=== PATIENT | male | born 1940 | race African-American/Black ===

== ENCOUNTER → 2016-07-05 | Outpatient (CLI) | payer MEDICARE, BC ==
[2016-05-22 10:43] VITALS: BP 166/64
[~2016-07-05] MED LIST: ALPR0.5T PO; AMLO2.5T2 PO; BUDE10.2 IH; CHOL500021 PO; DABI150C PO; DABI75CA3 PO; FOLI0.4T2 PO; FURO40TA4 PO; HYDR-2868 PO; HYDR-971 PO; LABE200T2 PO; LISI2.5T PO; LORA0.5T PO; METO25TA4 PO; MONT10TA9 PO; POTA10TA10 PO; PRED-220 PO; PROAIR HFA8.5 GM IH; RANI300T3 PO; RANI75TA95 PO; SODI650T PO; SOTA80TA PO; VALS320T2 PO
--- NOTE | 2016-07-05 16:43 | CARD ---
APPROVED REPORT EXAM: Two-dimensional and M-mode echocardiogram with Doppler and color Doppler. Other Information Quality : GoodHR: 75bpm Rhythm : Atrial Fibrillation INDICATION Atrial Fibrillation RISK FACTORS Hypertension 2D DIMENSIONS RVDd2.9 (2.9-3.5cm)Left Atrium(2D)4.2 (1.6-4.0cm) IVSd0.7 (0.7-1.1cm)Aortic Root(2D)2.8 (2.0-3.7cm) LVDd5.6 (3.9-5.9cm)LVOT Diameter2.4 (1.8-2.4cm) PWd0.7 (0.7-1.1cm)LVDs3.3 (2.5-4.0cm) FS (%) 40.3 %SV106.7 ml Aortic Valve AoV Peak Trevin.137.7cm/sAoV VTI24.4cm AO Peak GR.7.6mmHgLVOT Peak Trevin.101.5cm/s AO Mean GR.5mmHgAVA (VMAX)3.25cm2 Mitral Valve MV E Peak Gr.152mmHgMV E Mean Gr.2mmHg Pulmonary Valve PV Peak Cxkmhxvc074.9cm/s Tricuspid Valve TR P. [id number]/sTR Peak Gr.36mmHg LEFT VENTRICLE The left ventricle is normal size. There is normal left ventricular wall thickness. The left ventricu lar systolic function is normal and the ejection fraction is within normal range. The Ejection Fracti on is 60-65%. There is normal LV segmental wall motion. RIGHT VENTRICLE The right ventricle is normal size. There is normal right ventricular wall thickness. The right ventr icular systolic function is normal. There is a device lead in the right atrium and ventricle. ATRIA The left atrium is moderately dilated. The right atrium is mildly dilated. The interatrial septum is intact with no evidence for an atrial septal defect or patent foramen ovale as noted on 2-D or Dopple r imaging. AORTIC VALVE The aortic valve is calcified but opens well. The aortic valve is trileaflet. Doppler and Color Flow revealed trace aortic regurgitation. There is no significant aortic valvular stenosis. MITRAL VALVE The mitral valve is normal in structure. The mitral valve leaflets are thickened. There is no mitral valve stenosis. Doppler and Color Flow revealed moderate mitral regurgitation. TRICUSPID VALVE The tricuspid valve is normal in structure and function. Doppler and Color Flow revealed mild tricusp id regurgitation. The pulmonary artery systolic pressure is estimated at 38 mmHg. PULMONIC VALVE The pulmonary valve is normal in structure and function. Doppler and Color Flow revealed mild pulmoni c valvular regurgitation. There is no pulmonic valvular stenosis. GREAT VESSELS The aortic root is normal in size. The ascending aorta is normal in size. The pulmonary artery is nor mal. The IVC is normal in size and collapses >50% with inspiration. PERICARDIAL EFFUSION There is no pleural effusion. There is no evidence of significant pericardial effusion. Critical Notification Critical Value: No <Conclusion> The left ventricle is normal size. The left ventricular systolic function is normal and the ejection fraction is within normal range. The Ejection Fraction is 60-65%. There is a device lead in the right atrium and ventricle. There is no significant aortic valvular stenosis. Doppler and Color Flow revealed trace aortic regurgitation. Doppler and Color Flow revealed moderate mitral regurgitation. Doppler and Color Flow revealed mild tricuspid regurgitation. The pulmonary artery systolic pressure is estimated at 38 mmHg.
== END | disposition home or self-care (01) ==
LOC: ECHO 12:58
PROVIDERS: ATTEND Internal Medicine Cardiovascular Disease
DX: I48.0 Paroxysmal atrial fibrillation (principal); I35.1 Nonrheumatic aortic (valve) insufficiency; I70.0 Atherosclerosis of aorta; I34.0 Nonrheumatic mitral (valve) insufficiency; I07.1 Rheumatic tricuspid insufficiency; I37.1 Nonrheumatic pulmonary valve insufficiency
CPT/HCPCS: 93306

== ENCOUNTER 2017-02-01 16:32 | Inpatient (IN) | payer MEDICARE, BC ==
[~2017-02-01] VITALS: Ht 185.4 cm; Wt 74.9 kg
[~2017-02-01 16:32] MED LIST changes: -POTA10TA10 PO; +POTA10TA12 PO; -SOTA80TA PO; +SOTA80TA48 PO
[2017-02-01 17:51] LABS: BILIRUBIN,URINE NEGATIVE (NEG); GLUCOSE,URINE 100 mg/dL (NEG); NITRITE,URINE NEGATIVE (NEG); PROTEIN,URINE 100 mg/dL (NEG-TRACE); UROBILINOGEN,URINE 0.2 mg/dL (0.2 mg/dL)
[2017-02-01 17:54] LABS: BASO % 1 % (0-3); EOS % 4 % (0-3); HEMATOCRIT 35.3 % (39.0-53.0); HEMOGLOBIN 11.5 g/dL (13.0-17.5); LYMPH # 1.2 x10^3/uL (1.0-4.8); LYMPH % 26 % (24-48); MEAN CORPUSCULAR HEMOGLOBIN 31 pg (25-35); MEAN CORPUSCULAR HGB CONC 33 g/dL (31-37); MEAN CORPUSCULAR VOLUME 94 fL (79-100); MONO % 13 % (0-9); NEUT % 56 % (31-73); PLATELET COUNT 165 x10^3/uL (140-400); RED BLOOD COUNT 3.76 x10^6/uL (4.30-5.70); WHITE BLOOD COUNT 4.6 x10^3/uL (4.0-11.0)
[2017-02-01 18:01] LABS: BACTERIA,URINE 0 /HPF (0-FEW); RBC,URINE OCC /HPF (0-2); SQUAMOUS EPITHELIAL CELL,UR OCC /LPF; WBC,URINE OCC /HPF (0-4)
[2017-02-01 18:08] LABS: CALCIUM 9.4 mg/dL (8.5-10.1); CREATININE 9.5 mg/dL (0.7-1.3); GFR 6.5
[2017-02-01 18:14] LABS: ALBUMIN 2.6 g/dL (3.4-5.0); ALBUMIN/GLOBULIN RATIO 0.6 (1.0-1.7); TOTAL BILIRUBIN 0.3 mg/dL (0.2-1.0); TOTAL PROTEIN 7.1 g/dL (6.4-8.2)
--- NOTE | 2017-02-01 20:45 | ED.ADGEN ---
Past Medical History Past Medical History: Anxiety, Asthma, GERD, Hypertension, Renal Failure, Other Additional Past Medical Histor: GOUT Past Surgical History: Pacemaker Alcohol Use: Rarely Drug Use: None Adult General Chief Complaint Chief Complaint: DEHYDRATION HPI HPI Patient is a 76 year old -[place] male with history of hypertension, end-stage renal disease on daily peritoneal dialysis who presents with generalized weakness, dizziness, malaise and near syncope. Symptoms are worse upon standing and with position change. Patient symptoms have been ongoing for the past 3 weeks and have been worse the past 2 days. Patient denies chest pain , shortness of breath, palpitations, headache, change of vision, focal extremity weakness or loss of sensation. He denies fever, chills, nausea, vomiting and sweats. Patient makes urine to 3 times daily and denies change in output. Urinary frequency urgency. Patient reports peritoneal equal volumes of pre and post dialysate volumes. Patient's marketing coordinator is Dr. Roa. Review of Systems Review of Systems ROS as per HPI. Allergies Allergies Allergies Coded Allergies Type Severity Reaction Last Updated Verified No Known Drug Allergies 05/22/16 No Physical Exam Physical Exam Constitutional: Well developed, well nourished, no acute distress, non-toxic appearance. [] HENT: Normocephalic, atraumatic, bilateral external ears normal, oropharynx moist, no oral exudates, nose normal. [] Eyes: PERRLA, EOMI, conjunctiva normal, no discharge. [] Neck: Normal range of motion, no tenderness, supple, no stridor. [] Cardiovascular:Heart rate regular rhythm, no murmur [] Lungs & Thorax: Bilateral breath sounds clear to auscultation [] Abdomen: Bowel sounds normal, soft, no tenderness, no masses, no pulsatile masses. [] Skin: Warm, dry, no erythema, no rash. [] Back: No tenderness, no CVA tenderness. [] Extremities: No tenderness, no cyanosis, no clubbing, ROM intact, no edema. [] Neurologic: Alert and oriented X 3, normal motor function, normal sensory function, no focal deficits noted. [] Psychologic: Affect normal, judgement normal, mood normal. [] Current Patient Data Vital Signs Vital Signs Date Time Temp Pulse Resp B/P (MAP) Pulse Ox O2 Delivery O2 Flow Rate FiO2 02/01/17 20:45 60 169/89 (115) 98 Room Air 02/01/17 16:35 98.2 16 98.2 Lab Values Laboratory Tests Test 02/01/17 17:07 02/01/17 17:41 02/01/17 17:55 White Blood Count 4.6 x10^3/uL (4.0-11.0) Red Blood Count 3.76 x10^6/uL (4.30-5.70) L Hemoglobin 11.5 g/dL (13.0-17.5) L Hematocrit 35.3 % (39.0-53.0) L Mean Corpuscular Volume 94 fL (79-100) Mean Corpuscular Hemoglobin 31 pg (25-35) Mean Corpuscular Hemoglobin Concent 33 g/dL (31-37) Red Cell Distribution Width 18.0 % (11.5-14.5) H Platelet Count 165 x10^3/uL (140-400) Neutrophils (%) (Auto) 56 % (31-73) Lymphocytes (%) (Auto) 26 % (24-48) Monocytes (%) (Auto) 13 % (0-9) H Eosinophils (%) (Auto) 4 % (0-3) H Basophils (%) (Auto) 1 % (0-3) Neutrophils # (Auto) 2.6 x10^3uL (1.8-7.7) Lymphocytes # (Auto) 1.2 x10^3/uL (1.0-4.8) Monocytes # (Auto) 0.6 x10^3/uL (0.0-1.1) Eosinophils # (Auto) 0.2 x10^3/uL (0.0-0.7) Basophils # (Auto) 0.0 x10^3/uL (0.0-0.2) Urine Color Yellow Urine Clarity Clear Urine pH 7.0 Urine Specific [place] 1.015 Urine Protein 100 mg/dL (NEG-TRACE) Urine Glucose (UA) 100 mg/dL (NEG) Urine Ketones (Stick) Negative mg/dL (NEG) Urine Blood Negative (NEG) Urine Nitrite Negative (NEG) Urine Bilirubin Negative (NEG) Urine Urobilinogen Dipstick 0.2 mg/dL (0.2 mg/dL) Urine Leukocyte Esterase Negative (NEG) Urine RBC Occ /HPF (0-2) Urine WBC Occ /HPF (0-4) Urine Squamous Epithelial Cells Occ /LPF Urine Bacteria 0 /HPF (0-FEW) Sodium Level 142 mmol/L (136-145) Potassium Level 4.0 mmol/L (3.5-5.1) Chloride Level 105 mmol/L (98-107) Carbon Dioxide Level 28 mmol/L (21-32) Anion Gap 9 (6-14) Blood Urea Nitrogen 59 mg/dL (8-26) H Creatinine 9.5 mg/dL (0.7-1.3) H Estimated GFR (Cockcroft-Gault) 6.5 BUN/Creatinine Ratio 6 (6-20) Glucose Level 115 mg/dL (70-99) H Calcium Level 9.4 mg/dL (8.5-10.1) Total Bilirubin 0.3 mg/dL (0.2-1.0) Aspartate Amino Transferase (AST) 20 U/L (15-37) Alanine Aminotransferase (ALT) 18 U/L (16-63) Alkaline Phosphatase 61 U/L (46-116) Total Protein 7.1 g/dL (6.4-8.2) Albumin 2.6 g/dL (3.4-5.0) L Albumin/Globulin Ratio 0.6 (1.0-1.7) L Laboratory Tests 02/01/17 17:07 Laboratory Tests 02/01/17 17:55 EKG EKG [EKG: A. fib, right axis deviation, bifascicular block, ventricular rate 60.] Radiology/Procedures Radiology/Procedures [] Course & Med Decision Making Course & Med Decision Making Pertinent Labs and Imaging studies reviewed. (See chart for details) [Patient with dizziness with near syncope prior to arrival. Patient with acute on chronic kidney failure with orthostatic dizziness. Case reviewed with Dr. Lopez communications consultant for nephrology. Recommendations are for IV fluids, hospital admission and nephrology consult in a.m.. Dr. Meyer to admit. ] Geronimo Disclaimer Geronimo Disclaimer This electronic medical record was generated, in whole or in part, using a voice recognition dictation system. KHAI BENITEZ DO Feb 01, 2017 20:45
[2017-02-01] MEDS ORDERED: ONDANSETRON PF 4 MG/2 ML VIAL. IV PRN (21:45)
[2017-02-01] MEDS ORDERED: IV NORMAL SALINE 1000ML BAG 1,000 ML IV ONE (22:00)
[2017-02-02] VITALS (8 sets, daily range): BP systolic 151–186; BP diastolic 84–95
[2017-02-02] MEDS ORDERED: ALLO100T PO (01:15)
[2017-02-02] MEDS ORDERED: SEVE800T9 PO (01:15)
[2017-02-02] MEDS ORDERED: GENT3.5O7 (01:15)
[2017-02-02] MEDS ORDERED: FURO80TA3 PO (01:15)
[2017-02-02] MEDS ORDERED: DILT240C4 PO (01:15)
[2017-02-02] MEDS ORDERED: ATEN100T PO (01:15)
--- NOTE | 2017-02-02 06:26 | EKG ---
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
[2017-02-02 06:49] LABS: BASO % 0 % (0-3); EOS % 4 % (0-3); HEMOGLOBIN 11.3 g/dL (13.0-17.5); LYMPH # 1.1 x10^3/uL (1.0-4.8); LYMPH % 26 % (24-48); MEAN CORPUSCULAR HEMOGLOBIN 31 pg (25-35); MEAN CORPUSCULAR HGB CONC 33 g/dL (31-37); MEAN CORPUSCULAR VOLUME 93 fL (79-100); MONO % 16 % (0-9); NEUT % 54 % (31-73); PLATELET COUNT 141 x10^3/uL (140-400); RED BLOOD COUNT 3.67 x10^6/uL (4.30-5.70); WHITE BLOOD COUNT 4.4 x10^3/uL (4.0-11.0)
[2017-02-02 07:05] LABS: CALCIUM 9.8 mg/dL (8.5-10.1); CREATININE 8.9 mg/dL (0.7-1.3); POTASSIUM 4.4 mmol/L (3.5-5.1)
[2017-02-02] MEDS ORDERED: HYDROcodone/APAP 5/325MG 1 TAB TABLET PO PRN (09:00)
[2017-02-02] MEDS ORDERED: hydrALAZINE 20 MG/ML VIAL. IVP PRN (09:00)
[2017-02-02] MEDS ORDERED: ONDANSETRON PF 4 MG/2 ML VIAL. IV PRN (09:00)
[2017-02-02] MEDS ORDERED: MORPHINE SULFATE 2 MG/ML DISP.SYRIN. IV PRN (09:00)
[2017-02-02] MEDS: LOSARTAN POTASSIUM 50 MG TABLET. PO SCH (10:29)
[2017-02-02] MEDS: MONTELUKAST SODIUM 10 MG TABLET. PO SCH (10:31)
[2017-02-02] MEDS: ALLOPURINOL 100 MG TABLET. PO SCH (10:31)
[2017-02-02] MEDS: ATENOLOL 50 MG TABLET. PO SCH (10:31)
[2017-02-02] MEDS ORDERED: ALBUTEROL SULFATE 2.5 MG/3 ML NEBU. NEB PRN (12:15)
--- NOTE | 2017-02-02 12:18 | PDOC1 ---
History and Physical Date of Admission Date of Admission 02/02/17 Identification/Chief Complaint Chief Complaint weakness, unsteady gait Problems: Source Source: Chart review, Patient History of Present Illness History of Present Illness HPI HPI Patient is a 76 year old -[place] male with history of hypertension, end-stage renal disease on PD came to ER for generalized weakness. Very independent living at home with . Pt said he has been feeling generalized weakness for weeks, feels dehydrated, lightheaded, unsteady gait. Denies syncope. He did fall at home a few times, said 2/2 weakness and trippling objects. has mild cough, denies sob, chest pain, fever, chills, diarrhea. chronic constipation. + weight loss with low po intake recently. Still has urine output, but cannot tell me how much daily. he was told to Come to ER since Cr is high at 9. Patient's hiv nurse is Dr. Roa. h/o afib, has PPM, not AC. Past Medical History Cardiovascular: AFIB, HTN, Other Pulmonary: COPD, Other GI: GERD Heme/Onc: Anemia NOS Rheumatologic: Gout Renal/: Chronic renal insuff, Prostate Ca. Past Surgical History Past Surgical History: No pertinent history Family History Family History: Hypertension Social History Smoke: No ALCOHOL: occassional Drugs: None Current Medications Current Medications Current Medications Medications (Trade) Dose Ordered Sig/Pete Start Time Stop Time Status Last Admin Dose Admin Acetaminophen (Tylenol) 650 mg PRN Q6HRS PRN 02/02/17 09:00 Acetaminophen/ Hydrocodone Bitart (Lortab 5/325) 1 tab PRN Q6HRS PRN 02/02/17 09:00 Allopurinol (Zyloprim) 75 mg DAILY 02/02/17 09:00 02/02/17 10:31 75 MG Atenolol (Tenormin) 100 mg DAILY 02/02/17 10:00 02/02/17 10:31 100 MG Diltiazem HCl (Cardizem 24hr Cd) 240 mg DAILY 02/02/17 10:00 02/02/17 10:30 240 MG Docusate Sodium (Colace) 100 mg PRN DAILY PRN 02/02/17 09:00 Hydralazine HCl (Apresoline) 10 mg PRN Q4HRS PRN 02/02/17 09:00 Lorazepam (Ativan) 0.5 mg PRN Q8HRS PRN 02/02/17 09:00 Losartan Potassium (Cozaar) 100 mg DAILY 02/02/17 10:00 02/02/17 10:29 100 MG Montelukast Sodium (Singulair) 10 mg DAILY 02/02/17 09:00 02/02/17 10:31 10 MG Morphine Sulfate 2 mg PRN Q2HR PRN 02/02/17 09:00 Ondansetron HCl (Zofran) 4 mg PRN Q6HRS PRN 02/02/17 09:00 Sevelamer Carbonate (Renvela) 800 mg TIDWMEALS 02/02/17 12:00 Sodium Chloride 1,000 ml @ 125 mls/hr 1X ONCE 02/01/17 22:00 02/02/17 05:59 DC 02/01/17 22:16 125 MLS/HR Tramadol HCl (Ultram) 50 mg PRN Q6HRS PRN 02/02/17 09:00 Allergies Allergies Allergies Coded Allergies Type Severity Reaction Last Updated Verified No Known Drug Allergies 05/22/16 No ROS Review of System CONSTITUTIONAL: No fever or chills EYES: No recent changes SKIN: No rash or itching CARDIOVASCULAR: No chest pain, syncope, palpitations, or edema RESPIRATORY: No SOB or cough GASTROINTESTINAL: No nausea, vomiting or abdominal pain NEUROLOGICAL: No headaches or weakness ENDOCRINE: No cold or heat intolerance GENITOURINARY: No urgency or frequency of urination MUSCULOSKELETAL: No back pain or joint pain LYMPHATICS: No enlarged lymph nodes PSYCHIATRIC: No anxiety or depression Physical Exam Physical Exam GEN.: No apparent distress. Alert and oriented. HEENT: Head is normocephalic, atraumatic NECK: Supple. LUNGS: Clear to auscultation. HEART: RRR, S1, S2 present. Peripheral pulses intact ABDOMEN: Soft, nontender. Positive bowel sounds. PD cath in place. EXTREMITIES: Without any cyanosis. NEUROLOGIC: Normal speech, normal tone PSYCHIATRIC: Normal affect, normal mood. SKIN: No ulcerations Vitals Vitals Vital Signs Date Time Temp Pulse Resp B/P (MAP) Pulse Ox O2 Delivery O2 Flow Rate FiO2 02/02/17 10:35 60 151/95 (113) 02/02/17 10:25 98.7 18 97 Room Air 98.7 Labs Labs Laboratory Tests Test 02/01/17 17:07 02/01/17 17:41 02/01/17 17:55 02/02/17 06:15 White Blood Count 4.6 x10^3/uL (4.0-11.0) 4.4 x10^3/uL (4.0-11.0) Red Blood Count 3.76 x10^6/uL (4.30-5.70) 3.67 x10^6/uL (4.30-5.70) Hemoglobin 11.5 g/dL (13.0-17.5) 11.3 g/dL (13.0-17.5) Hematocrit 35.3 % (39.0-53.0) 34.0 % (39.0-53.0) Mean Corpuscular Volume 94 fL (79-100) 93 fL (79-100) Mean Corpuscular Hemoglobin 31 pg (25-35) 31 pg (25-35) Mean Corpuscular Hemoglobin Concent 33 g/dL (31-37) 33 g/dL (31-37) Red Cell Distribution Width 18.0 % (11.5-14.5) 18.0 % (11.5-14.5) Platelet Count 165 x10^3/uL (140-400) 141 x10^3/uL (140-400) Neutrophils (%) (Auto) 56 % (31-73) 54 % (31-73) Lymphocytes (%) (Auto) 26 % (24-48) 26 % (24-48) Monocytes (%) (Auto) 13 % (0-9) 16 % (0-9) Eosinophils (%) (Auto) 4 % (0-3) 4 % (0-3) Basophils (%) (Auto) 1 % (0-3) 0 % (0-3) Neutrophils # (Auto) 2.6 x10^3uL (1.8-7.7) 2.3 x10^3uL (1.8-7.7) Lymphocytes # (Auto) 1.2 x10^3/uL (1.0-4.8) 1.1 x10^3/uL (1.0-4.8) Monocytes # (Auto) 0.6 x10^3/uL (0.0-1.1) 0.7 x10^3/uL (0.0-1.1) Eosinophils # (Auto) 0.2 x10^3/uL (0.0-0.7) 0.2 x10^3/uL (0.0-0.7) Basophils # (Auto) 0.0 x10^3/uL (0.0-0.2) 0.0 x10^3/uL (0.0-0.2) Urine Color Yellow Urine Clarity Clear Urine pH 7.0 Urine Specific [place] 1.015 Urine Protein 100 mg/dL (NEG-TRACE) Urine Glucose (UA) 100 mg/dL (NEG) Urine Ketones (Stick) Negative mg/dL (NEG) Urine Blood Negative (NEG) Urine Nitrite Negative (NEG) Urine Bilirubin Negative (NEG) Urine Urobilinogen Dipstick 0.2 mg/dL (0.2 mg/dL) Urine Leukocyte Esterase Negative (NEG) Urine RBC Occ /HPF (0-2) Urine WBC Occ /HPF (0-4) Urine Squamous Epithelial Cells Occ /LPF Urine Bacteria 0 /HPF (0-FEW) Sodium Level 142 mmol/L (136-145) 139 mmol/L (136-145) Potassium Level 4.0 mmol/L (3.5-5.1) 4.4 mmol/L (3.5-5.1) Chloride Level 105 mmol/L (98-107) 104 mmol/L (98-107) Carbon Dioxide Level 28 mmol/L (21-32) 24 mmol/L (21-32) Anion Gap 9 (6-14) 11 (6-14) Blood Urea Nitrogen 59 mg/dL (8-26) 64 mg/dL (8-26) Creatinine 9.5 mg/dL (0.7-1.3) 8.9 mg/dL (0.7-1.3) Estimated GFR (Cockcroft-Gault) 6.5 7.0 BUN/Creatinine Ratio 6 (6-20) Glucose Level 115 mg/dL (70-99) 126 mg/dL (70-99) Calcium Level 9.4 mg/dL (8.5-10.1) 9.8 mg/dL (8.5-10.1) Total Bilirubin 0.3 mg/dL (0.2-1.0) Aspartate Amino Transf (AST/SGOT) 20 U/L (15-37) Alanine Aminotransferase (ALT/SGPT) 18 U/L (16-63) Alkaline Phosphatase 61 U/L (46-116) Total Protein 7.1 g/dL (6.4-8.2) Albumin 2.6 g/dL (3.4-5.0) Albumin/Globulin Ratio 0.6 (1.0-1.7) Laboratory Tests Test 02/01/17 17:07 02/01/17 17:41 02/01/17 17:55 02/02/17 06:15 White Blood Count 4.6 x10^3/uL (4.0-11.0) 4.4 x10^3/uL (4.0-11.0) Red Blood Count 3.76 x10^6/uL (4.30-5.70) 3.67 x10^6/uL (4.30-5.70) Hemoglobin 11.5 g/dL (13.0-17.5) 11.3 g/dL (13.0-17.5) Hematocrit 35.3 % (39.0-53.0) 34.0 % (39.0-53.0) Mean Corpuscular Volume 94 fL (79-100) 93 fL (79-100) Mean Corpuscular Hemoglobin 31 pg (25-35) 31 pg (25-35) Mean Corpuscular Hemoglobin Concent 33 g/dL (31-37) 33 g/dL (31-37) Red Cell Distribution Width 18.0 % (11.5-14.5) 18.0 % (11.5-14.5) Platelet Count 165 x10^3/uL (140-400) 141 x10^3/uL (140-400) Neutrophils (%) (Auto) 56 % (31-73) 54 % (31-73) Lymphocytes (%) (Auto) 26 % (24-48) 26 % (24-48) Monocytes (%) (Auto) 13 % (0-9) 16 % (0-9) Eosinophils (%) (Auto) 4 % (0-3) 4 % (0-3) Basophils (%) (Auto) 1 % (0-3) 0 % (0-3) Neutrophils # (Auto) 2.6 x10^3uL (1.8-7.7) 2.3 x10^3uL (1.8-7.7) Lymphocytes # (Auto) 1.2 x10^3/uL (1.0-4.8) 1.1 x10^3/uL (1.0-4.8) Monocytes # (Auto) 0.6 x10^3/uL (0.0-1.1) 0.7 x10^3/uL (0.0-1.1) Eosinophils # (Auto) 0.2 x10^3/uL (0.0-0.7) 0.2 x10^3/uL (0.0-0.7) Basophils # (Auto) 0.0 x10^3/uL (0.0-0.2) 0.0 x10^3/uL (0.0-0.2) Urine Color Yellow Urine Clarity Clear Urine pH 7.0 Urine Specific [place] 1.015 Urine Protein 100 mg/dL (NEG-TRACE) Urine Glucose (UA) 100 mg/dL (NEG) Urine Ketones (Stick) Negative mg/dL (NEG) Urine Blood Negative (NEG) Urine Nitrite Negative (NEG) Urine Bilirubin Negative (NEG) Urine Urobilinogen Dipstick 0.2 mg/dL (0.2 mg/dL) Urine Leukocyte Esterase Negative (NEG) Urine RBC Occ /HPF (0-2) Urine WBC Occ /HPF (0-4) Urine Squamous Epithelial Cells Occ /LPF Urine Bacteria 0 /HPF (0-FEW) Sodium Level 142 mmol/L (136-145) 139 mmol/L (136-145) Potassium Level 4.0 mmol/L (3.5-5.1) 4.4 mmol/L (3.5-5.1) Chloride Level 105 mmol/L (98-107) 104 mmol/L (98-107) Carbon Dioxide Level 28 mmol/L (21-32) 24 mmol/L (21-32) Anion Gap 9 (6-14) 11 (6-14) Blood Urea Nitrogen 59 mg/dL (8-26) 64 mg/dL (8-26) Creatinine 9.5 mg/dL (0.7-1.3) 8.9 mg/dL (0.7-1.3) Estimated GFR (Cockcroft-Gault) 6.5 7.0 BUN/Creatinine Ratio 6 (6-20) Glucose Level 115 mg/dL (70-99) 126 mg/dL (70-99) Calcium Level 9.4 mg/dL (8.5-10.1) 9.8 mg/dL (8.5-10.1) Total Bilirubin 0.3 mg/dL (0.2-1.0) Aspartate Amino Transf (AST/SGOT) 20 U/L (15-37) Alanine Aminotransferase (ALT/SGPT) 18 U/L (16-63) Alkaline Phosphatase 61 U/L (46-116) Total Protein 7.1 g/dL (6.4-8.2) Albumin 2.6 g/dL (3.4-5.0) Albumin/Globulin Ratio 0.6 (1.0-1.7) VTE Prophylaxis Ordered VTE Prophylaxis Devices: Yes VTE Pharmacological Prophylaxi: Yes Assessment/Plan Assessment/Plan generalized weakness with ESRD ESRD on PD daily htn PAFIB, no AC, PPM GERD ASthma, sarcoidosis dehydration weight loss with low appetite plan: renal consult need change PD condition or short term of HD? cont home meds, hold lasix for now. on ivf labs daily pt refuses PTOT for now DVT ppx check orthostatic BP talked to son at bedside. albuterol MELE Alba MD Feb 02, 2017 12:18
[2017-02-02] MEDS: SEVELAMER CARBONATE 800 MG TABLET. PO SCH ×2 (13:55→17:33)
[2017-02-02] MEDS: HEPARIN PF for SUB-Q USE 5,000 UNIT/0.5 ML VIAL. SQ SCH ×2 (14:04→21:18)
--- NOTE | 2017-02-03 00:22 | ACF ---
Admission Forms Criteria RENAL FAILURE, CHRONIC Clinical Indications for Admission to Inpatient Care (Place 'X' for any and all applicable criteria): Admission is indicated for ANY ONE of the following (1)(2)(3)(4)(5): [ ]I. Inpatient admission required rather than observation care (Use Renal Failure, Chronic: Observation Care Criteria as appropriate) because of ANY ONE of the following: [ ]a) Volume overload or uremic symptoms (eg, clinically significant pulmonary edema, hypertension, pericarditis, acidosis) too severe for, or not responsive (eg, for over 24 hours) to emergency department or observation care dialysis or treatment regimen (11) [ ]b) Hemodynamic instability that is severe or persistent [ ]c) Respiratory distress that is severe or persistent (11) [ ]d) Clinically significant electrolyte abnormality that requires inpatient care (eg,hyperkalemia with severe ECG findings)[B] [ ]e) Supplement O2 or respiratory therapy for over 24hrs that is performable only in acute inpatient setting [ ]f) Continuous IV infusion of anticoagulation, platelet inhibitor, vasoactive, or Antiarrhythmic medication (15), [ ]g) Pulmonary artery catheter monitoring [ ]h) Temporary pacemaker placement [ ]i) Emergent pericardiocentesis [ ]j) Other condition, treatment or monitoring requiring inpatient admission [X]II. Unexplained syncope [A] [ ]III. Recurrent seizures [ ]IV. Severe infections not treatable in outpatient setting (eg, peritonitis)(9 ) [ ]V. Cardiac arrhythmias of immediate concern [ ]. Encephalopathy [ ]VII.Bleeding abnormalities (eg, platelet dysfunction) with active (eg, gastrointestinal) bleeding Extended stay beyond goal length of stay may be needed for (3)(4)(35)(36): [ ]a) Continuing uremic complications [ ]b) Comorbidities or complications The original [facility] content created by [employer] has been revised. The portions of the content which have been revised are identified through the use of italic text or in bold, and [facility] has neither reviewed nor approved the modified material. All other unmodified content is copyright [employer]. Please see references footnoted in the original [facility] edition 2016 Admission Criteria Met?: Yes JAVIER EATON Feb 03, 2017 00:22
[2017-02-03] MEDS ORDERED: POLY17PO29 PO (02:33)
[2017-02-03] MEDS: DOCUSATE SODIUM 100 MG CAPSULE. PO PRN (02:37)
[2017-02-03] MEDS: LORazepam 0.5 MG TABLET PO PRN ×2 (02:43→21:58)
[2017-02-03] MEDS: traMADol 50 MG TABLET PO PRN ×2 (02:43→21:58)
[2017-02-03] MEDS: ACETAMINOPHEN 325 MG TABLET. PO PRN ×2 (02:43→21:58)
[2017-02-03 06:03] LABS: BASO % 1 % (0-3); EOS % 4 % (0-3); HEMATOCRIT 34.3 % (39.0-53.0); HEMOGLOBIN 11.5 g/dL (13.0-17.5); LYMPH # 1.3 x10^3/uL (1.0-4.8); LYMPH % 27 % (24-48); MEAN CORPUSCULAR HEMOGLOBIN 31 pg (25-35); MEAN CORPUSCULAR HGB CONC 34 g/dL (31-37); MEAN CORPUSCULAR VOLUME 93 fL (79-100); MONO % 14 % (0-9); NEUT % 54 % (31-73); PLATELET COUNT 146 x10^3/uL (140-400); RED CELL DISTRIBUTION WIDTH 18.4 % (11.5-14.5); WHITE BLOOD COUNT 4.7 x10^3/uL (4.0-11.0)
[2017-02-03] MEDS: HEPARIN PF for SUB-Q USE 5,000 UNIT/0.5 ML VIAL. SQ SCH ×3 (06:08→22:02)
[2017-02-03 06:19] LABS: CALCIUM 10.1 mg/dL (8.5-10.1); CREATININE 9.1 mg/dL (0.7-1.3); GFR 6.9; POTASSIUM 4.7 mmol/L (3.5-5.1)
[2017-02-03 07:24] VITALS: BP 166/85
[2017-02-03] MEDS: LOSARTAN POTASSIUM 50 MG TABLET. PO SCH (08:27)
[2017-02-03] MEDS: SEVELAMER CARBONATE 800 MG TABLET. PO SCH ×3 (08:27→16:58)
[2017-02-03] MEDS: MONTELUKAST SODIUM 10 MG TABLET. PO SCH (08:28)
[2017-02-03] MEDS: ALLOPURINOL 100 MG TABLET. PO SCH (08:28)
[2017-02-03] MEDS: ATENOLOL 50 MG TABLET. PO SCH (08:28)
[2017-02-03 10:47] VITALS: BP 181/90
--- NOTE | 2017-02-03 14:41 | PDOC ---
PROGRESS NOTES Chief Complaint Chief Complaint generalized weakness with ESRD ESRD on PD daily htn PAFIB, no AC, PPM GERD ASthma, sarcoidosis dehydration weight loss with low appetite chronic orthostatic hypotension plan: renal consulted, notes pending need change PD condition or short term of HD? cont home meds, hold lasix for now. dc ivf labs daily pt refuses PTOT for now DVT ppx check orthostatic BP talked to son at bedside. albuterol prn hope dc tmr History of Present Illness History of Present Illness as per pt, renal changed his pd Solution cr still high feels ok Vitals Vitals Vital Signs Date Time Temp Pulse Resp B/P (MAP) Pulse Ox O2 Delivery O2 Flow Rate FiO2 02/03/17 10:47 98.1 58 18 181/90 (120) 98 Room Air 98.1 Physical Exam General: Alert, Oriented X3, Cooperative Heart: Regular rate, Normal S1, Normal S2 Lungs: Clear Abdomen: Normal bowel sounds, Soft Extremities: No clubbing, No cyanosis Skin: No rashes Labs LABS Laboratory Tests Test 02/03/17 05:10 White Blood Count 4.7 x10^3/uL (4.0-11.0) Red Blood Count 3.70 x10^6/uL (4.30-5.70) Hemoglobin 11.5 g/dL (13.0-17.5) Hematocrit 34.3 % (39.0-53.0) Mean Corpuscular Volume 93 fL (79-100) Mean Corpuscular Hemoglobin 31 pg (25-35) Mean Corpuscular Hemoglobin Concent 34 g/dL (31-37) Red Cell Distribution Width 18.4 % (11.5-14.5) Platelet Count 146 x10^3/uL (140-400) Neutrophils (%) (Auto) 54 % (31-73) Lymphocytes (%) (Auto) 27 % (24-48) Monocytes (%) (Auto) 14 % (0-9) Eosinophils (%) (Auto) 4 % (0-3) Basophils (%) (Auto) 1 % (0-3) Neutrophils # (Auto) 2.5 x10^3uL (1.8-7.7) Lymphocytes # (Auto) 1.3 x10^3/uL (1.0-4.8) Monocytes # (Auto) 0.7 x10^3/uL (0.0-1.1) Eosinophils # (Auto) 0.2 x10^3/uL (0.0-0.7) Basophils # (Auto) 0.0 x10^3/uL (0.0-0.2) Sodium Level 137 mmol/L (136-145) Potassium Level 4.7 mmol/L (3.5-5.1) Chloride Level 103 mmol/L (98-107) Carbon Dioxide Level 22 mmol/L (21-32) Anion Gap 12 (6-14) Blood Urea Nitrogen 65 mg/dL (8-26) Creatinine 9.1 mg/dL (0.7-1.3) Estimated GFR (Cockcroft-Gault) 6.9 Glucose Level 110 mg/dL (70-99) Calcium Level 10.1 mg/dL (8.5-10.1) Review of Systems Review of Systems no fever, chills, sob or chest pain Comment Review of Relevant I have reviewed the following items russell (where applicable) has been applied. Labs Laboratory Tests Test 02/01/17 17:07 02/01/17 17:41 02/01/17 17:55 02/02/17 06:15 White Blood Count 4.6 x10^3/uL (4.0-11.0) 4.4 x10^3/uL (4.0-11.0) Red Blood Count 3.76 x10^6/uL (4.30-5.70) 3.67 x10^6/uL (4.30-5.70) Hemoglobin 11.5 g/dL (13.0-17.5) 11.3 g/dL (13.0-17.5) Hematocrit 35.3 % (39.0-53.0) 34.0 % (39.0-53.0) Mean Corpuscular Volume 94 fL (79-100) 93 fL (79-100) Mean Corpuscular Hemoglobin 31 pg (25-35) 31 pg (25-35) Mean Corpuscular Hemoglobin Concent 33 g/dL (31-37) 33 g/dL (31-37) Red Cell Distribution Width 18.0 % (11.5-14.5) 18.0 % (11.5-14.5) Platelet Count 165 x10^3/uL (140-400) 141 x10^3/uL (140-400) Neutrophils (%) (Auto) 56 % (31-73) 54 % (31-73) Lymphocytes (%) (Auto) 26 % (24-48) 26 % (24-48) Monocytes (%) (Auto) 13 % (0-9) 16 % (0-9) Eosinophils (%) (Auto) 4 % (0-3) 4 % (0-3) Basophils (%) (Auto) 1 % (0-3) 0 % (0-3) Neutrophils # (Auto) 2.6 x10^3uL (1.8-7.7) 2.3 x10^3uL (1.8-7.7) Lymphocytes # (Auto) 1.2 x10^3/uL (1.0-4.8) 1.1 x10^3/uL (1.0-4.8) Monocytes # (Auto) 0.6 x10^3/uL (0.0-1.1) 0.7 x10^3/uL (0.0-1.1) Eosinophils # (Auto) 0.2 x10^3/uL (0.0-0.7) 0.2 x10^3/uL (0.0-0.7) Basophils # (Auto) 0.0 x10^3/uL (0.0-0.2) 0.0 x10^3/uL (0.0-0.2) Urine Color Yellow Urine Clarity Clear Urine pH 7.0 Urine Specific [place] 1.015 Urine Protein 100 mg/dL (NEG-TRACE) Urine Glucose (UA) 100 mg/dL (NEG) Urine Ketones (Stick) Negative mg/dL (NEG) Urine Blood Negative (NEG) Urine Nitrite Negative (NEG) Urine Bilirubin Negative (NEG) Urine Urobilinogen Dipstick 0.2 mg/dL (0.2 mg/dL) Urine Leukocyte Esterase Negative (NEG) Urine RBC Occ /HPF (0-2) Urine WBC Occ /HPF (0-4) Urine Squamous Epithelial Cells Occ /LPF Urine Bacteria 0 /HPF (0-FEW) Sodium Level 142 mmol/L (136-145) 139 mmol/L (136-145) Potassium Level 4.0 mmol/L (3.5-5.1) 4.4 mmol/L (3.5-5.1) Chloride Level 105 mmol/L (98-107) 104 mmol/L (98-107) Carbon Dioxide Level 28 mmol/L (21-32) 24 mmol/L (21-32) Anion Gap 9 (6-14) 11 (6-14) Blood Urea Nitrogen 59 mg/dL (8-26) 64 mg/dL (8-26) Creatinine 9.5 mg/dL (0.7-1.3) 8.9 mg/dL (0.7-1.3) Estimated GFR (Cockcroft-Gault) 6.5 7.0 BUN/Creatinine Ratio 6 (6-20) Glucose Level 115 mg/dL (70-99) 126 mg/dL (70-99) Calcium Level 9.4 mg/dL (8.5-10.1) 9.8 mg/dL (8.5-10.1) Total Bilirubin 0.3 mg/dL (0.2-1.0) Aspartate Amino Transf (AST/SGOT) 20 U/L (15-37) Alanine Aminotransferase (ALT/SGPT) 18 U/L (16-63) Alkaline Phosphatase 61 U/L (46-116) Total Protein 7.1 g/dL (6.4-8.2) Albumin 2.6 g/dL (3.4-5.0) Albumin/Globulin Ratio 0.6 (1.0-1.7) Test 02/03/17 05:10 White Blood Count 4.7 x10^3/uL (4.0-11.0) Red Blood Count 3.70 x10^6/uL (4.30-5.70) Hemoglobin 11.5 g/dL (13.0-17.5) Hematocrit 34.3 % (39.0-53.0) Mean Corpuscular Volume 93 fL (79-100) Mean Corpuscular Hemoglobin 31 pg (25-35) Mean Corpuscular Hemoglobin Concent 34 g/dL (31-37) Red Cell Distribution Width 18.4 % (11.5-14.5) Platelet Count 146 x10^3/uL (140-400) Neutrophils (%) (Auto) 54 % (31-73) Lymphocytes (%) (Auto) 27 % (24-48) Monocytes (%) (Auto) 14 % (0-9) Eosinophils (%) (Auto) 4 % (0-3) Basophils (%) (Auto) 1 % (0-3) Neutrophils # (Auto) 2.5 x10^3uL (1.8-7.7) Lymphocytes # (Auto) 1.3 x10^3/uL (1.0-4.8) Monocytes # (Auto) 0.7 x10^3/uL (0.0-1.1) Eosinophils # (Auto) 0.2 x10^3/uL (0.0-0.7) Basophils # (Auto) 0.0 x10^3/uL (0.0-0.2) Sodium Level 137 mmol/L (136-145) Potassium Level 4.7 mmol/L (3.5-5.1) Chloride Level 103 mmol/L (98-107) Carbon Dioxide Level 22 mmol/L (21-32) Anion Gap 12 (6-14) Blood Urea Nitrogen 65 mg/dL (8-26) Creatinine 9.1 mg/dL (0.7-1.3) Estimated GFR (Cockcroft-Gault) 6.9 Glucose Level 110 mg/dL (70-99) Calcium Level 10.1 mg/dL (8.5-10.1) Laboratory Tests Test 02/03/17 05:10 White Blood Count 4.7 x10^3/uL (4.0-11.0) Red Blood Count 3.70 x10^6/uL (4.30-5.70) Hemoglobin 11.5 g/dL (13.0-17.5) Hematocrit 34.3 % (39.0-53.0) Mean Corpuscular Volume 93 fL (79-100) Mean Corpuscular Hemoglobin 31 pg (25-35) Mean Corpuscular Hemoglobin Concent 34 g/dL (31-37) Red Cell Distribution Width 18.4 % (11.5-14.5) Platelet Count 146 x10^3/uL (140-400) Neutrophils (%) (Auto) 54 % (31-73) Lymphocytes (%) (Auto) 27 % (24-48) Monocytes (%) (Auto) 14 % (0-9) Eosinophils (%) (Auto) 4 % (0-3) Basophils (%) (Auto) 1 % (0-3) Neutrophils # (Auto) 2.5 x10^3uL (1.8-7.7) Lymphocytes # (Auto) 1.3 x10^3/uL (1.0-4.8) Monocytes # (Auto) 0.7 x10^3/uL (0.0-1.1) Eosinophils # (Auto) 0.2 x10^3/uL (0.0-0.7) Basophils # (Auto) 0.0 x10^3/uL (0.0-0.2) Sodium Level 137 mmol/L (136-145) Potassium Level 4.7 mmol/L (3.5-5.1) Chloride Level 103 mmol/L (98-107) Carbon Dioxide Level 22 mmol/L (21-32) Anion Gap 12 (6-14) Blood Urea Nitrogen 65 mg/dL (8-26) Creatinine 9.1 mg/dL (0.7-1.3) Estimated GFR (Cockcroft-Gault) 6.9 Glucose Level 110 mg/dL (70-99) Calcium Level 10.1 mg/dL (8.5-10.1) Medications Current Medications Sodium Chloride 1,000 ml @ 125 mls/hr 1X ONCE IV Last administered on 22:16; Start 02/01/17 at 22:00; Stop 02/02/17 at 05:59; Status DC Ondansetron HCl (Zofran) 4 mg PRN Q8HRS PRN IV NAUSEA/VOMITING; Start 02/01/17 at 21:45; Stop 02/02/17 at 12:13; Status DC Allopurinol (Zyloprim) 75 mg DAILY PO Last administered on 02/03/17 08:28; Start 02/02/17 at 09:00 Acetaminophen/ Hydrocodone Bitart (Lortab 5/325) 1 tab PRN Q6HRS PRN PO MODERATE PAIN; Start 02/02/17 at 09:00 Lorazepam (Ativan) 0.5 mg PRN Q8HRS PRN PO ANXIETY Last administered on 02:43; Start 02/02/17 at 09:00 Montelukast Sodium (Singulair) 10 mg DAILY PO Last administered on 02/03/17 08: 28; Start 02/02/17 at 09:00 Sevelamer Carbonate (Renvela) 800 mg TIDWMEALS PO Last administered on 12:04; Start 02/02/17 at 12:00 Atenolol (Tenormin) 100 mg DAILY PO Last administered on 02/03/17 08:28; Start 02/02/17 at 10:00 Diltiazem HCl (Cardizem 24hr Cd) 240 mg DAILY PO Last administered on 02/02/17 10:30; Start 02/02/17 at 10:00 Losartan Potassium (Cozaar) 100 mg DAILY PO Last administered on 02/03/17 08:27 ; Start 02/02/17 at 10:00 Acetaminophen (Tylenol) 650 mg PRN Q6HRS PRN PO FEVER Last administered on 02:43; Start 02/02/17 at 09:00 Ondansetron HCl (Zofran) 4 mg PRN Q6HRS PRN IV NAUSEA/VOMITING; Start 02/02/17 at 09:00 Morphine Sulfate 2 mg PRN Q2HR PRN IV SEVERE PAIN; Start 02/02/17 at 09:00 Tramadol HCl (Ultram) 50 mg PRN Q6HRS PRN PO MILD PAIN Last administered on 02/03 02:43; Start 02/02/17 at 09:00 Hydralazine HCl (Apresoline) 10 mg PRN Q4HRS PRN IVP ELEVATED BP, SEE COMMENTS ; Start 02/02/17 at 09:00 Docusate Sodium (Colace) 100 mg PRN DAILY PRN PO CONSTIPATION Last administered on 02/03/17 02:37; Start 02/02/17 at 09:00 Heparin Sodium (Porcine) (Heparin Sq) 5,000 unit Q8HRS SQ Last administered on 02/03/17 06:08; Start 02/02/17 at 14:00 Albuterol Sulfate (Ventolin Neb Soln) 2.5 mg PRN Q4HRS PRN NEB SHORTNESS OF BREATH Last administered on 02/02/17 16:00; Start 02/02/17 at 12:15 Active Scripts Active Reported Miralax (Polyethylene Glycol 3350) 17 Gm Powd.pack 1 Pkt PO DAILY PRN Renvela (Sevelamer Carbonate) 800 Mg Tablet 800 Mg PO TIDWMEALS Gentamicin Sulfate 0.3% Ophth Oint (Gentamicin Sulfate) 3.5 Gm Oint...g. 1 [place] Furosemide 80 Mg Tablet 1 Tab PO DAILY Diltiazem Xt (Diltiazem Hcl) 240 Mg Capsule.er 240 Mg PO DAILY Atenolol 100 Mg Tablet 1 Tab PO DAILY Allopurinol 100 Mg Tablet 75 Mg PO DAILY [place] 5-325 Tablet (Acetaminophen/Hydrocodone Bitart) 1 Each Tablet 1-2 Tab PO Q4-6HRS Lorazepam 0.5 Mg Tablet 0.5 Mg PO PRN Q8HRS PRN Montelukast Sodium Tablet (Montelukast Sodium) 10 Mg Tablet 10 Mg PO DAILY Zantac (Ranitidine Hcl) 300 Mg Tablet 300 Mg PO Diovan (Valsartan) 320 Mg Tablet 320 Mg PO DAILY Vitals/I & O Vital Sign - Last 24 Hours 02/02/17 02/02/17 02/02/17 02/02/17 14:48 16:02 19:00 20:00 Temp 98.6 98.8 98.6 98.8 Pulse 57 60 Resp 18 18 B/P (MAP) 156/93 (114) 176/90 (118) Pulse Ox 100 97 95 O2 Delivery Room Air Room Air Room Air 02/02/17 02/03/17 02/03/17 02/03/17 23:00 02:43 05:11 07:24 Temp 98.5 98.4 98.5 98.4 Pulse 59 56 Resp 18 17 B/P (MAP) 175/91 (119) 166/85 (112) Pulse Ox 98 100 O2 Delivery Room Air Room Air Room Air 02/03/17 02/03/17 02/03/17 02/03/17 08:00 08:27 08:28 08:57 Pulse 56 56 56 B/P (MAP) 166/85 166/85 166/85 O2 Delivery Room Air 02/03/17 10:47 Temp 98.1 98.1 Pulse 58 Resp 18 B/P (MAP) 181/90 (120) Pulse Ox 98 O2 Delivery Room Air Intake and Output 02/02/17 02/02/17 02/03/17 15:00 23:00 07:00 Intake Total 120 ml 360 ml Balance 120 ml 360 ml MELE FLORES MD Feb 03, 2017 14:41
[2017-02-03 14:51] VITALS: BP 172/95
[2017-02-03 19:00] VITALS: BP 162/99
--- NOTE | 2017-02-03 21:48 | PDOC2 ---
CONSULT Date of Consult Date of Consult DATE: 02/02/17 TIME: 13:00 Reason for Consult Reason for Consult: ESRD History of Present Illness Reason for Visit: 76 yr old AA male ESRD due to HTN On PD Admitted with weakness, fatigue, dehydration. No CP, SOA No LEUNG Malaise. Some nausea. Diarrhea last week. No blood in bowels/urine. No fevers. Past Medical History Cardiovascular: AFIB, HTN, Other Pulmonary: COPD, Other GI: GERD Heme/Onc: Anemia NOS Musculoskeletal: Muscle atrophy, Weakness Rheumatologic: Gout Renal/: Chronic renal insuff, Prostate Ca. Past Surgical History Past Surgical History: No pertinent history Family History Family History: Hypertension Social History No ALCOHOL: occassional Drugs: None Lives: with Family Domestic Violence: Neg Current Medications Current Medications Current Medications Sodium Chloride 1,000 ml @ 125 mls/hr 1X ONCE IV Last administered on 22:16; Start 02/01/17 at 22:00; Stop 02/02/17 at 05:59; Status DC Ondansetron HCl (Zofran) 4 mg PRN Q8HRS PRN IV NAUSEA/VOMITING; Start 02/01/17 at 21:45; Stop 02/02/17 at 12:13; Status DC Allopurinol (Zyloprim) 75 mg DAILY PO Last administered on 02/03/17 08:28; Start 02/02/17 at 09:00 Acetaminophen/ Hydrocodone Bitart (Lortab 5/325) 1 tab PRN Q6HRS PRN PO MODERATE PAIN; Start 02/02/17 at 09:00 Lorazepam (Ativan) 0.5 mg PRN Q8HRS PRN PO ANXIETY Last administered on 02:43; Start 02/02/17 at 09:00 Montelukast Sodium (Singulair) 10 mg DAILY PO Last administered on 02/03/17 08: 28; Start 02/02/17 at 09:00 Sevelamer Carbonate (Renvela) 800 mg TIDWMEALS PO Last administered on 16:58; Start 02/02/17 at 12:00 Atenolol (Tenormin) 100 mg DAILY PO Last administered on 02/03/17 08:28; Start 02/02/17 at 10:00; Stop 02/03/17 at 15:30; Status DC Diltiazem HCl (Cardizem 24hr Cd) 240 mg DAILY PO Last administered on 02/02/17 10:30; Start 02/02/17 at 10:00 Losartan Potassium (Cozaar) 100 mg DAILY PO Last administered on 02/03/17 08:27 ; Start 02/02/17 at 10:00 Acetaminophen (Tylenol) 650 mg PRN Q6HRS PRN PO FEVER Last administered on 02:43; Start 02/02/17 at 09:00 Ondansetron HCl (Zofran) 4 mg PRN Q6HRS PRN IV NAUSEA/VOMITING; Start 02/02/17 at 09:00 Morphine Sulfate 2 mg PRN Q2HR PRN IV SEVERE PAIN; Start 02/02/17 at 09:00 Tramadol HCl (Ultram) 50 mg PRN Q6HRS PRN PO MILD PAIN Last administered on 02/03 02:43; Start 02/02/17 at 09:00 Hydralazine HCl (Apresoline) 10 mg PRN Q4HRS PRN IVP ELEVATED BP, SEE COMMENTS ; Start 02/02/17 at 09:00 Docusate Sodium (Colace) 100 mg PRN DAILY PRN PO CONSTIPATION Last administered on 02/03/17 02:37; Start 02/02/17 at 09:00 Heparin Sodium (Porcine) (Heparin Sq) 5,000 unit Q8HRS SQ Last administered on 02/03/17 06:08; Start 02/02/17 at 14:00 Albuterol Sulfate (Ventolin Neb Soln) 2.5 mg PRN Q4HRS PRN NEB SHORTNESS OF BREATH Last administered on 02/02/17 16:00; Start 02/02/17 at 12:15 Atenolol (Tenormin) 50 mg DAILY PO ; Start 02/04/17 at 09:00 Active Scripts Active Reported Miralax (Polyethylene Glycol 3350) 17 Gm Powd.pack 1 Pkt PO DAILY PRN Renvela (Sevelamer Carbonate) 800 Mg Tablet 800 Mg PO TIDWMEALS Gentamicin Sulfate 0.3% Ophth Oint (Gentamicin Sulfate) 3.5 Gm Oint...g. 1 [place] Furosemide 80 Mg Tablet 1 Tab PO DAILY Diltiazem Xt (Diltiazem Hcl) 240 Mg Capsule.er 240 Mg PO DAILY Atenolol 100 Mg Tablet 1 Tab PO DAILY Allopurinol 100 Mg Tablet 75 Mg PO DAILY [place] 5-325 Tablet (Acetaminophen/Hydrocodone Bitart) 1 Each Tablet 1-2 Tab PO Q4-6HRS Lorazepam 0.5 Mg Tablet 0.5 Mg PO PRN Q8HRS PRN Montelukast Sodium Tablet (Montelukast Sodium) 10 Mg Tablet 10 Mg PO DAILY Zantac (Ranitidine Hcl) 300 Mg Tablet 300 Mg PO Diovan (Valsartan) 320 Mg Tablet 320 Mg PO DAILY Allergies Allergies: Coded Allergies: No Known Drug Allergies (Unverified , 05/22/16) ROS HEENT: YES: Heacaches Gastrointestinal: Yes Nausea, Yes Abdominal Pain Skin: Yes Dry Skin Physical Exam General: Alert, Oriented X3, Cooperative, No acute distress HEENT: PERRLA Lungs: Clear to auscultation Heart: Regular rate, Normal S1, Normal S2 Abdomen: Normal bowel sounds, Soft, No tenderness, No hepatosplenomegaly Extremities: No edema Skin: No rashes Psych/Mental Status: Mental status NL, Mood NL Vitals VITALS Vital Signs Date Time Temp Pulse Resp B/P (MAP) Pulse Ox O2 Delivery O2 Flow Rate FiO2 02/03/17 19:10 Room Air 02/03/17 19:00 97.5 59 18 162/99 (120) 99 97.5 Labs Labs Laboratory Tests Test 02/02/17 06:15 02/03/17 05:10 White Blood Count 4.4 x10^3/uL (4.0-11.0) 4.7 x10^3/uL (4.0-11.0) Red Blood Count 3.67 x10^6/uL (4.30-5.70) 3.70 x10^6/uL (4.30-5.70) Hemoglobin 11.3 g/dL (13.0-17.5) 11.5 g/dL (13.0-17.5) Hematocrit 34.0 % (39.0-53.0) 34.3 % (39.0-53.0) Mean Corpuscular Volume 93 fL (79-100) 93 fL (79-100) Mean Corpuscular Hemoglobin 31 pg (25-35) 31 pg (25-35) Mean Corpuscular Hemoglobin Concent 33 g/dL (31-37) 34 g/dL (31-37) Red Cell Distribution Width 18.0 % (11.5-14.5) 18.4 % (11.5-14.5) Platelet Count 141 x10^3/uL (140-400) 146 x10^3/uL (140-400) Neutrophils (%) (Auto) 54 % (31-73) 54 % (31-73) Lymphocytes (%) (Auto) 26 % (24-48) 27 % (24-48) Monocytes (%) (Auto) 16 % (0-9) 14 % (0-9) Eosinophils (%) (Auto) 4 % (0-3) 4 % (0-3) Basophils (%) (Auto) 0 % (0-3) 1 % (0-3) Neutrophils # (Auto) 2.3 x10^3uL (1.8-7.7) 2.5 x10^3uL (1.8-7.7) Lymphocytes # (Auto) 1.1 x10^3/uL (1.0-4.8) 1.3 x10^3/uL (1.0-4.8) Monocytes # (Auto) 0.7 x10^3/uL (0.0-1.1) 0.7 x10^3/uL (0.0-1.1) Eosinophils # (Auto) 0.2 x10^3/uL (0.0-0.7) 0.2 x10^3/uL (0.0-0.7) Basophils # (Auto) 0.0 x10^3/uL (0.0-0.2) 0.0 x10^3/uL (0.0-0.2) Sodium Level 139 mmol/L (136-145) 137 mmol/L (136-145) Potassium Level 4.4 mmol/L (3.5-5.1) 4.7 mmol/L (3.5-5.1) Chloride Level 104 mmol/L (98-107) 103 mmol/L (98-107) Carbon Dioxide Level 24 mmol/L (21-32) 22 mmol/L (21-32) Anion Gap 11 (6-14) 12 (6-14) Blood Urea Nitrogen 64 mg/dL (8-26) 65 mg/dL (8-26) Creatinine 8.9 mg/dL (0.7-1.3) 9.1 mg/dL (0.7-1.3) Estimated GFR (Cockcroft-Gault) 7.0 6.9 Glucose Level 126 mg/dL (70-99) 110 mg/dL (70-99) Calcium Level 9.8 mg/dL (8.5-10.1) 10.1 mg/dL (8.5-10.1) Laboratory Tests Test 02/03/17 05:10 White Blood Count 4.7 x10^3/uL (4.0-11.0) Red Blood Count 3.70 x10^6/uL (4.30-5.70) Hemoglobin 11.5 g/dL (13.0-17.5) Hematocrit 34.3 % (39.0-53.0) Mean Corpuscular Volume 93 fL (79-100) Mean Corpuscular Hemoglobin 31 pg (25-35) Mean Corpuscular Hemoglobin Concent 34 g/dL (31-37) Red Cell Distribution Width 18.4 % (11.5-14.5) Platelet Count 146 x10^3/uL (140-400) Neutrophils (%) (Auto) 54 % (31-73) Lymphocytes (%) (Auto) 27 % (24-48) Monocytes (%) (Auto) 14 % (0-9) Eosinophils (%) (Auto) 4 % (0-3) Basophils (%) (Auto) 1 % (0-3) Neutrophils # (Auto) 2.5 x10^3uL (1.8-7.7) Lymphocytes # (Auto) 1.3 x10^3/uL (1.0-4.8) Monocytes # (Auto) 0.7 x10^3/uL (0.0-1.1) Eosinophils # (Auto) 0.2 x10^3/uL (0.0-0.7) Basophils # (Auto) 0.0 x10^3/uL (0.0-0.2) Sodium Level 137 mmol/L (136-145) Potassium Level 4.7 mmol/L (3.5-5.1) Chloride Level 103 mmol/L (98-107) Carbon Dioxide Level 22 mmol/L (21-32) Anion Gap 12 (6-14) Blood Urea Nitrogen 65 mg/dL (8-26) Creatinine 9.1 mg/dL (0.7-1.3) Estimated GFR (Cockcroft-Gault) 6.9 Glucose Level 110 mg/dL (70-99) Calcium Level 10.1 mg/dL (8.5-10.1) Assessment/Plan Assessment/Plan ESRD HTN DEHYDRATION. Maintain PD Do all 1.5 % bags CAPD 2L exchanges Every six hours. Labs. Supportive care d/w pt and family. Thank you. Betina Tran M.D. BETINA TRAN MD Feb 03, 2017 21:48
--- NOTE | 2017-02-03 21:49 | PDOC ---
Provider Note Provider Note RENAL: PD done All 1.5 % exchanges CAPD. 2L bags No heparin Effluent claer. No fibrin UF maintained AT dry weight' Labs stable. CPM. BETINA TRAN MD Feb 03, 2017 21:49
[2017-02-03 23:00] VITALS: BP 180/101
[2017-02-04] VITALS (9 sets, daily range): BP systolic 126–185; BP diastolic 79–101
[2017-02-04] MEDS: HEPARIN PF for SUB-Q USE 5,000 UNIT/0.5 ML VIAL. SQ SCH ×3 (05:51→21:16)
[2017-02-04] MEDS: DOCUSATE SODIUM 100 MG CAPSULE. PO PRN (06:06)
[2017-02-04 06:26] LABS: CALCIUM 9.9 mg/dL (8.5-10.1); CREATININE 8.2 mg/dL (0.7-1.3); GFR 7.7; POTASSIUM 4.7 mmol/L (3.5-5.1)
[2017-02-04] MEDS: ATENOLOL 50 MG TABLET. PO SCH (08:28)
[2017-02-04] MEDS: SEVELAMER CARBONATE 800 MG TABLET. PO SCH ×3 (08:28→17:14)
[2017-02-04] MEDS: ALLOPURINOL 100 MG TABLET. PO SCH (08:29)
[2017-02-04] MEDS: MONTELUKAST SODIUM 10 MG TABLET. PO SCH (08:29)
[2017-02-04] MEDS: LOSARTAN POTASSIUM 50 MG TABLET. PO SCH (08:29)
[2017-02-04] MEDS: amLODIPine BESYLATE 5 MG TABLET PO SCH (08:56)
--- NOTE | 2017-02-04 11:59 | PDOC ---
PROGRESS NOTES Chief Complaint Chief Complaint generalized weakness with ESRD ESRD on PD daily htn PAFIB, no AC, PPM GERD ASthma, sarcoidosis dehydration weight loss with low appetite chronic orthostatic hypotension low albumin 2/2 esrd plan: renal consulted, changed PD fluids, cont PD daily need short term of HD if Cr not better? cont home meds, hold lasix for now. dc ivf labs daily pt refuses PTOT for now DVT ppx check orthostatic BP, chronic + talked to son at bedside. albuterol prn decrease atenolol given cheryl, add amlodipine hope dc tmr History of Present Illness History of Present Illness as per pt, renal changed his pd Solution cr slightly better not feeling good today, no energy Vitals Vitals Vital Signs Date Time Temp Pulse Resp B/P (MAP) Pulse Ox O2 Delivery O2 Flow Rate FiO2 02/04/17 11:00 98.0 60 18 173/95 (121) 96 Room Air 98.0 Physical Exam General: Alert, Oriented X3, Cooperative, No acute distress Heart: Regular rate, Normal S1, Normal S2 Lungs: Clear Abdomen: Normal bowel sounds, Soft, No tenderness, No hepatosplenomegaly Extremities: No edema Skin: No rashes Labs LABS Laboratory Tests Test 02/04/17 05:45 Sodium Level 137 mmol/L (136-145) Potassium Level 4.7 mmol/L (3.5-5.1) Chloride Level 101 mmol/L (98-107) Carbon Dioxide Level 24 mmol/L (21-32) Anion Gap 12 (6-14) Blood Urea Nitrogen 61 mg/dL (8-26) Creatinine 8.2 mg/dL (0.7-1.3) Estimated GFR (Cockcroft-Gault) 7.7 Glucose Level 105 mg/dL (70-99) Calcium Level 9.9 mg/dL (8.5-10.1) Review of Systems Review of Systems no fever, chills, sob or chest pain Comment Review of Relevant I have reviewed the following items russell (where applicable) has been applied. Labs Laboratory Tests Test 02/03/17 05:10 02/04/17 05:45 White Blood Count 4.7 x10^3/uL (4.0-11.0) Red Blood Count 3.70 x10^6/uL (4.30-5.70) Hemoglobin 11.5 g/dL (13.0-17.5) Hematocrit 34.3 % (39.0-53.0) Mean Corpuscular Volume 93 fL (79-100) Mean Corpuscular Hemoglobin 31 pg (25-35) Mean Corpuscular Hemoglobin Concent 34 g/dL (31-37) Red Cell Distribution Width 18.4 % (11.5-14.5) Platelet Count 146 x10^3/uL (140-400) Neutrophils (%) (Auto) 54 % (31-73) Lymphocytes (%) (Auto) 27 % (24-48) Monocytes (%) (Auto) 14 % (0-9) Eosinophils (%) (Auto) 4 % (0-3) Basophils (%) (Auto) 1 % (0-3) Neutrophils # (Auto) 2.5 x10^3uL (1.8-7.7) Lymphocytes # (Auto) 1.3 x10^3/uL (1.0-4.8) Monocytes # (Auto) 0.7 x10^3/uL (0.0-1.1) Eosinophils # (Auto) 0.2 x10^3/uL (0.0-0.7) Basophils # (Auto) 0.0 x10^3/uL (0.0-0.2) Sodium Level 137 mmol/L (136-145) 137 mmol/L (136-145) Potassium Level 4.7 mmol/L (3.5-5.1) 4.7 mmol/L (3.5-5.1) Chloride Level 103 mmol/L (98-107) 101 mmol/L (98-107) Carbon Dioxide Level 22 mmol/L (21-32) 24 mmol/L (21-32) Anion Gap 12 (6-14) 12 (6-14) Blood Urea Nitrogen 65 mg/dL (8-26) 61 mg/dL (8-26) Creatinine 9.1 mg/dL (0.7-1.3) 8.2 mg/dL (0.7-1.3) Estimated GFR (Cockcroft-Gault) 6.9 7.7 Glucose Level 110 mg/dL (70-99) 105 mg/dL (70-99) Calcium Level 10.1 mg/dL (8.5-10.1) 9.9 mg/dL (8.5-10.1) Laboratory Tests Test 02/04/17 05:45 Sodium Level 137 mmol/L (136-145) Potassium Level 4.7 mmol/L (3.5-5.1) Chloride Level 101 mmol/L (98-107) Carbon Dioxide Level 24 mmol/L (21-32) Anion Gap 12 (6-14) Blood Urea Nitrogen 61 mg/dL (8-26) Creatinine 8.2 mg/dL (0.7-1.3) Estimated GFR (Cockcroft-Gault) 7.7 Glucose Level 105 mg/dL (70-99) Calcium Level 9.9 mg/dL (8.5-10.1) Medications Current Medications Sodium Chloride 1,000 ml @ 125 mls/hr 1X ONCE IV Last administered on 22:16; Start 02/01/17 at 22:00; Stop 02/02/17 at 05:59; Status DC Ondansetron HCl (Zofran) 4 mg PRN Q8HRS PRN IV NAUSEA/VOMITING; Start 02/01/17 at 21:45; Stop 02/02/17 at 12:13; Status DC Allopurinol (Zyloprim) 75 mg DAILY PO Last administered on 02/04/17 08:29; Start 02/02/17 at 09:00 Acetaminophen/ Hydrocodone Bitart (Lortab 5/325) 1 tab PRN Q6HRS PRN PO MODERATE PAIN; Start 02/02/17 at 09:00 Lorazepam (Ativan) 0.5 mg PRN Q8HRS PRN PO ANXIETY Last administered on 21:58; Start 02/02/17 at 09:00 Montelukast Sodium (Singulair) 10 mg DAILY PO Last administered on 02/04/17 08: 29; Start 02/02/17 at 09:00 Sevelamer Carbonate (Renvela) 800 mg TIDWMEALS PO Last administered on 08:28; Start 02/02/17 at 12:00 Atenolol (Tenormin) 100 mg DAILY PO Last administered on 02/03/17 08:28; Start 02/02/17 at 10:00; Stop 02/03/17 at 15:30; Status DC Diltiazem HCl (Cardizem 24hr Cd) 240 mg DAILY PO Last administered on 02/04/17 08:28; Start 02/02/17 at 10:00 Losartan Potassium (Cozaar) 100 mg DAILY PO Last administered on 02/04/17 08:29 ; Start 02/02/17 at 10:00 Acetaminophen (Tylenol) 650 mg PRN Q6HRS PRN PO FEVER Last administered on 21:58; Start 02/02/17 at 09:00 Ondansetron HCl (Zofran) 4 mg PRN Q6HRS PRN IV NAUSEA/VOMITING; Start 02/02/17 at 09:00 Morphine Sulfate 2 mg PRN Q2HR PRN IV SEVERE PAIN; Start 02/02/17 at 09:00 Tramadol HCl (Ultram) 50 mg PRN Q6HRS PRN PO MILD PAIN Last administered on 02/03 21:58; Start 02/02/17 at 09:00 Hydralazine HCl (Apresoline) 10 mg PRN Q4HRS PRN IVP ELEVATED BP, SEE COMMENTS Last administered on 02/03/17 23:51; Start 02/02/17 at 09:00 Docusate Sodium (Colace) 100 mg PRN DAILY PRN PO CONSTIPATION Last administered on 02/04/17 06:06; Start 02/02/17 at 09:00 Heparin Sodium (Porcine) (Heparin Sq) 5,000 unit Q8HRS SQ Last administered on 02/04/17 05:51; Start 02/02/17 at 14:00 Albuterol Sulfate (Ventolin Neb Soln) 2.5 mg PRN Q4HRS PRN NEB SHORTNESS OF BREATH Last administered on 02/02/17 16:00; Start 02/02/17 at 12:15 Atenolol (Tenormin) 50 mg DAILY PO Last administered on 02/04/17 08:28; Start 02/04/17 at 09:00 Amlodipine Besylate (Norvasc) 5 mg DAILY PO Last administered on 02/04/17 08:56 ; Start 02/04/17 at 09:00 Active Scripts Active Reported Miralax (Polyethylene Glycol 3350) 17 Gm Powd.pack 1 Pkt PO DAILY PRN Renvela (Sevelamer Carbonate) 800 Mg Tablet 800 Mg PO TIDWMEALS Gentamicin Sulfate 0.3% Ophth Oint (Gentamicin Sulfate) 3.5 Gm Oint...g. 1 [place]illo Furosemide 80 Mg Tablet 1 Tab PO DAILY Diltiazem Xt (Diltiazem Hcl) 240 Mg Capsule.er 240 Mg PO DAILY Atenolol 100 Mg Tablet 1 Tab PO DAILY Allopurinol 100 Mg Tablet 75 Mg PO DAILY [place] 5-325 Tablet (Acetaminophen/Hydrocodone Bitart) 1 Each Tablet 1-2 Tab PO Q4-6HRS Lorazepam 0.5 Mg Tablet 0.5 Mg PO PRN Q8HRS PRN Montelukast Sodium Tablet (Montelukast Sodium) 10 Mg Tablet 10 Mg PO DAILY Zantac (Ranitidine Hcl) 300 Mg Tablet 300 Mg PO Diovan (Valsartan) 320 Mg Tablet 320 Mg PO DAILY Vitals/I & O Vital Sign - Last 24 Hours 02/03/17 02/03/17 02/03/17 02/03/17 14:51 19:00 19:10 21:58 Temp 98.2 97.5 98.2 97.5 Pulse 60 59 Resp 18 18 16 B/P (MAP) 172/95 (120) 162/99 (120) Pulse Ox 99 99 99 O2 Delivery Room Air Room Air Room Air 02/03/17 02/03/17 02/03/17 02/04/17 22:55 23:00 23:51 00:36 Temp 98.8 98.8 98.8 98.8 Pulse 63 63 Resp 16 18 18 B/P (MAP) 180/101 (127) 180/101 180/101 (127) Pulse Ox 99 98 98 O2 Delivery Room Air Room Air 02/04/17 02/04/17 02/04/17 02/04/17 03:00 08:00 08:00 08:28 Temp 98.4 98.0 98.4 98.0 Pulse 61 57 57 Resp 16 18 B/P (MAP) 159/93 (115) 185/97 (126) 185/97 Pulse Ox 94 99 O2 Delivery Room Air Room Air 02/04/17 02/04/17 02/04/17 02/04/17 08:28 08:29 08:56 11:00 Temp 98.0 98.0 Pulse 57 57 57 60 Resp 18 B/P (MAP) 185/97 185/97 185/97 173/95 (121) Pulse Ox 96 O2 Delivery Room Air Intake and Output 02/03/17 02/03/17 02/04/17 15:00 23:00 07:00 Intake Total 360 ml 360 ml Balance 360 ml 360 ml MELE FLORES MD Feb 04, 2017 11:59
[2017-02-04] MEDS: traMADol 50 MG TABLET PO PRN (21:11)
[2017-02-04] MEDS: LORazepam 0.5 MG TABLET PO PRN (21:11)
[2017-02-04] MEDS: ACETAMINOPHEN 325 MG TABLET. PO PRN (21:11)
[2017-02-05] VITALS (13 sets, daily range): BP systolic 100–183; BP diastolic 63–103
[2017-02-05] MEDS: DOCUSATE SODIUM 100 MG CAPSULE. PO PRN (05:57)
[2017-02-05] MEDS: HEPARIN PF for SUB-Q USE 5,000 UNIT/0.5 ML VIAL. SQ SCH ×3 (06:01→21:35)
[2017-02-05 06:34] LABS: CALCIUM 9.3 mg/dL (8.5-10.1); CREATININE 7.6 mg/dL (0.7-1.3); GFR 8.4; POTASSIUM 4.1 mmol/L (3.5-5.1)
[2017-02-05] MEDS: SEVELAMER CARBONATE 800 MG TABLET. PO SCH ×3 (08:41→17:50)
[2017-02-05] MEDS: ALLOPURINOL 100 MG TABLET. PO SCH (08:41)
[2017-02-05] MEDS: LOSARTAN POTASSIUM 50 MG TABLET. PO SCH (08:42)
[2017-02-05] MEDS: amLODIPine BESYLATE 5 MG TABLET PO SCH (08:42)
[2017-02-05] MEDS: MONTELUKAST SODIUM 10 MG TABLET. PO SCH (08:43)
[2017-02-05] MEDS: ATENOLOL 50 MG TABLET. PO SCH (08:43)
--- NOTE | 2017-02-05 09:42 | PDOC ---
PROGRESS NOTES Chief Complaint Chief Complaint generalized weakness with ESRD ESRD on PD daily htn PAFIB, no AC, PPM GERD ASthma, sarcoidosis dehydration weight loss with low appetite chronic orthostatic hypotension low albumin 2/2 esrd History of Present Illness History of Present Illness Still claims weak BUt able to ambulate good NEw PD - started July 2016 CReat 7 today (around his baseline) Claims no appetite, but ate 100% breakfast - getting better? All labs ok NOt too keen on being dcd today bec claim still no energy BP high systolic 170s PLAN: check TSH PD per renal Add PT/OT Inc norvasc to 10mg PO qD Add hydralazine prn Vitals Vitals Vital Signs Date Time Temp Pulse Resp B/P (MAP) Pulse Ox O2 Delivery O2 Flow Rate FiO2 02/05/17 08:43 57 178/100 02/05/17 07:00 98.5 18 97 Room Air 98.5 02/04/17 19:00 2.0 Physical Exam General: Alert, Oriented X3, Cooperative, No acute distress Heart: Regular rate, Normal S1, Normal S2 Lungs: Clear Abdomen: Normal bowel sounds, Soft, No tenderness, No hepatosplenomegaly Extremities: No edema Skin: No rashes Labs LABS Laboratory Tests Test 02/05/17 05:40 Sodium Level 135 mmol/L (136-145) Potassium Level 4.1 mmol/L (3.5-5.1) Chloride Level 101 mmol/L (98-107) Carbon Dioxide Level 29 mmol/L (21-32) Anion Gap 5 (6-14) Blood Urea Nitrogen 57 mg/dL (8-26) Creatinine 7.6 mg/dL (0.7-1.3) Estimated GFR (Cockcroft-Gault) 8.4 Glucose Level 93 mg/dL (70-99) Calcium Level 9.3 mg/dL (8.5-10.1) Review of Systems Review of Systems weak, no/poor appetite, no energy Comment Review of Relevant I have reviewed the following items russell (where applicable) has been applied. Labs Laboratory Tests Test 02/04/17 05:45 02/05/17 05:40 Sodium Level 137 mmol/L (136-145) 135 mmol/L (136-145) Potassium Level 4.7 mmol/L (3.5-5.1) 4.1 mmol/L (3.5-5.1) Chloride Level 101 mmol/L (98-107) 101 mmol/L (98-107) Carbon Dioxide Level 24 mmol/L (21-32) 29 mmol/L (21-32) Anion Gap 12 (6-14) 5 (6-14) Blood Urea Nitrogen 61 mg/dL (8-26) 57 mg/dL (8-26) Creatinine 8.2 mg/dL (0.7-1.3) 7.6 mg/dL (0.7-1.3) Estimated GFR (Cockcroft-Gault) 7.7 8.4 Glucose Level 105 mg/dL (70-99) 93 mg/dL (70-99) Calcium Level 9.9 mg/dL (8.5-10.1) 9.3 mg/dL (8.5-10.1) Laboratory Tests Test 02/05/17 05:40 Sodium Level 135 mmol/L (136-145) Potassium Level 4.1 mmol/L (3.5-5.1) Chloride Level 101 mmol/L (98-107) Carbon Dioxide Level 29 mmol/L (21-32) Anion Gap 5 (6-14) Blood Urea Nitrogen 57 mg/dL (8-26) Creatinine 7.6 mg/dL (0.7-1.3) Estimated GFR (Cockcroft-Gault) 8.4 Glucose Level 93 mg/dL (70-99) Calcium Level 9.3 mg/dL (8.5-10.1) Medications Current Medications Sodium Chloride 1,000 ml @ 125 mls/hr 1X ONCE IV Last administered on 22:16; Start 02/01/17 at 22:00; Stop 02/02/17 at 05:59; Status DC Ondansetron HCl (Zofran) 4 mg PRN Q8HRS PRN IV NAUSEA/VOMITING; Start 02/01/17 at 21:45; Stop 02/02/17 at 12:13; Status DC Allopurinol (Zyloprim) 75 mg DAILY PO Last administered on 02/05/17 08:41; Start 02/02/17 at 09:00 Acetaminophen/ Hydrocodone Bitart (Lortab 5/325) 1 tab PRN Q6HRS PRN PO MODERATE PAIN; Start 02/02/17 at 09:00 Lorazepam (Ativan) 0.5 mg PRN Q8HRS PRN PO ANXIETY Last administered on 21:11; Start 02/02/17 at 09:00 Montelukast Sodium (Singulair) 10 mg DAILY PO Last administered on 02/05/17 08: 43; Start 02/02/17 at 09:00 Sevelamer Carbonate (Renvela) 800 mg TIDWMEALS PO Last administered on 08:41; Start 02/02/17 at 12:00 Atenolol (Tenormin) 100 mg DAILY PO Last administered on 02/03/17 08:28; Start 02/02/17 at 10:00; Stop 02/03/17 at 15:30; Status DC Diltiazem HCl (Cardizem 24hr Cd) 240 mg DAILY PO Last administered on 02/05/17 08:41; Start 02/02/17 at 10:00 Losartan Potassium (Cozaar) 100 mg DAILY PO Last administered on 02/05/17 08:42 ; Start 02/02/17 at 10:00 Acetaminophen (Tylenol) 650 mg PRN Q6HRS PRN PO FEVER Last administered on 21:11; Start 02/02/17 at 09:00 Ondansetron HCl (Zofran) 4 mg PRN Q6HRS PRN IV NAUSEA/VOMITING; Start 02/02/17 at 09:00 Morphine Sulfate 2 mg PRN Q2HR PRN IV SEVERE PAIN; Start 02/02/17 at 09:00 Tramadol HCl (Ultram) 50 mg PRN Q6HRS PRN PO MILD PAIN Last administered on 02/04 21:11; Start 02/02/17 at 09:00 Hydralazine HCl (Apresoline) 10 mg PRN Q4HRS PRN IVP ELEVATED BP, SEE COMMENTS Last administered on 02/03/17 23:51; Start 02/02/17 at 09:00 Docusate Sodium (Colace) 100 mg PRN DAILY PRN PO CONSTIPATION Last administered on 02/05/17 05:57; Start 02/02/17 at 09:00 Heparin Sodium (Porcine) (Heparin Sq) 5,000 unit Q8HRS SQ Last administered on 02/05/17 06:01; Start 02/02/17 at 14:00 Albuterol Sulfate (Ventolin Neb Soln) 2.5 mg PRN Q4HRS PRN NEB SHORTNESS OF BREATH Last administered on 02/02/17 16:00; Start 02/02/17 at 12:15 Atenolol (Tenormin) 50 mg DAILY PO Last administered on 02/05/17 08:43; Start 02/04/17 at 09:00 Amlodipine Besylate (Norvasc) 5 mg DAILY PO Last administered on 02/05/17 08:42 ; Start 02/04/17 at 09:00 Active Scripts Active Reported Miralax (Polyethylene Glycol 3350) 17 Gm Powd.pack 1 Pkt PO DAILY PRN Renvela (Sevelamer Carbonate) 800 Mg Tablet 800 Mg PO TIDWMEALS Gentamicin Sulfate 0.3% Ophth Oint (Gentamicin Sulfate) 3.5 Gm Oint...g. 1 [place] Furosemide 80 Mg Tablet 1 Tab PO DAILY Diltiazem Xt (Diltiazem Hcl) 240 Mg Capsule.er 240 Mg PO DAILY Atenolol 100 Mg Tablet 1 Tab PO DAILY Allopurinol 100 Mg Tablet 75 Mg PO DAILY [place] 5-325 Tablet (Acetaminophen/Hydrocodone Bitart) 1 Each Tablet 1-2 Tab PO Q4-6HRS Lorazepam 0.5 Mg Tablet 0.5 Mg PO PRN Q8HRS PRN Montelukast Sodium Tablet (Montelukast Sodium) 10 Mg Tablet 10 Mg PO DAILY Zantac (Ranitidine Hcl) 300 Mg Tablet 300 Mg PO Diovan (Valsartan) 320 Mg Tablet 320 Mg PO DAILY Vitals/I & O Vital Sign - Last 24 Hours 02/04/17 02/04/17 02/04/17 02/04/17 11:00 12:20 14:50 18:28 Temp 98.0 98.0 98.0 98.1 98.0 98.0 98.0 98.1 Pulse 60 60 62 73 Resp 18 18 B/P (MAP) 173/95 (121) 173/95 (121) 164/92 (116) 178/99 (125) Pulse Ox 96 96 96 99 O2 Delivery Room Air Room Air Room Air Room Air 8/6/17 8/6/17 8/6/17 8/6/17 19:00 19:00 21:11 22:11 Temp 98.2 98.2 Pulse 99 Resp 20 16 16 B/P (MAP) 126/79 (95) Pulse Ox 95 95 95 O2 Delivery Nasal Cannula Room Air Room Air Room Air O2 Flow Rate 2.0 02/04/17 02/05/17 02/05/17 02/05/17 23:00 00:01 03:00 06:30 Temp 98.6 98.6 97.5 97.5 98.6 98.6 97.5 97.5 Pulse 59 59 60 60 Resp 20 20 B/P (MAP) 163/85 (111) 163/85 (111) 174/96 (122) 174/96 (122) Pulse Ox 96 96 98 98 O2 Delivery Room Air Room Air Room Air Room Air 02/05/17 02/05/17 02/05/17 02/05/17 07:00 08:41 08:42 08:42 Temp 98.5 98.5 Pulse 57 57 57 57 Resp 18 B/P (MAP) 178/100 (126) 178/100 178/100 178/100 Pulse Ox 97 O2 Delivery Room Air 02/05/17 08:43 Pulse 57 B/P (MAP) 178/100 Intake and Output 02/04/17 02/04/17 02/05/17 15:00 23:00 07:00 Intake Total 500 ml 800 ml 300 ml Balance 500 ml 800 ml 300 ml REUBEN BLAS MD Feb 05, 2017 09:42
[2017-02-05] MEDS ORDERED: hydrALAZINE 20 MG/ML VIAL. IVP PRN (09:45)
[2017-02-05] MEDS ORDERED: amLODIPine BESYLATE 5 MG TABLET PO ONE (10:00)
--- NOTE | 2017-02-05 12:02 | PDOC ---
Renal-Progress Notes Subjective Notes Notes STILL FEELING TIRED History of Present Illness Hx of present illness STABLE Vitals Vitals Vital Signs Date Time Temp Pulse Resp B/P (MAP) Pulse Ox O2 Delivery O2 Flow Rate FiO2 02/05/17 11:00 59 183/103 02/05/17 10:45 98.6 18 96 Room Air 98.6 02/04/17 19:00 2.0 Weight Weight [ ] I.O. Intake and Output Intake and Output 02/05/17 07:00 Intake Total 1600 ml Balance 1600 ml Intake Oral 1600 ml # Voids 3 Labs Labs Laboratory Tests Test 02/05/17 05:40 Sodium Level 135 mmol/L (136-145) Potassium Level 4.1 mmol/L (3.5-5.1) Chloride Level 101 mmol/L (98-107) Carbon Dioxide Level 29 mmol/L (21-32) Anion Gap 5 (6-14) Blood Urea Nitrogen 57 mg/dL (8-26) Creatinine 7.6 mg/dL (0.7-1.3) Estimated GFR (Cockcroft-Gault) 8.4 Glucose Level 93 mg/dL (70-99) Calcium Level 9.3 mg/dL (8.5-10.1) Thyroid Stimulating Hormone (TSH) 2.271 uIU/mL (0.358-3.74) Review of Systems Constitutional: yes: malaise, weakness, alert, oriented Ears/Nose/Throat: Yes: no symptom reported Eyes: Yes: no symptom reported Pulmonary: Yes no symptom reported Cardiovascular: Yes near syncope Gastrointestional: Yes: no symptom reported Musculoskeletal: Yes: muscle stiffness Skin: Yes no symptom reported Psychiatric/Neurological: Yes: no symptom reported Endocrine: Yes: no symptom reported Physical Exam General Appearance: no apparent distress Skin: warm Respiratory: bilateral CTA Heart: S1S2 Abdomen: soft, bowel sounds present Genitourinary: bladder flat Extremities: pulses present, no edema, atrophy Neurology: alert, oriented Musculoskeletal: Muscle atrophy, Weakness Assessment Assessment IMP ESRD ANEMIA WEAKNESS-SYNCOPE LIKE EPISODE HX OF M MYELOMA HX OF SARCOID MALIGNANT HTN P AFIB RIGHT INGUINAL HERNIA-PT THINKS ITS GETTING BIGGER PLAN WILL ASK SURGERY TO FOLLOW UP WILL ALSO ASK CARDIOLOGY TO SEE PT DUE TO NEW ONSET FATIGUE AND HX OF CAD CONT WITH PD ENRIQUETA YARBROUGH MD Feb 05, 2017 12:02
--- NOTE | 2017-02-05 12:04 | PDOC2 ---
YUNG MANZANARES [employer]ILLMAN 02/05/17 1204: CARDIAC CONSULT DATE OF CONSULT Date of Consult DATE: 02/05/17 TIME: 11:34 REASON FOR CONSULT Reason for Consult: Syncope, has a pacemaker REFERRING PHYSICIAN Referring Physician: Janina SOURCE Source: Chart review, Patient HISTORY OF PRESENT ILLNESS HISTORY OF PRESENT ILLNESS This is a pleasant 76 yo male admitted for complains of weakness and dizziness. Pt verbalized that his PD solutions have been changed several times and noted that he was dehydrated. He has been feeling dizzy spell episodes but also has been having episodes of vertigo in the last 3 weeks. Reports no CP, SOA and no palpitations. He presently is sitting up without any discomfort or complains. Denies any significant pain, no nausea, vomiting or diarrhea but verbalized that he has been losing some weight. He does have sarcoidosis but this is not bothering him currently. PAST MEDICAL HISTORY Cardiovascular: AFIB, HTN, Other (SSS) Pulmonary: COPD, Pulmonary embolus CENTRAL NERVOUS SYSTEM: Other (brain hematoma) GI: GERD Heme/Onc: Anemia NOS, Other (sarcoidosis) Musculoskeletal: Osteoarthritis, Other (debility) Rheumatologic: Gout Renal/: Chronic renal failure PAST SURGICAL HISTORY Past Surgical History: Other (PD cath placement; mediastinal node biopsy) FAMILY HISTORY Family History noncontributory to CV SOCIAL HISTORY Smoke: No ALCOHOL: none Drugs: None Lives: with Family CURRENT MEDICATIONS CURRENT MEDICATIONS Current Medications Medications (Trade) Dose Ordered Sig/Pete Route PRN Reason Start Time Stop Time Status Last Admin Dose Admin Amlodipine Besylate (Norvasc) 5 mg 1X ONCE PO 02/05/17 10:00 02/05/17 10:01 DC 02/05/17 10:00 Hydralazine HCl (Apresoline) 10 mg PRN Q4HRS PRN IVP ELEVATED BP, SEE COMMENTS 02/05/17 09:45 02/05/17 11:00 ALLERGIES ALLERGIES: Coded Allergies: No Known Drug Allergies (Unverified , 05/22/16) ROS Review of System 14 point ROS evaluated with pertinent positives noted per HPI PHYSICAL EXAM General: Alert, Oriented X3, Cooperative, No acute distress HEENT: Atraumatic, Mucous membr. moist/pink Lungs: Clear to auscultation, Normal air movement Heart: Normal S1, Normal S2, Other (irregular; 3/6 systolic murmur to LLS border) Abdomen: Soft, No tenderness Extremities: No cyanosis, No edema Skin: No breakdown, No significant lesion Neuro: Sensation intact Psych/Mental Status: Mental status NL, Mood NL MUSCULOSKELETAL: Osteoarthritic changes both hands VITALS VITALS Vital Signs Date Time Temp Pulse Resp B/P (MAP) Pulse Ox O2 Delivery O2 Flow Rate FiO2 02/05/17 11:00 59 183/103 02/05/17 10:45 98.6 18 96 Room Air 98.6 02/04/17 19:00 2.0 LABS Lab: Laboratory Tests Test 02/05/17 05:40 Sodium Level 135 mmol/L (136-145) Potassium Level 4.1 mmol/L (3.5-5.1) Chloride Level 101 mmol/L (98-107) Carbon Dioxide Level 29 mmol/L (21-32) Anion Gap 5 (6-14) Blood Urea Nitrogen 57 mg/dL (8-26) Creatinine 7.6 mg/dL (0.7-1.3) Estimated GFR (Cockcroft-Gault) 8.4 Glucose Level 93 mg/dL (70-99) Calcium Level 9.3 mg/dL (8.5-10.1) Thyroid Stimulating Hormone (TSH) 2.271 uIU/mL (0.358-3.74) ECHOCARDIOGRAM ECHOCARDIOGRAM <Conclusion> The left ventricle is normal size. The left ventricular systolic function is normal and the ejection fraction is within normal range. The Ejection Fraction is 60-65%. There is a device lead in the right atrium and ventricle. There is no significant aortic valvular stenosis. Doppler and Color Flow revealed trace aortic regurgitation. Doppler and Color Flow revealed moderate mitral regurgitation. Doppler and Color Flow revealed mild tricuspid regurgitation. The pulmonary artery systolic pressure is estimated at 38 mmHg. DATE: 07/05/16 1643 STRESS TEST STRESS TEST Conclusion 1. No EKG evidence of stress induced ischemia. 2. Normal myocardial perfusion with stress and rest. 3. Normal EF with stress, EF > 70% 4. Low risk study. DATE: 07/06/15 1211 ASSESSMENT/PLAN ASSESSMENT/PLAN 1. Presyncope: multifactorial with notable vertigo, dehydration, possible orthostasis and arrhythmia 2. Recent nontraumatic fall 3. Accelerated HTN: labile 4. ESRD: utilizing PD 5. Paroxysmal AFIB: presently intermittent pacing but also with abberant AFIB. Prior ablation with EP 6. Sarcoidosis 7. PPM in situ: [place]. Recommendations 1. Will interrogate device 2. Limited TTE today, PCXR. Pt anticipating inguinal hernia repair on 02/21/2017 3. Agree with changes on antiHTN. Check orthostatic readings. 4. Continue with cardizem. 5. Anticoagulation discontinued by EP will discuss with primary electrical maintenance mechanic and will consider at least placing on ASA. Problems: CHEL NUÑEZ MD 02/06/17 0831: CARDIAC CONSULT ALLERGIES ALLERGIES: Coded Allergies: No Known Drug Allergies (Unverified , 05/22/16) ASSESSMENT/PLAN ASSESSMENT/PLAN Patient seen and examined 02/05/17. Agree with SE[employer]ON[employer]CH[employer]ISER's assessment and plan. Near syncope most probably secondary to dehydration Recent device check showed normal function Continue dialysis per Nephrology team Thank you for your consultation. Problems: YUNG MANZANARES APRN Feb 05, 2017 12:04 CHEL NUÑEZ MD Feb 06, 2017 08:31
--- NOTE | 2017-02-05 13:55 | PDOC2 ---
CARI AVLARADO SYSTEMS INTEGRATION ANALYST 02/05/17 1355: CONSULT Date of Consult Date of Consult DATE: 02/05/17 TIME: 13:46 Reason for Consult Reason for Consult: inguinal hernia Referring Physician Referring Physician: Dr Roa Identification/Chief Complaint Chief Complaint weakness Problems: Source Source: Chart review, Patient History of Present Illness Reason for Visit: Weakness, fatigue, syncope, and dehydration. General surgery consult for RIH, is scheduled for surgical repair 02/21/[address] Huerta. He has been having some coughing that has caused him some discomfort to his hernia area. Normal bowel function, no nausea or emesis. Mild pain in hernia area Past Medical History Cardiovascular: AFIB, HTN, Other (SSS) Pulmonary: COPD, Pulmonary embolus CENTRAL NERVOUS SYSTEM: Other (brain hematoma) GI: GERD Heme/Onc: Anemia NOS, Other (sarcoidosis) Musculoskeletal: Osteoarthritis, Other (debility) Rheumatologic: Gout Renal/: Chronic renal failure Past Surgical History Past Surgical History: Other (PD cath placement; mediastinal node biopsy) Family History Family History: Hypertension Social History No ALCOHOL: none Drugs: None Lives: with Family Domestic Violence: Neg Current Medications Current Medications Current Medications Sodium Chloride 1,000 ml @ 125 mls/hr 1X ONCE IV Last administered on 22:16; Start 02/01/17 at 22:00; Stop 02/02/17 at 05:59; Status DC Ondansetron HCl (Zofran) 4 mg PRN Q8HRS PRN IV NAUSEA/VOMITING; Start 02/01/17 at 21:45; Stop 02/02/17 at 12:13; Status DC Allopurinol (Zyloprim) 75 mg DAILY PO Last administered on 02/05/17 08:41; Start 02/02/17 at 09:00 Acetaminophen/ Hydrocodone Bitart (Lortab 5/325) 1 tab PRN Q6HRS PRN PO MODERATE PAIN; Start 02/02/17 at 09:00 Lorazepam (Ativan) 0.5 mg PRN Q8HRS PRN PO ANXIETY Last administered on 21:11; Start 02/02/17 at 09:00 Montelukast Sodium (Singulair) 10 mg DAILY PO Last administered on 02/05/17 08: 43; Start 02/02/17 at 09:00 Sevelamer Carbonate (Renvela) 800 mg TIDWMEALS PO Last administered on 11:55; Start 02/02/17 at 12:00 Atenolol (Tenormin) 100 mg DAILY PO Last administered on 02/03/17 08:28; Start 02/02/17 at 10:00; Stop 02/03/17 at 15:30; Status DC Diltiazem HCl (Cardizem 24hr Cd) 240 mg DAILY PO Last administered on 02/05/17 08:41; Start 02/02/17 at 10:00 Losartan Potassium (Cozaar) 100 mg DAILY PO Last administered on 02/05/17 08:42 ; Start 02/02/17 at 10:00 Acetaminophen (Tylenol) 650 mg PRN Q6HRS PRN PO FEVER Last administered on 21:11; Start 02/02/17 at 09:00 Ondansetron HCl (Zofran) 4 mg PRN Q6HRS PRN IV NAUSEA/VOMITING Last administered on 02/05/17 13:01; Start 02/02/17 at 09:00 Morphine Sulfate 2 mg PRN Q2HR PRN IV SEVERE PAIN; Start 02/02/17 at 09:00 Tramadol HCl (Ultram) 50 mg PRN Q6HRS PRN PO MILD PAIN Last administered on 02/04 21:11; Start 02/02/17 at 09:00 Hydralazine HCl (Apresoline) 10 mg PRN Q4HRS PRN IVP ELEVATED BP, SEE COMMENTS Last administered on 02/03/17 23:51; Start 02/02/17 at 09:00; Stop 02/05/17 at 13: 02; Status DC Docusate Sodium (Colace) 100 mg PRN DAILY PRN PO CONSTIPATION Last administered on 02/05/17 05:57; Start 02/02/17 at 09:00 Heparin Sodium (Porcine) (Heparin Sq) 5,000 unit Q8HRS SQ Last administered on 02/05/17 06:01; Start 02/02/17 at 14:00 Albuterol Sulfate (Ventolin Neb Soln) 2.5 mg PRN Q4HRS PRN NEB SHORTNESS OF BREATH Last administered on 02/02/17 16:00; Start 02/02/17 at 12:15 Atenolol (Tenormin) 50 mg DAILY PO Last administered on 02/05/17 08:43; Start 02/04/17 at 09:00 Amlodipine Besylate (Norvasc) 5 mg DAILY PO Last administered on 02/05/17 08:42 ; Start 02/04/17 at 09:00; Stop 02/05/17 at 09:39; Status DC Amlodipine Besylate (Norvasc) 5 mg 1X ONCE PO Last administered on 02/05/17 10 :00; Start 02/05/17 at 10:00; Stop 02/05/17 at 13:31; Status DC Hydralazine HCl (Apresoline) 10 mg PRN Q4HRS PRN IVP ELEVATED BP, SEE COMMENTS Last administered on 02/05/17 11:00; Start 02/05/17 at 09:45 Amlodipine Besylate (Norvasc) 10 mg DAILY PO ; Start 02/06/17 at 09:00; Stop 02/06 at 09:00; Status DC Hydralazine HCl (Apresoline) 50 mg [id number] PO ; Start 02/05/17 at 14:00 Active Scripts Active Reported Miralax (Polyethylene Glycol 3350) 17 Gm Powd.pack 1 Pkt PO DAILY PRN Renvela (Sevelamer Carbonate) 800 Mg Tablet 800 Mg PO TIDWMEALS Gentamicin Sulfate 0.3% Ophth Oint (Gentamicin Sulfate) 3.5 Gm Oint...g. 1 [place] Furosemide 80 Mg Tablet 1 Tab PO DAILY Diltiazem Xt (Diltiazem Hcl) 240 Mg Capsule.er 240 Mg PO DAILY Atenolol 100 Mg Tablet 1 Tab PO DAILY Allopurinol 100 Mg Tablet 75 Mg PO DAILY [place] 5-325 Tablet (Acetaminophen/Hydrocodone Bitart) 1 Each Tablet 1-2 Tab PO Q4-6HRS Lorazepam 0.5 Mg Tablet 0.5 Mg PO PRN Q8HRS PRN Montelukast Sodium Tablet (Montelukast Sodium) 10 Mg Tablet 10 Mg PO DAILY Zantac (Ranitidine Hcl) 300 Mg Tablet 300 Mg PO Diovan (Valsartan) 320 Mg Tablet 320 Mg PO DAILY Allergies Allergies: Coded Allergies: No Known Drug Allergies (Unverified , 05/22/16) ROS General: YES: Fatigue, No: Chills, Other (fevers) PSYCHOLOGICAL ROS: No: Anxiety, Depression Eyes: Yes Blurry vision, No Double vision HEENT: No: Heacaches, Sore Throat Hematological and Lymphatic: No: Bleeding Problems, Blood Clots Respiratory: YES: Cough, Shortness of breath Cardiovascular: No Chest Pain, No Palpitations Gastrointestinal: No Nausea, No Vomiting, No Abdominal Pain Genitourinary: No Dysuria, No Hematuria Musculoskeletal: No Joint Pain, No Muscle Pain Neurological: Yes Impaired Coord/balance, No Bowel/Bladder ControlChng Skin: No Pruritus, No Rash Physical Exam General: Alert, Oriented X3, Cooperative, No acute distress HEENT: PERRLA, Mucous membr. moist/pink Lungs: Clear to auscultation, Normal air movement Heart: Normal S1, Normal S2 Abdomen: Soft, Other (ND,PD cath in place, mild tenderness to RIH, soft, reducible) Skin: No rashes, No breakdown Neuro: Normal speech, Sensation intact Psych/Mental Status: Mental status NL, Mood NL MUSCULOSKELETAL: No deformity, No swelling Vitals VITALS Vital Signs Date Time Temp Pulse Resp B/P (MAP) Pulse Ox O2 Delivery O2 Flow Rate FiO2 02/05/17 12:45 99 Room Air 02/05/17 12:03 98.6 59 183/103 (129) 98.6 02/05/17 10:45 18 02/04/17 19:00 2.0 Labs Labs Laboratory Tests Test 02/04/17 05:45 02/05/17 05:40 Sodium Level 137 mmol/L (136-145) 135 mmol/L (136-145) Potassium Level 4.7 mmol/L (3.5-5.1) 4.1 mmol/L (3.5-5.1) Chloride Level 101 mmol/L (98-107) 101 mmol/L (98-107) Carbon Dioxide Level 24 mmol/L (21-32) 29 mmol/L (21-32) Anion Gap 12 (6-14) 5 (6-14) Blood Urea Nitrogen 61 mg/dL (8-26) 57 mg/dL (8-26) Creatinine 8.2 mg/dL (0.7-1.3) 7.6 mg/dL (0.7-1.3) Estimated GFR (Cockcroft-Gault) 7.7 8.4 Glucose Level 105 mg/dL (70-99) 93 mg/dL (70-99) Calcium Level 9.9 mg/dL (8.5-10.1) 9.3 mg/dL (8.5-10.1) Thyroid Stimulating Hormone (TSH) 2.271 uIU/mL (0.358-3.74) Laboratory Tests Test 02/05/17 05:40 Sodium Level 135 mmol/L (136-145) Potassium Level 4.1 mmol/L (3.5-5.1) Chloride Level 101 mmol/L (98-107) Carbon Dioxide Level 29 mmol/L (21-32) Anion Gap 5 (6-14) Blood Urea Nitrogen 57 mg/dL (8-26) Creatinine 7.6 mg/dL (0.7-1.3) Estimated GFR (Cockcroft-Gault) 8.4 Glucose Level 93 mg/dL (70-99) Calcium Level 9.3 mg/dL (8.5-10.1) Thyroid Stimulating Hormone (TSH) 2.271 uIU/mL (0.358-3.74) Assessment/Plan Assessment/Plan weakness, fatigue,dehydration, ESRD [facility] cardiology, neprh following plans for RIH repair on 02/21/[address] Huerta--improvement of current issues prior to repair TOÑO HUERTA MD 02/06/17 0911: CONSULT Allergies Allergies: Coded Allergies: No Known Drug Allergies (Unverified , 05/22/16) Assessment/Plan Assessment/Plan Reviewed, agree with above, would plan for surgery as scheduled CARI ALVARADO APRN Feb 05, 2017 13:55 TOÑO HUERTA MD Feb 06, 2017 09:11
--- NOTE | 2017-02-05 15:13 | RAD ---
Indication syncopal episode. A single view of the chest was obtained and is compared to an examination 04/27/2016. Preliminary results were communicated to Shiela, the nurse caring for the patient on the floor, at the time of dictation. There is pneumoperitoneum. The nurse caring for the patient indicated that the patient has a peritoneal dialysis catheter. The pneumoperitoneum may be related to same. Ruptured viscus is not excluded. Clinical correlation advised The heart and pulmonary vessels appear normal. The lungs are clear of acute infiltrates. There is no pleural fluid. Bipolar cardiac pacing device is noted. IMPRESSION: No acute finding in the chest. Pneumoperitoneum. See above discussion
[2017-02-05] MEDS ORDERED: IV NORMAL SALINE 1000ML BAG 1,000 ML IV SCH (15:30)
--- NOTE | 2017-02-05 15:52 | CARD ---
APPROVED REPORT EXAM: LIMITED Two-dimensional and M-mode echocardiogram with Doppler and color Doppler. Other Information Quality : Average Rhythm : NSR INDICATION Syncope Evaluate pulmonary artery pressure. 2D DIMENSIONS RVDd2.4 (2.9-3.5cm)Left Atrium(2D)3.9 (1.6-4.0cm) IVSd1.0 (0.7-1.1cm)Aortic Root(2D)3.4 (2.0-3.7cm) LVDd5.5 (3.9-5.9cm)LVOT Diameter2.1 (1.8-2.4cm) PWd1.0 (0.7-1.1cm)LVDs3.2 (2.5-4.0cm) FS (%) 22.4 %SV109.4 ml LVEF(%)52.8 (>50%) Tricuspid Valve TR P. [id number] [id number] TR Peak [id number] LEFT VENTRICLE Limited study. The left ventricle is normal size. There is normal left ventricular wall thickness. Le ft ventricle systolic function is normal. The Ejection Fraction is 50-55%. There is normal LV segment al wall motion. RIGHT VENTRICLE The right ventricle is normal size. The right ventricular systolic function is normal. ATRIA The left atrium size is normal. The right atrium size is normal. TRICUSPID VALVE The tricuspid valve is normal in structure and function. Doppler and Color Flow revealed mild tricusp id regurgitation. The PA pressure was estimated at 34 mmHg. GREAT VESSELS not evaluated The IVC is dilated and collapses >50% with inspiration. PERICARDIAL EFFUSION There is large pleural effusion. There is no evidence of significant pericardial effusion. Critical Notification Critical Value: No <Conclusion> Limited study. The left ventricle is normal size. Left ventricle systolic function is normal. The Ejection Fraction is 50-55%. Doppler and Color Flow revealed mild tricuspid regurgitation. The PA pressure was estimated at 34 mmHg. There is no evidence of significant pericardial effusion.
[2017-02-05] MEDS: ACETAMINOPHEN 325 MG TABLET. PO PRN (21:33)
[2017-02-05] MEDS: LORazepam 0.5 MG TABLET PO PRN (21:33)
[2017-02-05] MEDS: traMADol 50 MG TABLET PO PRN (21:34)
[2017-02-06 00:30] VITALS: BP 142/65
[2017-02-06 03:07] VITALS: BP 134/62
[2017-02-06 05:29] LABS: CALCIUM 8.9 mg/dL (8.5-10.1); CREATININE 6.9 mg/dL (0.7-1.3); GFR 9.4; POTASSIUM 3.8 mmol/L (3.5-5.1)
[2017-02-06] MEDS: DOCUSATE SODIUM 100 MG CAPSULE. PO PRN (06:07)
[2017-02-06] MEDS: HEPARIN PF for SUB-Q USE 5,000 UNIT/0.5 ML VIAL. SQ SCH (06:10)
[2017-02-06 07:15] VITALS: BP 162/81
[2017-02-06] MEDS: SEVELAMER CARBONATE 800 MG TABLET. PO SCH ×2 (08:39→12:15)
[2017-02-06] MEDS: LOSARTAN POTASSIUM 50 MG TABLET. PO SCH (08:40)
[2017-02-06] MEDS: MONTELUKAST SODIUM 10 MG TABLET. PO SCH (08:40)
[2017-02-06] MEDS: ATENOLOL 50 MG TABLET. PO SCH (08:41)
[2017-02-06] MEDS: ALLOPURINOL 100 MG TABLET. PO SCH (08:41)
[2017-02-06] MEDS ORDERED: amLODIPine BESYLATE 10 MG TABLET PO SCH (09:00)
[2017-02-06 11:14] VITALS: BP 154/89
--- NOTE | 2017-02-06 11:59 | PDOC ---
Renal-Progress Notes Subjective Notes Notes FEELING BETTER History of Present Illness Hx of present illness STABLE Vitals Vitals Vital Signs Date Time Temp Pulse Resp B/P (MAP) Pulse Ox O2 Delivery O2 Flow Rate FiO2 02/06/17 08:41 58 162/81 02/06/17 08:00 Room Air 02/06/17 07:15 98.1 18 98 98.1 02/06/17 00:30 2.0 Weight Weight [ ] I.O. Intake and Output Intake and Output 02/06/17 07:00 Intake Total 1720 ml Balance 1720 ml Intake Oral 720 ml IV Total 1000 ml # Voids 5 # Bowel Movements 1 Labs Labs Laboratory Tests Test 02/06/17 03:10 Sodium Level 136 mmol/L (136-145) Potassium Level 3.8 mmol/L (3.5-5.1) Chloride Level 101 mmol/L (98-107) Carbon Dioxide Level 30 mmol/L (21-32) Anion Gap 5 (6-14) Blood Urea Nitrogen 52 mg/dL (8-26) Creatinine 6.9 mg/dL (0.7-1.3) Estimated GFR (Cockcroft-Gault) 9.4 Glucose Level 108 mg/dL (70-99) Calcium Level 8.9 mg/dL (8.5-10.1) Review of Systems Constitutional: yes: malaise, weakness, alert, oriented Ears/Nose/Throat: Yes: no symptom reported Eyes: Yes: no symptom reported Pulmonary: Yes no symptom reported Cardiovascular: Yes near syncope Gastrointestional: Yes: no symptom reported Musculoskeletal: Yes: muscle stiffness Skin: Yes no symptom reported Psychiatric/Neurological: Yes: no symptom reported Endocrine: Yes: no symptom reported Physical Exam General Appearance: no apparent distress Skin: warm Respiratory: bilateral CTA Heart: S1S2 Abdomen: soft, bowel sounds present Genitourinary: bladder flat Extremities: pulses present, no edema, atrophy Neurology: alert, oriented Musculoskeletal: Osteoarthritis, Other (debility) Assessment Assessment IMP ESRD ANEMIA WEAKNESS-SYNCOPE LIKE EPISODE HX OF M MYELOMA HX OF SARCOID MALIGNANT HTN P AFIB RIGHT INGUINAL HERNIA-PT THINKS ITS GETTING BIGGER CRAMPING DUE TO HYPOVOLEMIA LAST NIGH PLAN LITER IVF GIVEN LAST NIGHT CONT WITH 1.5% DIANEAL DIALYSATE CONT WITH PD OP WHEN DISCHARGED CARDIOLOGY EVAL RIH REPAIR OP ON 02-21 D/W ATTENDING ENRIQUETA YARBROUGH MD Feb 06, 2017 11:59
--- NOTE | 2017-02-06 12:05 | PDOC ---
PROGRESS NOTES Chief Complaint Chief Complaint Generalized weakness Vertigo ASSESSMENT AND PLAN: 1. Dehydration: resolved 2. ESRD: on PD daily 3. PAF: EKG w/o p waves. echo nl EF and wall motion; pAP 34. Prior ablation with EP, pacer in place. appreciate cardiology team's input; pacer interrogated. continue cardizem 4. OAC: previously on pradaxa, held by EP for ? reason. 5. HTN: regimen adjusted by cardiology. sl above desired BP; per pt, chronic with long hx of med manipulations 5. Sarcoidosis/asthma: previously on prednisone 10 bid, currently on hold 6. GERD: PPI 7. Anorexia with wt loss 8. Hypoalbuminemia: moderate. multifactorial, incl ESRD, malnutrition 9. R inguinal hernia: scheduled for repair on 02/21 10. Prophylaxis: heparin History of Present Illness History of Present Illness feels great, eager to go home Vitals Vitals Vital Signs Date Time Temp Pulse Resp B/P (MAP) Pulse Ox O2 Delivery O2 Flow Rate FiO2 02/06/17 08:41 58 162/81 02/06/17 08:00 Room Air 02/06/17 07:15 98.1 18 98 98.1 02/06/17 00:30 2.0 Physical Exam General: Alert, Oriented X3, Cooperative, No acute distress Heart: Normal S1, Normal S2 Lungs: Clear Abdomen: Soft, Other (ND,PD cath in place, ) Extremities: No cyanosis, No edema Skin: No rashes, No breakdown Labs LABS Laboratory Tests Test 02/06/17 03:10 Sodium Level 136 mmol/L (136-145) Potassium Level 3.8 mmol/L (3.5-5.1) Chloride Level 101 mmol/L (98-107) Carbon Dioxide Level 30 mmol/L (21-32) Anion Gap 5 (6-14) Blood Urea Nitrogen 52 mg/dL (8-26) Creatinine 6.9 mg/dL (0.7-1.3) Estimated GFR (Cockcroft-Gault) 9.4 Glucose Level 108 mg/dL (70-99) Calcium Level 8.9 mg/dL (8.5-10.1) ADELA ALVAREZ MD Feb 06, 2017 12:05
[2017-02-06] MEDS ORDERED: ATEN50TA PO (13:06)
[2017-02-06] MEDS ORDERED: HYDR-2869 PO (13:06)
--- NOTE | 2017-02-06 16:34 | PDOC ---
CARDIO Progress Notes Date and Time Date of Service 02/06/17 Time of Evaluation 1300 Subjective Subjective: No Chest Pain, No shortness of breath, No Palpitations Vitals Vitals Vital Signs Date Time Temp Pulse Resp B/P (MAP) Pulse Ox O2 Delivery O2 Flow Rate FiO2 02/06/17 11:14 97.9 59 18 154/89 (110) 97 Room Air 97.9 02/06/17 00:30 2.0 Weight Weight [ ] Input and Output Intake and Output Intake and Output 02/06/17 07:00 Intake Total 1720 ml Balance 1720 ml Intake Oral 720 ml IV Total 1000 ml # Voids 5 # Bowel Movements 1 Laboratory Labs Laboratory Tests Test 02/06/17 03:10 Sodium Level 136 mmol/L (136-145) Potassium Level 3.8 mmol/L (3.5-5.1) Chloride Level 101 mmol/L (98-107) Carbon Dioxide Level 30 mmol/L (21-32) Anion Gap 5 (6-14) Blood Urea Nitrogen 52 mg/dL (8-26) Creatinine 6.9 mg/dL (0.7-1.3) Estimated GFR (Cockcroft-Gault) 9.4 Glucose Level 108 mg/dL (70-99) Calcium Level 8.9 mg/dL (8.5-10.1) Magnesium Level 2.1 mg/dL (1.8-2.4) Review of Systems Constitutional: yes: malaise, weakness, alert, oriented Ears/Nose/Throat: Yes: no symptom reported Eyes: Yes: no symptom reported Pulmonary: Yes no symptom reported Cardiovascular: Yes near syncope Gastrointestional: Yes: no symptom reported Musculoskeletal: Yes: muscle stiffness Skin: Yes no symptom reported Psychiatric/Neurological: Yes: no symptom reported Endocrine: Yes: no symptom reported Physical Exam HEENT: Neck Supple W Full Motion Chest: Symmetric LUNGS: Clear to Auscultation Heart: S1S2, RRR, other (tele intermittent a-paced with uderlying SR. Freqent PVC's) Extremities: No Edema, No Calf Tenderness Neurology: alert, oriented, follow commands Assessment Assessment 1. Presyncope: most probably related to dehydration. PPM interrogation with normal function. No AF/VF noted. Limited echo with preserved LV function. No significant structural abnormalities. 2. Accelerated HTN: improved. Continue current therapy. 3. ESRD: utilizing PD 4. Frequent PVC's; will check Mg and replace as warranted. 5. Sarcoidosis 6. PPM in situ: [place]. 7. Orthostatic hypotension; significant orthostasis noted from sitting to standing. Maintain adequate hydration. Allow for high normal BP to accommodate drop. Compressing stocking. KAREN LAYTON APRN Feb 06, 2017 16:34
--- NOTE | 2017-02-06 22:46 | DS ---
DATE OF DISCHARGE: 02/06/2017 CHIEF COMPLAINT: Syncope, dehydration. HOSPITAL COURSE: The patient is a 76-year-old -[place] gentleman, who presented to the hospital with generalized weakness and vertigo. He was diagnosed with dehydration, potentially related to end-stage renal disease and peritoneal dialysis. He was seen by both Renal as well as Cardiology consult as he also has a history of paroxysmal AFib. His pacemaker was interrogated and medications were adjusted for his high blood pressure. All other home medications were continued and the patient was deemed appropriate for discharge on 02/06/2017 by all consultants. DISCHARGE DATE: 02/06/2017. DISCHARGE DIAGNOSES: Dehydration, generalized weakness. DISCHARGE DISPOSITION: To home. DISCHARGE CONDITION: Improved. DISCHARGE MEDICATIONS: Please refer to MAR. DISCHARGE INSTRUCTIONS: The patient will follow up with his primary care physician and Cardiology within the next month. ADELA ALVAREZ MD DR: MARJAN/nts JOB#: [id number] / [id number] DIANNE Bhakta
== END 2017-02-06 15:51 | disposition home or self-care (01) | DRG 682 ==
LOC: ER 16:32 → 5 SOUTH 21:25 → OBSVTOIN 02-05 15:22 → 5 NORTH 02-05 19:55
PROVIDERS: ADMIT Internal Medicine; ATTEND Internal Medicine
PROC: 4B02XSZ Measurement of Cardiac Pacemaker, External Approach (ICD-10-PCS; principal; 2017-02-05)
DX: I12.0 Hypertensive chronic kidney disease with stage 5 chronic kidney disease or end stage renal disease (principal); N18.6 End stage renal disease; E46 Unspecified protein-calorie malnutrition; C90.00 Multiple myeloma not having achieved remission; E86.0 Dehydration; I95.1 Orthostatic hypotension; K21.9 Gastro-esophageal reflux disease without esophagitis; I49.3 Ventricular premature depolarization; I48.0 Paroxysmal atrial fibrillation; D86.9 Sarcoidosis, unspecified; J44.9 Chronic obstructive pulmonary disease, unspecified; M10.9 Gout, unspecified; R35.0 Frequency of micturition; M19.90 Unspecified osteoarthritis, unspecified site; F41.9 Anxiety disorder, unspecified; I49.5 Sick sinus syndrome; D64.9 Anemia, unspecified; K40.90 Unilateral inguinal hernia, without obstruction or gangrene, not specified as recurrent; E86.1 Hypovolemia; Z82.49 Family history of ischemic heart disease and other diseases of the circulatory system; Z86.711 Personal history of pulmonary embolism; Z99.2 Dependence on renal dialysis; Z95.0 Presence of cardiac pacemaker; Z85.46 Personal history of malignant neoplasm of prostate; Z68.21 Body mass index [BMI] 21.0-21.9, adult; R42 Dizziness and giddiness
CPT/HCPCS: 36415; 71010; 80048; 80053; 81001; 83735; 84443; 85027; 93005; 93308; 93325; 94250; 94640; 94760; G0378; G0379; J0360; J2405; J7030; J7613

== ENCOUNTER 2017-02-21 09:29 | Day surgery (SDC) | payer MEDICARE, BC ==
[~2017-02-21 09:29] MED LIST changes: +ALLO100T PO; +ATEN100T PO; +ATEN50TA PO; +BACITRACIN 50,000 UNIT in IV NORMAL SALINE 500ML BAG 500 ML IRR ONE; +CHOL100017 PO; +DILT240C4 PO; +FOLI1TAB16 PO; +FURO80TA3 PO; +GENT3.5O9; +HYDR-2869 PO; +HYDROmorphone 2 MG/ML VIAL IV PRN; +IV RINGERS,LACTATED 1000ML 1,000 ML IV SCH; +LIDOCAINE 1% 1 ML SYRINGE. ID PRN; +MEGE40TA PO; +ONDANSETRON PF 4 MG/2 ML VIAL. IV PRN; +POLY17PO29 PO; +PROAIR HFA8.5 GM INH; +PROCHLORPERAZINE 10 MG/2 ML VIAL. IV PRN; +SEVE800T9 PO; +VIT1TABL57 PO; +ZINC50TA33 PO; +fentaNYL PF VIAL 100 MCG/2 ML VIAL IV PRN
[2017-02-21] MEDS ORDERED: PROPOFOL 20 ML IV ONE (10:00)
[2017-02-21] MEDS ORDERED: fentaNYL PF VIAL 100 MCG/2 ML VIAL ONE ×2 (10:00→13:53)
[2017-02-21] MEDS ORDERED: IV NORMAL SALINE 1000ML BAG 1,000 ML IV ONE (10:00)
[2017-02-21] MEDS ORDERED: ONDANSETRON PF 4 MG/2 ML VIAL. ONE (10:00)
[2017-02-21] MEDS ORDERED: DEXAMETHASONE SOD PHOS 20 MG/5 ML VIAL. ONE (10:00)
[2017-02-21] MEDS ORDERED: LIDOCAINE 2% PF Vial for OR 5 ML VIAL. ONE (10:00)
[2017-02-21 10:13] LABS: BASO % 1 % (0-3); EOS % 5 % (0-3); HEMATOCRIT 34.7 % (39.0-53.0); HEMOGLOBIN 11.7 g/dL (13.0-17.5); LYMPH # 1.2 x10^3/uL (1.0-4.8); LYMPH % 22 % (24-48); MEAN CORPUSCULAR HEMOGLOBIN 31 pg (25-35); MEAN CORPUSCULAR HGB CONC 34 g/dL (31-37); MEAN CORPUSCULAR VOLUME 92 fL (79-100); MONO % 15 % (0-9); NEUT % 58 % (31-73); PLATELET COUNT 179 x10^3/uL (140-400); RED BLOOD COUNT 3.79 x10^6/uL (4.30-5.70); RED CELL DISTRIBUTION WIDTH 18.2 % (11.5-14.5); WHITE BLOOD COUNT 5.6 x10^3/uL (4.0-11.0)
[2017-02-21 10:25] LABS: CALCIUM 9.4 mg/dL (8.5-10.1); CREATININE 9.1 mg/dL (0.7-1.3); GFR 6.9; POTASSIUM 4.1 mmol/L (3.5-5.1)
[2017-02-21 10:31] LABS: ALBUMIN 2.7 g/dL (3.4-5.0); ALBUMIN/GLOBULIN RATIO 0.6 (1.0-1.7); TOTAL BILIRUBIN 0.5 mg/dL (0.2-1.0); TOTAL PROTEIN 7.6 g/dL (6.4-8.2)
[2017-02-21] MEDS ORDERED: BUPIVAC MPF-EPI 0.5%-1:200000 30 ML VIAL. ONE (11:58)
[2017-02-21] MEDS ORDERED: ceFAZolin 2GM PREMIX 2 GM/50 ML BAG IV ONE (12:00)
[2017-02-21] MEDS ORDERED: ePHEDrine PF IN SALINE 50 MG/5 ML DISP.SYRIN IV ONE (12:30)
[2017-02-21] MEDS ORDERED: SEVOFLURANE 61 TO 120 MINUTES. IH ONE (12:55)
--- NOTE | 2017-02-21 13:49 | PDOC4 ---
Operative Note Operative Note Operative Note: Preoperative Diagnosis: Right inguinal hernia Postoperative Diagnosis: Same Procedure: Right inguinal hernia repair with mesh Surgeon: Bradley Educational Paraprofessional: Alejo HAMILTON Anesthesia: Gen. EBL: 20 mL Specimen: None Drains: None Complications: None Indication: The patient is a 76-year-old gentleman who is currently on peritoneal dialysis. Recently he is noticed a reducible bulge in the right groin. Examination confirms a reducible right inguinal hernia. He was offered surgical repair. The details of surgery were discussed with him including the use of mesh. The risks were also noted which include bleeding, infection, hernia recurrence, pain, anesthetic risk, potential need for additional surgery or procedure. He understands and would like to proceed. Description: The patient was taken to the operating room and placed supine on the operating table. Gen. anesthesia was performed. The right groin was shaved and prepped with ChloraPrep and draped in a standard surgical manner. An incision was made in the skin lines of the right groin with a scalpel. Cautery dissection was carried down to the external oblique aponeurosis. The aponeurosis was then opened down to the external ring. The external and internal aponeurosis were somewhat fused and floppy. The contents of the inguinal canal were digitally mobilized and encircled with [place] drain. The patient had a moderate sized indirect hernia present. The hernia sac was readily identified and mobilized from the cord structures. The vas deferens and other cord structures were identified and preserved. The hernia sac was fully freed up down to its base. The sac was then reduced and the defect was filled with a Phasix mesh plug. The mesh was sutured around its periphery with 2-0 Vicryl sutures. A 3 x 6" Prolene mesh patch was then selected for reinforcement of the inguinal floor. The mesh was trimmed and tailored to provide coverage of the inguinal floor. The mesh was sutured into position with interrupted 2-0 Vicryl. A slit was made in the mesh to accommodate the cord structures. Upon completion the mesh rested well with good coverage of the inguinal floor and the plug remained intact deep to it. The external oblique was closed over the mesh with a running 2-0 Vicryl. The subcutaneous tissue was closed with 3-0 Vicryl. The skin was closed with 4-0 Monocryl. Steri-Strips and a sterile dressing were then applied. The patient tolerated the procedure well and was sent to the recovery room in stable condition. At the end of the case all counts were correct. TOÑO BURDEN MD Feb 21, 2017 13:49
[2017-02-21] MEDS: fentaNYL PF VIAL 100 MCG/2 ML VIAL IV PRN ×2 (13:50→14:08)
--- NOTE | 2017-02-21 13:51 | DISCH ---
DISCHARGE INSTRUCTIONS Condition on Discharge Condition on Discharge: Stable Activity After Discharge Activity Instructions for Disc: Other, see below (no lifting over 20 lbs) Diet after Discharge Diet after Discharge: Regular Wound Incision Care Wound/Incision Care: Other, see below (keep dressing clean and dry X 72 hours, may then remove and shower) Follow-Up Follow up with: Dr Burden in 2 weeks, call for appt [phone] TOÑO BURDEN MD Feb 21, 2017 13:51
[2017-02-21] MEDS ORDERED: MORPHINE SULFATE 4 MG/ML DISP.SYRIN. ONE (14:15)
[2017-02-21] MEDS: MORPHINE SULFATE 4 MG/ML DISP.SYRIN. IV PRN ×4 (14:17→14:51)
[2017-02-21] MEDS ORDERED: HYDR-971 PO ×2 (14:28→14:37)
[2017-02-21] MEDS ORDERED: HYDROcodone/APAP 5/325MG 1 TAB TABLET ONE (14:38)
[2017-02-21] MEDS ORDERED: HYDROcodone/APAP 5/325MG 1 TAB TABLET PO PRN (14:45)
[2017-02-21] MEDS ORDERED: IV NORMAL SALINE 1000ML BAG 1,000 ML IV SCH (15:30)
[2017-02-21 15:45] VITALS: BP 144/71
== END 2017-02-21 16:20 | disposition home or self-care (01) ==
LOC: SURG 09:29
PROVIDERS: ATTEND Surgery
DX: K40.90 Unilateral inguinal hernia, without obstruction or gangrene, not specified as recurrent (principal); I48.91 Unspecified atrial fibrillation; I10 Essential (primary) hypertension; K21.9 Gastro-esophageal reflux disease without esophagitis; M19.90 Unspecified osteoarthritis, unspecified site; F41.9 Anxiety disorder, unspecified; D64.9 Anemia, unspecified; Z86.69 Personal history of other diseases of the nervous system and sense organs; Z87.01 Personal history of pneumonia (recurrent); Z99.2 Dependence on renal dialysis; Z85.46 Personal history of malignant neoplasm of prostate; Z72.89 Other problems related to lifestyle; Z87.39 Personal history of other diseases of the musculoskeletal system and connective tissue; Z98.890 Other specified postprocedural states
CPT/HCPCS: 36415; 49505; 80053; 85025; C1769; C1781; J0690; J1100; J2270; J2405; J2704; J3010; J3490; J7040; J2001

== ENCOUNTER 2017-03-25 21:11 | Emergency (ER) | payer MEDICARE, BC ==
[~2017-03-25] VITALS: Ht 185.4 cm; Wt 70.3 kg
[~2017-03-25 21:11] MED LIST changes: -BACITRACIN 50,000 UNIT in IV NORMAL SALINE 500ML BAG 500 ML IRR ONE; -HYDROmorphone 2 MG/ML VIAL IV PRN; -IV RINGERS,LACTATED 1000ML 1,000 ML IV SCH; -LIDOCAINE 1% 1 ML SYRINGE. ID PRN; -ONDANSETRON PF 4 MG/2 ML VIAL. IV PRN; -PROCHLORPERAZINE 10 MG/2 ML VIAL. IV PRN; -fentaNYL PF VIAL 100 MCG/2 ML VIAL IV PRN
[2017-03-25] MEDS ORDERED: ONDANSETRON ODT 4 MG TAB.RAPDIS. PO ONE (22:00)
[2017-03-25] MEDS ORDERED: HYDROcodone/APAP 5/325MG 1 TAB TABLET PO ONE (22:00)
--- NOTE | 2017-03-25 22:02 | RAD ---
CT HEAD WO CONTRAST dated 03/25/2017 9:38 PM Indication: Head pain, recent fallfall. Comparison: No comparison is available. Technique: Contiguous axial imaging the head was performed from skull base to vertex. One or more of the following individualized dose reduction techniques were utilized for this examination: 1. Automated exposure control 2. Adjustment of the mA and/or kV according to patient size 3. Use of iterative reconstruction technique Findings: Ventricles and sulci are mildly prominent for age. No midline shift or mass effect. Mild patchy low density in the deep/subcortical periventricular white matter. Brain fragment is otherwise of normal attenuation. No hemorrhage or extra-axial collection. Posterior fossa and brainstem unremarkable. Visual is paranasal sinuses and mastoid air cells are clear. No apparent calvarial abnormality. IMPRESSION: 1. No evidence of acute intracranial hemorrhage or mass. 2. Mild chronic small vessel ischemic changes and atrophy. Electronically signed by: Se Beltran MD (03/25/2017 9:59 PM) [facility]
[2017-03-25 22:23] VITALS: BP 163/82
[2017-03-25] MEDS ORDERED: HYDR-971 PO (22:38)
[2017-03-25] MEDS ORDERED: ONDA4TAB10 SL (22:38)
--- NOTE | 2017-03-25 22:39 | PHYS DOC ---
Past Medical History Past Medical History: A-Fib, Anxiety, Asthma, Cancer, GERD, Hypertension, Renal Failure, Other Additional Past Medical Histor: GOUT, PERITONEAL DIALYSIS, SUBDURAL HEMATOMA, Past Surgical History: Pacemaker Additional Past Surgical Histo: PROSTATECTOMY, LEFT ELBOW Alcohol Use: Rarely Drug Use: None Adult General Chief Complaint Chief Complaint: MECHANICAL FALL HPI HPI Patient is a 76 year old gentleman with a history significant for kidney failure on perineal dialysis also the history of hypertension status post pacemaker status post prostate cancer treatment. Patient is also had a subdural hematoma in the past. Patient has any strokes in the past or liver problems. Patient presents to the ER today secondary to a fall that approximate 5 PM. Patient reports while in the garage he tripped over his lawnmower while trying to get out of his car. Patient reports that he fell backwards and hit his head and his ribs and has a laceration to his inner lip. Patient denies any other symptomatology at this time. Patient reports no loss of consciousness. Patient does have an episode nausea vomiting while in the ED. Patient has been laboratory without any difficulty. Patient reports pain with deep inspiration to the right side of his chest. Patient denies any abdominal discomfort. Patient denies any hematemesis or blood per rectum coffee-ground emesis. Patient has a dysuria frequency or urgency. Patient complains of right shoulder pain. Review of systems Constitutional: Denies fever or chills Eyes: Denies change in visual acuity, redness, or eye pain HENT: Denies nasal congestion or sore throat All other review systems are negative except as documented in the history of present illness portion. Physical exam Constitutional: Well developed, well nourished, no acute distress, non-toxic appearance. HENT: Normocephalic, atraumatic, bilateral external ears normal, oropharynx moist, no oral exudates, nose normal. Eyes: PERRLA, EOMI, conjunctiva normal, no discharge. Neck: Normal range of motion, no tenderness, supple, no stridor. Cardiovascular:Heart rate regular rhythm, Lungs & Thorax: Bilateral breath sounds clear to auscultation Abdomen: Bowel sounds normal, soft, no tenderness, no masses, no pulsatile masses. Skin: Warm, dry, no erythema, no rash. Back: No tenderness, no CVA tenderness. Extremities: No tenderness, no cyanosis, no clubbing, ROM intact, no edema. Neurologic: Alert and oriented X 3, normal motor function, normal sensory function, no focal deficits noted. Psychologic: Affect normal, judgement normal, mood normal. Patient's ER physical exam is significant for tenderness to palpation to his right shoulder. Patient has full range of motion to the shoulder. There is no bony deformity. Patient is tenderness palpation to his right lower lateral ribs. Patient has no crepitance. Patient has no tenderness palpation to his right upper quadrant. Patient's lungs are clear without any wheezing rales or rhonchi. Patient has no evidence clinically of a pneumothorax or liver injury. Patient has no C-spine T-spine or L-spine tenderness to palpation. Patient has a 1 cm laceration to his lower lip on the inner aspect. Patient's tetanus status up-to-date. This is a 76-year-old gentleman who presents here today after a Patient has a history of subdural hematoma in the past. Patient's CT scan of his head revealed no acute pathology. Patient's x-ray of his lungs revealed small platelike atelectasis to his right lower lung concerning for atelectasis likely from pain. There is no evidence of acute fracture. Patient will be discharged home on amoxicillin palpable with his lip laceration. Patient be discharged home on [place] to assist with his pain in his shoulder ribs and lip. Precautions were reviewed with the family. Patient be sent home with Jamil to assist him with his nausea. Current Medications Current Medications Current Medications Medications (Trade) Dose Ordered Sig/Pete Start Time Stop Time Status Last Admin Dose Admin Acetaminophen/ Hydrocodone Bitart (Lortab 5/325) 1 tab 1X ONCE 03/25/17 22:00 03/25/17 22:01 DC 03/25/17 22:10 1 TAB Ondansetron HCl (Zofran Odt) 4 mg 1X ONCE 03/25/17 22:00 03/25/17 22:01 DC 03/25/17 22:10 4 MG Allergies Allergies Allergies Coded Allergies Type Severity Reaction Last Updated Verified No Known Drug Allergies 02/21/17 No Current Patient Data Vital Signs Vital Signs Date Time Temp Pulse Resp B/P (MAP) Pulse Ox O2 Delivery O2 Flow Rate FiO2 03/25/17 21:48 98.4 72 18 204/94 (130) 97 Room Air 98.4 EKG EKG [] Radiology/Procedures Radiology/Procedures [] Course & Med Decision Making Course & Med Decision Making Pertinent Labs and Imaging studies reviewed. (See chart for details) [] Dragon Disclaimer Dragon Disclaimer This electronic medical record was generated, in whole or in part, using a voice recognition dictation system. Departure Departure Impression: Primary Impression: Head trauma Additional Impressions: Contusion of rib on right side Shoulder pain, right Lip laceration Disposition: HOME, SELF-CARE Condition: IMPROVED Referrals: DIANNE BENITEZ (PCP) Patient Instructions: Head Injury, Adult, Mouth Laceration, Rib Contusion Scripts Ondansetron (ZOFRAN ODT) 4 Mg Tab.rapdis 1 TAB SL Q6HRS Y for NAUSEA, #12 TAB Prov: AMISHA HIGUERA MD 03/25/17 Hydrocodone/Apap 5-325 (NORCO 5-325 TABLET) 1 Each Tablet 1 TAB PO QID Y for PAIN, #15 TAB Prov: AMISHA HIGUERA MD 03/25/17 Problem Qualifiers AMISHA HIGUERA MD Mar 25, 2017 22:39
--- NOTE | 2017-03-26 09:37 | RAD ---
EXAM: Frontal chest with 4 view right rib series. HISTORY: Fall with right rib pain. COMPARISON: None. FINDINGS: A left-sided pacemaker has its leads in the right atrium and right ventricle. Hyperinflation is consistent with chronic obstructive pulmonary disease. There is mild atelectasis in the lung bases. Prominence of the beth[place] suggests pulmonary arterial hypertension. There is no pneumothorax or pleural effusion. The heart is not enlarged. There are no displaced right rib fractures. IMPRESSION: 1. No displaced right rib fractures. 2. Chronic obstructive pulmonary disease. Bibasilar atelectasis. Correlate for pulmonary arterial hypertension.
== END 2017-03-25 22:58 | disposition home or self-care (01) ==
LOC: ER 21:11
DX: S01.511A Laceration without foreign body of lip, initial encounter (principal); S20.211A Contusion of right front wall of thorax, initial encounter; S09.90XA Unspecified injury of head, initial encounter; M25.511 Pain in right shoulder; R35.0 Frequency of micturition; R39.15 Urgency of urination; R30.0 Dysuria; I48.91 Unspecified atrial fibrillation; F41.9 Anxiety disorder, unspecified; K21.9 Gastro-esophageal reflux disease without esophagitis; I12.9 Hypertensive chronic kidney disease with stage 1 through stage 4 chronic kidney disease, or unspecified chronic kidney disease; N18.9 Chronic kidney disease, unspecified; J45.909 Unspecified asthma, uncomplicated; M10.9 Gout, unspecified; Z99.2 Dependence on renal dialysis; Z95.0 Presence of cardiac pacemaker; W01.0XXA Fall on same level from slipping, tripping and stumbling without subsequent striking against object, initial encounter; Y93.89 Activity, other specified; Y92.89 Other specified places as the place of occurrence of the external cause; Y99.8 Other external cause status
CPT/HCPCS: 70450; 71101; 99284; Q0162

== ENCOUNTER 2018-07-27 14:00 | Emergency (ER) | payer MEDICARE, BC ==
[~2018-07-27] VITALS: Ht 185.4 cm; Wt 81.6 kg
[~2018-07-27 14:00] MED LIST changes: +ALBU2.5V8 IH; +ALBU2.5V8 INH; +HYDR-3164 PO; -HYDR-971 PO; -LABE200T2 PO; +LABE200T4 PO; +ONDA4TAB10 SL; -PROAIR HFA8.5 GM IH; -PROAIR HFA8.5 GM INH; +RANI-348 PO; -RANI75TA95 PO
[2018-07-27 16:22] VITALS: BP 162/71
[2018-07-27] MEDS ORDERED: HYDROcodone/APAP 5/325MG 1 TAB TABLET PO ONE (16:45)
--- NOTE | 2018-07-27 16:46 | PHYS DOC ---
Past Medical History Past Medical History: A-Fib, Anxiety, Asthma, Cancer, GERD, Hypertension, Renal Failure, Other Additional Past Medical Histor: GOUT, PERITONEAL DIALYSIS, SUBDURAL HEMATOMA, Past Surgical History: Pacemaker Additional Past Surgical Histo: PROSTATECTOMY, LEFT ELBOW Alcohol Use: Rarely Drug Use: None Adult General Chief Complaint Chief Complaint: KNEE INJURY HPI HPI Patient is a 77 year old male presents for evaluation after slip and fall on the ice yesterday. He reports hit his head, he takes Plavix. Denies loss of consciousness but dizziness, or vision changes. He reports has had difficulty with increased pain in the left knee, did not land on the knee but thinks he may have twisted it. He has difficulty bearing weight. Review of Systems Review of Systems Constitutional: Denies fever or chills [] Eyes: Denies change in visual acuity, redness, or eye pain [] HENT: Denies nasal congestion or sore throat [] Respiratory: Denies cough or shortness of breath [] Cardiovascular: No additional information not addressed in HPI [] GI: Denies abdominal pain, nausea, vomiting, bloody stools or diarrhea [] : Denies dysuria or hematuria [] Musculoskeletal: Knee pain Integument: Denies rash or skin lesions [] Neurologic: Denies headache, focal weakness or sensory changes [] Endocrine: Denies polyuria or polydipsia [] All other systems were reviewed and found to be within normal limits, except as documented in this note. Current Medications Current Medications Current Medications Medications (Trade) Dose Ordered Sig/Pete Start Time Stop Time Status Last Admin Dose Admin Acetaminophen/ Hydrocodone Bitart (Lortab 5/325) 1 tab 1X ONCE 07/27/18 16:45 07/27/18 16:46 DC 07/27/18 17:26 1 TAB Allergies Allergies Allergies Coded Allergies Type Severity Reaction Last Updated Verified No Known Drug Allergies 02/21/17 No Physical Exam Physical Exam Constitutional: Well developed, well nourished, no acute distress, non-toxic appearance. [] Eyes: PERRLA, EOMI, conjunctiva normal, no discharge. [] Neck: Normal range of motion, no tenderness, supple, no stridor. [] Cardiovascular:Heart rate regular rhythm, no murmur [] Lungs & Thorax: Bilateral breath sounds clear to auscultation [] Skin: Warm, dry, no erythema, no rash. [] Back: No tenderness, no CVA tenderness. [] Extremities: Left knee swelling, painful weightbearing, tenderness to lateral and medial ligaments. [] Neurologic: Alert and oriented X 3, normal motor function, normal sensory function, no focal deficits noted. [] Psychologic: Affect normal, judgement normal, mood normal. [] Current Patient Data Vital Signs Vital Signs Date Time Temp Pulse Resp B/P (MAP) Pulse Ox O2 Delivery O2 Flow Rate FiO2 07/27/18 17:26 20 95 Room Air 07/27/18 16:22 98.1 65 162/71 (101) 98.1 EKG EKG [] Radiology/Procedures Radiology/Procedures [REASON: fall on ice, on plavix PROCEDURE: CT HEAD AND CERVICAL SPINE WO CT head and cervical spine without contrast History: SLIPPED ON ICE, HEAD AND NECK PAIN Technique: Noncontrast CT imaging was performed of the head and cervical spine. Multiplanar reconstruction images are submitted. Exposure: One or more of the following individualized dose reduction techniques were utilized for this examination: 1. Automated exposure control 2. Adjustment of the mA and/or kV according to patient size 3. Use of iterative reconstruction technique. Head CT Comparison: None Findings: No acute extra-axial or parenchymal hemorrhage is identified. There is no significant intra-axial mass effect, midline shift, or extra-axial fluid collection. The chan-white differentiation of the major vascular territories is preserved. Ventricular size is within normal limits. There is mild supratentorial involutional change. The mastoid air cells and the visualized paranasal sinuses are aerated. There is no significant focal calvarial abnormality. There is atherosclerotic calcification carotid siphons bilaterally. Impression: 1. No acute intracranial abnormality is identified. There is mild supratentorial involutional change. Cervical spine CT Comparison: None Findings: No acute cervical spine fracture is identified. Vertebral body stature is maintained. Atlanto-axial distance is within normal limits. There is appropriate alignment of lateral masses of C1 relative to C2. Occipital condylar-C1 relationship is maintained. There is more advanced degenerative disc disease C5-6 and C6-7, spondylosis at the same levels. There is likely central canal stenosis about 7-8 mm at C5-6. There is multilevel facet and uncovertebral degenerative change, contributes to multilevel neural foramina compromise with more significant narrowing bilaterally at C3-C4, on the right at C4-5, left greater than right at C5-6, and bilaterally at C6-7. There is grade 1 anterior spondylolisthesis C4-5. There is atherosclerotic calcification carotid siphons bilaterally. There is mild levoscoliosis. Impression: 1. No acute cervical spine fracture is identified. 2. There is more advanced degenerative disc disease C5-6 and C6-7 with spondylosis at the same levels, spinal stenosis greatest C5-6. Multilevel facet and uncovertebral degenerative change contributes to multilevel significant neural foramina compromise. Electronically signed by: Baljinder Cisneros MD (07/27/2018 5:52 PM) [facility] ]PROCEDURE: KNEE LEFT 4V 4 view study of the left knee Clinical indications: Fall on ice. Left knee pain. FINDINGS: No acute fracture or dislocation or osteolytic process is seen. Small left knee joint effusion is seen. There is mild joint space narrowing and spurring of the medial tibiofemoral joint compartment. There is mild degenerative spurring of the patellofemoral joint compartment. IMPRESSION: No acute fracture. Mild primary degenerative osteoarthritis. Electronically signed by: Brodie Cintron MD (07/28/2018 8:44 AM) [facility] Course & Med Decision Making Course & Med Decision Making Pertinent Labs and Imaging studies reviewed. (See chart for details) [] Dragon Disclaimer Dragon Disclaimer This electronic medical record was generated, in whole or in part, using a voice recognition dictation system. Departure Departure Impression: Primary Impression: Knee pain Additional Impression: Closed head injury Disposition: 01 HOME, SELF-CARE Condition: STABLE Referrals: TOMMIE MONTES MD (PCP) SLAVA ANDREW II, MD Problem Qualifiers VERÓNICA PRECI[employer]O [employer]IC[employer] ADVISOR Jul 27, 2018 16:46
--- NOTE | 2018-07-27 17:57 | RAD ---
CT head and cervical spine without contrast History: SLIPPED ON ICE, HEAD AND NECK PAIN Technique: Noncontrast CT imaging was performed of the head and cervical spine. Multiplanar reconstruction images are submitted. Exposure: One or more of the following individualized dose reduction techniques were utilized for this examination: 1. Automated exposure control 2. Adjustment of the mA and/or kV according to patient size 3. Use of iterative reconstruction technique. Head CT Comparison: None Findings: No acute extra-axial or parenchymal hemorrhage is identified. There is no significant intra-axial mass effect, midline shift, or extra-axial fluid collection. The chan-white differentiation of the major vascular territories is preserved. Ventricular size is within normal limits. There is mild supratentorial involutional change. The mastoid air cells and the visualized paranasal sinuses are aerated. There is no significant focal calvarial abnormality. There is atherosclerotic calcification carotid siphons bilaterally. Impression: 1. No acute intracranial abnormality is identified. There is mild supratentorial involutional change. Cervical spine CT Comparison: None Findings: No acute cervical spine fracture is identified. Vertebral body stature is maintained. Atlanto-axial distance is within normal limits. There is appropriate alignment of lateral masses of C1 relative to C2. Occipital condylar-C1 relationship is maintained. There is more advanced degenerative disc disease C5-6 and C6-7, spondylosis at the same levels. There is likely central canal stenosis about 7-8 mm at C5-6. There is multilevel facet and uncovertebral degenerative change, contributes to multilevel neural foramina compromise with more significant narrowing bilaterally at C3-C4, on the right at C4-5, left greater than right at C5-6, and bilaterally at C6-7. There is grade 1 anterior spondylolisthesis C4-5. There is atherosclerotic calcification carotid siphons bilaterally. There is mild levoscoliosis. Impression: 1. No acute cervical spine fracture is identified. 2. There is more advanced degenerative disc disease C5-6 and C6-7 with spondylosis at the same levels, spinal stenosis greatest C5-6. Multilevel facet and uncovertebral degenerative change contributes to multilevel significant neural foramina compromise. Electronically signed by: Baljinder Cisneros MD (07/27/2018 5:52 PM) [facility]
--- NOTE | 2018-07-28 08:49 | RAD ---
4 view study of the left knee Clinical indications: Fall on ice. Left knee pain. FINDINGS: No acute fracture or dislocation or osteolytic process is seen. Small left knee joint effusion is seen. There is mild joint space narrowing and spurring of the medial tibiofemoral joint compartment. There is mild degenerative spurring of the patellofemoral joint compartment. IMPRESSION: No acute fracture. Mild primary degenerative osteoarthritis. Electronically signed by: Brodie Cintron MD (07/28/2018 8:44 AM) [facility]
== END 2018-07-27 18:35 | disposition home or self-care (01) ==
LOC: ER 14:00
DX: S00.90XA Unspecified superficial injury of unspecified part of head, initial encounter (principal); M25.562 Pain in left knee; I48.91 Unspecified atrial fibrillation; K21.9 Gastro-esophageal reflux disease without esophagitis; J45.909 Unspecified asthma, uncomplicated; F41.9 Anxiety disorder, unspecified; M10.9 Gout, unspecified; I12.9 Hypertensive chronic kidney disease with stage 1 through stage 4 chronic kidney disease, or unspecified chronic kidney disease; N18.9 Chronic kidney disease, unspecified; Z99.2 Dependence on renal dialysis; Z95.0 Presence of cardiac pacemaker; W00.2XXA Other fall from one level to another due to ice and snow, initial encounter; Y93.89 Activity, other specified; Y92.89 Other specified places as the place of occurrence of the external cause; Y99.8 Other external cause status
CPT/HCPCS: 70450; 72125; 73564; 99284-25

== ENCOUNTER → 2018-08-07 | Outpatient (CLI) | payer MEDICARE, BC ==
[2018-07-27 16:22] VITALS: BP 162/71
--- NOTE | 2018-08-07 16:08 | RAD ---
PQRS Compliance statement: One or more of the following individualized dose reduction techniques were utilized for this examination: 1. Automated exposure control. 2. Adjustment of the mA and/or kV according to patient size. 3. Use of iterative reconstruction technique. Indication:LETHARGIC, DIZZINESS, X SEVERAL WEEKS, PRIOR SENT TECHNIQUE: CT head without IV contrast COMPARISON:07/27/2018 FINDINGS: No pathologic extra-axial or intra-axial fluid collection. Mild diffuse cerebral atrophy. The ventricles and basal cisterns are within normal limits. No acute intracranial bleed. No focal loss of chan-white differentiation. Orbits are within normal limits. No suspicious calvarial lesion. Visualized paranasal sinuses and mastoid air cells are clear. Atherosclerotic disease of the bilateral cavernous segments of the ICA. IMPRESSION: 1. No acute intracranial process. If concern for acute ischemic stroke is high, please consider MRI brain. 2. Mild diffuse atrophy. Electronically signed by: Darell Webb DO (08/07/2018 4:03 PM) [id number]
== END | disposition home or self-care (01) ==
LOC: CT 15:11
PROVIDERS: ATTEND Internal Medicine Cardiovascular Disease
DX: I65.23 Occlusion and stenosis of bilateral carotid arteries (principal); G31.9 Degenerative disease of nervous system, unspecified
CPT/HCPCS: 70450

== ENCOUNTER → 2018-09-17 | Day surgery (SDC) | payer MEDICARE, BC ==
[~2018-09-17] MED LIST changes: +ALPR1TAB2 PO; +ATOR20TA58 PO; +CEFAZOLIN SODIUM IVP; +CLOP75TA PO; +DEXAMETHASONE SOD PHOS 20 MG/5 ML VIAL. ONE; +DILT180C29 PO; +DOXA2TAB2 PO; +FLUT9.9S NS; +FOLI0.8T3 PO; +IV RINGERS,LACTATED 1000ML 1,000 ML IV SCH; +LIDOCAINE 2% PF 5 ML VIAL. ONE; +MIRT30TA3 PO; +ONDANSETRON PF 4 MG/2 ML VIAL. ONE; +PROPOFOL 0 ML IV ONE; +PROPOFOL 40 ML IV ONE; +Pantoprazole PO; +ROCURONIUM 50 MG/5 ML VIAL. ONE; +SEVOFLURANE 61 TO 120 MINUTES. IH ONE; +TRAZ-118 PO; +fentaNYL PF VIAL 100 MCG/2 ML VIAL ONE
[2018-09-17 17:25] VITALS: BP 163/86
--- NOTE | 2018-09-19 13:08 | PATHOLOGY ---
[facility] Accession Number: [id number] . 01 Material submitted: . TRANSVERSE COLON POLYP BIOPSY . 01 Clinical history: . Anemia . 02 Diagnosis: Colon, transverse, biopsy: - Adenomatous polyp with moderate chronic inflammation. (SKM:kevin; 09/19/2018) QMS/09/19/2018 . 02 Electronically signed: . Emory Betancourt MD, Pathologist NPI- [id number] . 01 Gross description: . Received in formalin labeled "Joey III, Edward, transverse colon polyp BX," is a single segment of hou soft tissue measuring 0.5 cm in maximum dimension. The specimen is entirely submitted in cassette A1. (TSD; 09/18/2018) TOB/TOB . 02 Pathologist provided ICD-10: D12.3, K52.9 . 02 CPT . 035894 Specimen Comment: A courtesy copy of this report has been sent to Specimen Comment: [phone]. Specimen Comment: Report sent to Performed at: 01 [facility] [address], [place] [id number] MD Jerardo Caldwell MD Phone: [phone] Performed at: [address] [facility] [address] [facility] [address] [place], [place] [id number] MD Asif Mcnally MD Phone: [phone]
== END | disposition home or self-care (01) ==
LOC: ENDOS 15:55
PROVIDERS: ATTEND Internal Medicine Gastroenterology
DX: D12.3 Benign neoplasm of transverse colon (principal); K57.30 Diverticulosis of large intestine without perforation or abscess without bleeding; K64.0 First degree hemorrhoids; K29.80 Duodenitis without bleeding; D50.0 Iron deficiency anemia secondary to blood loss (chronic); K52.89 Other specified noninfective gastroenteritis and colitis; K21.9 Gastro-esophageal reflux disease without esophagitis; Z79.82 Long term (current) use of aspirin; Z72.89 Other problems related to lifestyle; Z85.46 Personal history of malignant neoplasm of prostate; I13.10 Hypertensive heart and chronic kidney disease without heart failure, with stage 1 through stage 4 chronic kidney disease, or unspecified chronic kidney disease; N18.9 Chronic kidney disease, unspecified; Z83.3 Family history of diabetes mellitus; Z79.899 Other long term (current) drug therapy; Z95.0 Presence of cardiac pacemaker
CPT/HCPCS: 43235; 45380; J2001; J2704; 88305; J1100; J2405; J3010

== ENCOUNTER → 2018-10-09 | Outpatient (CLI) | payer MEDICARE, BC ==
[2018-09-13 14:41] VITALS: BP_DIAS 66
[2018-09-21 11:00] VITALS: BP_SYST 125
[~2018-10-09] MED LIST changes: -DEXAMETHASONE SOD PHOS 20 MG/5 ML VIAL. ONE; -IV RINGERS,LACTATED 1000ML 1,000 ML IV SCH; -LIDOCAINE 2% PF 5 ML VIAL. ONE; -ONDANSETRON PF 4 MG/2 ML VIAL. ONE; -PROPOFOL 0 ML IV ONE; -PROPOFOL 40 ML IV ONE; +REGADENOSON 0.4 MG/5 ML DISP.SYRIN. IV ONE; -ROCURONIUM 50 MG/5 ML VIAL. ONE; -SEVOFLURANE 61 TO 120 MINUTES. IH ONE; -fentaNYL PF VIAL 100 MCG/2 ML VIAL ONE
--- NOTE | 2018-10-09 15:32 | RAD ---
MR#: [id number] Date of Study: 10/09/2018 Ordering Physician: CHEL NUÑEZ, Referring Physician: PETER GREGORY Tech: KATHARINE Lux, JOSE (R) (N) APPROVED REPORT Test Type: Pharmacological Stress Nurse/Tech: Adele Moreno RN Test Indications: CAD Cardiac History: Hypertension, Family history, stent 2 years ago,pacemaker,dialysis Medications: See Electronic Medical Record Medical History: See Electronic Medical Record Resting ECG: Paced Resting Heart Rate: 85 bpm Resting Blood Pressure: 140/79mmHg Pretest Chest Pain: No chest pain Nurse/Tech Notes S1,S2 and lungs are diminished in the bases. Consent: The procedure was explained to the patient in lay terms. Informed consent was witnessed. King eout was entered into [employer]. History and Stress Test performed by RT Damaris (R) (N) Pharm. Details Pharmacologic stress testing was performed using 0.4mg per 5ml of regadenoson given intravenously ove r 7-10 seconds. Stress Symptoms No chest pain or symptoms. POST EXERCISE Reason for Termination: Infusion complete Target HR: No Max HR: 111 bpm Max Blood Pressure: 135/75mmHg Blood Pressure response to exercise: Normal blood pressure response during stress. Heart Rate response to exercise: WNL Chest Pain: No. Arrhythmia: Yes. PVCs and PACs ST Change: No. INTERPRETATION Stress EKG Conclusion: Baseline EKG showed ventricular paced rhythm. Non diagnostic changes at peak stress. Imaging Protocol IMAGE PROTOCOL: Rest Tc-99m/stress Tc-99m 1 day Rest: Stress: Viability: Radiopharm.Tc99m IikaxegafUi65x Sestamibi Dose10.1mCi 33mCi Img Date 10/09/2018 10/09/2018 Inj-Img Sshe20mbo. 60min. Rest Admin Site:IV - Right HandAdministrator:KATHARINE Lux, JOSE (R)(N) Stress Admin Site: IV - Right HandAdministrator: KATHARINE Lux ARRT (R)(N) STRESS DATA End Diast. Vol.231.0mlAv. Heart Rate80.0bpm End Syst. Vol.118.0mlCO Index BSA9.0L/min Myocardial Mddg409.0gEject. Ihassobc79.0% Stress Rates Pk. Fill Rate2.35EDV/secLVtime Pk. Fill 178.02msec Pk. Empty Rate2.76ESV/secLVtime Pk. Wbjxv245.58msec 1/3 Pk. Fill0.50EDV/sec Stress Scores Regional WT3.00Summed WT30.00 Regional WM0.00Summed WM3.00 LV Perfusion Scintigraphic images showed anterior wall perfusion defect from motion artifact. No changes suggestiv e of ischemia or infarct were noted. Wall Motion Mild left ventricle systolic dysfunction with ejection fraction calculated at 49%. LV Perf. Quant 17 Seg. SSS6.00 17 Seg. SRS5.00 17 Seg. SDS1.00 Stress Defect Extent (% LAD)30.00Rest Defect Extent (% LAD)11.90Rev. Defect Extent (% LAD)11.90 Stress Defect Extent (% LCX) 0.00Rest Defect Extent (% LCX)0.00Rev. Defect Extent (% LCX)0.00 Stress Defect Extent (% RCA)0.00Rest Defect Extent (% RCA)0.00Rev. Defect Extent (% RCA)0.00 Stress Defect Extent (% CARTER)11.70Rest Defect Extent (% CARTER)4.10Rev. Defect Extent (% CARTER)5.20 Conclusion 1. Regadenoson cardioisotope stress test showed motion artifact without any definite evidence of isch emia or infarct. 2. Mild left ventricle systolic dysfunction with ejection fraction calculated at 49%. 3. Low risk for cardiac events. Signed by : Chel Nuñez, Electronically Approved : 10/09/2018 15:31:32
== END | disposition home or self-care (01) ==
LOC: NM 09-17 15:51
PROVIDERS: ATTEND Internal Medicine Cardiovascular Disease
DX: I25.10 Atherosclerotic heart disease of native coronary artery without angina pectoris (principal); I10 Essential (primary) hypertension; Z95.0 Presence of cardiac pacemaker; Z95.5 Presence of coronary angioplasty implant and graft
CPT/HCPCS: 78452; 93017; 96374; A9500; J2785

== ENCOUNTER 2018-11-23 14:43 | Inpatient (IN) | payer MEDICARE, BC ==
[~2018-11-23] VITALS: Ht 185.4 cm; Wt 78.6 kg
[~2018-11-23 14:43] MED LIST changes: -ALPR1TAB2 PO; -CEFAZOLIN SODIUM IVP; -CLOP75TA PO; -DILT180C29 PO; -DOXA2TAB2 PO; -FLUT9.9S NS; -FOLI0.8T3 PO; -MIRT30TA3 PO; -REGADENOSON 0.4 MG/5 ML DISP.SYRIN. IV ONE; -TRAZ-118 PO
[2018-11-23] MEDS ORDERED: ONDANSETRON PF 4 MG/2 ML VIAL. IV ONE (15:30)
[2018-11-23] MEDS ORDERED: MORPHINE SULFATE 2 MG/ML VIAL. IV ONE (15:30)
--- NOTE | 2018-11-23 16:09 | PHYS DOC ---
Past Medical History Past Medical History: A-Fib, Anxiety, Asthma, Cancer, GERD, Hypertension, Renal Failure, Other Additional Past Medical Histor: GOUT, PERITONEAL DIALYSIS, SUBDURAL HEMATOMA, Past Surgical History: Pacemaker Additional Past Surgical Histo: PROSTATECTOMY, LEFT ELBOW Additional Information: non smoker Alcohol Use: Rarely Drug Use: None Adult General Chief Complaint Chief Complaint: DIALYSIS PROBLEM HPI HPI Patient is a 77 year old male who presents with abdominal pain. He is a peritoneal dialysis patient who was seen by Dr. Casiano on and diagnosed with an infection. Labs were drawn and he was prescribed Keflex. Patient has been taking the medication but states he had severe abdominal pain this morning so came to ER. Rates his pain as 7/10. Associated symptoms include diarrhea, nausea and vomiting. He has vomited 4 times. Review of Systems Review of Systems Constitutional: Denies fever or chills [] Eyes: Denies change in visual acuity, redness, or eye pain [] HENT: Denies nasal congestion or sore throat [] Respiratory: Denies cough or shortness of breath [] Cardiovascular: No additional information not addressed in HPI [] GI: Reports abdominal pain, nausea, vomiting, diarrhea Denies Bloody stools. : Denies dysuria or hematuria [] Musculoskeletal: Denies back pain or joint pain [] Integument: Denies rash or skin lesions [] Neurologic: Denies headache, focal weakness or sensory changes [] Endocrine: Denies polyuria or polydipsia [] Complete systems were reviewed and found to be within normal limits, except as documented in this note. Current Medications Current Medications Current Medications Medications (Trade) Dose Ordered Sig/[facility] Start Time Stop Time Status Last Admin Dose Admin Morphine Sulfate (Morphine Sulfate) 2 mg PRN Q2HR PRN 11/23/18 19:00 11/24/18 18:59 Ondansetron HCl (Zofran) 4 mg PRN Q8HRS PRN 11/23/18 19:00 11/24/18 18:59 Allergies Allergies Allergies Coded Allergies Type Severity Reaction Last Updated Verified No Known Drug Allergies 09/17/18 No Physical Exam Physical Exam Constitutional: Well developed, well nourished, no acute distress, non-toxic appearance. [] HENT: Normocephalic, atraumatic, bilateral external ears normal, oropharynx moist, no oral exudates, nose normal. [] Eyes: PERRLA, EOMI, conjunctiva normal, no discharge. [] Neck: Normal range of motion, no tenderness, supple, no stridor. [] Cardiovascular:Heart rate regular rhythm, no murmur [] Lungs & Thorax: Bilateral breath sounds clear to auscultation [] Abdomen: Bowel sounds normal, soft, diffuse tenderness, erythema near peritoneal dialysis site, no masses, no pulsatile masses. [] Skin: Warm, dry, no erythema, no rash. [] Back: No tenderness, no CVA tenderness. [] Extremities: No tenderness, no cyanosis, no clubbing, ROM intact, no edema. [] Neurologic: Alert and oriented X 3, normal motor function, normal sensory function, no focal deficits noted. [] Psychologic: Affect normal, judgement normal, mood normal. [] Current Patient Data Vital Signs Vital Signs Date Time Temp Pulse Resp B/P (MAP) Pulse Ox O2 Delivery O2 Flow Rate FiO2 11/23/18 17:56 74 146/79 (101) 97 Room Air 11/23/18 14:50 97.9 18 97.9 Lab Values Laboratory Tests Test 11/23/18 16:35 11/23/18 18:05 White Blood Count 8.7 x10^3/uL (4.0-11.0) Red Blood Count 3.32 x10^6/uL (4.30-5.70) L Hemoglobin 10.0 g/dL (13.0-17.5) L Hematocrit 31.3 % (39.0-53.0) L Mean Corpuscular Volume 94 fL (79-100) Mean Corpuscular Hemoglobin 30 pg (25-35) Mean Corpuscular Hemoglobin Concent 32 g/dL (31-37) Red Cell Distribution Width 17.1 % (11.5-14.5) H Platelet Count 216 x10^3/uL (140-400) Neutrophils (%) (Auto) 84 % (31-73) H Lymphocytes (%) (Auto) 5 % (24-48) L Monocytes (%) (Auto) 11 % (0-9) H Eosinophils (%) (Auto) 0 % (0-3) Basophils (%) (Auto) 0 % (0-3) Neutrophils # (Auto) 7.3 x10^3uL (1.8-7.7) Lymphocytes # (Auto) 0.4 x10^3/uL (1.0-4.8) L Monocytes # (Auto) 0.9 x10^3/uL (0.0-1.1) Eosinophils # (Auto) 0.0 x10^3/uL (0.0-0.7) Basophils # (Auto) 0.0 x10^3/uL (0.0-0.2) Prothrombin Time 14.0 SEC (11.7-14.0) Prothrombin Time INR 1.1 (0.8-1.1) PTT 28 SEC (24-38) Sodium Level 132 mmol/L (136-145) L Potassium Level 3.3 mmol/L (3.5-5.1) L Chloride Level 92 mmol/L (98-107) L Carbon Dioxide Level 30 mmol/L (21-32) Anion Gap 10 (6-14) Blood Urea Nitrogen 54 mg/dL (8-26) H Creatinine 12.1 mg/dL (0.7-1.3) H Estimated GFR (Cockcroft-Gault) 4.9 BUN/Creatinine Ratio 4 (6-20) L Glucose Level 103 mg/dL (70-99) H Lactic Acid Level 1.5 mmol/L (0.4-2.0) Calcium Level 9.1 mg/dL (8.5-10.1) Total Bilirubin 0.6 mg/dL (0.2-1.0) Aspartate Amino Transferase (AST) 13 U/L (15-37) L Alanine Aminotransferase (ALT) 13 U/L (16-63) L Alkaline Phosphatase 78 U/L (46-116) Total Protein 6.7 g/dL (6.4-8.2) Albumin 2.0 g/dL (3.4-5.0) L Albumin/Globulin Ratio 0.4 (1.0-1.7) L Urine Collection Type U cath Urine Color Yellow Urine Clarity Clear Urine pH 8.0 Urine Specific [place] 1.020 Urine Protein 100 mg/dL (NEG-TRACE) Urine Glucose (UA) Negative mg/dL (NEG) Urine Ketones (Stick) Negative mg/dL (NEG) Urine Blood Moderate (NEG) Urine Nitrite Negative (NEG) Urine Bilirubin Negative (NEG) Urine Urobilinogen Dipstick 0.2 mg/dL (0.2 mg/dL) Urine Leukocyte Esterase Negative (NEG) Urine RBC >40 /HPF (0-2) Urine WBC 1-4 /HPF (0-4) Urine Transitional Epithelial Cells Many /LPF Urine Renal Epithelial Cells Few /LPF Urine Bacteria 0 /HPF (0-FEW) Laboratory Tests 11/23/18 16:35 Laboratory Tests 11/23/18 16:35 EKG EKG EKG interpreted by Dr. Cruz No STEMI, Sinus with rate of 78[] Radiology/Procedures Radiology/Procedures Preliminary Chest X-ray by Dr. Cruz Right middle lobe pulmonary effusion.[] PATIENT: CYNDI NUNO ACCOUNT: [id number] : 1940 LOCATION: ER AGE: 77 SEX: M EXAM STATUS: PRE ER ORD. PHYSICIAN: RITESH RICE APRN REASON: lower abd pain PROCEDURE: CT ABDOMEN PELVIS WO CONTRAST CT scan of the abdomen and pelvis without contrast 11/23/2018 CLINICAL HISTORY: Lower abdominal pain. TECHNIQUE: Unenhanced, contiguous, 5 mm axial sections were obtained through the abdomen and pelvis. One or more of the following individualized dose reduction techniques were utilized for this study: 1. Automated exposure control. 2. Adjustment of the mA and/or kV according to patient size. 3. Use of iterative reconstruction technique. FINDINGS: Comparison study is dated 11/06/2013. Images through the lung bases demonstrate mild to moderate cardiomegaly. Areas of atelectasis and/or scarring are seen involving the right middle lobe, lingula and both lower lobes. The liver, spleen, pancreas, and adrenal glands are within normal limits. Low-attenuation lesions are seen involving both kidneys which likely represent cysts. Some of these appear to be hemorrhagic. They measure 3 mm 3.4 cm in size. A partially calcified mass is seen involving the lower pole of the left kidney which measures 3.7 cm in size. Its CT appearance is nonspecific. It has not significantly changed in size since the previous study. It has increased in calcification. Atherosclerotic calcification of the abdominal aorta and its branches is noted. A small amount of free fluid is seen surrounding the liver. The gallbladder is well-distended. Small calcified gallstones are seen within the dependent portions of the gallbladder. Multiple diverticula are seen involving the colon, particularly the sigmoid colon. No inflammatory changes are seen adjacent fat. There is no evidence of bowel obstruction. A catheter which may represent a peritoneal dialysis catheter is seen extending from the medial aspect of the right lower abdomen into the peritoneal space within the left pelvis. Images through the pelvis demonstrate surgical changes consistent with radical prostatectomy. Urinary bladder is distended with urine. A small amount of free fluid is seen within the pelvis. This is presumably related to peritoneal dialysis. No abnormal fluid collection is noted. Degenerative changes are seen involving the lower thoracic and throughout the lumbar spine and both hips. IMPRESSION: No acute abnormality is seen. Electronically signed by: Michael Flores MD (11/23/2018 4:14 PM) [facility] Course & Med Decision Making Course & Med Decision Making Pertinent Labs and Imaging studies reviewed. (See chart for details) Will get CT of abdomen, chest xray, labs, urine. Patient is agreeable. Will order Cefepime and talked to Dr. Sanchez about admission. Dr. Sanchez agreed to admit. Patient is agreeable to this. Dragon Disclaimer Dragon Disclaimer This electronic medical record was generated, in whole or in part, using a voice recognition dictation system. Departure Departure Impression: Primary Impression: Bacterial infection associated with peritoneal dialysis catheter Disposition: ADMITTED INPATIENT Admitting Physician: Adolfo Sanchez Condition: STABLE Referrals: TOMMIE MONTES MD (PCP) Problem Qualifiers Primary Impression: Bacterial infection associated with peritoneal dialysis catheter Encounter type: initial encounter Qualified Codes: T85.71XA - Infection and inflammatory reaction due to peritoneal dialysis catheter, initial encounter; A49.9 - Bacterial infection, unspecified RITESH RICE APRN November 23, 2018 16:09
--- NOTE | 2018-11-23 16:17 | RAD ---
CT scan of the abdomen and pelvis without contrast 11/23/2018 CLINICAL HISTORY: Lower abdominal pain. TECHNIQUE: Unenhanced, contiguous, 5 mm axial sections were obtained through the abdomen and pelvis. One or more of the following individualized dose reduction techniques were utilized for this study: 1. Automated exposure control. 2. Adjustment of the mA and/or kV according to patient size. 3. Use of iterative reconstruction technique. FINDINGS: Comparison study is dated 11/06/2013. Images through the lung bases demonstrate mild to moderate cardiomegaly. Areas of atelectasis and/or scarring are seen involving the right middle lobe, lingula and both lower lobes. The liver, spleen, pancreas, and adrenal glands are within normal limits. Low-attenuation lesions are seen involving both kidneys which likely represent cysts. Some of these appear to be hemorrhagic. They measure 3 mm 3.4 cm in size. A partially calcified mass is seen involving the lower pole of the left kidney which measures 3.7 cm in size. Its CT appearance is nonspecific. It has not significantly changed in size since the previous study. It has increased in calcification. Atherosclerotic calcification of the abdominal aorta and its branches is noted. A small amount of free fluid is seen surrounding the liver. The gallbladder is well-distended. Small calcified gallstones are seen within the dependent portions of the gallbladder. Multiple diverticula are seen involving the colon, particularly the sigmoid colon. No inflammatory changes are seen adjacent fat. There is no evidence of bowel obstruction. A catheter which may represent a peritoneal dialysis catheter is seen extending from the medial aspect of the right lower abdomen into the peritoneal space within the left pelvis. Images through the pelvis demonstrate surgical changes consistent with radical prostatectomy. Urinary bladder is distended with urine. A small amount of free fluid is seen within the pelvis. This is presumably related to peritoneal dialysis. No abnormal fluid collection is noted. Degenerative changes are seen involving the lower thoracic and throughout the lumbar spine and both hips. IMPRESSION: No acute abnormality is seen. Electronically signed by: Michael Flores MD (11/23/2018 4:14 PM) [facility]
[2018-11-23 17:03] LABS: BASO % 0 % (0-3); EOS % 0 % (0-3); HEMATOCRIT 31.3 % (39.0-53.0); LYMPH # 0.4 x10^3/uL (1.0-4.8); LYMPH % 5 % (24-48); MEAN CORPUSCULAR HEMOGLOBIN 30 pg (25-35); MEAN CORPUSCULAR HGB CONC 32 g/dL (31-37); MEAN CORPUSCULAR VOLUME 94 fL (79-100); MONO # 0.9 x10^3/uL (0.0-1.1); MONO % 11 % (0-9); NEUT # 7.3 x10^3uL (1.8-7.7); NEUT % 84 % (31-73); PLATELET COUNT 216 x10^3/uL (140-400); RED BLOOD COUNT 3.32 x10^6/uL (4.30-5.70); RED CELL DISTRIBUTION WIDTH 17.1 % (11.5-14.5); WHITE BLOOD COUNT 8.7 x10^3/uL (4.0-11.0)
[2018-11-23 17:11] LABS: CALCIUM 9.1 mg/dL (8.5-10.1); CREATININE 12.1 mg/dL (0.7-1.3); GFR 4.9; POTASSIUM 3.3 mmol/L (3.5-5.1)
[2018-11-23 17:17] LABS: ALBUMIN/GLOBULIN RATIO 0.4 (1.0-1.7); TOTAL BILIRUBIN 0.6 mg/dL (0.2-1.0); TOTAL PROTEIN 6.7 g/dL (6.4-8.2)
--- NOTE | 2018-11-23 17:20 | RAD ---
PA and lateral chest radiographs 11/23/2018 CLINICAL HISTORY: Fever. PA and lateral digital radiographs of chest were obtained. Comparison study is dated 09/18/2018. A pacemaker is unchanged in position. The cardiac silhouette is mildly enlarged. The thoracic aorta is tortuous. Patchy right lower lobe atelectasis and/or infiltrate is seen. Linear bands of probable scarring are seen involving both lower lobes. No pneumothorax or pleural effusion is seen. The osseous structures are unchanged. IMPRESSION: Patchy right lower lobe atelectasis and/or infiltrate. Electronically signed by: Michael Flores MD (11/23/2018 5:17 PM) [facility]
[2018-11-23 18:19] LABS: BILIRUBIN,URINE NEGATIVE (NEG); CLARITY,URINE CLEAR; COLOR,URINE YELLOW; NITRITE,URINE NEGATIVE (NEG); PROTEIN,URINE 100 mg/dL (NEG-TRACE); UROBILINOGEN,URINE 0.2 mg/dL (0.2 mg/dL)
[2018-11-23 18:42] LABS: BACTERIA,URINE 0 /HPF (0-FEW); RBC,URINE >40 /HPF (0-2)
[2018-11-23] MEDS ORDERED: MORPHINE SULFATE 2 MG/ML VIAL. IV PRN (19:00)
[2018-11-23] MEDS ORDERED: ONDANSETRON PF 4 MG/2 ML VIAL. IV PRN (19:00)
[2018-11-23] MEDS ORDERED: CEFEPIME HCL IV Push 1 GM VIAL. IVP SCH (19:30)
[2018-11-23 20:00] VITALS: BP 135/78
[2018-11-23] MEDS ORDERED: VANCOMYCIN 2 GM in IV NORMAL SALINE 500ML BAG 500 ML IV ONE (20:00)
[2018-11-23] MEDS ORDERED: VANCOMYCIN 1.5 GM in IV NORMAL SALINE 500ML BAG 500 ML IV SCH (21:00)
[2018-11-23] MEDS ORDERED: ALPR1TAB2 PO (21:07)
[2018-11-23] MEDS ORDERED: FOLI0.8T3 PO (21:30)
[2018-11-23] MEDS ORDERED: DILT180C29 PO (21:30)
[2018-11-23] MEDS ORDERED: TRAZ-118 PO (21:38)
[2018-11-23] MEDS ORDERED: MONT10TA9 PO (21:38)
[2018-11-23] MEDS ORDERED: DOXA2TAB2 PO (21:38)
[2018-11-23] MEDS ORDERED: CLOP75TA PO (21:38)
[2018-11-23] MEDS ORDERED: MIRT30TA3 PO (21:38)
[2018-11-23] MEDS ORDERED: FLUT9.9S NS (21:38)
[2018-11-23] MEDS ORDERED: ATEN100T PO (21:38)
[2018-11-23] MEDS ORDERED: ONDANSETRON ODT 4 MG TAB.RAPDIS. PO PRN (22:15)
[2018-11-23] MEDS: MONTELUKAST SODIUM 10 MG TABLET. PO SCH (22:50)
[2018-11-23] MEDS: MIRTAZAPINE 15 MG TABLET PO SCH (22:50)
[2018-11-23] MEDS: ATORVASTATIN CALCIUM 20 MG TABLET PO SCH (22:50)
[2018-11-23] MEDS: ALPRAZolam 1 MG TABLET PO SCH (22:50)
[2018-11-23] MEDS ORDERED: traZODone 50 MG TABLET. PO SCH (23:00)
[2018-11-23 23:10] VITALS: BP 127/75
--- NOTE | 2018-11-24 01:15 | NUR ---
around [address] Isaura Lopez on the phone for pt's peritoneal dialysis, he said he will resume dialysis tomorrow 11/24/18. Pt is currently resting. will continue to monitor pt.
--- NOTE | 2018-11-24 01:19 | NUR ---
pt refused bed alarm, but agreed to call staff everytime needs to ambulate/get out of bed.
[2018-11-24 03:08] VITALS: BP 107/60
[2018-11-24] MEDS: VANCOMYCIN PER PHARMACY MC PRN (03:23)
--- NOTE | 2018-11-24 03:23 | NUR ---
Pharmacy Vancomycin Dosing Note S:Consulted to monitor and dose vancomycin started 11/23/18. O:CYNDI NUNO is a 77 year old M with Bacteremia PD CATHETER INFECTION . Height: 6 feet, 1 inches Weight: 83.888026 kg [place] Body Weight: 79.90 Adjusted Body Weight: 81.54 Dosing Weight: Actual Other Antibiotics: LABS: Last BUN: 54 Last Creatinine: 12.1 Creatinine Clearance: PD mL/min Last WBC: 8.7 Last Procalcitonin: Tmax (past 24 hours): Microbiology: I/O: Drug Levels: Last level: on at Last dose given 11/23/18 at 2100 Vancomycin Dosing: Loading Dose: 2000 mg x1 Dosing Weight: Actual Target Trough: 10-20 A: Based on: WT AND PD P: 1. Begin Vancomycin IV Dose Per Levels 2. Follow up Random level on 11/25/18 at 2100 3. Pharmacy will continue to monitor, follow and adjust therapy as needed. ROME MENCHACA RPH, 11/24/18322 Signed: 11/24/18 at 322 by ROME MENCHACA RPH PHA
[2018-11-24 07:00] VITALS: BP 129/83
[2018-11-24] MEDS: FLUTICASONE 50MCG/NASAL SPRAY 16GM BOTTLE. NS SCH (09:00)
[2018-11-24] MEDS ORDERED: ONDANSETRON PF 4 MG/2 ML VIAL. IV PRN (09:15)
[2018-11-24] MEDS ORDERED: ACETAMINOPHEN 500 MG TABLET PO PRN (09:15)
[2018-11-24] MEDS: FOLIC/VIT B COMP W-C (RENAL) TABLET. PO SCH (09:42)
[2018-11-24] MEDS: MEGESTROL 20 MG TABLET. PO SCH (09:42)
[2018-11-24] MEDS: ALLOPURINOL 100 MG TABLET. PO SCH (09:42)
[2018-11-24] MEDS: ATENOLOL 50 MG TABLET. PO SCH (09:43)
[2018-11-24] MEDS: CLOPIDOGREL BISULFATE 75 MG TABLET PO SCH (09:44)
[2018-11-24] MEDS: DOXAZOSIN MESYLATE 4 MG TABLET. PO SCH (09:44)
[2018-11-24] MEDS: LOSARTAN POTASSIUM 50 MG TABLET. PO SCH (09:44)
[2018-11-24 11:00] VITALS: BP 132/72
--- NOTE | 2018-11-24 11:40 | PDOC1 ---
History and Physical Date of Admission Date of Admission DATE: 11/24/18 TIME: 11:36 Identification/Chief Complaint Chief Complaint Abdominal pain Source Source: Caregiver, Chart review, Patient History of Present Illness History of Present Illness 77-year-old -[place] male admitted last night, abdominal elen x few days. At one point, claims PD dialysate was cloudy. Admitted with consults to ID and renal. He does PD by himself. ID has started vancomycin. Nontoxic appearing, no problems ambulating, WBC 10 with no white count. BMP remarkable for creatinine 12 ESRD numbers, mild hyponatremia 132 mild hypokalemia 3.3. RN tells me now frequent PVCs also through the night, indwelling pacer as I have reviewed on chest x-ray. Some right lower lobe atelectasis versus infiltrate on chest x-ray. CT abdomen and pelvis actually read as unremarkable Past Medical History Cardiovascular: AFIB, HTN, Other Pulmonary: COPD, Pulmonary embolus, Pneumonia CENTRAL NERVOUS SYSTEM: Other GI: GERD Heme/Onc: Anemia NOS Psych: Anxiety Musculoskeletal: Osteoarthritis Rheumatologic: Gout Infectious disease: No pertinent hx Renal/: Chronic renal failure, Prostate Ca., Other Endocrine: No pertinent hx Past Surgical History Past Surgical History: Pacemaker, Other Family History Family History: Hypertension Social History Smoke: No ALCOHOL: none Drugs: None Current Problem List Problem List Problems Medical Problems: (1) Bacterial infection associated with peritoneal dialysis catheter Status: Acute Current Medications Current Medications Current Medications Ondansetron HCl (Zofran) 4 mg 1X ONCE IV Last administered on 11/23/18at 16:08; Start 11/23/18 at 15:30; Stop 11/23/18 at 15:31; Status DC Morphine Sulfate (Morphine Sulfate) 2 mg 1X ONCE IV Last administered on 11/23/18at 16:08; Start 11/23/18 at 15:30; Stop 11/23/18 at 15:31; Status DC Ondansetron HCl (Zofran) 4 mg PRN Q8HRS PRN IV NAUSEA/VOMITING; Start 11/23/18 at 19:00; Stop 11/24/18 at 09:05; Status DC Morphine Sulfate (Morphine Sulfate) 2 mg PRN Q2HR PRN IV PAIN; Start 11/23/18 at 19:00; Stop 11/24/18 at 18:59 Cefepime HCl (Maxipime) 1 gm BID IVP Last administered on 11/23/18 19:14; Start 11/23/18 at 19:30; Stop 11/23/18 at 19:30; Status DC Vancomycin HCl 1.5 gm/Sodium Chloride 500 ml @ 250 mls/hr BID IV ; Start 11/23/18 at 21:00; Status UNV Vancomycin HCl 2 gm/Sodium Chloride 500 ml @ 250 mls/hr 1X ONCE IV Last administered on 11/23/18 20:40; Start 11/23/18 at 20:00; Stop 11/23/18 at 21:59; Status DC Vancomycin HCl (Vanco Per Pharmacy) 1 each PRN DAILY PRN MC SEE COMMENTS Last administered on 11/24/18 03:23; Start 11/23/18 at 19:30 Alprazolam (Xanax) 1 mg HS PO Last administered on 11/23/18 22:50; Start 11/23/18 at 23:00 Clopidogrel Bisulfate (Plavix) 75 mg DAILY PO Last administered on 11/24/18 09:44; Start 11/24/18 at 09:00 Allopurinol (Zyloprim) 150 mg DAILY PO Last administered on 11/24/18 09:42; Start 11/24/18 at 09:00 Atorvastatin Calcium (Lipitor) 20 mg QHS PO Last administered on 11/23/18 22:50; Start 11/23/18 at 23:00 Vitamin B Complex/ Vitamin C (Ana-Porter) 1 tab DAILY PO Last administered on 11/24/18 09:42; Start 11/24/18 at 09:00 Ondansetron HCl (Zofran Odt) 4 mg PRN Q6HRS PRN PO NAUSEA 1ST CHOICE; Start 11/23/18 at 22:15 Atenolol (Tenormin) 100 mg DAILY PO Last administered on 11/24/18 09:43; Start 11/24/18 at 09:00 Diltiazem HCl (Cardizem 24hr Cd) 180 mg DAILY PO Last administered on 11/24/18 09:43; Start 11/24/18 at 09:00 Doxazosin Mesylate (Cardura) 2 mg DAILY PO Last administered on 11/24/18 09:44; Start 11/24/18 at 09:00 Fluticasone Propionate (Flonase) 2 spray DAILY NS ; Start 11/24/18 at 09:00 Megestrol Acetate (Megace) 40 mg DAILY PO Last administered on 11/24/18at 09:42; Start 11/24/18 at 09:00 Mirtazapine (Remeron) 30 mg QHS PO Last administered on 11/23/18at 22:50; Start 11/23/18 at 23:00 Montelukast Sodium (Singulair) 10 mg QHS PO ; Start 11/23/18 at 23:00 Trazodone HCl (Desyrel) 50 mg QHS PO ; Start 11/23/18 at 23:00 Losartan Potassium (Cozaar) 100 mg DAILY PO Last administered on 11/24/18at 09:44; Start 11/24/18 at 09:00 Vancomycin HCl (Vancomycin Random Level) 1 each 1X ONCE MC ; Start 11/25/18 at 21:00; Stop 11/25/18 at 21:01 Ondansetron HCl (Zofran) 4 mg PRN Q6HRS PRN IV NAUSEA/VOMITING; Start 11/24/18 at 09:15 Acetaminophen (Tylenol) 500 mg PRN Q6HRS PRN PO MILD PAIN / TEMP; Start 11/24/18 at 09:15 Active Scripts Active Atorvastatin Calcium 20 Mg Tablet 20 Mg PO QHS MDD 1 Zofran Odt (Ondansetron) 4 Mg Tab.rapdis 1 Tab SL Q6HRS PRN Reported Doxazosin Mesylate 2 Mg Tablet 2 Mg PO DAILY Clopidogrel (Clopidogrel Bisulfate) 75 Mg Tablet 1 Tab PO DAILY Flonase Allergy Relief (Fluticasone Propionate) 9.9 Ml [facility].susp 2 Sprays NS DAILY Montelukast Sodium Tablet (Montelukast Sodium) 10 Mg Tablet 1 Tab PO DAILY Mirtazapine 30 Mg Tablet 1 Tab PO QHS Atenolol 100 Mg Tablet 1 Tab PO DAILY Nephro-Porter Tablet (Folic Acid/Vitamin B Comp W-C) 0.8 Mg Tablet 1 Tab PO DAILY Diltiazem 24HR Cd (Diltiazem Hcl) 180 Mg Cap.er.24h 1 Cap PO DAILY Xanax (Alprazolam) 1 Mg Tablet 0.5 Tab PO HS Diovan (Valsartan) 320 Mg Tablet 320 Mg PO DAILY Megestrol Acetate 40 Mg Tablet 40 Mg PO DAILY Allopurinol 100 Mg Tablet 150 Mg PO DAILY Allergies Allergies: Coded Allergies: No Known Drug Allergies (Unverified , 09/17/18) ROS Review of System As per history of present illness, the rest of ROS 14 point negative Physical Exam General: Alert, Oriented X3, Cooperative, No acute distress HEENT: Atraumatic, PERRLA, EOMI Lungs: Normal air movement, Other (symmetrical chest expansion, decreased breath sounds right bases) Heart: S1S2, RRR, no thrills, no rubs Cardiovascular: S1, S2, Other (indwelling pacer) Abdomen: Normal bowel sounds, Soft, No hepatosplenomegaly, No masses, Other (PD catheter, some tenderness periumbilical area) Rectal Exam: not examined PELVIC: Nml ext genitalia Extremities: No clubbing, No cyanosis, No edema, Normal pulses, No tenderness/swelling Skin: No rashes, No breakdown, No significant lesion Neuro: Normal gait, Normal speech, Strength at 5/5 X4 ext, Normal tone, Sensation intact, Cranial nerves 3-12 NL, Reflexes 2+ Psych/Mental Status: Mental status NL, Mood NL Vitals Vitals Vital Signs Date Time Temp Pulse Resp B/P (MAP) Pulse Ox O2 Delivery O2 Flow Rate FiO2 11/24/18 09:44 74 129/83 11/24/18 08:00 Room Air 11/24/18 07:00 98.5 14 92 98.5 Labs Labs Laboratory Tests Test 11/23/18 16:35 11/23/18 18:05 White Blood Count 8.7 x10^3/uL (4.0-11.0) Red Blood Count 3.32 x10^6/uL (4.30-5.70) Hemoglobin 10.0 g/dL (13.0-17.5) Hematocrit 31.3 % (39.0-53.0) Mean Corpuscular Volume 94 fL (79-100) Mean Corpuscular Hemoglobin 30 pg (25-35) Mean Corpuscular Hemoglobin Concent 32 g/dL (31-37) Red Cell Distribution Width 17.1 % (11.5-14.5) Platelet Count 216 x10^3/uL (140-400) Neutrophils (%) (Auto) 84 % (31-73) Lymphocytes (%) (Auto) 5 % (24-48) Monocytes (%) (Auto) 11 % (0-9) Eosinophils (%) (Auto) 0 % (0-3) Basophils (%) (Auto) 0 % (0-3) Neutrophils # (Auto) 7.3 x10^3uL (1.8-7.7) Lymphocytes # (Auto) 0.4 x10^3/uL (1.0-4.8) Monocytes # (Auto) 0.9 x10^3/uL (0.0-1.1) Eosinophils # (Auto) 0.0 x10^3/uL (0.0-0.7) Basophils # (Auto) 0.0 x10^3/uL (0.0-0.2) Prothrombin Time 14.0 SEC (11.7-14.0) Prothromb Time International Ratio 1.1 (0.8-1.1) Activated Partial Thromboplast Time 28 SEC (24-38) Sodium Level 132 mmol/L (136-145) Potassium Level 3.3 mmol/L (3.5-5.1) Chloride Level 92 mmol/L (98-107) Carbon Dioxide Level 30 mmol/L (21-32) Anion Gap 10 (6-14) Blood Urea Nitrogen 54 mg/dL (8-26) Creatinine 12.1 mg/dL (0.7-1.3) Estimated GFR (Cockcroft-Gault) 4.9 BUN/Creatinine Ratio 4 (6-20) Glucose Level 103 mg/dL (70-99) Lactic Acid Level 1.5 mmol/L (0.4-2.0) Calcium Level 9.1 mg/dL (8.5-10.1) Total Bilirubin 0.6 mg/dL (0.2-1.0) Aspartate Amino Transf (AST/SGOT) 13 U/L (15-37) Alanine Aminotransferase (ALT/SGPT) 13 U/L (16-63) Alkaline Phosphatase 78 U/L (46-116) Total Protein 6.7 g/dL (6.4-8.2) Albumin 2.0 g/dL (3.4-5.0) Albumin/Globulin Ratio 0.4 (1.0-1.7) Urine Collection Type U cath Urine Color Yellow Urine Clarity Clear Urine pH 8.0 Urine Specific [place] 1.020 Urine Protein 100 mg/dL (NEG-TRACE) Urine Glucose (UA) Negative mg/dL (NEG) Urine Ketones (Stick) Negative mg/dL (NEG) Urine Blood Moderate (NEG) Urine Nitrite Negative (NEG) Urine Bilirubin Negative (NEG) Urine Urobilinogen Dipstick 0.2 mg/dL (0.2 mg/dL) Urine Leukocyte Esterase Negative (NEG) Urine RBC >40 /HPF (0-2) Urine WBC 1-4 /HPF (0-4) Urine Transitional Epithelial Cells Many /LPF Urine Renal Epithelial Cells Few /LPF Urine Bacteria 0 /HPF (0-FEW) Laboratory Tests Test 11/23/18 16:35 11/23/18 18:05 White Blood Count 8.7 x10^3/uL (4.0-11.0) Red Blood Count 3.32 x10^6/uL (4.30-5.70) Hemoglobin 10.0 g/dL (13.0-17.5) Hematocrit 31.3 % (39.0-53.0) Mean Corpuscular Volume 94 fL (79-100) Mean Corpuscular Hemoglobin 30 pg (25-35) Mean Corpuscular Hemoglobin Concent 32 g/dL (31-37) Red Cell Distribution Width 17.1 % (11.5-14.5) Platelet Count 216 x10^3/uL (140-400) Neutrophils (%) (Auto) 84 % (31-73) Lymphocytes (%) (Auto) 5 % (24-48) Monocytes (%) (Auto) 11 % (0-9) Eosinophils (%) (Auto) 0 % (0-3) Basophils (%) (Auto) 0 % (0-3) Neutrophils # (Auto) 7.3 x10^3uL (1.8-7.7) Lymphocytes # (Auto) 0.4 x10^3/uL (1.0-4.8) Monocytes # (Auto) 0.9 x10^3/uL (0.0-1.1) Eosinophils # (Auto) 0.0 x10^3/uL (0.0-0.7) Basophils # (Auto) 0.0 x10^3/uL (0.0-0.2) Prothrombin Time 14.0 SEC (11.7-14.0) Prothromb Time International Ratio 1.1 (0.8-1.1) Activated Partial Thromboplast Time 28 SEC (24-38) Sodium Level 132 mmol/L (136-145) Potassium Level 3.3 mmol/L (3.5-5.1) Chloride Level 92 mmol/L (98-107) Carbon Dioxide Level 30 mmol/L (21-32) Anion Gap 10 (6-14) Blood Urea Nitrogen 54 mg/dL (8-26) Creatinine 12.1 mg/dL (0.7-1.3) Estimated GFR (Cockcroft-Gault) 4.9 BUN/Creatinine Ratio 4 (6-20) Glucose Level 103 mg/dL (70-99) Lactic Acid Level 1.5 mmol/L (0.4-2.0) Calcium Level 9.1 mg/dL (8.5-10.1) Total Bilirubin 0.6 mg/dL (0.2-1.0) Aspartate Amino Transf (AST/SGOT) 13 U/L (15-37) Alanine Aminotransferase (ALT/SGPT) 13 U/L (16-63) Alkaline Phosphatase 78 U/L (46-116) Total Protein 6.7 g/dL (6.4-8.2) Albumin 2.0 g/dL (3.4-5.0) Albumin/Globulin Ratio 0.4 (1.0-1.7) Urine Collection Type U cath Urine Color Yellow Urine Clarity Clear Urine pH 8.0 Urine Specific [place] 1.020 Urine Protein 100 mg/dL (NEG-TRACE) Urine Glucose (UA) Negative mg/dL (NEG) Urine Ketones (Stick) Negative mg/dL (NEG) Urine Blood Moderate (NEG) Urine Nitrite Negative (NEG) Urine Bilirubin Negative (NEG) Urine Urobilinogen Dipstick 0.2 mg/dL (0.2 mg/dL) Urine Leukocyte Esterase Negative (NEG) Urine RBC >40 /HPF (0-2) Urine WBC 1-4 /HPF (0-4) Urine Transitional Epithelial Cells Many /LPF Urine Renal Epithelial Cells Few /LPF Urine Bacteria 0 /HPF (0-FEW) VTE Prophylaxis Ordered VTE Prophylaxis Devices: Yes VTE Pharmacological Prophylaxi: Yes Assessment/Plan Assessment/Plan Abdominal pain rule out SBP ESRD on PD Cloudy reports of dialysate per patient PVCs, history of A. fib-indwelling pacer Anemia of ESRD Mild hypokalemia Normocalcemia PLAN: Admit 2 mN Vancomycin per ID was started PD per dialysis Consult cardiology regarding those PVCs an indwelling pacer I have reconciled home meds Check mag, replace potassium 201 Seemingly no PT needs Discussed with him my plan, agreeable Keep office assistant REUBEN BLAS MD November 24, 2018 11:40
[2018-11-24] MEDS ORDERED: MAGNESIUM SULFATE 2GM 50 ML IV PRN (11:45)
--- NOTE | 2018-11-24 11:48 | PDOC2 ---
CONSULT Date of Consult Date of Consult DATE: 11/24/18 TIME: 11:47 Reason for Consult Reason for Consult: ESRD on peritoneal dialysis Referring Physician Referring Physician: Dr. Antoine Identification/Chief Complaint Chief Complaint Abdominal pain Source Source: Chart review, Patient History of Present Illness Reason for Visit: Mr. Cook is a pleasant 77-year-old [place] gentleman followed by Dr. Roa for his ESRD needs. He's been on peritoneal dialysis and recently developed abdominal pain, cloudy bag. His [place] dialysis fluid showed signs of peritonitis with gram-positive cocci. He was given an intraperitoneal loading dose of vancomycin 2-3 days ago and started on Keflex by mouth. He called the on-call peritoneal dialysis nurse to relay his complains of ongoing abdominal discomfort and the lack of relief. It was hence decided to send him to the ER for further evaluation. In the ER he is noted to have a low potassium. He hasn't been eating drinking well hasn't slept for last few days. Denies any other complaints at this time no nausea vomiting fevers chills diarrhea constipation that he admits to at this time. IV vancomycin was initiated and with the ER physician. We are currently awaiting cultures from the outpatient setting Past Medical History Cardiovascular: AFIB, HTN, Other Pulmonary: COPD, Pulmonary embolus, Pneumonia CENTRAL NERVOUS SYSTEM: Other GI: GERD Heme/Onc: Anemia NOS Psych: Anxiety Musculoskeletal: Osteoarthritis Rheumatologic: Gout Infectious disease: No pertinent hx Renal/: Chronic renal failure, Prostate Ca., Other Endocrine: No pertinent hx Past Surgical History Past Surgical History: Pacemaker, Other Family History Family History: Hypertension, Kidney Disease (sister with kidney failure) Social History No ALCOHOL: none Drugs: None Lives: with Family Domestic Violence: Neg Current Problem List Problem List Problems Medical Problems: (1) Bacterial infection associated with peritoneal dialysis catheter Status: Acute Current Medications Current Medications Current Medications Ondansetron HCl (Zofran) 4 mg 1X ONCE IV Last administered on 11/23/18at 16:08; Start 11/23/18 at 15:30; Stop 11/23/18 at 15:31; Status DC Morphine Sulfate (Morphine Sulfate) 2 mg 1X ONCE IV Last administered on 11/23/18at 16:08; Start 11/23/18 at 15:30; Stop 11/23/18 at 15:31; Status DC Ondansetron HCl (Zofran) 4 mg PRN Q8HRS PRN IV NAUSEA/VOMITING; Start 11/23/18 at 19:00; Stop 11/24/18 at 09:05; Status DC Morphine Sulfate (Morphine Sulfate) 2 mg PRN Q2HR PRN IV PAIN; Start 11/23/18 at 19:00; Stop 11/24/18 at 18:59 Cefepime HCl (Maxipime) 1 gm BID IVP Last administered on 11/23/18 19:14; Start 11/23/18 at 19:30; Stop 11/23/18 at 19:30; Status DC Vancomycin HCl 1.5 gm/Sodium Chloride 500 ml @ 250 mls/hr BID IV ; Start 10/31 11/17 at 21:00; Status UNV Vancomycin HCl 2 gm/Sodium Chloride 500 ml @ 250 mls/hr 1X ONCE IV Last administered on 11/23/18 20:40; Start 11/23/18 at 20:00; Stop 11/23/18 at 21:59; Status DC Vancomycin HCl (Vanco Per Pharmacy) 1 each PRN DAILY PRN MC SEE COMMENTS Last administered on 11/24/18at 03:23; Start 11/23/18 at 19:30 Alprazolam (Xanax) 1 mg HS PO Last administered on 11/23/18 22:50; Start 11/23/18 at 23:00 Clopidogrel Bisulfate (Plavix) 75 mg DAILY PO Last administered on 11/24/18 09:44; Start 11/24/18 at 09:00 Allopurinol (Zyloprim) 150 mg DAILY PO Last administered on 11/24/18 09:42; Start 11/24/18 at 09:00 Atorvastatin Calcium (Lipitor) 20 mg QHS PO Last administered on 11/23/18 22:50; Start 11/23/18 at 23:00 Vitamin B Complex/ Vitamin C (Ana-Porter) 1 tab DAILY PO Last administered on 11/24/18 09:42; Start 11/24/18 at 09:00 Ondansetron HCl (Zofran Odt) 4 mg PRN Q6HRS PRN PO NAUSEA 1ST CHOICE; Start 11/23/18 at 22:15 Atenolol (Tenormin) 100 mg DAILY PO Last administered on 11/24/18 09:43; Start 11/24/18 at 09:00 Diltiazem HCl (Cardizem 24hr Cd) 180 mg DAILY PO Last administered on 11/24/18at 09:43; Start 11/24/18 at 09:00 Doxazosin Mesylate (Cardura) 2 mg DAILY PO Last administered on 11/24/18at 09:44; Start 11/24/18 at 09:00 Fluticasone Propionate (Flonase) 2 spray DAILY NS ; Start 11/24/18 at 09:00 Megestrol Acetate (Megace) 40 mg DAILY PO Last administered on 11/24/18at 09:42; Start 11/24/18 at 09:00 Mirtazapine (Remeron) 30 mg QHS PO Last administered on 11/23/18at 22:50; Start 11/23/18 at 23:00 Montelukast Sodium (Singulair) 10 mg QHS PO ; Start 11/23/18 at 23:00 Trazodone HCl (Desyrel) 50 mg QHS PO ; Start 11/23/18 at 23:00 Losartan Potassium (Cozaar) 100 mg DAILY PO Last administered on 11/24/18at 09:44; Start 11/24/18 at 09:00 Vancomycin HCl (Vancomycin Random Level) 1 each 1X ONCE MC ; Start 11/25/18 at 21:00; Stop 11/25/18 at 21:01 Ondansetron HCl (Zofran) 4 mg PRN Q6HRS PRN IV NAUSEA/VOMITING; Start 11/24/18 at 09:15 Acetaminophen (Tylenol) 500 mg PRN Q6HRS PRN PO MILD PAIN / TEMP; Start 11/24/18 at 09:15 Potassium Chloride (Klor-Con) 20 meq 1X ONCE PO ; Start 11/24/18 at 12:00; Stop 11/24/18 at 12:01 Active Scripts Active Atorvastatin Calcium 20 Mg Tablet 20 Mg PO QHS MDD 1 Zofran Odt (Ondansetron) 4 Mg Tab.rapdis 1 Tab SL Q6HRS PRN Reported Doxazosin Mesylate 2 Mg Tablet 2 Mg PO DAILY Clopidogrel (Clopidogrel Bisulfate) 75 Mg Tablet 1 Tab PO DAILY Flonase Allergy Relief (Fluticasone Propionate) 9.9 Ml [place].susp 2 Sprays NS DAILY Montelukast Sodium Tablet (Montelukast Sodium) 10 Mg Tablet 1 Tab PO DAILY Mirtazapine 30 Mg Tablet 1 Tab PO QHS Atenolol 100 Mg Tablet 1 Tab PO DAILY Nephro-Porter Tablet (Folic Acid/Vitamin B Comp W-C) 0.8 Mg Tablet 1 Tab PO DAILY Diltiazem 24HR Cd (Diltiazem Hcl) 180 Mg Cap.er.24h 1 Cap PO DAILY Xanax (Alprazolam) 1 Mg Tablet 0.5 Tab PO HS Diovan (Valsartan) 320 Mg Tablet 320 Mg PO DAILY Megestrol Acetate 40 Mg Tablet 40 Mg PO DAILY Allopurinol 100 Mg Tablet 150 Mg PO DAILY Allergies Allergies: Coded Allergies: No Known Drug Allergies (Unverified , 09/17/18) ROS Review of System 14 point review of systems reviewed with the patient is grossly negative other than positives as reviewed in history of present illness. Physical Exam Physical Exam General Appearance: Awake Alert Oriented x 3 In no Distress Eyes: VIsion Unchanged Conjunctiva Normal EN: No EN Drainage Mucous Memb. moist Neck: no JVD no JVP Supple no Thyromegaly CVS: S1 S2 soft Murmur No Gallop No Rub no Edema Resp: no Rales no Rhonchi no Acc. Muscle use GI: BAS +ve NO Bruit min Tender Non Distended : no CVA tenderness; no Suprapubic Tenderness SKIN: no visible Rashes Breast Exam deferred Mu.Sk: Adequate ROM no Muscle Atrophy Heme: Unable to palpate Obvious LAD no palp Splenomegaly NEURO: Good Strength and Tone Cranial Nerves II - XII grossly intact Psych: no t Depressed no Active hallucination Vital Signs Vital Signs Date Time Temp Pulse Resp B/P (MAP) Pulse Ox O2 Delivery O2 Flow Rate FiO2 11/24/18 09:44 74 129/83 11/24/18 08:00 Room Air 11/24/18 07:00 98.5 14 92 98.5 Assessment & Plan ESRD: Resume peritoneal dialysis tonight to see how well he tolerates it. Peritonitis associated with peritoneal dialysis: IV vancomycin started. We will await infectious disease input regarding broadening antibiotic spectrum. Cultures positive for gram-positive cocci as outpatient Anemia: Epogen as ordered. Transfuse as needed especially if hemoglobin less than 7 HTN: Current BP meds reviewed. See orders for changes. Bone & Mineral: Follow phosphorus and alter binder regimen as needed Hypokalemia: This will be associated with pressure on dialysis. Liberalize potassium in diet. When necessary supplementation as ordered Hyponatremia: Presumably associated with peritonitis Hypoalbuminemia IV albumin will be ordered Discussed Plan of Care and prognosis etc. at length with family. Labs Labs Laboratory Tests Test 11/23/18 16:35 11/23/18 18:05 White Blood Count 8.7 x10^3/uL (4.0-11.0) Red Blood Count 3.32 x10^6/uL (4.30-5.70) Hemoglobin 10.0 g/dL (13.0-17.5) Hematocrit 31.3 % (39.0-53.0) Mean Corpuscular Volume 94 fL (79-100) Mean Corpuscular Hemoglobin 30 pg (25-35) Mean Corpuscular Hemoglobin Concent 32 g/dL (31-37) Red Cell Distribution Width 17.1 % (11.5-14.5) Platelet Count 216 x10^3/uL (140-400) Neutrophils (%) (Auto) 84 % (31-73) Lymphocytes (%) (Auto) 5 % (24-48) Monocytes (%) (Auto) 11 % (0-9) Eosinophils (%) (Auto) 0 % (0-3) Basophils (%) (Auto) 0 % (0-3) Neutrophils # (Auto) 7.3 x10^3uL (1.8-7.7) Lymphocytes # (Auto) 0.4 x10^3/uL (1.0-4.8) Monocytes # (Auto) 0.9 x10^3/uL (0.0-1.1) Eosinophils # (Auto) 0.0 x10^3/uL (0.0-0.7) Basophils # (Auto) 0.0 x10^3/uL (0.0-0.2) Prothrombin Time 14.0 SEC (11.7-14.0) Prothromb Time International Ratio 1.1 (0.8-1.1) Activated Partial Thromboplast Time 28 SEC (24-38) Sodium Level 132 mmol/L (136-145) Potassium Level 3.3 mmol/L (3.5-5.1) Chloride Level 92 mmol/L (98-107) Carbon Dioxide Level 30 mmol/L (21-32) Anion Gap 10 (6-14) Blood Urea Nitrogen 54 mg/dL (8-26) Creatinine 12.1 mg/dL (0.7-1.3) Estimated GFR (Cockcroft-Gault) 4.9 BUN/Creatinine Ratio 4 (6-20) Glucose Level 103 mg/dL (70-99) Lactic Acid Level 1.5 mmol/L (0.4-2.0) Calcium Level 9.1 mg/dL (8.5-10.1) Total Bilirubin 0.6 mg/dL (0.2-1.0) Aspartate Amino Transf (AST/SGOT) 13 U/L (15-37) Alanine Aminotransferase (ALT/SGPT) 13 U/L (16-63) Alkaline Phosphatase 78 U/L (46-116) Total Protein 6.7 g/dL (6.4-8.2) Albumin 2.0 g/dL (3.4-5.0) Albumin/Globulin Ratio 0.4 (1.0-1.7) Urine Collection Type U cath Urine Color Yellow Urine Clarity Clear Urine pH 8.0 Urine Specific [place] 1.020 Urine Protein 100 mg/dL (NEG-TRACE) Urine Glucose (UA) Negative mg/dL (NEG) Urine Ketones (Stick) Negative mg/dL (NEG) Urine Blood Moderate (NEG) Urine Nitrite Negative (NEG) Urine Bilirubin Negative (NEG) Urine Urobilinogen Dipstick 0.2 mg/dL (0.2 mg/dL) Urine Leukocyte Esterase Negative (NEG) Urine RBC >40 /HPF (0-2) Urine WBC 1-4 /HPF (0-4) Urine Transitional Epithelial Cells Many /LPF Urine Renal Epithelial Cells Few /LPF Urine Bacteria 0 /HPF (0-FEW) Laboratory Tests Test 11/23/18 16:35 11/23/18 18:05 White Blood Count 8.7 x10^3/uL (4.0-11.0) Red Blood Count 3.32 x10^6/uL (4.30-5.70) Hemoglobin 10.0 g/dL (13.0-17.5) Hematocrit 31.3 % (39.0-53.0) Mean Corpuscular Volume 94 fL (79-100) Mean Corpuscular Hemoglobin 30 pg (25-35) Mean Corpuscular Hemoglobin Concent 32 g/dL (31-37) Red Cell Distribution Width 17.1 % (11.5-14.5) Platelet Count 216 x10^3/uL (140-400) Neutrophils (%) (Auto) 84 % (31-73) Lymphocytes (%) (Auto) 5 % (24-48) Monocytes (%) (Auto) 11 % (0-9) Eosinophils (%) (Auto) 0 % (0-3) Basophils (%) (Auto) 0 % (0-3) Neutrophils # (Auto) 7.3 x10^3uL (1.8-7.7) Lymphocytes # (Auto) 0.4 x10^3/uL (1.0-4.8) Monocytes # (Auto) 0.9 x10^3/uL (0.0-1.1) Eosinophils # (Auto) 0.0 x10^3/uL (0.0-0.7) Basophils # (Auto) 0.0 x10^3/uL (0.0-0.2) Prothrombin Time 14.0 SEC (11.7-14.0) Prothromb Time International Ratio 1.1 (0.8-1.1) Activated Partial Thromboplast Time 28 SEC (24-38) Sodium Level 132 mmol/L (136-145) Potassium Level 3.3 mmol/L (3.5-5.1) Chloride Level 92 mmol/L (98-107) Carbon Dioxide Level 30 mmol/L (21-32) Anion Gap 10 (6-14) Blood Urea Nitrogen 54 mg/dL (8-26) Creatinine 12.1 mg/dL (0.7-1.3) Estimated GFR (Cockcroft-Gault) 4.9 BUN/Creatinine Ratio 4 (6-20) Glucose Level 103 mg/dL (70-99) Lactic Acid Level 1.5 mmol/L (0.4-2.0) Calcium Level 9.1 mg/dL (8.5-10.1) Total Bilirubin 0.6 mg/dL (0.2-1.0) Aspartate Amino Transf (AST/SGOT) 13 U/L (15-37) Alanine Aminotransferase (ALT/SGPT) 13 U/L (16-63) Alkaline Phosphatase 78 U/L (46-116) Total Protein 6.7 g/dL (6.4-8.2) Albumin 2.0 g/dL (3.4-5.0) Albumin/Globulin Ratio 0.4 (1.0-1.7) Urine Collection Type U cath Urine Color Yellow Urine Clarity Clear Urine pH 8.0 Urine Specific [place] 1.020 Urine Protein 100 mg/dL (NEG-TRACE) Urine Glucose (UA) Negative mg/dL (NEG) Urine Ketones (Stick) Negative mg/dL (NEG) Urine Blood Moderate (NEG) Urine Nitrite Negative (NEG) Urine Bilirubin Negative (NEG) Urine Urobilinogen Dipstick 0.2 mg/dL (0.2 mg/dL) Urine Leukocyte Esterase Negative (NEG) Urine RBC >40 /HPF (0-2) Urine WBC 1-4 /HPF (0-4) Urine Transitional Epithelial Cells Many /LPF Urine Renal Epithelial Cells Few /LPF Urine Bacteria 0 /HPF (0-FEW) Review All relevant outside records, renal labs, imaging studies, telemetry/EKG's were reviewed. BILLY BOJORQUEZ MD November 24, 2018 11:48
[2018-11-24] MEDS ORDERED: POTASSIUM CHLORIDE 20 MEQ TABLET.ER. PO ONE (12:00)
[2018-11-24] MEDS ORDERED: POTASSIUM CHLORIDE 20 MEQ TABLET.ER. PO PRN (12:00)
--- NOTE | 2018-11-24 12:33 | PDOC ---
Infectious Disease Note Vital Sign Vital Signs Vital Signs Date Time Temp Pulse Resp B/P (MAP) Pulse Ox O2 Delivery O2 Flow Rate FiO2 11/24/18 11:00 97.5 72 16 132/72 (92) 96 Room Air 97.5 Labs Lab Laboratory Tests Test 11/23/18 16:35 11/23/18 18:05 11/24/18 11:55 White Blood Count 8.7 x10^3/uL (4.0-11.0) Red Blood Count 3.32 x10^6/uL (4.30-5.70) Hemoglobin 10.0 g/dL (13.0-17.5) Hematocrit 31.3 % (39.0-53.0) Mean Corpuscular Volume 94 fL (79-100) Mean Corpuscular Hemoglobin 30 pg (25-35) Mean Corpuscular Hemoglobin Concent 32 g/dL (31-37) Red Cell Distribution Width 17.1 % (11.5-14.5) Platelet Count 216 x10^3/uL (140-400) Neutrophils (%) (Auto) 84 % (31-73) Lymphocytes (%) (Auto) 5 % (24-48) Monocytes (%) (Auto) 11 % (0-9) Eosinophils (%) (Auto) 0 % (0-3) Basophils (%) (Auto) 0 % (0-3) Neutrophils # (Auto) 7.3 x10^3uL (1.8-7.7) Lymphocytes # (Auto) 0.4 x10^3/uL (1.0-4.8) Monocytes # (Auto) 0.9 x10^3/uL (0.0-1.1) Eosinophils # (Auto) 0.0 x10^3/uL (0.0-0.7) Basophils # (Auto) 0.0 x10^3/uL (0.0-0.2) Prothrombin Time 14.0 SEC (11.7-14.0) Prothromb Time International Ratio 1.1 (0.8-1.1) Activated Partial Thromboplast Time 28 SEC (24-38) Sodium Level 132 mmol/L (136-145) Potassium Level 3.3 mmol/L (3.5-5.1) Chloride Level 92 mmol/L (98-107) Carbon Dioxide Level 30 mmol/L (21-32) Anion Gap 10 (6-14) Blood Urea Nitrogen 54 mg/dL (8-26) Creatinine 12.1 mg/dL (0.7-1.3) Estimated GFR (Cockcroft-Gault) 4.9 BUN/Creatinine Ratio 4 (6-20) Glucose Level 103 mg/dL (70-99) Lactic Acid Level 1.5 mmol/L (0.4-2.0) Calcium Level 9.1 mg/dL (8.5-10.1) Total Bilirubin 0.6 mg/dL (0.2-1.0) Aspartate Amino Transf (AST/SGOT) 13 U/L (15-37) Alanine Aminotransferase (ALT/SGPT) 13 U/L (16-63) Alkaline Phosphatase 78 U/L (46-116) Total Protein 6.7 g/dL (6.4-8.2) Albumin 2.0 g/dL (3.4-5.0) Albumin/Globulin Ratio 0.4 (1.0-1.7) Urine Collection Type U cath Urine Color Yellow Urine Clarity Clear Urine pH 8.0 Urine Specific [place] 1.020 Urine Protein 100 mg/dL (NEG-TRACE) Urine Glucose (UA) Negative mg/dL (NEG) Urine Ketones (Stick) Negative mg/dL (NEG) Urine Blood Moderate (NEG) Urine Nitrite Negative (NEG) Urine Bilirubin Negative (NEG) Urine Urobilinogen Dipstick 0.2 mg/dL (0.2 mg/dL) Urine Leukocyte Esterase Negative (NEG) Urine RBC >40 /HPF (0-2) Urine WBC 1-4 /HPF (0-4) Urine Transitional Epithelial Cells Many /LPF Urine Renal Epithelial Cells Few /LPF Urine Bacteria 0 /HPF (0-FEW) Glucose (Fingerstick) 164 mg/dL (70-99) Objective Assessment pt seen, consult dictated Plan Plan of Care -- TUNG BOJORQUEZ MD November 24, 2018 12:33
[2018-11-24] MEDS: ALBUMIN HUMAN 25% 100 ML IV SCH ×2 (13:28→21:26)
--- NOTE | 2018-11-24 14:29 | EKG ---
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
[2018-11-24 15:00] VITALS: BP 120/63
--- NOTE | 2018-11-24 18:08 | NUR ---
Clarified with Dr Joe Lopez that Peritoneal Dialysis will take place tonight and [facility] will come into set that up. Dr Jude Lopez does want cultures and Cell count on peritoneal fluid. I discussed this with Dr Joe Lopez and the dialysis nurse will need to be notified so they can obtain specimen. Orders are in the computer and lab was notified that the specimen would be sent later.
[2018-11-24 19:48] VITALS: BP 128/78
[2018-11-24] MEDS: MONTELUKAST SODIUM 10 MG TABLET. PO SCH (21:00)
[2018-11-24] MEDS: ATORVASTATIN CALCIUM 20 MG TABLET PO SCH (21:00)
--- NOTE | 2018-11-24 21:00 | NUR ---
At approximately 2100 Dialysis nurse Bettie approached me and told me that she already started the pt's peritoneal dialysis, i asked her if she got a drained sample for culture, she said she wasn't aware of it and she will just do it tomorrow.
[2018-11-24] MEDS: LACTOBACILLUS RHAMNOSUS GG 1 CAPSULE. PO SCH (21:26)
[2018-11-24] MEDS: MIRTAZAPINE 15 MG TABLET PO SCH (21:27)
[2018-11-24] MEDS: ALPRAZolam 1 MG TABLET PO SCH (21:27)
[2018-11-24] MEDS: MORPHINE SULFATE 2 MG/ML VIAL. IV PRN (23:12)
[2018-11-24 23:24] VITALS: BP 130/64
--- NOTE | 2018-11-25 01:30 | CONS ---
DATE OF CONSULTATION: 11/24/2018 REQUESTING PHYSICIAN: Dr. Antoine. REASON FOR CONSULTATION: PD catheter associated peritonitis. HISTORY OF PRESENT ILLNESS: This is a 77-year-old -[place]i gentleman who has been with end-stage renal disease, on PD since June last year. The patient was seen in the [facility] with abdominal pain. Fluid was taken and evidently, it had been gram-positive cocci. The patient was worse, hence he decided to come in. The patient has significant abdominal pain and has had nausea, vomiting and some diarrhea. He has had low-grade fever on Sunday. The patient is feeling comfortable right now. The patient denies any headache or visual symptoms. Denies any chest pain or shortness of breath. The patient is currently on vancomycin and cefepime that he received. 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 SOCIAL HISTORY: Negative for smoking, alcohol and illicit drug use. ALLERGIES: No known drug allergies. CURRENT MEDICATIONS: Reviewed. REVIEW OF SYSTEMS: As per HPI, all other systems reviewed are negative. PHYSICAL EXAMINATION: GENERAL: Alert and oriented gentleman, not in distress. VITAL SIGNS: Stable and afebrile. HEENT: NAD. NECK: Supple. No JVP and no lymphadenopathy. LUNGS: Clear. HEART: S1 and S2 regular. ABDOMEN: Tender diffusely. No distention or guarding. The patient does have a PD catheter in place, which is not showing any obvious signs of infection. EXTREMITIES: No edema or cyanosis. SKIN: Unremarkable. NEUROLOGICAL: The patient is neurologically alert, awake and appropriate. No focal neurologic deficit. LABORATORY DATA: White count is now normal. BUN and creatinine is 54 and 12.1. Lactic acid 1.5. Urinalysis showed more than 40 rbc's and 1-4 wbc's. RADIOLOGICAL DATA: Abdominal CT is unremarkable. Chest x-ray is unremarkable other than atelectasis. IMPRESSION: 1. Peritoneal dialysis catheter associated peritonitis, so far only information is gram-positive cocci. We do not have a cell count. We do not have culture final results. 2. Abdominal pain. 3. End-stage renal disease. 4. Hypertension. 5. Atrial fibrillation. 6. End-stage renal disease. RECOMMENDATIONS: We would use vancomycin and cefepime. We will get the culture results. Maybe we will send the fluid for cell count and culture if it is not done yet. Supportive care and we will continue to follow. I did discuss with the patient depending upon the organism, we may try to save it versus recommend to remove it but for the time being, we will wait for the culture results. Thank you very much, Dr. Antoine, for giving me the opportunity to participate in this patient's care. TUNG BOJORQUEZ MD DR: PITA/cat JOB#: [id number] / [id number]
[2018-11-25 02:51] VITALS: BP 113/52
[2018-11-25] MEDS: MORPHINE SULFATE 2 MG/ML VIAL. IV PRN ×3 (06:34→22:04)
[2018-11-25 06:43] LABS: BASO % 0 % (0-3); EOS # 0.1 x10^3/uL (0.0-0.7); EOS % 2 % (0-3); HEMATOCRIT 29.4 % (39.0-53.0); HEMOGLOBIN 9.2 g/dL (13.0-17.5); LYMPH # 0.5 x10^3/uL (1.0-4.8); LYMPH % 9 % (24-48); MEAN CORPUSCULAR HEMOGLOBIN 30 pg (25-35); MEAN CORPUSCULAR HGB CONC 31 g/dL (31-37); MEAN CORPUSCULAR VOLUME 95 fL (79-100); MONO # 0.9 x10^3/uL (0.0-1.1); MONO % 16 % (0-9); NEUT # 3.7 x10^3uL (1.8-7.7); NEUT % 72 % (31-73); PLATELET COUNT 180 x10^3/uL (140-400); RED BLOOD COUNT 3.11 x10^6/uL (4.30-5.70); RED CELL DISTRIBUTION WIDTH 17.3 % (11.5-14.5); WHITE BLOOD COUNT 5.2 x10^3/uL (4.0-11.0)
[2018-11-25 07:00] VITALS: BP 189/75
--- NOTE | 2018-11-25 07:23 | NUR ---
Pt complains a lot of pain at around 0645 this morning, he asked me to turn off the peritoneal dialysis, this nurse turned off the machine. Called the director instructional material dialysis nurse and informed KANDY Erazo. she said, dialysis nurse will be here this morning to disconnect the pt's from the machine.
--- NOTE | 2018-11-25 07:31 | NUR ---
Informed day shift nurse assigned to this pt that the peritoneal fluid was not obtained last night due to the dialysis nurse started the dialysis without checking this nurse first. Called precision layout worker Infectious disease to inform this and we're still waiting for the call back.
[2018-11-25 07:34] LABS: ALBUMIN 2.5 g/dL (3.4-5.0); CALCIUM 8.5 mg/dL (8.5-10.1); CREATININE 11.9 mg/dL (0.7-1.3); PHOSPHORUS 4.9 mg/dL (2.6-4.7); POTASSIUM 3.4 mmol/L (3.5-5.1)
[2018-11-25] MEDS: FLUTICASONE 50MCG/NASAL SPRAY 16GM BOTTLE. NS SCH (09:47)
[2018-11-25] MEDS: FOLIC/VIT B COMP W-C (RENAL) TABLET. PO SCH (09:48)
[2018-11-25] MEDS: ALBUMIN HUMAN 25% 100 ML IV SCH ×3 (09:48→21:13)
[2018-11-25] MEDS: MEGESTROL 20 MG TABLET. PO SCH (09:49)
[2018-11-25] MEDS: ALLOPURINOL 100 MG TABLET. PO SCH (09:49)
[2018-11-25] MEDS: ATENOLOL 50 MG TABLET. PO SCH (09:49)
[2018-11-25] MEDS: CLOPIDOGREL BISULFATE 75 MG TABLET PO SCH (09:49)
[2018-11-25] MEDS: LOSARTAN POTASSIUM 50 MG TABLET. PO SCH (09:50)
[2018-11-25] MEDS: DOXAZOSIN MESYLATE 4 MG TABLET. PO SCH (09:50)
[2018-11-25] MEDS: LACTOBACILLUS RHAMNOSUS GG 1 CAPSULE. PO SCH ×2 (09:50→21:13)
--- NOTE | 2018-11-25 09:54 | PDOC ---
Dialysis Progress Note Dialysis Note Dialysis Note Follow-up for ESRD on peritoneal dialysis Patient tolerated dialysis well overnight. No untoward incidents reported. PD fluid when drained did appear significantly cloudy. He continues to have abdominal pain. General Appearance: Awake but drifts off to sleep easily Alert Oriented x 1-2 Neck: No JVD or JVP Chest: CTA Jh Heart: S1 S2 Abdomen - Soft tender to palpate mostly in his left upper quadrant and epigastric area Extremities - No Edema ESRD: PERITONEAL DIALYSIS TONIGHT per home regimen. Will attempt to get icode xtrin tonight if possible given long weekend Vitals Vital Signs Vital Signs Date Time Temp Pulse Resp B/P (MAP) Pulse Ox O2 Delivery O2 Flow Rate FiO2 11/25/18 07:22 98 Room Air 11/25/18 07:00 98.5 55 14 189/75 (113) 98.5 Labs Last Labs Laboratory Tests Test 11/23/18 16:35 11/23/18 18:05 11/24/18 02:49 11/24/18 11:55 White Blood Count 8.7 x10^3/uL (4.0-11.0) Red Blood Count 3.32 x10^6/uL (4.30-5.70) Hemoglobin 10.0 g/dL (13.0-17.5) Hematocrit 31.3 % (39.0-53.0) Mean Corpuscular Volume 94 fL (79-100) Mean Corpuscular Hemoglobin 30 pg (25-35) Mean Corpuscular Hemoglobin Concent 32 g/dL (31-37) Red Cell Distribution Width 17.1 % (11.5-14.5) Platelet Count 216 x10^3/uL (140-400) Neutrophils (%) (Auto) 84 % (31-73) Lymphocytes (%) (Auto) 5 % (24-48) Monocytes (%) (Auto) 11 % (0-9) Eosinophils (%) (Auto) 0 % (0-3) Basophils (%) (Auto) 0 % (0-3) Neutrophils # (Auto) 7.3 x10^3uL (1.8-7.7) Lymphocytes # (Auto) 0.4 x10^3/uL (1.0-4.8) Monocytes # (Auto) 0.9 x10^3/uL (0.0-1.1) Eosinophils # (Auto) 0.0 x10^3/uL (0.0-0.7) Basophils # (Auto) 0.0 x10^3/uL (0.0-0.2) Prothrombin Time 14.0 SEC (11.7-14.0) Prothromb Time International Ratio 1.1 (0.8-1.1) Activated Partial Thromboplast Time 28 SEC (24-38) Sodium Level 132 mmol/L (136-145) Potassium Level 3.3 mmol/L (3.5-5.1) Chloride Level 92 mmol/L (98-107) Carbon Dioxide Level 30 mmol/L (21-32) Anion Gap 10 (6-14) Blood Urea Nitrogen 54 mg/dL (8-26) Creatinine 12.1 mg/dL (0.7-1.3) Estimated GFR (Cockcroft-Gault) 4.9 BUN/Creatinine Ratio 4 (6-20) Glucose Level 103 mg/dL (70-99) Lactic Acid Level 1.5 mmol/L (0.4-2.0) Calcium Level 9.1 mg/dL (8.5-10.1) Total Bilirubin 0.6 mg/dL (0.2-1.0) Aspartate Amino Transf (AST/SGOT) 13 U/L (15-37) Alanine Aminotransferase (ALT/SGPT) 13 U/L (16-63) Alkaline Phosphatase 78 U/L (46-116) Total Protein 6.7 g/dL (6.4-8.2) Albumin 2.0 g/dL (3.4-5.0) Albumin/Globulin Ratio 0.4 (1.0-1.7) Urine Collection Type U cath Urine Color Yellow Urine Clarity Clear Urine pH 8.0 Urine Specific [place] 1.020 Urine Protein 100 mg/dL (NEG-TRACE) Urine Glucose (UA) Negative mg/dL (NEG) Urine Ketones (Stick) Negative mg/dL (NEG) Urine Blood Moderate (NEG) Urine Nitrite Negative (NEG) Urine Bilirubin Negative (NEG) Urine Urobilinogen Dipstick 0.2 mg/dL (0.2 mg/dL) Urine Leukocyte Esterase Negative (NEG) Urine RBC >40 /HPF (0-2) Urine WBC 1-4 /HPF (0-4) Urine Transitional Epithelial Cells Many /LPF Urine Renal Epithelial Cells Few /LPF Urine Bacteria 0 /HPF (0-FEW) Thyroid Stimulating Hormone (TSH) 1.395 uIU/mL (0.358-3.74) Glucose (Fingerstick) 164 mg/dL (70-99) Test 11/24/18 13:14 11/25/18 05:40 Magnesium Level 2.2 mg/dL (1.8-2.4) White Blood Count 5.2 x10^3/uL (4.0-11.0) Red Blood Count 3.11 x10^6/uL (4.30-5.70) Hemoglobin 9.2 g/dL (13.0-17.5) Hematocrit 29.4 % (39.0-53.0) Mean Corpuscular Volume 95 fL (79-100) Mean Corpuscular Hemoglobin 30 pg (25-35) Mean Corpuscular Hemoglobin Concent 31 g/dL (31-37) Red Cell Distribution Width 17.3 % (11.5-14.5) Platelet Count 180 x10^3/uL (140-400) Neutrophils (%) (Auto) 72 % (31-73) Lymphocytes (%) (Auto) 9 % (24-48) Monocytes (%) (Auto) 16 % (0-9) Eosinophils (%) (Auto) 2 % (0-3) Basophils (%) (Auto) 0 % (0-3) Neutrophils # (Auto) 3.7 x10^3uL (1.8-7.7) Lymphocytes # (Auto) 0.5 x10^3/uL (1.0-4.8) Monocytes # (Auto) 0.9 x10^3/uL (0.0-1.1) Eosinophils # (Auto) 0.1 x10^3/uL (0.0-0.7) Basophils # (Auto) 0.0 x10^3/uL (0.0-0.2) Erythrocyte Sedimentation Rate 58 (0-15) Sodium Level 135 mmol/L (136-145) Potassium Level 3.4 mmol/L (3.5-5.1) Chloride Level 95 mmol/L (98-107) Carbon Dioxide Level 26 mmol/L (21-32) Anion Gap 14 (6-14) Blood Urea Nitrogen 64 mg/dL (8-26) Creatinine 11.9 mg/dL (0.7-1.3) Estimated GFR (Cockcroft-Gault) 5.0 Glucose Level 117 mg/dL (70-99) Calcium Level 8.5 mg/dL (8.5-10.1) Phosphorus Level 4.9 mg/dL (2.6-4.7) Albumin 2.5 g/dL (3.4-5.0) Laboratory Tests Test 11/24/18 11:55 11/24/18 13:14 11/25/18 05:40 Glucose (Fingerstick) 164 mg/dL (70-99) Magnesium Level 2.2 mg/dL (1.8-2.4) White Blood Count 5.2 x10^3/uL (4.0-11.0) Red Blood Count 3.11 x10^6/uL (4.30-5.70) Hemoglobin 9.2 g/dL (13.0-17.5) Hematocrit 29.4 % (39.0-53.0) Mean Corpuscular Volume 95 fL (79-100) Mean Corpuscular Hemoglobin 30 pg (25-35) Mean Corpuscular Hemoglobin Concent 31 g/dL (31-37) Red Cell Distribution Width 17.3 % (11.5-14.5) Platelet Count 180 x10^3/uL (140-400) Neutrophils (%) (Auto) 72 % (31-73) Lymphocytes (%) (Auto) 9 % (24-48) Monocytes (%) (Auto) 16 % (0-9) Eosinophils (%) (Auto) 2 % (0-3) Basophils (%) (Auto) 0 % (0-3) Neutrophils # (Auto) 3.7 x10^3uL (1.8-7.7) Lymphocytes # (Auto) 0.5 x10^3/uL (1.0-4.8) Monocytes # (Auto) 0.9 x10^3/uL (0.0-1.1) Eosinophils # (Auto) 0.1 x10^3/uL (0.0-0.7) Basophils # (Auto) 0.0 x10^3/uL (0.0-0.2) Erythrocyte Sedimentation Rate 58 (0-15) Sodium Level 135 mmol/L (136-145) Potassium Level 3.4 mmol/L (3.5-5.1) Chloride Level 95 mmol/L (98-107) Carbon Dioxide Level 26 mmol/L (21-32) Anion Gap 14 (6-14) Blood Urea Nitrogen 64 mg/dL (8-26) Creatinine 11.9 mg/dL (0.7-1.3) Estimated GFR (Cockcroft-Gault) 5.0 Glucose Level 117 mg/dL (70-99) Calcium Level 8.5 mg/dL (8.5-10.1) Phosphorus Level 4.9 mg/dL (2.6-4.7) Albumin 2.5 g/dL (3.4-5.0) Assessment Assessment Problems Medical Problems: (1) Bacterial infection associated with peritoneal dialysis catheter Status: Acute Plan Plan of Care Problems Medical Problems: (1) Bacterial infection associated with peritoneal dialysis catheter Status: Acute BILLY BOJORQUEZ MD November 25, 2018 09:54
--- NOTE | 2018-11-25 10:21 | PDOC ---
Infectious Disease Note Subjective: Subjective pt continues to have abdominal pain no f/c/n/v/d ROS: ROS Negative except for above. Vital Signs: Vital Signs Vital Signs Date Time Temp Pulse Resp B/P (MAP) Pulse Ox O2 Delivery O2 Flow Rate FiO2 11/25/18 09:50 55 189/75 11/25/18 07:22 98 Room Air 11/25/18 07:00 98.5 14 98.5 Physical Exam: PHYSICAL EXAM GENERAL: Alert and oriented gentleman, not in distress. VITAL SIGNS: Stable and afebrile. HEENT: no icterus NECK: Supple. No JVP and no lymphadenopathy. LUNGS: Clear. HEART: S1 and S2 regular. ABDOMEN: Tender diffusely. No distention or guarding. The patient does have a PD catheter in place, which is not showing any obvious signs of infection. EXTREMITIES: No edema or cyanosis. SKIN: Unremarkable. NEUROLOGICAL: alert, awake and appropriate. No focal neurologic deficit. Medications: Inpatient Meds: Current Medications Medications (Trade) Dose Ordered Sig/[facility] Start Time Stop Time Status Last Admin Dose Admin Acetaminophen (Tylenol) 500 mg PRN Q6HRS PRN 11/24/18 09:15 Albumin Human 100 ml @ 100 mls/hr TID 11/24/18 13:00 11/26/18 09:59 11/25/18 09:48 100 MLS/HR Allopurinol (Zyloprim) 150 mg DAILY 11/24/18 09:00 11/25/18 09:49 150 MG Alprazolam (Xanax) 1 mg HS 11/23/18 23:00 11/24/18 21:27 1 MG Atenolol (Tenormin) 100 mg DAILY 11/24/18 09:00 11/25/18 09:49 100 MG Atorvastatin Calcium (Lipitor) 20 mg QHS 11/23/18 23:00 11/23/18 22:50 20 MG Cefepime HCl (Maxipime) 1 gm BID 11/23/18 19:30 11/23/18 19:30 DC 11/23/18 19:14 1 GM Clopidogrel Bisulfate (Plavix) 75 mg DAILY 11/24/18 09:00 11/25/18 09:49 75 MG Diltiazem HCl (Cardizem 24hr Cd) 180 mg DAILY 11/24/18 09:00 11/24/18 09:43 180 MG Doxazosin Mesylate (Cardura) 2 mg DAILY 11/24/18 09:00 11/25/18 09:50 2 MG Fluticasone Propionate (Flonase) 2 spray DAILY 11/24/18 09:00 11/25/18 09:47 2 SPRAY Lactobacillus Rhamnosus (Culturelle) 1 cap BID 11/24/18 21:00 11/25/18 09:50 1 CAP Losartan Potassium (Cozaar) 100 mg DAILY 11/24/18 09:00 11/25/18 09:50 100 MG Magnesium Sulfate 50 ml @ 25 mls/hr PRN DAILY PRN 11/24/18 11:45 Megestrol Acetate (Megace) 40 mg DAILY 11/24/18 09:00 11/25/18 09:49 40 MG Mirtazapine (Remeron) 30 mg QHS 11/23/18 23:00 11/24/18 21:27 30 MG Montelukast Sodium (Singulair) 10 mg QHS 11/23/18 23:00 Morphine Sulfate (Morphine Sulfate) 2 mg PRN Q2HR PRN 11/24/18 22:45 11/25/18 06:34 2 MG Ondansetron HCl (Zofran Odt) 4 mg PRN Q6HRS PRN 11/23/18 22:15 Ondansetron HCl (Zofran) 4 mg PRN Q6HRS PRN 11/24/18 09:15 Potassium Chloride (Klor-Con) 40 meq PRN DAILY PRN 11/24/18 12:00 11/25/18 09:53 40 MEQ Trazodone HCl (Desyrel) 50 mg QHS 11/23/18 23:00 11/24/18 20:28 DC Vancomycin HCl (Vanco Per Pharmacy) 1 each PRN DAILY PRN 11/23/18 19:30 11/24/18 03:23 1 EACH Vancomycin HCl (Vancomycin Random Level) 1 each 1X ONCE 11/25/18 21:00 11/25/18 21:01 Vancomycin HCl 1.5 gm/Sodium Chloride 500 ml @ 250 mls/hr BID 11/23/18 21:00 UNV Vancomycin HCl 2 gm/Sodium Chloride 500 ml @ 250 mls/hr 1X ONCE 11/23/18 20:00 11/23/18 21:59 DC 11/23/18 20:40 250 MLS/HR Vitamin B Complex/ Vitamin C (Ana-Porter) 1 tab DAILY 11/24/18 09:00 11/25/18 09:48 1 TAB Labs: Lab Laboratory Tests Test 11/24/18 11:55 11/24/18 13:14 11/25/18 05:40 Glucose (Fingerstick) 164 mg/dL (70-99) Magnesium Level 2.2 mg/dL (1.8-2.4) White Blood Count 5.2 x10^3/uL (4.0-11.0) Red Blood Count 3.11 x10^6/uL (4.30-5.70) Hemoglobin 9.2 g/dL (13.0-17.5) Hematocrit 29.4 % (39.0-53.0) Mean Corpuscular Volume 95 fL (79-100) Mean Corpuscular Hemoglobin 30 pg (25-35) Mean Corpuscular Hemoglobin Concent 31 g/dL (31-37) Red Cell Distribution Width 17.3 % (11.5-14.5) Platelet Count 180 x10^3/uL (140-400) Neutrophils (%) (Auto) 72 % (31-73) Lymphocytes (%) (Auto) 9 % (24-48) Monocytes (%) (Auto) 16 % (0-9) Eosinophils (%) (Auto) 2 % (0-3) Basophils (%) (Auto) 0 % (0-3) Neutrophils # (Auto) 3.7 x10^3uL (1.8-7.7) Lymphocytes # (Auto) 0.5 x10^3/uL (1.0-4.8) Monocytes # (Auto) 0.9 x10^3/uL (0.0-1.1) Eosinophils # (Auto) 0.1 x10^3/uL (0.0-0.7) Basophils # (Auto) 0.0 x10^3/uL (0.0-0.2) Erythrocyte Sedimentation Rate 58 (0-15) Sodium Level 135 mmol/L (136-145) Potassium Level 3.4 mmol/L (3.5-5.1) Chloride Level 95 mmol/L (98-107) Carbon Dioxide Level 26 mmol/L (21-32) Anion Gap 14 (6-14) Blood Urea Nitrogen 64 mg/dL (8-26) Creatinine 11.9 mg/dL (0.7-1.3) Estimated GFR (Cockcroft-Gault) 5.0 Glucose Level 117 mg/dL (70-99) Calcium Level 8.5 mg/dL (8.5-10.1) Phosphorus Level 4.9 mg/dL (2.6-4.7) Albumin 2.5 g/dL (3.4-5.0) Objective: Assessment: 1. Peritoneal dialysis catheter associated peritonitis, so far only information is gram-positive cocci from osh.ID and lise pending awaiting cell count. cultures not done here BC negative so far 2. Abdominal pain. 3. End-stage renal disease. 4. Hypertension. 5. Atrial fibrillation. 6. End-stage renal disease. Plan: Plan of Care cont vancomycin and cefepime. f/u osh cultures results f/u cell count PD fluid culture not done here f/u labs in am and cults Depending on ID of the organism, may need removal D/W son at bedside also TRAVON BOJORQUEZ MD November 25, 2018 10:21
--- NOTE | 2018-11-25 10:56 | PDOC ---
PROGRESS NOTES Chief Complaint Chief Complaint 1. Peritoneal dialysis catheter associated peritonitis, so far only information is gram-positive cocci. We do not have a cell count. We do not have culture final results. 2. Abdominal pain. 3. End-stage renal disease. 4. Hypertension. 5. Atrial fibrillation. 6. End-stage renal disease. 7. AOCD 8. PVCs, indwelling pacer History of Present Illness History of Present Illness He is asleep, did not awaken No overnight calls No fever, no white count Creatinine 5, mild hypokalemia 3.4 ID on board on Vanco and cefepime Undergoing PD here Plan: follow ID recs follow cultures Dialysis per renal Replace K orally We did consult cardiology on Sunday because of reports of PVCs, indwelling pacer Vitals Vitals Vital Signs Date Time Temp Pulse Resp B/P (MAP) Pulse Ox O2 Delivery O2 Flow Rate FiO2 11/25/18 09:50 55 189/75 11/25/18 07:22 98 Room Air 11/25/18 07:00 98.5 14 98.5 Physical Exam Physical Exam GENERAL: Alert and oriented gentleman, not in distress. VITAL SIGNS: Stable and afebrile. HEENT: no icterus NECK: Supple. No JVP and no lymphadenopathy. LUNGS: Clear. HEART: S1 and S2 regular. ABDOMEN: Tender diffusely. No distention or guarding. The patient does have a PD catheter in place, which is not showing any obvious signs of infection. EXTREMITIES: No edema or cyanosis. SKIN: Unremarkable. NEUROLOGICAL: alert, awake and appropriate. No focal neurologic deficit. General: Alert, Oriented X3, Cooperative, No acute distress Heart: Regular rate, Normal S1, Normal S2 Lungs: Clear Abdomen: Normal bowel sounds, Soft, No hepatosplenomegaly, No masses, Other (PD catheter, some tenderness periumbilical area) Extremities: No clubbing, No cyanosis, No edema, Normal pulses, No tender ness/swelling Skin: No rashes, No breakdown, No significant lesion Labs LABS Laboratory Tests Test 11/24/18 11:55 11/24/18 13:14 11/25/18 05:40 Glucose (Fingerstick) 164 mg/dL (70-99) Magnesium Level 2.2 mg/dL (1.8-2.4) White Blood Count 5.2 x10^3/uL (4.0-11.0) Red Blood Count 3.11 x10^6/uL (4.30-5.70) Hemoglobin 9.2 g/dL (13.0-17.5) Hematocrit 29.4 % (39.0-53.0) Mean Corpuscular Volume 95 fL (79-100) Mean Corpuscular Hemoglobin 30 pg (25-35) Mean Corpuscular Hemoglobin Concent 31 g/dL (31-37) Red Cell Distribution Width 17.3 % (11.5-14.5) Platelet Count 180 x10^3/uL (140-400) Neutrophils (%) (Auto) 72 % (31-73) Lymphocytes (%) (Auto) 9 % (24-48) Monocytes (%) (Auto) 16 % (0-9) Eosinophils (%) (Auto) 2 % (0-3) Basophils (%) (Auto) 0 % (0-3) Neutrophils # (Auto) 3.7 x10^3uL (1.8-7.7) Lymphocytes # (Auto) 0.5 x10^3/uL (1.0-4.8) Monocytes # (Auto) 0.9 x10^3/uL (0.0-1.1) Eosinophils # (Auto) 0.1 x10^3/uL (0.0-0.7) Basophils # (Auto) 0.0 x10^3/uL (0.0-0.2) Erythrocyte Sedimentation Rate 58 (0-15) Sodium Level 135 mmol/L (136-145) Potassium Level 3.4 mmol/L (3.5-5.1) Chloride Level 95 mmol/L (98-107) Carbon Dioxide Level 26 mmol/L (21-32) Anion Gap 14 (6-14) Blood Urea Nitrogen 64 mg/dL (8-26) Creatinine 11.9 mg/dL (0.7-1.3) Estimated GFR (Cockcroft-Gault) 5.0 Glucose Level 117 mg/dL (70-99) Calcium Level 8.5 mg/dL (8.5-10.1) Phosphorus Level 4.9 mg/dL (2.6-4.7) Albumin 2.5 g/dL (3.4-5.0) Review of Systems Review of Systems A 14 point ROS was completed with the following noted as positive: Other systems reviewed and negative. \CONSTITUTIONAL: No fever or chills EYES: No recent changes SKIN: No rash or itching CARDIOVASCULAR: No chest pain, syncope, palpitations, or edema RESPIRATORY: No SOB or cough GASTROINTESTINAL: No nausea, vomiting or abdominal pain NEUROLOGICAL: No headaches or weakness ENDOCRINE: No cold or heat intolerance GENITOURINARY: No urgency or frequency of urination MUSCULOSKELETAL: No back pain or joint pain LYMPHATICS: No enlarged lymph nodes PSYCHIATRIC: No anxiety or depression Assessment and Plan Assessmemt and Plan Problems Medical Problems: (1) Bacterial infection associated with peritoneal dialysis catheter Status: Acute Comment Review of Relevant I have reviewed the following items russell (where applicable) has been applied. Labs Laboratory Tests Test 11/23/18 16:35 11/23/18 18:05 11/24/18 02:49 11/24/18 11:55 White Blood Count 8.7 x10^3/uL (4.0-11.0) Red Blood Count 3.32 x10^6/uL (4.30-5.70) Hemoglobin 10.0 g/dL (13.0-17.5) Hematocrit 31.3 % (39.0-53.0) Mean Corpuscular Volume 94 fL (79-100) Mean Corpuscular Hemoglobin 30 pg (25-35) Mean Corpuscular Hemoglobin Concent 32 g/dL (31-37) Red Cell Distribution Width 17.1 % (11.5-14.5) Platelet Count 216 x10^3/uL (140-400) Neutrophils (%) (Auto) 84 % (31-73) Lymphocytes (%) (Auto) 5 % (24-48) Monocytes (%) (Auto) 11 % (0-9) Eosinophils (%) (Auto) 0 % (0-3) Basophils (%) (Auto) 0 % (0-3) Neutrophils # (Auto) 7.3 x10^3uL (1.8-7.7) Lymphocytes # (Auto) 0.4 x10^3/uL (1.0-4.8) Monocytes # (Auto) 0.9 x10^3/uL (0.0-1.1) Eosinophils # (Auto) 0.0 x10^3/uL (0.0-0.7) Basophils # (Auto) 0.0 x10^3/uL (0.0-0.2) Prothrombin Time 14.0 SEC (11.7-14.0) Prothromb Time International Ratio 1.1 (0.8-1.1) Activated Partial Thromboplast Time 28 SEC (24-38) Sodium Level 132 mmol/L (136-145) Potassium Level 3.3 mmol/L (3.5-5.1) Chloride Level 92 mmol/L (98-107) Carbon Dioxide Level 30 mmol/L (21-32) Anion Gap 10 (6-14) Blood Urea Nitrogen 54 mg/dL (8-26) Creatinine 12.1 mg/dL (0.7-1.3) Estimated GFR (Cockcroft-Gault) 4.9 BUN/Creatinine Ratio 4 (6-20) Glucose Level 103 mg/dL (70-99) Lactic Acid Level 1.5 mmol/L (0.4-2.0) Calcium Level 9.1 mg/dL (8.5-10.1) Total Bilirubin 0.6 mg/dL (0.2-1.0) Aspartate Amino Transf (AST/SGOT) 13 U/L (15-37) Alanine Aminotransferase (ALT/SGPT) 13 U/L (16-63) Alkaline Phosphatase 78 U/L (46-116) Total Protein 6.7 g/dL (6.4-8.2) Albumin 2.0 g/dL (3.4-5.0) Albumin/Globulin Ratio 0.4 (1.0-1.7) Urine Collection Type U cath Urine Color Yellow Urine Clarity Clear Urine pH 8.0 Urine Specific [place] 1.020 Urine Protein 100 mg/dL (NEG-TRACE) Urine Glucose (UA) Negative mg/dL (NEG) Urine Ketones (Stick) Negative mg/dL (NEG) Urine Blood Moderate (NEG) Urine Nitrite Negative (NEG) Urine Bilirubin Negative (NEG) Urine Urobilinogen Dipstick 0.2 mg/dL (0.2 mg/dL) Urine Leukocyte Esterase Negative (NEG) Urine RBC >40 /HPF (0-2) Urine WBC 1-4 /HPF (0-4) Urine Transitional Epithelial Cells Many /LPF Urine Renal Epithelial Cells Few /LPF Urine Bacteria 0 /HPF (0-FEW) Thyroid Stimulating Hormone (TSH) 1.395 uIU/mL (0.358-3.74) Glucose (Fingerstick) 164 mg/dL (70-99) Test 11/24/18 13:14 11/25/18 05:40 Magnesium Level 2.2 mg/dL (1.8-2.4) White Blood Count 5.2 x10^3/uL (4.0-11.0) Red Blood Count 3.11 x10^6/uL (4.30-5.70) Hemoglobin 9.2 g/dL (13.0-17.5) Hematocrit 29.4 % (39.0-53.0) Mean Corpuscular Volume 95 fL (79-100) Mean Corpuscular Hemoglobin 30 pg (25-35) Mean Corpuscular Hemoglobin Concent 31 g/dL (31-37) Red Cell Distribution Width 17.3 % (11.5-14.5) Platelet Count 180 x10^3/uL (140-400) Neutrophils (%) (Auto) 72 % (31-73) Lymphocytes (%) (Auto) 9 % (24-48) Monocytes (%) (Auto) 16 % (0-9) Eosinophils (%) (Auto) 2 % (0-3) Basophils (%) (Auto) 0 % (0-3) Neutrophils # (Auto) 3.7 x10^3uL (1.8-7.7) Lymphocytes # (Auto) 0.5 x10^3/uL (1.0-4.8) Monocytes # (Auto) 0.9 x10^3/uL (0.0-1.1) Eosinophils # (Auto) 0.1 x10^3/uL (0.0-0.7) Basophils # (Auto) 0.0 x10^3/uL (0.0-0.2) Erythrocyte Sedimentation Rate 58 (0-15) Sodium Level 135 mmol/L (136-145) Potassium Level 3.4 mmol/L (3.5-5.1) Chloride Level 95 mmol/L (98-107) Carbon Dioxide Level 26 mmol/L (21-32) Anion Gap 14 (6-14) Blood Urea Nitrogen 64 mg/dL (8-26) Creatinine 11.9 mg/dL (0.7-1.3) Estimated GFR (Cockcroft-Gault) 5.0 Glucose Level 117 mg/dL (70-99) Calcium Level 8.5 mg/dL (8.5-10.1) Phosphorus Level 4.9 mg/dL (2.6-4.7) Albumin 2.5 g/dL (3.4-5.0) Laboratory Tests Test 11/24/18 11:55 11/24/18 13:14 11/25/18 05:40 Glucose (Fingerstick) 164 mg/dL (70-99) Magnesium Level 2.2 mg/dL (1.8-2.4) White Blood Count 5.2 x10^3/uL (4.0-11.0) Red Blood Count 3.11 x10^6/uL (4.30-5.70) Hemoglobin 9.2 g/dL (13.0-17.5) Hematocrit 29.4 % (39.0-53.0) Mean Corpuscular Volume 95 fL (79-100) Mean Corpuscular Hemoglobin 30 pg (25-35) Mean Corpuscular Hemoglobin Concent 31 g/dL (31-37) Red Cell Distribution Width 17.3 % (11.5-14.5) Platelet Count 180 x10^3/uL (140-400) Neutrophils (%) (Auto) 72 % (31-73) Lymphocytes (%) (Auto) 9 % (24-48) Monocytes (%) (Auto) 16 % (0-9) Eosinophils (%) (Auto) 2 % (0-3) Basophils (%) (Auto) 0 % (0-3) Neutrophils # (Auto) 3.7 x10^3uL (1.8-7.7) Lymphocytes # (Auto) 0.5 x10^3/uL (1.0-4.8) Monocytes # (Auto) 0.9 x10^3/uL (0.0-1.1) Eosinophils # (Auto) 0.1 x10^3/uL (0.0-0.7) Basophils # (Auto) 0.0 x10^3/uL (0.0-0.2) Erythrocyte Sedimentation Rate 58 (0-15) Sodium Level 135 mmol/L (136-145) Potassium Level 3.4 mmol/L (3.5-5.1) Chloride Level 95 mmol/L (98-107) Carbon Dioxide Level 26 mmol/L (21-32) Anion Gap 14 (6-14) Blood Urea Nitrogen 64 mg/dL (8-26) Creatinine 11.9 mg/dL (0.7-1.3) Estimated GFR (Cockcroft-Gault) 5.0 Glucose Level 117 mg/dL (70-99) Calcium Level 8.5 mg/dL (8.5-10.1) Phosphorus Level 4.9 mg/dL (2.6-4.7) Albumin 2.5 g/dL (3.4-5.0) Microbiology 11/23/18 Blood Culture - Preliminary, Resulted NO GROWTH AFTER 1 DAY Medications Current Medications Ondansetron HCl (Zofran) 4 mg 1X ONCE IV Last administered on 11/23/18at 16:08; Start 11/23/18 at 15:30; Stop 11/23/18 at 15:31; Status DC Morphine Sulfate (Morphine Sulfate) 2 mg 1X ONCE IV Last administered on 11/23/18at 16:08; Start 11/23/18 at 15:30; Stop 11/23/18 at 15:31; Status DC Ondansetron HCl (Zofran) 4 mg PRN Q8HRS PRN IV NAUSEA/VOMITING; Start 11/23/18 at 19:00; Stop 11/24/18 at 09:05; Status DC Morphine Sulfate (Morphine Sulfate) 2 mg PRN Q2HR PRN IV PAIN; Start 11/23/18 at 19:00; Stop 11/24/18 at 18:59; Status DC Cefepime HCl (Maxipime) 1 gm BID IVP Last administered on 11/23/18at 19:14; Start 11/23/18 at 19:30; Stop 11/23/18 at 19:30; Status DC Vancomycin HCl 1.5 gm/Sodium Chloride 500 ml @ 250 mls/hr BID IV ; Start 11/23/18 at 21:00; Status UNV Vancomycin HCl 2 gm/Sodium Chloride 500 ml @ 250 mls/hr 1X ONCE IV Last administered on 11/23/18at 20:40; Start 11/23/18 at 20:00; Stop 11/23/18 at 21:5 9; Status DC Vancomycin HCl (Vanco Per Pharmacy) 1 each PRN DAILY PRN MC SEE COMMENTS Last administered on 5/26/19at 03:23; Start 11/23/18 at 19:30 Alprazolam (Xanax) 1 mg HS PO Last administered on 11/24/18 21:27; Start 11/23/18 at 23:00 Clopidogrel Bisulfate (Plavix) 75 mg DAILY PO Last administered on 11/25/18 09:49; Start 11/24/18 at 09:00 Allopurinol (Zyloprim) 150 mg DAILY PO Last administered on 11/25/18 09:49; Start 11/24/18 at 09:00 Atorvastatin Calcium (Lipitor) 20 mg QHS PO Last administered on 11/23/18 22:50; Start 11/23/18 at 23:00 Vitamin B Complex/ Vitamin C (Ana-Porter) 1 tab DAILY PO Last administered on 09:48; Start 11/24/18 at 09:00 Ondansetron HCl (Zofran Odt) 4 mg PRN Q6HRS PRN PO NAUSEA 1ST CHOICE; Start 11/23/18 at 22:15 Atenolol (Tenormin) 100 mg DAILY PO Last administered on 11/25/18 09:49; Start 11/24/18 at 09:00 Diltiazem HCl (Cardizem 24hr Cd) 180 mg DAILY PO Last administered on 11/24/18 09:43; Start 11/24/18 at 09:00 Doxazosin Mesylate (Cardura) 2 mg DAILY PO Last administered on 11/25/18 09:50; Start 11/24/18 at 09:00 Fluticasone Propionate (Flonase) 2 spray DAILY NS Last administered on 11/25/18 09:47; Start 11/24/18 at 09:00 Megestrol Acetate (Megace) 40 mg DAILY PO Last administered on 11/25/18 09:49; Start 11/24/18 at 09:00 Mirtazapine (Remeron) 30 mg QHS PO Last administered on 11/24/18 21:27; Start 11/23/18 at 23:00 Montelukast Sodium (Singulair) 10 mg QHS PO ; Start 11/23/18 at 23:00 Trazodone HCl (Desyrel) 50 mg QHS PO ; Start 11/23/18 at 23:00; Stop 11/24/18 at 20:28; Status DC Losartan Potassium (Cozaar) 100 mg DAILY PO Last administered on 11/25/18at 09:50; Start 11/24/18 at 09:00 Vancomycin HCl (Vancomycin Random Level) 1 each 1X ONCE MC ; Start 11/25/18 at 21:00; Stop 11/25/18 at 21:01 Ondansetron HCl (Zofran) 4 mg PRN Q6HRS PRN IV NAUSEA/VOMITING; Start 11/24/18 at 09:15 Acetaminophen (Tylenol) 500 mg PRN Q6HRS PRN PO MILD PAIN / TEMP; Start 11/24/18 at 09:15 Potassium Chloride (Klor-Con) 20 meq 1X ONCE PO Last administered on 11/24/18at 13:27; Start 11/24/18 at 12:00; Stop 11/24/18 at 12:01; Status DC Magnesium Sulfate 50 ml @ 25 mls/hr PRN DAILY PRN IV for Mag < 1.7 on am labs; Start 11/24/18 at 11:45 Potassium Chloride (Klor-Con) 40 meq PRN DAILY PRN PO for K < 3.7 on am labs Last administered on 11/25/18at 09:53; Start 11/24/18 at 12:00 Albumin Human 100 ml @ 100 mls/hr TID IV Last administered on 11/25/18at 09:48; Start 11/24/18 at 13:00; Stop 11/26/18 at 09:59 Lactobacillus Rhamnosus (Culturelle) 1 cap BID PO Last administered on 11/25/18at 09:50; Start 11/24/18 at 21:00 Morphine Sulfate (Morphine Sulfate) 2 mg PRN Q2HR PRN IV SEVERE PAIN Last admin istered on 11/25/18at 06:34; Start 11/24/18 at 22:45 Active Scripts Active Atorvastatin Calcium 20 Mg Tablet 20 Mg PO QHS MDD 1 Zofran Odt (Ondansetron) 4 Mg Tab.rapdis 1 Tab SL Q6HRS PRN Reported Doxazosin Mesylate 2 Mg Tablet 2 Mg PO DAILY Clopidogrel (Clopidogrel Bisulfate) 75 Mg Tablet 1 Tab PO DAILY Flonase Allergy Relief (Fluticasone Propionate) 9.9 [address] [place].susp 2 Sprays NS DAILY Montelukast Sodium Tablet (Montelukast Sodium) 10 Mg Tablet 1 Tab PO DAILY Mirtazapine 30 Mg Tablet 1 Tab PO QHS Atenolol 100 Mg Tablet 1 Tab PO DAILY Nephro-Porter Tablet (Folic Acid/Vitamin B Comp W-C) 0.8 Mg Tablet 1 Tab PO DAILY Diltiazem 24HR Cd (Diltiazem Hcl) 180 Mg Cap.er.24h 1 Cap PO DAILY Xanax (Alprazolam) 1 Mg Tablet 0.5 Tab PO HS Diovan (Valsartan) 320 Mg Tablet 320 Mg PO DAILY Megestrol Acetate 40 Mg Tablet 40 Mg PO DAILY Allopurinol 100 Mg Tablet 150 Mg PO DAILY Vitals/I & O Vital Sign - Last 24 Hours 11/24/18 11/24/18 11/24/18 11/24/18 11:00 15:00 19:48 20:00 Temp 97.5 98.8 97.7 97.5 98.8 97.7 Pulse 72 64 65 Resp 16 18 18 B/P (MAP) 132/72 (92) 120/63 (82) 128/78 (95) Pulse Ox 96 97 96 O2 Delivery Room Air Room Air Room Air Room Air 11/24/18 11/24/18 11/25/18 11/25/18 23:12 23:24 02:51 06:34 Temp 98.1 98.7 98.1 98.7 Pulse 68 59 Resp 18 18 B/P (MAP) 130/64 (86) 113/52 (72) Pulse Ox 96 97 98 98 O2 Delivery Room Air Room Air Room Air Room Air 11/25/18 11/25/18 11/25/18 11/25/18 07:00 07:22 09:49 09:50 Temp 98.5 98.5 Pulse 55 55 55 Resp 14 B/P (MAP) 189/75 (113) 189/75 189/75 Pulse Ox 97 98 O2 Delivery Room Air Room Air 11/25/18 09:50 Pulse 55 B/P (MAP) 189/75 Intake and Output 11/24/18 11/24/18 11/25/18 14:59 22:59 06:59 Intake Total 0 ml 0 ml 500 ml Output Total 0 ml 200 ml Balance 0 ml 0 ml 300 ml REUBEN BLAS MD November 25, 2018 10:56
[2018-11-25 11:00] VITALS: BP 142/80
[2018-11-25 13:26] LABS: % LYMPHS 16 % (24-48); % MONOS 2 % (0-10); % SEGS 82 % (35-66); ANISOCYTOSIS PRESENT; PLT ESTIMATE ADEQUATE (ADEQUATE)
[2018-11-25] MEDS: VANCOMYCIN PER PHARMACY MC PRN (14:05)
--- NOTE | 2018-11-25 14:50 | NUR ---
Called to patient's room by PRINCE [place]. Dr. Chaidez at beside with patient. Patient states that his phone fell. He states that he tried to pick it up and that he "felt his legs were weak so I sat down". Patient denies falling or hitting his head. No noticeable injury noted. Patient states he is in no pain. Vitals stable: BP 118/73, HR 66, SpO2 97%, R 20. Dr. Antoine notified. No new orders at this time. Will continue to monitor.
[2018-11-25 15:00] VITALS: BP 118/73
[2018-11-25] MEDS ORDERED: CEFEPIME HCL IV Push 1 GM VIAL. IVP SCH (15:00)
--- NOTE | 2018-11-25 15:30 | PDOC2 ---
CARDIOLOGY CONSULT NOTE CHEIF COMPLAINT: Belly pain HPI: Similarly on-year-old man with past medical history as noted below presenting to the hospital in the setting of peritonitis. Cardiology was asked to evaluate him for frequent PVCs. Patient presently denies any cardiac symptoms. PMHX: PAST MEDICAL HISTORY Cardiovascular: AFIB, HTN, Other (SSS) Pulmonary: COPD, Pulmonary embolus, Pneumonia GI: GERD Heme/Onc: Anemia NOS Psych: Anxiety Musculoskeletal: Osteoarthritis Rheumatologic: Gout Infectious disease: No pertinent hx ENT: No pertinent hx Renal/: Chronic renal failure (ESRD on PD), Prostate Ca., Other (urgency) Endocrine: No pertinent hx Dermatology: No pertinent hx PAST SURGICAL HISTORY Past Surgical History: Pacemaker, Other (PD cath placement; mediastinal node biopsy, prostatectomy ) FAMILY HISTORY Family History: Hypertension SOCIAL HISTORY Smoke: No ALCOHOL: none Drugs: None Lives: with Family ALLERGIES ALLERGIES: Coded Allergies: No Known Drug Allergies (Unverified , 09/17/18) ROS Review of System 14 point ROS conducted with pertinent positives noted above in HPI. PHYSICAL EXAM PHYSICAL EXAM General: Alert, Oriented X3, Cooperative, No acute distress. When I walked into the exam room he is actually long term up to the floor and had difficulty climbing back into the bed and required 2 people to get him back in the bed. HEENT: Atraumatic, Mucous membr. moist/pink Lungs: Clear to auscultation, Normal air movement Heart: Normal S1, Normal S2, Other (irregular; 2/6 systolic murmur to LLS border) Abdomen: Mild to moderate tenderness diffusely. Extremities: No cyanosis, 1+ bilateral LE edema Skin: No breakdown, No significant lesion Neuro: Sensation intact Psych/Mental Status: Mental status NL, Mood NL MUSCULOSKELETAL: Osteoarthritic changes both hands CURRENT MEDS: Current Medications Medications (Trade) Dose Ordered Sig/Pete Start Time Stop Time Status Last Admin Dose Admin Acetaminophen (Tylenol) 500 mg PRN Q6HRS PRN 11/24/18 09:15 Albumin Human 100 ml @ 100 mls/hr TID 11/24/18 13:00 11/26/18 09:59 11/25/18 09:48 100 MLS/HR Allopurinol (Zyloprim) 150 mg DAILY 11/24/18 09:00 11/25/18 09:49 150 MG Alprazolam (Xanax) 1 mg HS 11/23/18 23:00 11/24/18 21:27 1 MG Atenolol (Tenormin) 100 mg DAILY 11/24/18 09:00 11/25/18 09:49 100 MG Atorvastatin Calcium (Lipitor) 20 mg QHS 11/23/18 23:00 11/23/18 22:50 20 MG Cefepime HCl (Maxipime) 1 gm Q24H 11/25/18 15:00 Clopidogrel Bisulfate (Plavix) 75 mg DAILY 11/24/18 09:00 11/25/18 09:49 75 MG Diltiazem HCl (Cardizem 24hr Cd) 180 mg DAILY 11/24/18 09:00 11/25/18 12:53 180 MG Doxazosin Mesylate (Cardura) 2 mg DAILY 11/24/18 09:00 11/25/18 09:50 2 MG Fluticasone Propionate (Flonase) 2 spray DAILY 11/24/18 09:00 11/25/18 09:47 2 SPRAY Lactobacillus Rhamnosus (Culturelle) 1 cap BID 11/24/18 21:00 11/25/18 09:50 1 CAP Losartan Potassium (Cozaar) 100 mg DAILY 11/24/18 09:00 11/25/18 09:50 100 MG Magnesium Sulfate 50 ml @ 25 mls/hr PRN DAILY PRN 11/24/18 11:45 Megestrol Acetate (Megace) 40 mg DAILY 11/24/18 09:00 11/25/18 09:49 40 MG Mirtazapine (Remeron) 30 mg QHS 11/23/18 23:00 11/24/18 21:27 30 MG Montelukast Sodium (Singulair) 10 mg QHS 11/23/18 23:00 Morphine Sulfate (Morphine Sulfate) 2 mg PRN Q2HR PRN 11/24/18 22:45 11/25/18 06:34 2 MG Ondansetron HCl (Zofran Odt) 4 mg PRN Q6HRS PRN 11/23/18 22:15 Ondansetron HCl (Zofran) 4 mg PRN Q6HRS PRN 11/24/18 09:15 Potassium Chloride (Klor-Con) 40 meq PRN DAILY PRN 11/24/18 12:00 11/25/18 09:53 40 MEQ Trazodone HCl (Desyrel) 50 mg QHS 11/23/18 23:00 11/24/18 20:28 DC Vancomycin HCl (Vanco Per Pharmacy) 1 each PRN DAILY PRN 11/23/18 19:30 11/25/18 14:05 1 EACH Vancomycin HCl (Vancomycin Random Level) 1 each 1X ONCE 11/25/18 21:00 11/25/18 21:01 Vancomycin HCl 1.5 gm/Sodium Chloride 500 ml @ 250 mls/hr BID 11/23/18 21:00 UNV Vancomycin HCl 2 gm/Sodium Chloride 500 ml @ 250 mls/hr 1X ONCE 11/23/18 20:00 11/23/18 21:59 DC 11/23/18 20:40 250 MLS/HR Vitamin B Complex/ Vitamin C (Ana-Porter) 1 tab DAILY 11/24/18 09:00 11/25/18 09:48 1 TAB ALLERGIES: Allergies Coded Allergies Type Severity Reaction Last Updated Verified No Known Drug Allergies 09/17/18 No PHYSICAL EXAM: Vital Signs: Vital Signs Date Time Temp Pulse Resp B/P (MAP) Pulse Ox O2 Delivery O2 Flow Rate FiO2 11/25/18 12:53 68 142/80 11/25/18 11:00 98.7 14 94 Room Air 98.7 I & O Intake and Output0 11/25/18 06:59 Intake Total 500 ml Output Total 200 ml Balance 300 ml Intake Oral 500 ml Output Urine Total 200 ml DIAGNOSTIC TESTING: Telemetry is without any significant arrhythmias. His recent device check is unremarkable. His stress test in September revealed mild LV dysfunction but no ischemia. ASSESSMENT: 1. Frequent PVCs 2. Proximal atrial fibrillation 3. Status post dual-chamber pacemaker 4. Pulmonary embolus with history of bleeding on anticoagulation 5. End-stage renal disease PLAN: 1. Continue Abx per primary team. No further cardiac vascular testing necessary at this time. He had a echocardiogram recently which revealed mild LV dysfunction. He had a stress test in September 2018 which did not reveal any ischemia. PVCs likely secondary to acute distress. Thank you for this consultation please call with further questions LETICIA GAN MD November 25, 2018 15:30
[2018-11-25 16:29] LABS: BF SOURCE PERITONEAL
[2018-11-25 16:30] LABS: BF CLARITY CLEAR; BF COLOR COLORLESS
[2018-11-25 16:31] LABS: BF MON % 4 %; BF PMN % 94 %; BF RBC COUNT 19 /cmm (Not Established); BF WBC COUNT 340 /cmm (Not Established)
[2018-11-25 16:32] LABS: BF OTHER % 2 %
[2018-11-25 19:57] VITALS: BP 126/63
[2018-11-25] MEDS ORDERED: VANCOMYCIN RANDOM LEVEL. MC ONE (21:00)
[2018-11-25] MEDS: ATORVASTATIN CALCIUM 20 MG TABLET PO SCH (21:13)
[2018-11-25] MEDS: MIRTAZAPINE 15 MG TABLET PO SCH (21:13)
[2018-11-25] MEDS: MONTELUKAST SODIUM 10 MG TABLET. PO SCH (21:13)
[2018-11-25] MEDS: ALPRAZolam 1 MG TABLET PO SCH (21:13)
--- NOTE | 2018-11-25 22:15 | NUR ---
Spoke with Dr. Osuna re: critical Vanc trough 35.1. Hold Vanco and Dr. Osuna will call pharmacy.
[2018-11-25 23:12] VITALS: BP 147/85
[2018-11-26] MEDS: MORPHINE SULFATE 2 MG/ML VIAL. IV PRN ×2 (02:40→16:29)
[2018-11-26 03:52] VITALS: BP 132/84
--- NOTE | 2018-11-26 05:18 | NUR ---
Per Nithin in pharmacy, Critical Vanco was a random level not a trough
--- NOTE | 2018-11-26 05:19 | NUR ---
Spoke with Dr. Osuna regarding changes with patient. Patient getting more confused, is now wheezing and has been choking and spitting up his water after drinking. Will consult speech therapy, order a CXR and make patient NPO at this time.
[2018-11-26] MEDS: VANCOMYCIN PER PHARMACY MC PRN ×2 (06:17→06:20)
--- NOTE | 2018-11-26 06:17 | NUR ---
Pharmacy Vancomycin Dosing Note S:Consulted to monitor and dose vancomycin started 11/23/18. O:CYNDI NUNO is a 77 year old M with Bacteremia PD CATHETER INFECTION . Height: 6 feet, 1 inches Weight: 85.577786 kg [place] Body Weight: 79.90 Adjusted Body Weight: 81.86 Dosing Weight: Actual Other Antibiotics: CEFEPIME 1gm IV Q24H LABS: Last BUN: 64 Last Creatinine: 11.9 Creatinine Clearance: PD mL/min Last WBC: 5.2 Last Procalcitonin: Tmax (past 24 hours): AFEBRILE Microbiology: I/O: Drug Levels: Last Trough level: 35.1 on 11/25/18 at 2100 Last dose given 11/23/18 at 2100 Vancomycin Dosing: Loading Dose: 2000 mg x1 Dosing Weight: Actual Target Trough: 10-20 A: Based on: RANDOM LEVEL P: 1. Continue Vancomycin IV Dose Per Levels 2. Follow up Random level on 11/27/18 at 2100 3. Pharmacy will continue to monitor, follow and adjust therapy as needed. ROME MENCHACA RPH, [id number] Signed: 11/26/18 at 06 by ROME MENCHACA RPH PHA Addendum: 11/26/18 at 06 by ROME MENCHACA RPH PHA RANDOM LEVEL 11/26/18 2100 Signed: 11/26/18 at 620 by ROME MENCHACA RPH PHA
[2018-11-26 07:00] VITALS: BP 149/88
[2018-11-26 08:01] LABS: ALBUMIN 2.9 g/dL (3.4-5.0); CALCIUM 8.8 mg/dL (8.5-10.1); CREATININE 11.4 mg/dL (0.7-1.3); GFR 5.3; PHOSPHORUS 5.3 mg/dL (2.6-4.7); POTASSIUM 3.4 mmol/L (3.5-5.1)
--- NOTE | 2018-11-26 08:29 | RAD ---
Portable chest, 11/26/2018: HISTORY: Wheezing Comparison is made to a study from 11/23/2018. A left-sided transvenous pacemaker remains in place with 2 leads extending into the right heart. The heart size is unchanged. The pulmonary vascularity is at the upper limits of normal. There is mild streaky atelectasis/infiltrate in the right base partially obscuring the hemidiaphragm. There is minimal linear atelectasis or scarring in the left base. Similar findings were present on the previous study. No new pulmonary abnormality is seen. There is no evidence of pleural fluid. IMPRESSION: Ongoing mild streaky basilar atelectasis/infiltrate, predominantly on the right. Electronically signed by: Lowell Aguilar MD (11/26/2018 8:26 AM) [facility]
--- NOTE | 2018-11-26 08:32 | PDOC ---
Infectious Disease Note Subjective: Subjective pt is confused this am d/w rn pt is npo as he was choking last night awaiting swallow eval continues to have abdominal pain no f/c/n/v/d ROS: ROS Negative except for above. Vital Signs: Vital Signs Vital Signs Date Time Temp Pulse Resp B/P (MAP) Pulse Ox O2 Delivery O2 Flow Rate FiO2 11/26/18 07:00 97.7 71 22 149/88 (108) 90 Room Air 97.7 Physical Exam: PHYSICAL EXAM GENERAL: sleepy , confused, not in distress. HEENT: no icterus NECK: Supple. No JVP and no lymphadenopathy. LUNGS: Clear. HEART: S1 and S2 regular. ABDOMEN: Tender diffusely. No distention or guarding. The patient does have a PD catheter with some cloudy fluid EXTREMITIES: No edema or cyanosis. SKIN: Unremarkable. NEUROLOGICAL: confused Medications: Inpatient Meds: Current Medications Medications (Trade) Dose Ordered Sig/Pete Start Time Stop Time Status Last Admin Dose Admin Acetaminophen (Tylenol) 500 mg PRN Q6HRS PRN 11/24/18 09:15 Albumin Human 100 ml @ 100 mls/hr TID 11/24/18 13:00 11/26/18 09:59 11/25/18 21:13 100 MLS/HR Allopurinol (Zyloprim) 150 mg DAILY 11/24/18 09:00 11/25/18 09:49 150 MG Alprazolam (Xanax) 1 mg HS 11/23/18 23:00 11/25/18 21:13 1 MG Atenolol (Tenormin) 100 mg DAILY 11/24/18 09:00 11/25/18 09:49 100 MG Atorvastatin Calcium (Lipitor) 20 mg QHS 11/23/18 23:00 11/25/18 21:13 20 MG Cefepime HCl (Maxipime) 1 gm Q24H 11/25/18 15:00 11/25/18 15:52 1 GM Clopidogrel Bisulfate (Plavix) 75 mg DAILY 11/24/18 09:00 11/25/18 09:49 75 MG Diltiazem HCl (Cardizem 24hr Cd) 180 mg DAILY 11/24/18 09:00 11/25/18 12:53 180 MG Doxazosin Mesylate (Cardura) 2 mg DAILY 11/24/18 09:00 11/25/18 09:50 2 MG Fluticasone Propionate (Flonase) 2 spray DAILY 11/24/18 09:00 11/25/18 09:47 2 SPRAY Lactobacillus Rhamnosus (Culturelle) 1 cap BID 11/24/18 21:00 11/25/18 21:13 1 CAP Losartan Potassium (Cozaar) 100 mg DAILY 11/24/18 09:00 11/25/18 09:50 100 MG Magnesium Sulfate 50 ml @ 25 mls/hr PRN DAILY PRN 11/24/18 11:45 Megestrol Acetate (Megace) 40 mg DAILY 11/24/18 09:00 11/25/18 09:49 40 MG Mirtazapine (Remeron) 30 mg QHS 11/23/18 23:00 11/25/18 21:13 30 MG Montelukast Sodium (Singulair) 10 mg QHS 11/23/18 23:00 11/25/18 21:13 10 MG Morphine Sulfate (Morphine Sulfate) 2 mg PRN Q2HR PRN 11/24/18 22:45 11/26/18 02:40 2 MG Ondansetron HCl (Zofran Odt) 4 mg PRN Q6HRS PRN 11/23/18 22:15 Ondansetron HCl (Zofran) 4 mg PRN Q6HRS PRN 11/24/18 09:15 Potassium Chloride (Klor-Con) 40 meq PRN DAILY PRN 11/24/18 12:00 11/25/18 09:53 40 MEQ Trazodone HCl (Desyrel) 50 mg QHS 11/23/18 23:00 11/24/18 20:28 DC Vancomycin HCl (Vanco Per Pharmacy) 1 each PRN DAILY PRN 11/23/18 19:30 11/26/18 06:20 1 EACH Vancomycin HCl (Vancomycin Random Level) 1 each 1X ONCE 11/26/18 21:00 11/26/18 21:01 Vancomycin HCl 1.5 gm/Sodium Chloride 500 ml @ 250 mls/hr BID 11/23/18 21:00 UNV Vancomycin HCl 2 gm/Sodium Chloride 500 ml @ 250 mls/hr 1X ONCE 11/23/18 20:00 11/23/18 21:59 DC 11/23/18 20:40 250 MLS/HR Vitamin B Complex/ Vitamin C (Ana-Porter) 1 tab DAILY 11/24/18 09:00 11/25/18 09:48 1 TAB Labs: Lab Laboratory Tests Test 11/25/18 21:10 11/26/18 06:39 Random Vancomycin Level 35.1 mcg/mL Sodium Level 135 mmol/L (136-145) Potassium Level 3.4 mmol/L (3.5-5.1) Chloride Level 96 mmol/L (98-107) Carbon Dioxide Level 23 mmol/L (21-32) Anion Gap 16 (6-14) Blood Urea Nitrogen 59 mg/dL (8-26) Creatinine 11.4 mg/dL (0.7-1.3) Estimated GFR (Cockcroft-Gault) 5.3 Glucose Level 151 mg/dL (70-99) Calcium Level 8.8 mg/dL (8.5-10.1) Phosphorus Level 5.3 mg/dL (2.6-4.7) Albumin 2.9 g/dL (3.4-5.0) Objective: Assessment: 1. Peritoneal dialysis catheter associated peritonitis, so far only information is gram-positive cocci from osh.ID and lise pending awaiting cell count. cultures not done here BC negative so far 2. Abdominal pain. 3. End-stage renal disease. 4. Hypertension. 5. Atrial fibrillation. 6. End-stage renal disease. 7. Dysphagia 8. encephalopathy Plan: Plan of Care cont cefepime. Vanc trough 35 so IV Vanc on hold, dosing per pharmacy and renal dosing f/u osh cultures results cell count is high PD fluid culture not done here f/u labs in am and cults Depending on ID of the organism, may need removal CXR pending swallow eval pending maintain aspiration precautions D/W TRAVON PEREZ MD November 26, 2018 08:32
[2018-11-26] MEDS: FOLIC/VIT B COMP W-C (RENAL) TABLET. PO SCH (10:18)
[2018-11-26] MEDS: ATENOLOL 50 MG TABLET. PO SCH (10:18)
[2018-11-26] MEDS: LACTOBACILLUS RHAMNOSUS GG 1 CAPSULE. PO SCH ×2 (10:18→22:15)
[2018-11-26] MEDS: DOXAZOSIN MESYLATE 4 MG TABLET. PO SCH (10:19)
[2018-11-26] MEDS: ALLOPURINOL 100 MG TABLET. PO SCH (10:19)
[2018-11-26] MEDS: LOSARTAN POTASSIUM 50 MG TABLET. PO SCH (10:20)
[2018-11-26] MEDS: CLOPIDOGREL BISULFATE 75 MG TABLET PO SCH (10:20)
[2018-11-26] MEDS: MEGESTROL 20 MG TABLET. PO SCH (10:20)
[2018-11-26] MEDS: FLUTICASONE 50MCG/NASAL SPRAY 16GM BOTTLE. NS SCH (10:22)
--- NOTE | 2018-11-26 10:45 | PDOC ---
Renal-Progress Notes Subjective Notes Notes STILL HAS ABD PAIN BUT STATES ITS BETTER History of Present Illness Hx of present illness STABLE Vitals Vitals Vital Signs Date Time Temp Pulse Resp B/P (MAP) Pulse Ox O2 Delivery O2 Flow Rate FiO2 11/26/18 10:20 71 149/88 11/26/18 07:00 97.7 22 90 Room Air 97.7 Weight Weight [ ] I.O. Intake and Output Intake and Output 11/26/18 07:00 Intake Total 1590 ml Output Total 235 ml Balance 1355 ml Intake Oral 1590 ml Output Urine Total 235 ml Labs Labs Laboratory Tests Test 11/25/18 21:10 11/26/18 06:39 Random Vancomycin Level 35.1 mcg/mL Sodium Level 135 mmol/L (136-145) Potassium Level 3.4 mmol/L (3.5-5.1) Chloride Level 96 mmol/L (98-107) Carbon Dioxide Level 23 mmol/L (21-32) Anion Gap 16 (6-14) Blood Urea Nitrogen 59 mg/dL (8-26) Creatinine 11.4 mg/dL (0.7-1.3) Estimated GFR (Cockcroft-Gault) 5.3 Glucose Level 151 mg/dL (70-99) Calcium Level 8.8 mg/dL (8.5-10.1) Phosphorus Level 5.3 mg/dL (2.6-4.7) Albumin 2.9 g/dL (3.4-5.0) Micro Micro Microbiology 11/23/18 Blood Culture - Preliminary, Resulted NO GROWTH AFTER 2 DAYS Review of Systems Constitutional: yes: alert, oriented Ears/Nose/Throat: Yes: no symptom reported Eyes: Yes: no symptom reported Pulmonary: Yes no symptom reported Cardiovascular: Yes no symptom reported Gastrointestional: Yes: abdominal pain Genitourinary: Yes: no symptom reported Musculoskeletal: Yes: no symptom reported Skin: Yes no symptom reported Psychiatric/Neurological: Yes: no symptom reported Endocrine: Yes: no symptom reported Hematologic/Lymphatic: Yes: no symptom reported Physical Exam General Appearance: no apparent distress Skin: warm Respiratory: decreased breath sounds Heart: S1S2 Abdomen: soft, bowel sounds present Genitourinary: bladder flat Extremities: pulses present Neurology: alert Musculoskeletal: Osteoarthritis Assessment Assessment IMP STAPH A PERITONITIS ANEMIA MET ENCEPHALOPATHY ESRD AFIB HTN LOW K PLAN ANTIBIOTICS CONT WITH APD D/W ID AGREE MAY NEED TO HAVE PD CATHETER REMOVED REPLACE K CONT TANIA ENRIQUETA YARBROUGH MD November 26, 2018 10:45
[2018-11-26 11:00] VITALS: BP 162/91
--- NOTE | 2018-11-26 11:36 | NUR ---
Patient complained of generalized body weakness, shortness of breath at 0800. He was noted to be confused and stated that he's feeling unwell since last night. VS BP 149/88 HR 71 RR 22 Temp 97.1F O2 sat 89-90%. Wheezes on both lung talamantes noted upon auscultation. Oxygen at 2 LPM per nasal cannula placed and raised his O2 sat to 94-97%. Notified MD of the change at 0919, no new orders received. Patient likewise underwent bedside swallow eval and was placed on Dysphagia I diet. He reports feeling better after oxygen was placed. We'll continue to monitor.
--- NOTE | 2018-11-26 11:49 | NUR ---
Bedside Swallow evaluation completed. Please refer to full report for additional details. Impressions: Mild-moderate oropharyngeal dysphagia w/ oropharyngeal delay in swallow initiation that appears more oral than pharyngeal. Prolonged oral stage as well as poor breath/swallow coordination appear to contribute to s/s aspiration w/ thin liquids and soft solids observed at evaluation. No s/s aspiration were noted w/ trials of honey thick liquids and puree. Pt would benefit at this time to have a modified diet to decrease aspiration risk and increase control of boluses and efficiency while being SOA. Recommendations: Dysphagia I diet w/ honey thick liquids, no straws, crush meds in puree. ST f/u for dysphagia. Swallow precautions. Assist during meals may be indicated d/t pt SOA and effort it took him to attempt to feed self at evaluation. D/w RN. Precautions posted at bedside.
[2018-11-26] MEDS: ceFAZolin SODIUM IV Push 1 GM VIAL. IVP SCH (11:52)
--- NOTE | 2018-11-26 12:08 | PDOC ---
PROGRESS NOTES Chief Complaint Chief Complaint 1. Peritoneal dialysis catheter associated peritonitis, so far only information is gram-positive cocci. We do not have a cell count. We do not have culture final results. 2. Abdominal pain. 3. End-stage renal disease. 4. Hypertension. 5. Atrial fibrillation. 6. End-stage renal disease. 7. AOCD 8. PVCs, indwelling pacer 9. NOn injury fall 11/25/18 10 Hypoxic respiratory failure-wheezy 11/26/18 History of Present Illness History of Present Illness Multiple RN calls today and yesterday Noninjury fall yesterday caught by cardiology Cards note reviewed, no further recommendations for that occasional PVCs over the holiday weekend-has indwelling pacer Wheezy today, hypoxia better with O2 Chest x-ray shows maybe atelectasis-on IV antibodies for the rule out SBP diagnosis Plan Add DuoNeb's, prednisone 60 PO now then 40 daily Social work consult for SNU screen-he is agreeable-PT recommended SNU Follow cultures Continue IV antibodies per ID MOnitor for further arrhythmias or PVCs Vitals Vitals Vital Signs Date Time Temp Pulse Resp B/P (MAP) Pulse Ox O2 Delivery O2 Flow Rate FiO2 11/26/18 11:00 98.9 73 20 162/91 (114) 99 Room Air 98.9 Physical Exam Physical Exam GENERAL: sleepy , confused, not in distress. HEENT: no icterus NECK: Supple. No JVP and no lymphadenopathy. LUNGS: Clear. HEART: S1 and S2 regular. ABDOMEN: Tender diffusely. No distention or guarding. The patient does have a PD catheter with some cloudy fluid EXTREMITIES: No edema or cyanosis. SKIN: Unremarkable. NEUROLOGICAL: confused General: Alert, Oriented X3, Cooperative, No acute distress Heart: Regular rate, Normal S1, Normal S2 Lungs: Clear Abdomen: Normal bowel sounds, Soft, No hepatosplenomegaly, No masses, Other (PD catheter, some tenderness periumbilical area) Extremities: No clubbing, No cyanosis, No edema, Normal pulses, No tenderness/swelling Skin: No rashes, No breakdown, No significant lesion Labs LABS Laboratory Tests Test 11/25/18 21:10 11/26/18 06:39 Random Vancomycin Level 35.1 mcg/mL Sodium Level 135 mmol/L (136-145) Potassium Level 3.4 mmol/L (3.5-5.1) Chloride Level 96 mmol/L (98-107) Carbon Dioxide Level 23 mmol/L (21-32) Anion Gap 16 (6-14) Blood Urea Nitrogen 59 mg/dL (8-26) Creatinine 11.4 mg/dL (0.7-1.3) Estimated GFR (Cockcroft-Gault) 5.3 Glucose Level 151 mg/dL (70-99) Calcium Level 8.8 mg/dL (8.5-10.1) Phosphorus Level 5.3 mg/dL (2.6-4.7) Albumin 2.9 g/dL (3.4-5.0) Review of Systems Review of Systems weak, mildly, wheezy, cough, no CP, no fevers, no inc in abd pain Assessment and Plan Assessmemt and Plan Problems Medical Problems: (1) Bacterial infection associated with peritoneal dialysis catheter Status: Acute Comment Review of Relevant I have reviewed the following items russell (where applicable) has been applied. Labs Laboratory Tests Test 11/24/18 13:14 11/25/18 05:40 11/25/18 08:20 11/25/18 21:10 Magnesium Level 2.2 mg/dL (1.8-2.4) White Blood Count 5.2 x10^3/uL (4.0-11.0) Red Blood Count 3.11 x10^6/uL (4.30-5.70) Hemoglobin 9.2 g/dL (13.0-17.5) Hematocrit 29.4 % (39.0-53.0) Mean Corpuscular Volume 95 fL (79-100) Mean Corpuscular Hemoglobin 30 pg (25-35) Mean Corpuscular Hemoglobin Concent 31 g/dL (31-37) Red Cell Distribution Width 17.3 % (11.5-14.5) Platelet Count 180 x10^3/uL (140-400) Neutrophils (%) (Auto) 72 % (31-73) Lymphocytes (%) (Auto) 9 % (24-48) Monocytes (%) (Auto) 16 % (0-9) Eosinophils (%) (Auto) 2 % (0-3) Basophils (%) (Auto) 0 % (0-3) Neutrophils # (Auto) 3.7 x10^3uL (1.8-7.7) Lymphocytes # (Auto) 0.5 x10^3/uL (1.0-4.8) Monocytes # (Auto) 0.9 x10^3/uL (0.0-1.1) Eosinophils # (Auto) 0.1 x10^3/uL (0.0-0.7) Basophils # (Auto) 0.0 x10^3/uL (0.0-0.2) Segmented Neutrophils % 82 % (35-66) Lymphocytes % 16 % (24-48) Monocytes % 2 % (0-10) Platelet Estimate Adequate (ADEQUATE) Anisocytosis Present Erythrocyte Sedimentation Rate 58 (0-15) Sodium Level 135 mmol/L (136-145) Potassium Level 3.4 mmol/L (3.5-5.1) Chloride Level 95 mmol/L (98-107) Carbon Dioxide Level 26 mmol/L (21-32) Anion Gap 14 (6-14) Blood Urea Nitrogen 64 mg/dL (8-26) Creatinine 11.9 mg/dL (0.7-1.3) Estimated GFR (Cockcroft-Gault) 5.0 Glucose Level 117 mg/dL (70-99) Calcium Level 8.5 mg/dL (8.5-10.1) Phosphorus Level 4.9 mg/dL (2.6-4.7) Albumin 2.5 g/dL (3.4-5.0) Body Fluid Source Peritoneal Body Fluid Color Colorless Body Fluid Clarity Clear Body Fluid Nucleated Cells 340 /cmm (Not Established) Body Fluid Mononuclear WBCs (%) 4 % Body Fluid Polymorphonuclear Cells 94 % Body Fluid Total RBCs Counted 19 /cmm (Not Established) Body Fluid Other Cells (%) 2 % Random Vancomycin Level 35.1 mcg/mL Test 11/26/18 06:39 Sodium Level 135 mmol/L (136-145) Potassium Level 3.4 mmol/L (3.5-5.1) Chloride Level 96 mmol/L (98-107) Carbon Dioxide Level 23 mmol/L (21-32) Anion Gap 16 (6-14) Blood Urea Nitrogen 59 mg/dL (8-26) Creatinine 11.4 mg/dL (0.7-1.3) Estimated GFR (Cockcroft-Gault) 5.3 Glucose Level 151 mg/dL (70-99) Calcium Level 8.8 mg/dL (8.5-10.1) Phosphorus Level 5.3 mg/dL (2.6-4.7) Albumin 2.9 g/dL (3.4-5.0) Laboratory Tests Test 11/25/18 21:10 11/26/18 06:39 Random Vancomycin Level 35.1 mcg/mL Sodium Level 135 mmol/L (136-145) Potassium Level 3.4 mmol/L (3.5-5.1) Chloride Level 96 mmol/L (98-107) Carbon Dioxide Level 23 mmol/L (21-32) Anion Gap 16 (6-14) Blood Urea Nitrogen 59 mg/dL (8-26) Creatinine 11.4 mg/dL (0.7-1.3) Estimated GFR (Cockcroft-Gault) 5.3 Glucose Level 151 mg/dL (70-99) Calcium Level 8.8 mg/dL (8.5-10.1) Phosphorus Level 5.3 mg/dL (2.6-4.7) Albumin 2.9 g/dL (3.4-5.0) Microbiology 11/23/18 Blood Culture - Preliminary, Resulted NO GROWTH AFTER 2 DAYS Medications Current Medications Ondansetron HCl (Zofran) 4 mg 1X ONCE IV Last administered on 11/23/18at 16:08; Start 11/23/18 at 15:30; Stop 11/23/18 at 15:31; Status DC Morphine Sulfate (Morphine Sulfate) 2 mg 1X ONCE IV Last administered on 11/23/18at 16:08; Start 11/23/18 at 15:30; Stop 11/23/18 at 15:31; Status DC Ondansetron HCl (Zofran) 4 mg PRN Q8HRS PRN IV NAUSEA/VOMITING; Start 11/23/18 at 19:00; Stop 11/24/18 at 09:05; Status DC Morphine Sulfate (Morphine Sulfate) 2 mg PRN Q2HR PRN IV PAIN; Start 11/23/18 at 19:00; Stop 11/24/18 at 18:59; Status DC Cefepime HCl (Maxipime) 1 gm BID IVP Last administered on 11/23/18at 19:14; St art 11/23/18 at 19:30; Stop 11/23/18 at 19:30; Status DC Vancomycin HCl 1.5 gm/Sodium Chloride 500 ml @ 250 mls/hr BID IV ; Start 11/23/18 at 21:00; Status UNV Vancomycin HCl 2 gm/Sodium Chloride 500 ml @ 250 mls/hr 1X ONCE IV Last administered on 11/23/18 20:40; Start 11/23/18 at 20:00; Stop 11/23/18 at 21:59; Status DC Vancomycin HCl (Vanco Per Pharmacy) 1 each PRN DAILY PRN MC SEE COMMENTS Last administered on 11/26/18 06:20; Start 11/23/18 at 19:30; Stop 11/26/18 at 10:15; Status DC Alprazolam (Xanax) 1 mg HS PO Last administered on 11/25/18 21:13; Start 11/23/18 at 23:00 Clopidogrel Bisulfate (Plavix) 75 mg DAILY PO Last administered on 11/26/18 10:20; Start 11/24/18 at 09:00 Allopurinol (Zyloprim) 150 mg DAILY PO Last administered on 11/26/18 10:19; Start 11/24/18 at 09:00 Atorvastatin Calcium (Lipitor) 20 mg QHS PO Last administered on 11/25/18 21:13; Start 11/23/18 at 23:00 Vitamin B Complex/ Vitamin C (Ana-Porter) 1 tab DAILY PO Last administered on 11/26/18 10:18; Start 11/24/18 at 09:00 Ondansetron HCl (Zofran Odt) 4 mg PRN Q6HRS PRN PO NAUSEA 1ST CHOICE; Start 11/23/18 at 22:15 Atenolol (Tenormin) 100 mg DAILY PO Last administered on 11/26/18 10:18; Start 11/24/18 at 09:00 Diltiazem HCl (Cardizem 24hr Cd) 180 mg DAILY PO Last administered on 11/26/18 10:18; Start 11/24/18 at 09:00 Doxazosin Mesylate (Cardura) 2 mg DAILY PO Last administered on 11/26/18 10:19; Start 11/24/18 at 09:00 Fluticasone Propionate (Flonase) 2 spray DAILY NS Last administered on 11/26/18 10:22; Start 11/24/18 at 09:00 Megestrol Acetate (Megace) 40 mg DAILY PO Last administered on 11/26/18 10:20; Start 11/24/18 at 09:00 Mirtazapine (Remeron) 30 mg QHS PO Last administered on 11/25/18at 21:13; Start 11/23/18 at 23:00 Montelukast Sodium (Singulair) 10 mg QHS PO Last administered on 11/25/18 21:13; Start 11/23/18 at 23:00 Trazodone HCl (Desyrel) 50 mg QHS PO ; Start 11/23/18 at 23:00; Stop 11/24/18 at 20:28; Status DC Losartan Potassium (Cozaar) 100 mg DAILY PO Last administered on 11/26/18 10:20; Start 11/24/18 at 09:00 Vancomycin HCl (Vancomycin Random Level) 1 each 1X ONCE MC ; Start 11/25/18 at 21:00; Stop 11/25/18 at 21:01; Status DC Ondansetron HCl (Zofran) 4 mg PRN Q6HRS PRN IV NAUSEA/VOMITING; Start 11/24/18 at 09:15 Acetaminophen (Tylenol) 500 mg PRN Q6HRS PRN PO MILD PAIN / TEMP; Start 11/24/18 at 09:15 Potassium Chloride (Klor-Con) 20 meq 1X ONCE PO Last administered on 11/24/18 13:27; Start 11/24/18 at 12:00; Stop 11/24/18 at 12:01; Status DC Magnesium Sulfate 50 ml @ 25 mls/hr PRN DAILY PRN IV for Mag < 1.7 on am labs; Start 11/24/18 at 11:45 Potassium Chloride (Klor-Con) 40 meq PRN DAILY PRN PO for K < 3.7 on am labs Last administered on 11/25/18at 09:53; Start 11/24/18 at 12:00 Albumin Human 100 ml @ 100 mls/hr TID IV Last administered on 11/25/18 21:13; Start 11/24/18 at 13:00; Stop 11/26/18 at 09:59; Status DC Lactobacillus Rhamnosus (Culturelle) 1 cap BID PO Last administered on 5/28/19at 10:18; Start 11/24/18 at 21:00 Morphine Sulfate (Morphine Sulfate) 2 mg PRN Q2HR PRN IV SEVERE PAIN Last administered on 11/26/18at 02:40; Start 11/24/18 at 22:45 Cefepime HCl (Maxipime) 1 gm Q24H IVP Last administered on 11/25/18at 15:52; Start 11/25/18 at 15:00; Stop 11/26/18 at 10:15; Status DC Vancomycin HCl (Vancomycin Random Level) 1 each 1X ONCE MC ; Start 11/26/18 at 21:00; Stop 11/26/18 at 21:01 Cefazolin Sodium 1 gm/Dextrose 50 ml @ 100 mls/hr DAILY IV ; Start 11/27/18 at 09:00; Status UNV Cefazolin Sodium (Ancef) 1 gm Q24H IVP Last administered on 11/26/18at 11:52; Start 11/26/18 at 11:00 Active Scripts Active Atorvastatin Calcium 20 Mg Tablet 20 Mg PO QHS MDD 1 Zofran Odt (Ondansetron) 4 Mg Tab.rapdis 1 Tab SL Q6HRS PRN Reported Doxazosin Mesylate 2 Mg Tablet 2 Mg PO DAILY Clopidogrel (Clopidogrel Bisulfate) 75 Mg Tablet 1 Tab PO DAILY Flonase Allergy Relief (Fluticasone Propionate) 9.9 Ml Cedar.susp 2 Sprays NS DAILY Montelukast Sodium Tablet (Montelukast Sodium) 10 Mg Tablet 1 Tab PO DAILY Mirtazapine 30 Mg Tablet 1 Tab PO QHS Atenolol 100 Mg Tablet 1 Tab PO DAILY Nephro-Porter Tablet (Folic Acid/Vitamin B Comp W-C) 0.8 Mg Tablet 1 Tab PO DAILY Diltiazem 24HR Cd (Diltiazem Hcl) 180 Mg Cap.er.24h 1 Cap PO DAILY Xanax (Alprazolam) 1 Mg Tablet 0.5 Tab PO HS Diovan (Valsartan) 320 Mg Tablet 320 Mg PO DAILY Megestrol Acetate 40 Mg Tablet 40 Mg PO DAILY Allopurinol 100 Mg Tablet 150 Mg PO DAILY Vitals/I & O Vital Sign - Last 24 Hours 11/25/18 11/25/18 11/25/18 11/25/18 12:53 15:00 17:54 19:57 Temp 98.2 98.4 98.2 98.4 Pulse 68 66 65 Resp 20 16 16 B/P (MAP) 142/80 118/73 (88) 126/63 (84) Pulse Ox 97 94 O2 Delivery Room Air Room Air Room Air 11/25/18 11/25/18 11/25/18 11/25/18 20:00 22:04 22:34 23:12 Temp 98.6 98.6 Pulse 47 Resp 18 18 16 B/P (MAP) 147/85 (105) Pulse Ox 94 95 O2 Delivery Room Air Room Air Room Air 11/26/18 11/26/18 11/26/18 11/26/18 02:40 03:10 03:52 07:00 Temp 98.2 97.7 98.2 97.7 Pulse 67 71 Resp 16 22 B/P (MAP) 132/84 (100) 149/88 (108) Pulse Ox 95 94 94 90 O2 Delivery Room Air Room Air Room Air Room Air 11/26/18 11/26/18 11/26/18 11/26/18 08:00 10:18 10:18 10:19 Pulse 71 71 71 B/P (MAP) 149/88 149/88 149/88 O2 Delivery Room Air 11/26/18 11/26/18 10:20 11:00 Temp 98.9 98.9 Pulse 71 73 Resp 20 B/P (MAP) 149/88 162/91 (114) Pulse Ox 99 O2 Delivery Room Air Intake and Output 11/25/18 11/25/18 11/26/18 14:59 22:59 06:59 Intake Total 740 ml 500 ml 350 ml Output Total 125 ml 110 ml Balance 615 ml 500 ml 240 ml REUBEN BLAS MD November 26, 2018 12:08
[2018-11-26] MEDS: ALBUMIN HUMAN 25% 100 ML IV SCH (12:19)
[2018-11-26] MEDS ORDERED: predniSONE 20 MG TABLET PO ONE (12:30)
--- NOTE | 2018-11-26 13:13 | NUR ---
SW consulted for dc needs. Chart reviewed and discussed with RN. PT/OT recommends SNU. PAM spoke with Pt's daughter, Marjan, phone: [phone] in room and pt was resting. Pt lives at home with spouse and does PD at home. SW discussed about PT/OT recommendation to SNU and daughter reported she would like to discuss this with other family members. SW discussed SNU might not have PD but SW will explore appropriate level of care if family is interested in SNU/rehab. PAM discussed SNU vs HH and insurance coverage. SW provided daughter with a contact number to call once family reaches a decision. Discussed with RN. Will continue to follow.
[2018-11-26] MEDS: IPRATRPIUM/ALBUTEROL 0.5/2.5MG 3 ML NEBU. NEB SCH ×3 (13:37→21:26)
[2018-11-26 15:00] VITALS: BP 143/76
[2018-11-26] MEDS ORDERED: POTASSIUM CHLORIDE 20 MEQ/15 ML ORAL LIQUID. PEG PRN (16:00)
[2018-11-26 19:10] VITALS: BP 144/81
[2018-11-26] MEDS ORDERED: VANCOMYCIN RANDOM LEVEL. MC ONE (21:00)
[2018-11-26] MEDS: ALPRAZolam 1 MG TABLET PO SCH (21:00)
[2018-11-26] MEDS: ATORVASTATIN CALCIUM 20 MG TABLET PO SCH (22:15)
[2018-11-26] MEDS: MONTELUKAST SODIUM 10 MG TABLET. PO SCH (22:15)
[2018-11-26] MEDS: MIRTAZAPINE 15 MG TABLET PO SCH (22:15)
[2018-11-27] VITALS (8 sets, daily range): BP systolic 113–178; BP diastolic 62–93
[2018-11-27] MEDS: MORPHINE SULFATE 2 MG/ML VIAL. IV PRN (03:58)
[2018-11-27 04:12] LABS: HEMATOCRIT 29.4 % (39.0-53.0); HEMOGLOBIN 9.3 g/dL (13.0-17.5); RED BLOOD COUNT 3.11 x10^6/uL (4.30-5.70); WHITE BLOOD COUNT 4.4 x10^3/uL (4.0-11.0)
[2018-11-27 04:28] LABS: CALCIUM 9.1 mg/dL (8.5-10.1); CREATININE 11.4 mg/dL (0.7-1.3); GFR 5.3; PHOSPHORUS 5.7 mg/dL (2.6-4.7); POTASSIUM 4.2 mmol/L (3.5-5.1)
[2018-11-27] MEDS: FOLIC/VIT B COMP W-C (RENAL) TABLET. PO SCH (08:26)
[2018-11-27] MEDS: predniSONE 20 MG TABLET PO SCH (08:27)
[2018-11-27] MEDS: MEGESTROL 20 MG TABLET. PO SCH (08:27)
[2018-11-27] MEDS: ALLOPURINOL 100 MG TABLET. PO SCH (08:28)
[2018-11-27] MEDS: LACTOBACILLUS RHAMNOSUS GG 1 CAPSULE. PO SCH ×2 (08:28→20:49)
[2018-11-27] MEDS: LOSARTAN POTASSIUM 50 MG TABLET. PO SCH (08:29)
[2018-11-27] MEDS: DOXAZOSIN MESYLATE 4 MG TABLET. PO SCH (08:29)
[2018-11-27] MEDS: CLOPIDOGREL BISULFATE 75 MG TABLET PO SCH (08:29)
[2018-11-27] MEDS: ATENOLOL 50 MG TABLET. PO SCH (08:30)
[2018-11-27] MEDS: FLUTICASONE 50MCG/NASAL SPRAY 16GM BOTTLE. NS SCH (08:31)
[2018-11-27] MEDS ORDERED: ceFAZolin SODIUM 1 GM in IV DEXTROSE 5% 50 ML IV SCH (09:00)
[2018-11-27] MEDS: IPRATRPIUM/ALBUTEROL 0.5/2.5MG 3 ML NEBU. NEB SCH ×4 (09:05→20:04)
--- NOTE | 2018-11-27 10:13 | PDOC ---
Infectious Disease Note Subjective: Subjective pt says feels a little better still has some abdo pain no f/c/n/v/d ROS: ROS Negative except for above. Vital Signs: Vital Signs Vital Signs Date Time Temp Pulse Resp B/P (MAP) Pulse Ox O2 Delivery O2 Flow Rate FiO2 11/27/18 09:00 99 Nasal Cannula 2.0 11/27/18 08:30 72 137/93 11/27/18 07:00 98.1 22 98.1 Physical Exam: PHYSICAL EXAM GENERAL: alert awake in nad, HEENT: no icterus NECK: Supple. No JVP LUNGS: Clear. HEART: S1 and S2 regular. ABDOMEN: Tender diffusely. soft, No distention or guarding. PD catheter with some cloudy fluid EXTREMITIES: No edema or cyanosis. SKIN: Unremarkable. NEUROLOGICAL: alert awake in nad Medications: Inpatient Meds: Current Medications Medications (Trade) Dose Ordered Sig/Pete Start Time Stop Time Status Last Admin Dose Admin Acetaminophen (Tylenol) 500 mg PRN Q6HRS PRN 11/24/18 09:15 Albumin Human 100 ml @ 100 mls/hr TID 11/24/18 13:00 11/26/18 09:59 DC 11/26/18 12:19 100 MLS/HR Albuterol/ Ipratropium (Duoneb) 3 ml RTQID 11/26/18 12:30 11/27/18 09:05 3 ML Allopurinol (Zyloprim) 150 mg DAILY 11/24/18 09:00 11/27/18 08:28 150 MG Alprazolam (Xanax) 1 mg HS 11/23/18 23:00 11/25/18 21:13 1 MG Atenolol (Tenormin) 100 mg DAILY 11/24/18 09:00 11/27/18 08:30 100 MG Atorvastatin Calcium (Lipitor) 20 mg QHS 11/23/18 23:00 11/26/18 22:15 20 MG Cefazolin Sodium (Ancef) 1 gm Q24H 11/26/18 11:00 11/26/18 11:52 1 GM Cefazolin Sodium 1 gm/Dextrose 50 ml @ 100 mls/hr DAILY 11/27/18 09:00 UNV Cefepime HCl (Maxipime) 1 gm Q24H 11/25/18 15:00 11/26/18 10:15 DC 11/25/18 15:52 1 GM Clopidogrel Bisulfate (Plavix) 75 mg DAILY 11/24/18 09:00 11/27/18 08:29 75 MG Diltiazem HCl (Cardizem 24hr Cd) 180 mg DAILY 11/24/18 09:00 11/27/18 08:28 180 MG Doxazosin Mesylate (Cardura) 2 mg DAILY 11/24/18 09:00 11/27/18 08:29 2 MG Fluticasone Propionate (Flonase) 2 spray DAILY 11/24/18 09:00 11/26/18 10:22 2 SPRAY Lactobacillus Rhamnosus (Culturelle) 1 cap BID 11/24/18 21:00 11/27/18 08:28 1 CAP Losartan Potassium (Cozaar) 100 mg DAILY 11/24/18 09:00 11/27/18 08:29 100 MG Magnesium Sulfate 50 ml @ 25 mls/hr PRN DAILY PRN 11/24/18 11:45 Megestrol Acetate (Megace) 40 mg DAILY 11/24/18 09:00 11/27/18 08:27 40 MG Mirtazapine (Remeron) 30 mg QHS 11/23/18 23:00 11/26/18 22:15 30 MG Montelukast Sodium (Singulair) 10 mg QHS 11/23/18 23:00 11/26/18 22:15 10 MG Morphine Sulfate (Morphine Sulfate) 2 mg PRN Q2HR PRN 11/24/18 22:45 11/27/18 03:58 2 MG Ondansetron HCl (Zofran Odt) 4 mg PRN Q6HRS PRN 11/23/18 22:15 Ondansetron HCl (Zofran) 4 mg PRN Q6HRS PRN 11/24/18 09:15 Potassium Chloride (KCl Oral Soln) 40 meq PRN DAILY PRN 11/26/18 16:00 11/26/18 16:21 40 MEQ Potassium Chloride (Klor-Con) 40 meq PRN DAILY PRN 11/24/18 12:00 11/26/18 15:55 DC 11/25/18 09:53 40 MEQ Prednisone (Prednisone) 40 mg DAILY 11/27/18 09:00 11/27/18 08:27 40 MG Trazodone HCl (Desyrel) 50 mg QHS 11/23/18 23:00 11/24/18 20:28 DC Vancomycin HCl (Vanco Per Pharmacy) 1 each PRN DAILY PRN 11/23/18 19:30 11/26/18 10:15 DC 11/26/18 06:20 1 EACH Vancomycin HCl (Vancomycin Random Level) 1 each 1X ONCE 11/26/18 21:00 11/26/18 21:00 DC Vancomycin HCl 1.5 gm/Sodium Chloride 500 ml @ 250 mls/hr BID 11/23/18 21:00 UNV Vancomycin HCl 2 gm/Sodium Chloride 500 ml @ 250 mls/hr 1X ONCE 11/23/18 20:00 11/23/18 21:59 DC 11/23/18 20:40 250 MLS/HR Vitamin B Complex/ Vitamin C (Ana-Porter) 1 tab DAILY 11/24/18 09:00 11/27/18 08:26 1 TAB Labs: Lab Laboratory Tests Test 11/27/18 02:55 White Blood Count 4.4 x10^3/uL (4.0-11.0) Red Blood Count 3.11 x10^6/uL (4.30-5.70) Hemoglobin 9.3 g/dL (13.0-17.5) Hematocrit 29.4 % (39.0-53.0) Mean Corpuscular Volume 94 fL (79-100) Mean Corpuscular Hemoglobin 30 pg (25-35) Mean Corpuscular Hemoglobin Concent 32 g/dL (31-37) Red Cell Distribution Width 18.0 % (11.5-14.5) Platelet Count 179 x10^3/uL (140-400) Sodium Level 134 mmol/L (136-145) Potassium Level 4.2 mmol/L (3.5-5.1) Chloride Level 95 mmol/L (98-107) Carbon Dioxide Level 25 mmol/L (21-32) Anion Gap 14 (6-14) Blood Urea Nitrogen 57 mg/dL (8-26) Creatinine 11.4 mg/dL (0.7-1.3) Estimated GFR (Cockcroft-Gault) 5.3 Glucose Level 236 mg/dL (70-99) Calcium Level 9.1 mg/dL (8.5-10.1) Phosphorus Level 5.7 mg/dL (2.6-4.7) Magnesium Level 2.0 mg/dL (1.8-2.4) Albumin 3.0 g/dL (3.4-5.0) Objective: Assessment: 1. MSSA Peritoneal dialysis catheter associated peritonitis, cults from outside facility reviewed with nephrology team BC negative so far 2. Abdominal pain. 3. End-stage renal disease. 4. Hypertension. 5. Atrial fibrillation. 6. End-stage renal disease. 7.Pulm infiltrates likely atelectasis Plan: Plan of Care cont cefazolin, renal dosing PD catheter will likely need removal due to staph aureus infection Maintain aspiration precautions D/W TRAVON Montgomery MD November 27, 2018 10:13
--- NOTE | 2018-11-27 10:18 | PDOC ---
Renal-Progress Notes Subjective Notes Notes LESS CONFUSED, LESS ABD PAIN History of Present Illness Hx of present illness IMPROVING SLOWLY Vitals Vitals Vital Signs Date Time Temp Pulse Resp B/P (MAP) Pulse Ox O2 Delivery O2 Flow Rate FiO2 11/27/18 09:00 99 Nasal Cannula 2.0 11/27/18 08:30 72 137/93 11/27/18 07:00 98.1 22 98.1 Weight Weight [ ] I.O. Intake and Output Intake and Output 11/27/18 07:00 Intake Total 490 ml Output Total 250 ml Balance 240 ml Intake Oral 490 ml Output Urine Total 250 ml # Voids 1 Labs Labs Laboratory Tests Test 11/27/18 02:55 White Blood Count 4.4 x10^3/uL (4.0-11.0) Red Blood Count 3.11 x10^6/uL (4.30-5.70) Hemoglobin 9.3 g/dL (13.0-17.5) Hematocrit 29.4 % (39.0-53.0) Mean Corpuscular Volume 94 fL (79-100) Mean Corpuscular Hemoglobin 30 pg (25-35) Mean Corpuscular Hemoglobin Concent 32 g/dL (31-37) Red Cell Distribution Width 18.0 % (11.5-14.5) Platelet Count 179 x10^3/uL (140-400) Sodium Level 134 mmol/L (136-145) Potassium Level 4.2 mmol/L (3.5-5.1) Chloride Level 95 mmol/L (98-107) Carbon Dioxide Level 25 mmol/L (21-32) Anion Gap 14 (6-14) Blood Urea Nitrogen 57 mg/dL (8-26) Creatinine 11.4 mg/dL (0.7-1.3) Estimated GFR (Cockcroft-Gault) 5.3 Glucose Level 236 mg/dL (70-99) Calcium Level 9.1 mg/dL (8.5-10.1) Phosphorus Level 5.7 mg/dL (2.6-4.7) Magnesium Level 2.0 mg/dL (1.8-2.4) Albumin 3.0 g/dL (3.4-5.0) Micro Micro Microbiology 11/23/18 Blood Culture - Preliminary, Resulted NO GROWTH AFTER 3 DAYS Review of Systems Constitutional: yes: alert, oriented Ears/Nose/Throat: Yes: no symptom reported Eyes: Yes: no symptom reported Pulmonary: Yes no symptom reported Cardiovascular: Yes no symptom reported Gastrointestional: Yes: abdominal pain Genitourinary: Yes: no symptom reported Musculoskeletal: Yes: no symptom reported Skin: Yes no symptom reported Psychiatric/Neurological: Yes: no symptom reported Endocrine: Yes: no symptom reported Hematologic/Lymphatic: Yes: no symptom reported Physical Exam General Appearance: no apparent distress Skin: warm Respiratory: decreased breath sounds Heart: S1S2 Abdomen: soft, bowel sounds present Genitourinary: bladder flat Extremities: pulses present Neurology: alert Musculoskeletal: Osteoarthritis Assessment Assessment IMP STAPH A PERITONITIS ANEMIA MET ENCEPHALOPATHY ESRD AFIB HTN LOW K PLAN ANTIBIOTICS WILL HAVE PD CATH REMOVED WILL HAVE IR PLACED TUNNELED HD CATHETER WILL NEED TO DO HD FOR A WHILE AND WILL CONSIDER CHANGING TO PD LATER D/W ID ENRIQUETA YARBROUGH MD November 27, 2018 10:18
[2018-11-27] MEDS: ceFAZolin SODIUM IV Push 1 GM VIAL. IVP SCH (11:40)
--- NOTE | 2018-11-27 11:49 | PDOC ---
PROGRESS NOTES Chief Complaint Chief Complaint 1. Peritoneal dialysis catheter associated peritonitis, so far only information is gram-positive cocci. We do not have a cell count. We do not have culture final results. 2. Abdominal pain. 3. End-stage renal disease. 4. Hypertension. 5. Atrial fibrillation. 6. End-stage renal disease. 7. AOCD 8. PVCs, indwelling pacer 9. NOn injury fall 11/25/18 10 Hypoxic respiratory failure-wheezy 11/26/18 11, GEn weakness - agreeable to SNU 12. COnstipation History of Present Illness History of Present Illness Feels and looks good aside from constipation Plan for temporary dialysis catheter insertion tomorrow Creatinine 14, hemoglobin 11. ESR 58 So far no more PVCs-indwelling pacer-CPM per cardiology Lives alone at home, agreeable to SNU Plan: nothing by mouth post midnight for dialysis catheter insertion Rehabilitation or SNU on discharge Mag citrate now, another bowel regimen-please see orders Follow blood cultures-being treated for SBP/peritoneal dialysis fluid infection by ID Vitals Vitals Vital Signs Date Time Temp Pulse Resp B/P (MAP) Pulse Ox O2 Delivery O2 Flow Rate FiO2 11/27/18 11:00 99.2 78 18 139/75 (96) 95 Nasal Cannula 1.5 99.2 Physical Exam Physical Exam GENERAL: alert awake in nad, HEENT: no icterus NECK: Supple. No JVP LUNGS: Clear. HEART: S1 and S2 regular. ABDOMEN: Tender diffusely. soft, No distention or guarding. PD catheter with some cloudy fluid EXTREMITIES: No edema or cyanosis. SKIN: Unremarkable. NEUROLOGICAL: alert awake in nad General: Alert, Oriented X3, Cooperative, No acute distress Heart: Regular rate, Normal S1, Normal S2 Lungs: Clear Abdomen: Normal bowel sounds, Soft, No hepatosplenomegaly, No masses, Other (PD catheter, some tenderness periumbilical area) Extremities: No clubbing, No cyanosis, No edema, Normal pulses, No tenderness/swelling Skin: No rashes, No breakdown, No significant lesion Labs LABS Laboratory Tests Test 11/27/18 02:55 White Blood Count 4.4 x10^3/uL (4.0-11.0) Red Blood Count 3.11 x10^6/uL (4.30-5.70) Hemoglobin 9.3 g/dL (13.0-17.5) Hematocrit 29.4 % (39.0-53.0) Mean Corpuscular Volume 94 fL (79-100) Mean Corpuscular Hemoglobin 30 pg (25-35) Mean Corpuscular Hemoglobin Concent 32 g/dL (31-37) Red Cell Distribution Width 18.0 % (11.5-14.5) Platelet Count 179 x10^3/uL (140-400) Sodium Level 134 mmol/L (136-145) Potassium Level 4.2 mmol/L (3.5-5.1) Chloride Level 95 mmol/L (98-107) Carbon Dioxide Level 25 mmol/L (21-32) Anion Gap 14 (6-14) Blood Urea Nitrogen 57 mg/dL (8-26) Creatinine 11.4 mg/dL (0.7-1.3) Estimated GFR (Cockcroft-Gault) 5.3 Glucose Level 236 mg/dL (70-99) Calcium Level 9.1 mg/dL (8.5-10.1) Phosphorus Level 5.7 mg/dL (2.6-4.7) Magnesium Level 2.0 mg/dL (1.8-2.4) Albumin 3.0 g/dL (3.4-5.0) Review of Systems Review of Systems Constipated, the rest of ROS 14 point negative Assessment and Plan Assessmemt and Plan Problems Medical Problems: (1) Bacterial infection associated with peritoneal dialysis catheter Status: Acute Comment Review of Relevant I have reviewed the following items russell (where applicable) has been applied. Labs Laboratory Tests Test 11/25/18 21:10 11/26/18 06:39 11/27/18 02:55 Random Vancomycin Level 35.1 mcg/mL Sodium Level 135 mmol/L (136-145) 134 mmol/L (136-145) Potassium Level 3.4 mmol/L (3.5-5.1) 4.2 mmol/L (3.5-5.1) Chloride Level 96 mmol/L (98-107) 95 mmol/L (98-107) Carbon Dioxide Level 23 mmol/L (21-32) 25 mmol/L (21-32) Anion Gap 16 (6-14) 14 (6-14) Blood Urea Nitrogen 59 mg/dL (8-26) 57 mg/dL (8-26) Creatinine 11.4 mg/dL (0.7-1.3) 11.4 mg/dL (0.7-1.3) Estimated GFR (Cockcroft-Gault) 5.3 5.3 Glucose Level 151 mg/dL (70-99) 236 mg/dL (70-99) Calcium Level 8.8 mg/dL (8.5-10.1) 9.1 mg/dL (8.5-10.1) Phosphorus Level 5.3 mg/dL (2.6-4.7) 5.7 mg/dL (2.6-4.7) Albumin 2.9 g/dL (3.4-5.0) 3.0 g/dL (3.4-5.0) White Blood Count 4.4 x10^3/uL (4.0-11.0) Red Blood Count 3.11 x10^6/uL (4.30-5.70) Hemoglobin 9.3 g/dL (13.0-17.5) Hematocrit 29.4 % (39.0-53.0) Mean Corpuscular Volume 94 fL (79-100) Mean Corpuscular Hemoglobin 30 pg (25-35) Mean Corpuscular Hemoglobin Concent 32 g/dL (31-37) Red Cell Distribution Width 18.0 % (11.5-14.5) Platelet Count 179 x10^3/uL (140-400) Magnesium Level 2.0 mg/dL (1.8-2.4) Laboratory Tests Test 11/27/18 02:55 White Blood Count 4.4 x10^3/uL (4.0-11.0) Red Blood Count 3.11 x10^6/uL (4.30-5.70) Hemoglobin 9.3 g/dL (13.0-17.5) Hematocrit 29.4 % (39.0-53.0) Mean Corpuscular Volume 94 fL (79-100) Mean Corpuscular Hemoglobin 30 pg (25-35) Mean Corpuscular Hemoglobin Concent 32 g/dL (31-37) Red Cell Distribution Width 18.0 % (11.5-14.5) Platelet Count 179 x10^3/uL (140-400) Sodium Level 134 mmol/L (136-145) Potassium Level 4.2 mmol/L (3.5-5.1) Chloride Level 95 mmol/L (98-107) Carbon Dioxide Level 25 mmol/L (21-32) Anion Gap 14 (6-14) Blood Urea Nitrogen 57 mg/dL (8-26) Creatinine 11.4 mg/dL (0.7-1.3) Estimated GFR (Cockcroft-Gault) 5.3 Glucose Level 236 mg/dL (70-99) Calcium Level 9.1 mg/dL (8.5-10.1) Phosphorus Level 5.7 mg/dL (2.6-4.7) Magnesium Level 2.0 mg/dL (1.8-2.4) Albumin 3.0 g/dL (3.4-5.0) Microbiology 11/23/18 Blood Culture - Preliminary, Resulted NO GROWTH AFTER 3 DAYS Medications Current Medications Ondansetron HCl (Zofran) 4 mg 1X ONCE IV Last administered on 11/23/18at 16:08; Start 11/23/18 at 15:30; Stop 11/23/18 at 15:31; Status DC Morphine Sulfate (Morphine Sulfate) 2 mg 1X ONCE IV Last administered on 11/23/18at 16:08; Start 11/23/18 at 15:30; Stop 11/23/18 at 15:31; Status DC Ondansetron HCl (Zofran) 4 mg PRN Q8HRS PRN IV NAUSEA/VOMITING; Start 11/23/18 at 19:00; Stop 11/24/18 at 09:05; Status DC Morphine Sulfate (Morphine Sulfate) 2 mg PRN Q2HR PRN IV PAIN; Start 11/23/18 at 19:00; Stop 11/24/18 at 18:59; Status DC Cefepime HCl (Maxipime) 1 gm BID IVP Last administered on 11/23/18at 19:14; Start 11/23/18 at 19:30; Stop 11/23/18 at 19:30; Status DC Vancomycin HCl 1.5 gm/Sodium Chloride 500 ml @ 250 mls/hr BID IV ; Start 11/23/18 at 21:00; Status UNV Vancomycin HCl 2 gm/Sodium Chloride 500 ml @ 250 mls/hr 1X ONCE IV Last administered on 11/23/18at 20:40; Start 11/23/18 at 20:00; Stop 11/23/18 at 21:59; Status DC Vancomycin HCl (Vanco Per Pharmacy) 1 each PRN DAILY PRN MC SEE COMMENTS Last administered on 11/26/18 06:20; Start 11/23/18 at 19:30; Stop 11/26/18 at 10:15; Status DC Alprazolam (Xanax) 1 mg HS PO Last administered on 11/25/18 21:13; Start 11/23/18 at 23:00 Clopidogrel Bisulfate (Plavix) 75 mg DAILY PO Last administered on 11/27/18 08:29; Start 11/24/18 at 09:00 Allopurinol (Zyloprim) 150 mg DAILY PO Last administered on 11/27/18 08:28; Start 11/24/18 at 09:00 Atorvastatin Calcium (Lipitor) 20 mg QHS PO Last administered on 11/26/18 22:15; Start 11/23/18 at 23:00 Vitamin B Complex/ Vitamin C (Ana-Porter) 1 tab DAILY PO Last administered on 11/27/18 08:26; Start 11/24/18 at 09:00 Ondansetron HCl (Zofran Odt) 4 mg PRN Q6HRS PRN PO NAUSEA 1ST CHOICE; Start 11/23/18 at 22:15 Atenolol (Tenormin) 100 mg DAILY PO Last administered on 11/27/18 08:30; Start 11/24/18 at 09:00 Diltiazem HCl (Cardizem 24hr Cd) 180 mg DAILY PO Last administered on 11/27/18 08:28; Start 11/24/18 at 09:00 Doxazosin Mesylate (Cardura) 2 mg DAILY PO Last administered on 11/27/18 08:29; Start 11/24/18 at 09:00 Fluticasone Propionate (Flonase) 2 spray DAILY NS Last administered on 11/26/18 10:22; Start 11/24/18 at 09:00 Megestrol Acetate (Megace) 40 mg DAILY PO Last administered on 11/27/18 08:27; Start 11/24/18 at 09:00 Mirtazapine (Remeron) 30 mg QHS PO Last administered on 11/26/18 22:15; Start 11/23/18 at 23:00 Montelukast Sodium (Singulair) 10 mg QHS PO Last administered on 11/26/18at 22:15; Start 11/23/18 at 23:00 Trazodone HCl (Desyrel) 50 mg QHS PO ; Start 11/23/18 at 23:00; Stop 11/24/18 at 20:28; Status DC Losartan Potassium (Cozaar) 100 mg DAILY PO Last administered on 11/27/18at 08:29; Start 11/24/18 at 09:00 Vancomycin HCl (Vancomycin Random Level) 1 each 1X ONCE MC ; Start 11/25/18 at 21:00; Stop 11/25/18 at 21:01; Status DC Ondansetron HCl (Zofran) 4 mg PRN Q6HRS PRN IV NAUSEA/VOMITING; Start 11/24/18 at 09:15 Acetaminophen (Tylenol) 500 mg PRN Q6HRS PRN PO MILD PAIN / TEMP; Start 11/24/18 at 09:15 Potassium Chloride (Klor-Con) 20 meq 1X ONCE PO Last administered on 11/24/18at 13:27; Start 11/24/18 at 12:00; Stop 11/24/18 at 12:01; Status DC Magnesium Sulfate 50 ml @ 25 mls/hr PRN DAILY PRN IV for Mag < 1.7 on am labs; Start 11/24/18 at 11:45 Potassium Chloride (Klor-Con) 40 meq PRN DAILY PRN PO for K < 3.7 on am labs Last administered on 11/25/18at 09:53; Start 11/24/18 at 12:00; Stop 11/26/18 at 15:55; Status DC Albumin Human 100 ml @ 100 mls/hr TID IV Last administered on 11/26/18at 12:19; Start 11/24/18 at 13:00; Stop 11/26/18 at 09:59; Status DC Lactobacillus Rhamnosus (Culturelle) 1 cap BID PO Last administered on 11/27/18at 08:28; Start 11/24/18 at 21:00 Morphine Sulfate (Morphine Sulfate) 2 mg PRN Q2HR PRN IV SEVERE PAIN Last administered on 11/27/18at 03:58; Start 11/24/18 at 22:45 Cefepime HCl (Maxipime) 1 gm Q24H IVP Last administered on 11/25/18at 15:52; Start 11/25/18 at 15:00; Stop 11/26/18 at 10:15; Status DC Vancomycin HCl (Vancomycin Random Level) 1 each 1X ONCE MC ; Start 11/26/18 at 21:00; Stop 11/26/18 at 21:00; Status DC Cefazolin Sodium 1 gm/Dextrose 50 ml @ 100 mls/hr DAILY IV ; Start 11/27/18 at 09:00; Status UNV Cefazolin Sodium (Ancef) 1 gm Q24H IVP Last administered on 11/27/18at 11:40; Start 11/26/18 at 11:00 Prednisone (Prednisone) 60 mg 1X ONCE PO Last administered on 11/26/18at 12:37; Start 11/26/18 at 12:30; Stop 11/26/18 at 12:31; Status DC Prednisone (Prednisone) 40 mg DAILY PO Last administered on 11/27/18at 08:27; Start 11/27/18 at 09:00 Albuterol/ Ipratropium (Duoneb) 3 ml RTQID NEB Last administered on 11/27/18at 09:05; Start 11/26/18 at 12:30 Potassium Chloride (KCl Oral Soln) 40 meq PRN DAILY PRN PEG for K < 3.7 on am labs Last administered on 11/26/18at 16:21; Start 11/26/18 at 16:00 Active Scripts Active Atorvastatin Calcium 20 Mg Tablet 20 Mg PO QHS MDD 1 Zofran Odt (Ondansetron) 4 Mg Tab.rapdis 1 Tab SL Q6HRS PRN Reported Doxazosin Mesylate 2 Mg Tablet 2 Mg PO DAILY Clopidogrel (Clopidogrel Bisulfate) 75 Mg Tablet 1 Tab PO DAILY Flonase Allergy Relief (Fluticasone Propionate) 9.9 Ml [place].susp 2 Sprays NS DAILY Montelukast Sodium Tablet (Montelukast Sodium) 10 Mg Tablet 1 Tab PO DAILY Mirtazapine 30 Mg Tablet 1 Tab PO QHS Atenolol 100 Mg Tablet 1 Tab PO DAILY Nephro-Porter Tablet (Folic Acid/Vitamin B Comp W-C) 0.8 Mg Tablet 1 Tab PO DAILY Diltiazem 24HR Cd (Diltiazem Hcl) 180 Mg Cap.er.24h 1 Cap PO DAILY Xanax (Alprazolam) 1 Mg Tablet 0.5 Tab PO HS Diovan (Valsartan) 320 Mg Tablet 320 Mg PO DAILY Megestrol Acetate 40 Mg Tablet 40 Mg PO DAILY Allopurinol 100 Mg Tablet 150 Mg PO DAILY Vitals/I & O Vital Sign - Last 24 Hours 11/26/18 11/26/18 11/26/18 11/26/18 13:41 15:00 16:29 17:18 Temp 98.4 98.4 Pulse 97 Resp 16 19 B/P (MAP) 143/76 (98) Pulse Ox 97 95 95 95 O2 Delivery Nasal Cannula Room Air Nasal Cannula Nasal Cannula O2 Flow Rate 2.0 2.0 2.0 11/26/18 11/26/18 11/26/18 11/27/18 19:10 20:00 21:27 03:15 Temp 98.4 98.3 98.4 98.3 Pulse 110 72 Resp 18 18 B/P (MAP) 144/81 (102) 152/77 (102) Pulse Ox 100 98 O2 Delivery Nasal Cannula Nasal Cannula Nasal Cannula Nasal Cannula O2 Flow Rate 1.5 2.0 2.0 1.5 11/27/18 11/27/18 11/27/18 11/27/18 03:58 04:17 07:00 08:28 Temp 98.1 98.1 Pulse 72 72 Resp 18 17 22 B/P (MAP) 137/93 (108) 137/93 Pulse Ox 98 98 98 O2 Delivery Nasal Cannula Nasal Cannula Nasal Cannula O2 Flow Rate 1.5 2.0 1.5 11/27/18 11/27/18 11/27/18 11/27/18 08:29 08:29 08:30 09:00 Pulse 72 72 72 B/P (MAP) 137/93 137/93 137/93 Pulse Ox 99 O2 Delivery Nasal Cannula O2 Flow Rate 2.0 11/27/18 11:00 Temp 99.2 99.2 Pulse 78 Resp 18 B/P (MAP) 139/75 (96) Pulse Ox 95 O2 Delivery Nasal Cannula O2 Flow Rate 1.5 Intake and Output 11/26/18 11/26/18 11/27/18 15:00 23:00 07:00 Intake Total 10 ml 360 ml 120 ml Output Total 250 ml Balance 10 ml 360 ml -130 ml REUBEN BLAS MD November 27, 2018 11:49
[2018-11-27] MEDS ORDERED: POLYETHYLENE GLYCOL 3350 17 GM PACKET. PO ONE (12:30)
[2018-11-27] MEDS ORDERED: MAGNESIUM CITRATE 296 ML SOLUTION. PO ONE (12:30)
[2018-11-27] MEDS: DOCUSATE SODIUM 100 MG CAPSULE. PO SCH ×2 (13:39→20:49)
--- NOTE | 2018-11-27 14:39 | NUR ---
PAM following pt. PAM left a voice mail to pt's daughter, Marjan requesting a call back. PAM was able to speak with pt's , Alison, phone: [phone] about SNU. Pt's reported 'she wants to wait until pt has surgery to discuss about rehab'. PAM unable to start SNU evaluation at this time and pt is scheduled to have HD cath placement tomorrow. PAM requested for serology labs as pt might need OP HD chair time placement. Will continue to follow. Addendum: 11/27/18 at 1553 by DANIELLA OROZCO SW following pt. PAM spoke with Pt's son and daughter via phone and discussed options. Pt's son reported they will be visiting SNU facilities and notify PAM. PAM extensively discussed option and insurance coverage for SNU.
--- NOTE | 2018-11-27 15:54 | RAD ---
CHEST PA LATERAL History: Dialysis Comparison: 2 view chest November 23, 2018 Findings: 2 views of the chest are submitted. There is again dual lead left electronic cardiac device. Pericardial cardiac silhouette is similar. There is no pneumothorax. There is very small right pleural effusion as suggested on lateral view. There is again some mild bibasilar airspace opacity greater on the right. Impression: 1. There is very small right pleural effusion as seen on lateral view. There is again some mild bibasilar airspace opacity greater on the right which may be due to mild infiltrates or atelectasis. Electronically signed by: Baljinder Cisneros MD (11/27/2018 3:51 PM) [id number]
--- NOTE | 2018-11-27 17:00 | NUR ---
Pt arrived to unit by wc from 6S. A&Ox4, VSS, sitting up in chair with family at bedside, denies pain or any other complaints. Meal tray order. Oriented to new room. Will continue to monitor.
--- NOTE | 2018-11-27 20:20 | NUR ---
Dr. Polo called this nurse pertaining to Pt's surgery. Pt's surgery on hold, due to receiving Plavix. Dr. Polo advise Dr. Huerta to review Pt's POC with the PT tomorrow 11/28.
[2018-11-27] MEDS: MONTELUKAST SODIUM 10 MG TABLET. PO SCH (20:48)
[2018-11-27] MEDS: ALPRAZolam 1 MG TABLET PO SCH (20:48)
[2018-11-27] MEDS: MIRTAZAPINE 15 MG TABLET PO SCH (20:49)
[2018-11-27] MEDS: ATORVASTATIN CALCIUM 20 MG TABLET PO SCH (20:49)
[2018-11-28 03:00] VITALS: BP 113/62
[2018-11-28 04:05] LABS: HEMOGLOBIN 9.4 g/dL (13.0-17.5); RED BLOOD COUNT 3.19 x10^6/uL (4.30-5.70); WHITE BLOOD COUNT 8.8 x10^3/uL (4.0-11.0)
[2018-11-28 04:21] LABS: ALBUMIN 2.7 g/dL (3.4-5.0); CALCIUM 9.3 mg/dL (8.5-10.1); CREATININE 11.9 mg/dL (0.7-1.3); POTASSIUM 4.3 mmol/L (3.5-5.1)
[2018-11-28 05:40] VITALS: BP 121/64
[2018-11-28 07:00] VITALS: BP 128/69
--- NOTE | 2018-11-28 07:00 | NUR ---
This nurse heard a loud sound from Pt's room. Pt on the floor, in a sitting position. Pt stated they were up with their cane throwing away cracker/cracker wrappers on the ground. Their legs became weak and fell to the ground. Pt stated no pain. VSS stable. Dr. Antoine paged. No call back received. Day shift informed of above fall and No return call from Dr. Antoine.
[2018-11-28] MEDS: IPRATRPIUM/ALBUTEROL 0.5/2.5MG 3 ML NEBU. NEB SCH ×4 (07:20→18:13)
--- NOTE | 2018-11-28 08:13 | PDOC2 ---
JENNYCARI L FINISHING AREA OPERATOR 11/28/18 0813: CONSULT Date of Consult Date of Consult DATE: 11/28/18 TIME: 08:07 Reason for Consult Reason for Consult: removal infected PD cath Referring Physician Referring Physician: Dr Roa Identification/Chief Complaint Chief Complaint abdominal pain Source Source: Chart review, Patient History of Present Illness Reason for Visit: Patient that undergoes PD for renal failure. Abdominal pain, cloudy fluid, and cultures + for staph aureus Surgical consult for removal of PD cath Patient seen in AM--reports unsure of when surgery to be, he reports he had a couple of beatriz crackers with sips of water around 3 am Past Medical History Cardiovascular: AFIB, HTN, Other Pulmonary: COPD, Pulmonary embolus, Pneumonia CENTRAL NERVOUS SYSTEM: Other GI: GERD Heme/Onc: Anemia NOS Psych: Anxiety Musculoskeletal: Osteoarthritis Rheumatologic: Gout Infectious disease: No pertinent hx Renal/: Chronic renal failure, Prostate Ca., Other Endocrine: No pertinent hx Past Surgical History Past Surgical History: Pacemaker, Other (pd cath) Family History Family History: Hypertension, Kidney Disease (sister with kidney failure) Social History No ALCOHOL: none Drugs: None Lives: with Family Domestic Violence: Neg Current Problem List Problem List Problems Medical Problems: (1) Bacterial infection associated with peritoneal dialysis catheter Status: Acute Current Medications Current Medications Current Medications Ondansetron HCl (Zofran) 4 mg 1X ONCE IV Last administered on 11/23/18at 16:08; Start 11/23/18 at 15:30; Stop 11/23/18 at 15:31; Status DC Morphine Sulfate (Morphine Sulfate) 2 mg 1X ONCE IV Last administered on 11/23/18at 16:08; Start 11/23/18 at 15:30; Stop 11/23/18 at 15:31; Status DC Ondansetron HCl (Zofran) 4 mg PRN Q8HRS PRN IV NAUSEA/VOMITING; Start 11/23/18 at 19:00; Stop 11/24/18 at 09:05; Status DC Morphine Sulfate (Morphine Sulfate) 2 mg PRN Q2HR PRN IV PAIN; Start 11/23/18 at 19:00; Stop 11/24/18 at 18:59; Status DC Cefepime HCl (Maxipime) 1 gm BID IVP Last administered on 11/23/18at 19:14; Start 11/23/18 at 19:30; Stop 11/23/18 at 19:30; Status DC Vancomycin HCl 1.5 gm/Sodium Chloride 500 ml @ 250 mls/hr BID IV ; Start 11/23/18 at 21:00; Status UNV Vancomycin HCl 2 gm/Sodium Chloride 500 ml @ 250 mls/hr 1X ONCE IV Last administered on 11/23/18at 20:40; Start 11/23/18 at 20:00; Stop 11/23/18 at 21:59; Status DC Vancomycin HCl (Vanco Per Pharmacy) 1 each PRN DAILY PRN MC SEE COMMENTS Last administered on 11/26/18 06:20; Start 11/23/18 at 19:30; Stop 11/26/18 at 10:15; Status DC Alprazolam (Xanax) 1 mg HS PO Last administered on 11/27/18at 20:48; Start 11/23/18 at 23:00 Clopidogrel Bisulfate (Plavix) 75 mg DAILY PO Last administered on 11/27/18 08:29; Start 11/24/18 at 09:00; Stop 11/27/18 at 16:24; Status DC Allopurinol (Zyloprim) 150 mg DAILY PO Last administered on 11/27/18 08:28; Start 11/24/18 at 09:00 Atorvastatin Calcium (Lipitor) 20 mg QHS PO Last administered on 11/27/18at 20:49; Start 11/23/18 at 23:00 Vitamin B Complex/ Vitamin C (Ana-Porter) 1 tab DAILY PO Last administered on 11/27/18 08:26; Start 11/24/18 at 09:00 Ondansetron HCl (Zofran Odt) 4 mg PRN Q6HRS PRN PO NAUSEA 1ST CHOICE; Start 11/23/18 at 22:15 Atenolol (Tenormin) 100 mg DAILY PO Last administered on 11/27/18 08:30; Start 11/24/18 at 09:00 Diltiazem HCl (Cardizem 24hr Cd) 180 mg DAILY PO Last administered on 11/27/18 08:28; Start 11/24/18 at 09:00 Doxazosin Mesylate (Cardura) 2 mg DAILY PO Last administered on 11/27/18 08:29; Start 11/24/18 at 09:00 Fluticasone Propionate (Flonase) 2 spray DAILY NS Last administered on 11/26/18 10:22; Start 11/24/18 at 09:00 Megestrol Acetate (Megace) 40 mg DAILY PO Last administered on 11/27/18 08:27; Start 11/24/18 at 09:00 Mirtazapine (Remeron) 30 mg QHS PO Last administered on 11/27/18 20:49; Start 11/23/18 at 23:00 Montelukast Sodium (Singulair) 10 mg QHS PO Last administered on 11/27/18 20:48; Start 11/23/18 at 23:00 Trazodone HCl (Desyrel) 50 mg QHS PO ; Start 11/23/18 at 23:00; Stop 11/24/18 at 20:28; Status DC Losartan Potassium (Cozaar) 100 mg DAILY PO Last administered on 11/27/18 08:29; Start 11/24/18 at 09:00 Vancomycin HCl (Vancomycin Random Level) 1 each 1X ONCE MC ; Start 11/25/18 at 21:00; Stop 11/25/18 at 21:01; Status DC Ondansetron HCl (Zofran) 4 mg PRN Q6HRS PRN IV NAUSEA/VOMITING; Start 11/24/18 at 09:15 Acetaminophen (Tylenol) 500 mg PRN Q6HRS PRN PO MILD PAIN / TEMP; Start 11/24/18 at 09:15 Potassium Chloride (Klor-Con) 20 meq 1X ONCE PO Last administered on 11/24/18at 13:27; Start 11/24/18 at 12:00; Stop 11/24/18 at 12:01; Status DC Magnesium Sulfate 50 ml @ 25 mls/hr PRN DAILY PRN IV for Mag < 1.7 on am labs; Start 11/24/18 at 11:45 Potassium Chloride (Klor-Con) 40 meq PRN DAILY PRN PO for K < 3.7 on am labs Last administered on 11/25/18at 09:53; Start 11/24/18 at 12:00; Stop 11/26/18 at 15:55; Status DC Albumin Human 100 ml @ 100 mls/hr TID IV Last administered on 11/26/18at 12:19; Start 11/24/18 at 13:00; Stop 11/26/18 at 09:59; Status DC Lactobacillus Rhamnosus (Culturelle) 1 cap BID PO Last administered on 11/27/18 20:49; Start 11/24/18 at 21:00 Morphine Sulfate (Morphine Sulfate) 2 mg PRN Q2HR PRN IV SEVERE PAIN Last administered on 11/27/18 03:58; Start 11/24/18 at 22:45 Cefepime HCl (Maxipime) 1 gm Q24H IVP Last administered on 11/25/18at 15:52; Start 11/25/18 at 15:00; Stop 11/26/18 at 10:15; Status DC Vancomycin HCl (Vancomycin Random Level) 1 each 1X ONCE MC ; Start 11/26/18 at 21:00; Stop 11/26/18 at 21:00; Status DC Cefazolin Sodium 1 gm/Dextrose 50 ml @ 100 mls/hr DAILY IV ; Start 11/27/18 at 09:00; Status UNV Cefazolin Sodium (Ancef) 1 gm Q24H IVP Last administered on 11/27/18 11:40; Start 11/26/18 at 11:00 Prednisone (Prednisone) 60 mg 1X ONCE PO Last administered on 11/26/18 12:37; Start 11/26/18 at 12:30; Stop 11/26/18 at 12:31; Status DC Prednisone (Prednisone) 40 mg DAILY PO Last administered on 11/27/18at 08:27; Start 11/27/18 at 09:00 Albuterol/ Ipratropium (Duoneb) 3 ml RTQID NEB Last administered on 11/28/18at 07:20; Start 11/26/18 at 12:30 Potassium Chloride (KCl Oral Soln) 40 meq PRN DAILY PRN PEG for K < 3.7 on am labs Last administered on 11/26/18 16:21; Start 11/26/18 at 16:00 Docusate Sodium (Colace) 100 mg BID PO Last administered on 11/27/18 20:49; Start 11/27/18 at 12:30 Polyethylene Glycol (miraLAX PACKET) 17 gm DAILY PO ; Start 11/28/18 at 09:00 Polyethylene Glycol (miraLAX PACKET) 17 gm 1X ONCE PO Last administered on 11/27/18at 13:39; Start 11/27/18 at 12:30; Stop 11/27/18 at 12:31; Status DC Magnesium Citrate (Citroma) 296 ml 1X ONCE PO Last administered on 11/27/18at 12:30; Start 11/27/18 at 12:30; Stop 11/27/18 at 12:31; Status DC Active Scripts Active Atorvastatin Calcium 20 Mg Tablet 20 Mg PO QHS MDD 1 Zofran Odt (Ondansetron) 4 Mg Tab.rapdis 1 Tab SL Q6HRS PRN Reported Doxazosin Mesylate 2 Mg Tablet 2 Mg PO DAILY Clopidogrel (Clopidogrel Bisulfate) 75 Mg Tablet 1 Tab PO DAILY Flonase Allergy Relief (Fluticasone Propionate) 9.9 Ml [place].susp 2 Sprays NS DAILY Montelukast Sodium Tablet (Montelukast Sodium) 10 Mg Tablet 1 Tab PO DAILY Mirtazapine 30 Mg Tablet 1 Tab PO QHS Atenolol 100 Mg Tablet 1 Tab PO DAILY Nephro-Porter Tablet (Folic Acid/Vitamin B Comp W-C) 0.8 Mg Tablet 1 Tab PO DAILY Diltiazem 24HR Cd (Diltiazem Hcl) 180 Mg Cap.er.24h 1 Cap PO DAILY Xanax (Alprazolam) 1 Mg Tablet 0.5 Tab PO HS Diovan (Valsartan) 320 Mg Tablet 320 Mg PO DAILY Megestrol Acetate 40 Mg Tablet 40 Mg PO DAILY Allopurinol 100 Mg Tablet 150 Mg PO DAILY Allergies Allergies: Coded Allergies: No Known Drug Allergies (Unverified , 09/17/18) ROS General: No: Chills, Other (fevers) PSYCHOLOGICAL ROS: No: Anxiety, Depression Eyes: No Blurry vision, No Double vision HEENT: No: Heacaches, Sore Throat Hematological and Lymphatic: YES: Bleeding Problems; No: Blood Clots Respiratory: No: Cough, Shortness of breath Cardiovascular: No Chest Pain, No Palpitations Gastrointestinal: Yes Abdominal Pain, Yes Constipation; No Nausea Genitourinary: No Dysuria, No Hematuria Musculoskeletal: No Joint Pain, No Muscle Pain Neurological: No Impaired Coord/balance, No Numbness/Tingling Skin: No Pruritus, No Rash Physical Exam General: Alert, Oriented X3, Cooperative, No acute distress HEENT: PERRLA, Mucous membr. moist/pink Lungs: Clear to auscultation, Normal air movement Heart: Regular rate, Normal S1, Normal S2, No murmurs Abdomen: Soft, Other (ND, ttp lower abdomen, pd cath in place) Extremities: No clubbing, No cyanosis Skin: No rashes, No breakdown Neuro: Normal gait, Normal speech Psych/Mental Status: Mental status NL, Mood NL MUSCULOSKELETAL: No joint tenderness, No deformity Vitals VITALS Vital Signs Date Time Temp Pulse Resp B/P (MAP) Pulse Ox O2 Delivery O2 Flow Rate FiO2 11/28/18 07:21 95 Room Air 11/28/18 05:40 98.1 66 18 121/64 (83) 98.1 11/27/18 15:00 1.5 Labs Labs Laboratory Tests Test 11/27/18 02:55 11/28/18 03:00 White Blood Count 4.4 x10^3/uL (4.0-11.0) 8.8 x10^3/uL (4.0-11.0) Red Blood Count 3.11 x10^6/uL (4.30-5.70) 3.19 x10^6/uL (4.30-5.70) Hemoglobin 9.3 g/dL (13.0-17.5) 9.4 g/dL (13.0-17.5) Hematocrit 29.4 % (39.0-53.0) 30.0 % (39.0-53.0) Mean Corpuscular Volume 94 fL (79-100) 94 fL (79-100) Mean Corpuscular Hemoglobin 30 pg (25-35) 30 pg (25-35) Mean Corpuscular Hemoglobin Concent 32 g/dL (31-37) 31 g/dL (31-37) Red Cell Distribution Width 18.0 % (11.5-14.5) 18.0 % (11.5-14.5) Platelet Count 179 x10^3/uL (140-400) 193 x10^3/uL (140-400) Sodium Level 134 mmol/L (136-145) 137 mmol/L (136-145) Potassium Level 4.2 mmol/L (3.5-5.1) 4.3 mmol/L (3.5-5.1) Chloride Level 95 mmol/L (98-107) 97 mmol/L (98-107) Carbon Dioxide Level 25 mmol/L (21-32) 26 mmol/L (21-32) Anion Gap 14 (6-14) 14 (6-14) Blood Urea Nitrogen 57 mg/dL (8-26) 63 mg/dL (8-26) Creatinine 11.4 mg/dL (0.7-1.3) 11.9 mg/dL (0.7-1.3) Estimated GFR (Cockcroft-Gault) 5.3 5.0 Glucose Level 236 mg/dL (70-99) 133 mg/dL (70-99) Calcium Level 9.1 mg/dL (8.5-10.1) 9.3 mg/dL (8.5-10.1) Phosphorus Level 5.7 mg/dL (2.6-4.7) 6.0 mg/dL (2.6-4.7) Magnesium Level 2.0 mg/dL (1.8-2.4) Albumin 3.0 g/dL (3.4-5.0) 2.7 g/dL (3.4-5.0) Hepatitis B Surface Antigen Nonreactive (Nonreactive) Hepatitis B Surface Antibody Nonreactive Laboratory Tests Test 11/28/18 03:00 White Blood Count 8.8 x10^3/uL (4.0-11.0) Red Blood Count 3.19 x10^6/uL (4.30-5.70) Hemoglobin 9.4 g/dL (13.0-17.5) Hematocrit 30.0 % (39.0-53.0) Mean Corpuscular Volume 94 fL (79-100) Mean Corpuscular Hemoglobin 30 pg (25-35) Mean Corpuscular Hemoglobin Concent 31 g/dL (31-37) Red Cell Distribution Width 18.0 % (11.5-14.5) Platelet Count 193 x10^3/uL (140-400) Sodium Level 137 mmol/L (136-145) Potassium Level 4.3 mmol/L (3.5-5.1) Chloride Level 97 mmol/L (98-107) Carbon Dioxide Level 26 mmol/L (21-32) Anion Gap 14 (6-14) Blood Urea Nitrogen 63 mg/dL (8-26) Creatinine 11.9 mg/dL (0.7-1.3) Estimated GFR (Cockcroft-Gault) 5.0 Glucose Level 133 mg/dL (70-99) Calcium Level 9.3 mg/dL (8.5-10.1) Phosphorus Level 6.0 mg/dL (2.6-4.7) Albumin 2.7 g/dL (3.4-5.0) Assessment/Plan Assessment/Plan infected PD cath d/w anesthesia, ok to proceed(timing of crackers at 8 hr russell) plan PD cath removal TOÑO BURDEN MD 11/28/18 1243: CONSULT Assessment/Plan Assessment/Plan Above reviewed; pt seen and examined; had been on PD for last few years, catheter functioning well, some abdominal pain and cloudy catheter fluid; request for catheter removal. Pt otherwise feels well. PMH/PSH/ROS/SH as above; exam: alert, oriented, NAD, no neck masses, lungs clear, heart RR and R, abdomen soft, currently nontender, PD catheter in RLQ, lower vert midline sc ar, ext neg for edema; A/P) Plan to remove PD catheter in OR CARI ALVARADO APRN November 28, 2018 08:13 TOÑO BURDEN MD November 28, 2018 12:43
[2018-11-28] MEDS: predniSONE 20 MG TABLET PO SCH (09:00)
[2018-11-28] MEDS: DOXAZOSIN MESYLATE 4 MG TABLET. PO SCH (09:00)
[2018-11-28] MEDS: FOLIC/VIT B COMP W-C (RENAL) TABLET. PO SCH (09:00)
[2018-11-28] MEDS: ALLOPURINOL 100 MG TABLET. PO SCH (09:00)
[2018-11-28] MEDS: LACTOBACILLUS RHAMNOSUS GG 1 CAPSULE. PO SCH ×2 (09:00→20:54)
[2018-11-28] MEDS: MEGESTROL 20 MG TABLET. PO SCH (09:00)
[2018-11-28] MEDS: LOSARTAN POTASSIUM 50 MG TABLET. PO SCH (09:00)
[2018-11-28] MEDS: FLUTICASONE 50MCG/NASAL SPRAY 16GM BOTTLE. NS SCH (09:00)
[2018-11-28] MEDS: POLYETHYLENE GLYCOL 3350 17 GM PACKET. PO SCH (09:00)
[2018-11-28] MEDS: DOCUSATE SODIUM 100 MG CAPSULE. PO SCH ×2 (09:00→20:54)
[2018-11-28] MEDS: ATENOLOL 50 MG TABLET. PO SCH (09:40)
--- NOTE | 2018-11-28 09:58 | PDOC ---
Infectious Disease Note Subjective: Subjective Patient without complaints Denies any abdominal pain no f/c/n/v/d ROS: ROS Negative except for above. Vital Signs: Vital Signs Vital Signs Date Time Temp Pulse Resp B/P (MAP) Pulse Ox O2 Delivery O2 Flow Rate FiO2 11/28/18 09:40 67 128/69 11/28/18 07:21 95 Room Air 11/28/18 07:00 98.7 18 98.7 11/27/18 15:00 1.5 Physical Exam: PHYSICAL EXAM GENERAL: alert awake in nad, HEENT: no icterus NECK: Supple. No JVP LUNGS: Clear. HEART: S1 and S2 regular. ABDOMEN: Tender diffusely. soft, No distention or guarding. PD catheter with some cloudy fluid EXTREMITIES: No edema or cyanosis. SKIN: Unremarkable. NEUROLOGICAL: alert awake in nad Medications: Inpatient Meds: Current Medications Medications (Trade) Dose Ordered Sig/Pete Start Time Stop Time Status Last Admin Dose Admin Acetaminophen (Tylenol) 500 mg PRN Q6HRS PRN 11/24/18 09:15 Albumin Human 100 ml @ 100 mls/hr TID 11/24/18 13:00 11/26/18 09:59 DC 11/26/18 12:19 100 MLS/HR Albuterol/ Ipratropium (Duoneb) 3 ml RTQID 11/26/18 12:30 11/28/18 07:20 3 ML Allopurinol (Zyloprim) 150 mg DAILY 11/24/18 09:00 11/27/18 08:28 150 MG Alprazolam (Xanax) 1 mg HS 11/23/18 23:00 11/27/18 20:48 1 MG Atenolol (Tenormin) 100 mg DAILY 11/24/18 09:00 11/28/18 09:40 100 MG Atorvastatin Calcium (Lipitor) 20 mg QHS 11/23/18 23:00 11/27/18 20:49 20 MG Cefazolin Sodium (Ancef) 1 gm Q24H 11/26/18 11:00 11/27/18 11:40 1 GM Cefazolin Sodium 1 gm/Dextrose 50 ml @ 100 mls/hr DAILY 11/27/18 09:00 UNV Cefepime HCl (Maxipime) 1 gm Q24H 11/25/18 15:00 11/26/18 10:15 DC 11/25/18 15:52 1 GM Clopidogrel Bisulfate (Plavix) 75 mg DAILY 11/24/18 09:00 11/27/18 16:24 DC 11/27/18 08:29 75 MG Diltiazem HCl (Cardizem 24hr Cd) 180 mg DAILY 11/24/18 09:00 11/27/18 08:28 180 MG Docusate Sodium (Colace) 100 mg BID 11/27/18 12:30 11/27/18 20:49 100 MG Doxazosin Mesylate (Cardura) 2 mg DAILY 11/24/18 09:00 11/27/18 08:29 2 MG Fluticasone Propionate (Flonase) 2 spray DAILY 11/24/18 09:00 11/26/18 10:22 2 SPRAY Lactobacillus Rhamnosus (Culturelle) 1 cap BID 11/24/18 21:00 11/27/18 20:49 1 CAP Losartan Potassium (Cozaar) 100 mg DAILY 11/24/18 09:00 11/27/18 08:29 100 MG Magnesium Citrate (Citroma) 296 ml 1X ONCE 11/27/18 12:30 11/27/18 12:31 DC 11/27/18 12:30 296 ML Magnesium Sulfate 50 ml @ 25 mls/hr PRN DAILY PRN 11/24/18 11:45 Megestrol Acetate (Megace) 40 mg DAILY 11/24/18 09:00 11/27/18 08:27 40 MG Mirtazapine (Remeron) 30 mg QHS 11/23/18 23:00 11/27/18 20:49 30 MG Montelukast Sodium (Singulair) 10 mg QHS 11/23/18 23:00 11/27/18 20:48 10 MG Morphine Sulfate (Morphine Sulfate) 2 mg PRN Q2HR PRN 11/24/18 22:45 11/27/18 03:58 2 MG Ondansetron HCl (Zofran Odt) 4 mg PRN Q6HRS PRN 11/23/18 22:15 Ondansetron HCl (Zofran) 4 mg PRN Q6HRS PRN 11/24/18 09:15 Polyethylene Glycol (miraLAX PACKET) 17 gm 1X ONCE 11/27/18 12:30 11/27/18 12:31 DC 11/27/18 13:39 17 GM Potassium Chloride (KCl Oral Soln) 40 meq PRN DAILY PRN 11/26/18 16:00 11/26/18 16:21 40 MEQ Potassium Chloride (Klor-Con) 40 meq PRN DAILY PRN 11/24/18 12:00 11/26/18 15:55 DC 11/25/18 09:53 40 MEQ Prednisone (Prednisone) 40 mg DAILY 11/27/18 09:00 11/27/18 08:27 40 MG Trazodone HCl (Desyrel) 50 mg QHS 11/23/18 23:00 11/24/18 20:28 DC Vancomycin HCl (Vanco Per Pharmacy) 1 each PRN DAILY PRN 11/23/18 19:30 11/26/18 10:15 DC 11/26/18 06:20 1 EACH Vancomycin HCl (Vancomycin Random Level) 1 each 1X ONCE 11/26/18 21:00 11/26/18 21:00 DC Vancomycin HCl 1.5 gm/Sodium Chloride 500 ml @ 250 mls/hr BID 11/23/18 21:00 UNV Vancomycin HCl 2 gm/Sodium Chloride 500 ml @ 250 mls/hr 1X ONCE 11/23/18 20:00 11/23/18 21:59 DC 11/23/18 20:40 250 MLS/HR Vitamin B Complex/ Vitamin C (Ana-Porter) 1 tab DAILY 11/24/18 09:00 11/27/18 08:26 1 TAB Labs: Lab Laboratory Tests Test 11/28/18 03:00 White Blood Count 8.8 x10^3/uL (4.0-11.0) Red Blood Count 3.19 x10^6/uL (4.30-5.70) Hemoglobin 9.4 g/dL (13.0-17.5) Hematocrit 30.0 % (39.0-53.0) Mean Corpuscular Volume 94 fL (79-100) Mean Corpuscular Hemoglobin 30 pg (25-35) Mean Corpuscular Hemoglobin Concent 31 g/dL (31-37) Red Cell Distribution Width 18.0 % (11.5-14.5) Platelet Count 193 x10^3/uL (140-400) Sodium Level 137 mmol/L (136-145) Potassium Level 4.3 mmol/L (3.5-5.1) Chloride Level 97 mmol/L (98-107) Carbon Dioxide Level 26 mmol/L (21-32) Anion Gap 14 (6-14) Blood Urea Nitrogen 63 mg/dL (8-26) Creatinine 11.9 mg/dL (0.7-1.3) Estimated GFR (Cockcroft-Gault) 5.0 Glucose Level 133 mg/dL (70-99) Calcium Level 9.3 mg/dL (8.5-10.1) Phosphorus Level 6.0 mg/dL (2.6-4.7) Albumin 2.7 g/dL (3.4-5.0) Objective: Assessment: 1. MSSA Peritoneal dialysis catheter associated peritonitis, cults from outside facility reviewed with nephrology team BC negative so far PD fluid c/s negative here so far ,pt was on antibiotics prior to the fluid aspiration 2. Abdominal pain.improving 3. End-stage renal disease. 4. Hypertension. 5. Atrial fibrillation. 6. End-stage renal disease. 7.Pulm infiltrates likely atelectasis Plan: Plan of Care cont cefazolin, renal dosing PD catheter will likely need removal due to staph aureus infection Follow cultures and lab in the a.m. Continue supportive care TRAVON BOJORQUEZ MD November 28, 2018 09:57
[2018-11-28] MEDS ORDERED: BUPIVAC MPF-EPI 0.5%-1:200000 30 ML VIAL. ONE (10:10)
[2018-11-28] MEDS: ceFAZolin SODIUM IV Push 1 GM VIAL. IVP SCH (11:00)
[2018-11-28] MEDS ORDERED: ONDANSETRON PF 4 MG/2 ML VIAL. ONE (11:09)
[2018-11-28] MEDS ORDERED: PROPOFOL 20 ML IV ONE (11:09)
[2018-11-28] MEDS ORDERED: FAMOTIDINE 20 MG/2 ML VIAL ONE (11:09)
[2018-11-28] MEDS ORDERED: LIDOCAINE 2% PF 5 ML VIAL. ONE (11:09)
--- NOTE | 2018-11-28 11:22 | PDOC ---
Renal-Progress Notes Subjective Notes Notes NONE History of Present Illness Hx of present illness NO CHANGE Vitals Vitals Vital Signs Date Time Temp Pulse Resp B/P (MAP) Pulse Ox O2 Delivery O2 Flow Rate FiO2 11/28/18 09:40 67 128/69 11/28/18 07:21 95 Room Air 11/28/18 07:00 98.7 18 98.7 11/27/18 15:00 1.5 Weight Weight [ ] I.O. Intake and Output Intake and Output 11/28/18 07:00 Intake Total 530 ml Output Total 100 ml Balance 430 ml Intake Oral 530 ml Output Urine Total 100 ml # Voids 1 Labs Labs Laboratory Tests Test 11/28/18 03:00 White Blood Count 8.8 x10^3/uL (4.0-11.0) Red Blood Count 3.19 x10^6/uL (4.30-5.70) Hemoglobin 9.4 g/dL (13.0-17.5) Hematocrit 30.0 % (39.0-53.0) Mean Corpuscular Volume 94 fL (79-100) Mean Corpuscular Hemoglobin 30 pg (25-35) Mean Corpuscular Hemoglobin Concent 31 g/dL (31-37) Red Cell Distribution Width 18.0 % (11.5-14.5) Platelet Count 193 x10^3/uL (140-400) Sodium Level 137 mmol/L (136-145) Potassium Level 4.3 mmol/L (3.5-5.1) Chloride Level 97 mmol/L (98-107) Carbon Dioxide Level 26 mmol/L (21-32) Anion Gap 14 (6-14) Blood Urea Nitrogen 63 mg/dL (8-26) Creatinine 11.9 mg/dL (0.7-1.3) Estimated GFR (Cockcroft-Gault) 5.0 Glucose Level 133 mg/dL (70-99) Calcium Level 9.3 mg/dL (8.5-10.1) Phosphorus Level 6.0 mg/dL (2.6-4.7) Albumin 2.7 g/dL (3.4-5.0) Micro Micro Microbiology 11/23/18 Blood Culture - Preliminary, Resulted NO GROWTH AFTER 4 DAYS 11/25/18 Anaerobic/Aerobic Culture, Resulted Pending 11/25/18 Anaerobic Culture Result 1 (SWATHI), Resulted Pending 11/25/18 Aerobic Culture, Resulted Pending 11/25/18 Aerobic Culture Result 1 (SWATHI), Resulted Pending 11/25/18 Gram Stain - Final, Resulted 11/25/18 Gram Stain Result 1 (SWATHI) - Final, Resulted 11/25/18 Gram Stain Result 2 (SWATHI) - Final, Resulted Review of Systems Constitutional: yes: alert, oriented Ears/Nose/Throat: Yes: no symptom reported Eyes: Yes: no symptom reported Pulmonary: Yes no symptom reported Cardiovascular: Yes no symptom reported Gastrointestional: Yes: abdominal pain Genitourinary: Yes: no symptom reported Musculoskeletal: Yes: no symptom reported Skin: Yes no symptom reported Psychiatric/Neurological: Yes: no symptom reported Endocrine: Yes: no symptom reported Hematologic/Lymphatic: Yes: no symptom reported Physical Exam General Appearance: no apparent distress Skin: warm Respiratory: decreased breath sounds Heart: S1S2 Abdomen: soft, bowel sounds present Genitourinary: bladder flat Extremities: pulses present Neurology: alert Musculoskeletal: Osteoarthritis Assessment Assessment IMP STAPH A PERITONITIS ANEMIA MET ENCEPHALOPATHY ESRD AFIB HTN LOW K PLAN ANTIBIOTICS PD CATH REMOVAL TODAY TUNNELED HD CATHETER TODAY OP [facility] AT [facility] AT [address] FOLLOWING ENRIQUETA YARBORUGH MD November 28, 2018 11:22
[2018-11-28] MEDS ORDERED: IV RINGERS,LACTATED 1000ML 1,000 ML IV SCH (11:29)
[2018-11-28] MEDS ORDERED: fentaNYL PF VIAL 100 MCG/2 ML VIAL IV PRN ×2 (11:30)
[2018-11-28] MEDS ORDERED: IV NORMAL SALINE 500ML BAG 500 ML IV SCH (11:30)
[2018-11-28] MEDS ORDERED: ONDANSETRON PF 4 MG/2 ML VIAL. IV PRN (11:30)
[2018-11-28] MEDS ORDERED: HYDROmorphone 2 MG/ML VIAL IV PRN (11:30)
[2018-11-28] MEDS ORDERED: LIDOCAINE 1% PF 2 ML VIAL. ID PRN (11:30)
[2018-11-28] MEDS ORDERED: MORPHINE SULFATE 2 MG/ML VIAL. IV PRN (11:30)
[2018-11-28] MEDS ORDERED: PROCHLORPERAZINE 10 MG/2 ML VIAL. IV PRN (11:30)
[2018-11-28] MEDS ORDERED: fentaNYL PF VIAL 100 MCG/2 ML VIAL ONE (11:37)
[2018-11-28] MEDS ORDERED: DEXAMETHASONE SOD PHOS 4 MG/ML VIAL ONE (11:56)
[2018-11-28] MEDS ORDERED: ceFAZolin SODIUM 1 GM VIAL ONE (12:00)
[2018-11-28] MEDS ORDERED: NEOSTIGMINE METHYLSULFATE 5 MG/5 ML SYRINGE. ONE (12:31)
[2018-11-28] MEDS ORDERED: GLYCOPYRROLATE 1 MG/5 ML VIAL. ONE (12:31)
[2018-11-28] MEDS ORDERED: DESFLURANE 31 TO 60 MINUTES IH ONE (12:33)
[2018-11-28] MEDS ORDERED: POTASSIUM BICARB 20 MEQ EFFERVESCENT TABLET. PEG PRN (12:47)
--- NOTE | 2018-11-28 12:47 | PDOC4 ---
Operative Note Operative Note Operative Note: Preoperative Diagnosis: Infected peritoneal dialysis catheter Postoperative Diagnosis: Same Procedure: Removal of peritoneal dialysis catheter Surgeon: Bradley Anesthesia: Gen. EBL: 10 mL Specimen: Catheter tip sent for culture Drains: None Complications: None Indication: The patient is a 78-year-old male who had been on peritoneal dialysis. He developed signs consistent with a PD catheter infection and surge ry was consulted for removal. The details and risks of surgery were discussed. The risks include bleeding, infection, visceral injury, pain, hernia formation anesthetic risk, potential need for additional surgery or procedure. He understands and would like to proceed. Description: The patient was taken to the operating room and placed supine on the operating table. Gen. anesthesia was performed. The abdomen was prepped with ChloraPrep and draped in a standard surgical manner. The catheter was exiting the right lower quadrant. With a scalpel and incision was made at the prior scar near the location of the distal cuff. Sharp and cautery dissection were carried down to the level of the intramuscular cuff. The cuff was freed from surrounding tissues. In a similar manner the subcutaneous proximal cuff was identified and mobilized from the surrounding tissues. The catheter was then readily withdrawn and the coiled tip was cut and sent off as a specimen for culture. The catheters and discarded. The fascial defect was approximated with 0 Vicryl sutures. Hemostasis was good and no other abnormalities were noted. The incision was approximated with 4-0 Monocryl. The catheter exit site was left open to drain. Sterile dressings were then applied. The patient tolerated the procedure well and was sent to the recovery room in stable condition. At the end of the case all counts were correct. TOÑO BURDEN MD November 28, 2018 12:47
[2018-11-28] MEDS ORDERED: LIDOCAINE 1%/EPI 1:100,000 20 ML VIAL. ONE (13:29)
[2018-11-28] MEDS ORDERED: HEPARIN PF 500 UNIT/5 ML DISP.SYRIN. IV ONE (13:29)
[2018-11-28] MEDS ORDERED: HEPARIN for IV BOLUS 10,000 UNIT/10 ML VIAL. ONE (13:30)
--- NOTE | 2018-11-28 14:35 | PDOC ---
PROGRESS NOTES Chief Complaint Chief Complaint 1. Peritoneal dialysis catheter associated peritonitis, MSSA, ID garden consultant recommendations greatly appreciated 2. Abdominal pain. Improved 3. End-stage renal disease. 4. Hypertension. 5. Atrial fibrillation. 6. End-stage renal disease. 7. AOCD 8. PVCs, indwelling pacer 9. NOn injury fall 11/25/18 10 Hypoxic respiratory failure-wheezy 11/26/18 11, GEn weakness - agreeable to SNU 12. COnstipation History of Present Illness History of Present Illness Feels and looks good aside from constipation Patient tolerated temporary dialysis catheter insertion Creatinine 14, hemoglobin 11. ESR 58 So far no more PVCs-indwelling pacer-CPM per cardiology Lives alone at home, agreeable to SNU Plan: nothing by mouth post midnight for dialysis catheter insertion Rehabilitation or SNU on discharge Mag citrate now, another bowel regimen-please see orders Follow blood cultures-being treated for SBP/peritoneal dialysis fluid infection by ID Vitals Vitals Vital Signs Date Time Temp Pulse Resp B/P (MAP) Pulse Ox O2 Delivery O2 Flow Rate FiO2 11/28/18 13:40 97.1 66 11 137/75 99 Room Air 97.1 11/28/18 13:10 10 Physical Exam Physical Exam GENERAL: alert awake in nad, HEENT: no icterus NECK: Supple. No JVP LUNGS: Clear. HEART: S1 and S2 regular. ABDOMEN: Tender diffusely. soft, No distention or guarding. PD catheter with some cloudy fluid EXTREMITIES: No edema or cyanosis. SKIN: Unremarkable. NEUROLOGICAL: alert awake in nad General: Alert, Oriented X3, Cooperative, No acute distress Heart: Regular rate, Normal S1, Normal S2, No murmurs Lungs: Clear Abdomen: Soft, Other (ND, ttp lower abdomen, pd cath in place) Extremities: No clubbing, No cyanosis Skin: No rashes, No breakdown Labs LABS Laboratory Tests Test 11/28/18 03:00 White Blood Count 8.8 x10^3/uL (4.0-11.0) Red Blood Count 3.19 x10^6/uL (4.30-5.70) Hemoglobin 9.4 g/dL (13.0-17.5) Hematocrit 30.0 % (39.0-53.0) Mean Corpuscular Volume 94 fL (79-100) Mean Corpuscular Hemoglobin 30 pg (25-35) Mean Corpuscular Hemoglobin Concent 31 g/dL (31-37) Red Cell Distribution Width 18.0 % (11.5-14.5) Platelet Count 193 x10^3/uL (140-400) Sodium Level 137 mmol/L (136-145) Potassium Level 4.3 mmol/L (3.5-5.1) Chloride Level 97 mmol/L (98-107) Carbon Dioxide Level 26 mmol/L (21-32) Anion Gap 14 (6-14) Blood Urea Nitrogen 63 mg/dL (8-26) Creatinine 11.9 mg/dL (0.7-1.3) Estimated GFR (Cockcroft-Gault) 5.0 Glucose Level 133 mg/dL (70-99) Calcium Level 9.3 mg/dL (8.5-10.1) Phosphorus Level 6.0 mg/dL (2.6-4.7) Albumin 2.7 g/dL (3.4-5.0) Assessment and Plan Assessmemt and Plan Problems Medical Problems: (1) Bacterial infection associated with peritoneal dialysis catheter Status: Acute Comment Review of Relevant I have reviewed the following items russell (where applicable) has been applied. Labs Laboratory Tests Test 11/27/18 02:55 11/28/18 03:00 White Blood Count 4.4 x10^3/uL (4.0-11.0) 8.8 x10^3/uL (4.0-11.0) Red Blood Count 3.11 x10^6/uL (4.30-5.70) 3.19 x10^6/uL (4.30-5.70) Hemoglobin 9.3 g/dL (13.0-17.5) 9.4 g/dL (13.0-17.5) Hematocrit 29.4 % (39.0-53.0) 30.0 % (39.0-53.0) Mean Corpuscular Volume 94 fL (79-100) 94 fL (79-100) Mean Corpuscular Hemoglobin 30 pg (25-35) 30 pg (25-35) Mean Corpuscular Hemoglobin Concent 32 g/dL (31-37) 31 g/dL (31-37) Red Cell Distribution Width 18.0 % (11.5-14.5) 18.0 % (11.5-14.5) Platelet Count 179 x10^3/uL (140-400) 193 x10^3/uL (140-400) Sodium Level 134 mmol/L (136-145) 137 mmol/L (136-145) Potassium Level 4.2 mmol/L (3.5-5.1) 4.3 mmol/L (3.5-5.1) Chloride Level 95 mmol/L (98-107) 97 mmol/L (98-107) Carbon Dioxide Level 25 mmol/L (21-32) 26 mmol/L (21-32) Anion Gap 14 (6-14) 14 (6-14) Blood Urea Nitrogen 57 mg/dL (8-26) 63 mg/dL (8-26) Creatinine 11.4 mg/dL (0.7-1.3) 11.9 mg/dL (0.7-1.3) Estimated GFR (Cockcroft-Gault) 5.3 5.0 Glucose Level 236 mg/dL (70-99) 133 mg/dL (70-99) Calcium Level 9.1 mg/dL (8.5-10.1) 9.3 mg/dL (8.5-10.1) Phosphorus Level 5.7 mg/dL (2.6-4.7) 6.0 mg/dL (2.6-4.7) Magnesium Level 2.0 mg/dL (1.8-2.4) Albumin 3.0 g/dL (3.4-5.0) 2.7 g/dL (3.4-5.0) Hepatitis B Surface Antigen Nonreactive (Nonreactive) Hepatitis B Surface Antibody Nonreactive Hepatitis B Core Total Antibody Negative (Negative) Laboratory Tests Test 11/28/18 03:00 White Blood Count 8.8 x10^3/uL (4.0-11.0) Red Blood Count 3.19 x10^6/uL (4.30-5.70) Hemoglobin 9.4 g/dL (13.0-17.5) Hematocrit 30.0 % (39.0-53.0) Mean Corpuscular Volume 94 fL (79-100) Mean Corpuscular Hemoglobin 30 pg (25-35) Mean Corpuscular Hemoglobin Concent 31 g/dL (31-37) Red Cell Distribution Width 18.0 % (11.5-14.5) Platelet Count 193 x10^3/uL (140-400) Sodium Level 137 mmol/L (136-145) Potassium Level 4.3 mmol/L (3.5-5.1) Chloride Level 97 mmol/L (98-107) Carbon Dioxide Level 26 mmol/L (21-32) Anion Gap 14 (6-14) Blood Urea Nitrogen 63 mg/dL (8-26) Creatinine 11.9 mg/dL (0.7-1.3) Estimated GFR (Cockcroft-Gault) 5.0 Glucose Level 133 mg/dL (70-99) Calcium Level 9.3 mg/dL (8.5-10.1) Phosphorus Level 6.0 mg/dL (2.6-4.7) Albumin 2.7 g/dL (3.4-5.0) Microbiology 11/23/18 Blood Culture - Preliminary, Resulted NO GROWTH AFTER 4 DAYS 11/25/18 Anaerobic/Aerobic Culture, Resulted Pending 11/25/18 Anaerobic Culture Result 1 (SWATHI), Resulted Pending 11/25/18 Aerobic Culture, Resulted Pending 11/25/18 Aerobic Culture Result 1 (SWATHI), Resulted Pending 11/25/18 Gram Stain - Final, Resulted 11/25/18 Gram Stain Result 1 (SWATHI) - Final, Resulted 11/25/18 Gram Stain Result 2 (SWATHI) - Final, Resulted Medications Current Medications Ondansetron HCl (Zofran) 4 mg 1X ONCE IV Last administered on 11/23/18at 16:08; Start 11/23/18 at 15:30; Stop 11/23/18 at 15:31; Status DC Morphine Sulfate (Morphine Sulfate) 2 mg 1X ONCE IV Last administered on 11/23/18at 16:08; Start 11/23/18 at 15:30; Stop 11/23/18 at 15:31; Status DC Ondansetron HCl (Zofran) 4 mg PRN Q8HRS PRN IV NAUSEA/VOMITING; Start 11/23/18 at 19:00; Stop 11/24/18 at 09:05; Status DC Morphine Sulfate (Morphine Sulfate) 2 mg PRN Q2HR PRN IV PAIN; Start 11/23/18 at 19:00; Stop 11/24/18 at 18:59; Status DC Cefepime HCl (Maxipime) 1 gm BID IVP Last administered on 11/23/18 19:14; Start 11/23/18 at 19:30; Stop 11/23/18 at 19:30; Status DC Vancomycin HCl 1.5 gm/Sodium Chloride 500 ml @ 250 mls/hr BID IV ; Start 11/23/18 at 21:00; Status UNV Vancomycin HCl 2 gm/Sodium Chloride 500 ml @ 250 mls/hr 1X ONCE IV Last administered on 11/23/18at 20:40; Start 11/23/18 at 20:00; Stop 11/23/18 at 21:59; Status DC Vancomycin HCl (Vanco Per Pharmacy) 1 each PRN DAILY PRN MC SEE COMMENTS Last administered on 11/26/18 06:20; Start 11/23/18 at 19:30; Stop 11/26/18 at 10:15; Status DC Alprazolam (Xanax) 1 mg HS PO Last administered on 11/27/18 20:48; Start 11/23/18 at 23:00 Clopidogrel Bisulfate (Plavix) 75 mg DAILY PO Last administered on 11/27/18 08:29; Start 11/24/18 at 09:00; Stop 11/27/18 at 16:24; Status DC Allopurinol (Zyloprim) 150 mg DAILY PO Last administered on 11/27/18 08:28; Start 11/24/18 at 09:00 Atorvastatin Calcium (Lipitor) 20 mg QHS PO Last administered on 11/27/18 20:49; Start 11/23/18 at 23:00 Vitamin B Complex/ Vitamin C (Ana-Porter) 1 tab DAILY PO Last administered on 11/27/18 08:26; Start 11/24/18 at 09:00 Ondansetron HCl (Zofran Odt) 4 mg PRN Q6HRS PRN PO NAUSEA 1ST CHOICE; Start at 22:15 Atenolol (Tenormin) 100 mg DAILY PO Last administered on 11/28/18 09:40; Start 11/24/18 at 09:00 Diltiazem HCl (Cardizem 24hr Cd) 180 mg DAILY PO Last administered on 11/27/18 08:28; Start 11/24/18 at 09:00 Doxazosin Mesylate (Cardura) 2 mg DAILY PO Last administered on 11/27/18 08:29; Start 11/24/18 at 09:00 Fluticasone Propionate (Flonase) 2 spray DAILY NS Last administered on 11/26/18 10:22; Start 11/24/18 at 09:00 Megestrol Acetate (Megace) 40 mg DAILY PO Last administered on 11/27/18 08:27; Start 11/24/18 at 09:00 Mirtazapine (Remeron) 30 mg QHS PO Last administered on 11/27/18 20:49; Start 11/23/18 at 23:00 Montelukast Sodium (Singulair) 10 mg QHS PO Last administered on 11/27/18 20:48; Start 11/23/18 at 23:00 Trazodone HCl (Desyrel) 50 mg QHS PO ; Start 11/23/18 at 23:00; Stop 11/24/18 at 20:28; Status DC Losartan Potassium (Cozaar) 100 mg DAILY PO Last administered on 11/27/18 08:29; Start 11/24/18 at 09:00 Vancomycin HCl (Vancomycin Random Level) 1 each 1X ONCE MC ; Start 11/25/18 at 21:00; Stop 11/25/18 at 21:01; Status DC Ondansetron HCl (Zofran) 4 mg PRN Q6HRS PRN IV NAUSEA/VOMITING; Start 11/24/18 at 09:15 Acetaminophen (Tylenol) 500 mg PRN Q6HRS PRN PO MILD PAIN / TEMP; Start 11/24/18 at 09:15 Potassium Chloride (Klor-Con) 20 meq 1X ONCE PO Last administered on 11/24/18at 13:27; Start 11/24/18 at 12:00; Stop 11/24/18 at 12:01; Status DC Magnesium Sulfate 50 ml @ 25 mls/hr PRN DAILY PRN IV for Mag < 1.7 on am labs; Start 11/24/18 at 11:45 Potassium Chloride (Klor-Con) 40 meq PRN DAILY PRN PO for K < 3.7 on am labs Last administered on 11/25/18at 09:53; Start 11/24/18 at 12:00; Stop 11/26/18 at 15:55; Status DC Albumin Human 100 ml @ 100 mls/hr TID IV Last administered on 11/26/18 12:19; Start 11/24/18 at 13:00; Stop 11/26/18 at 09:59; Status DC Lactobacillus Rhamnosus (Culturelle) 1 cap BID PO Last administered on 11/27/18 20:49; Start 11/24/18 at 21:00 Morphine Sulfate (Morphine Sulfate) 2 mg PRN Q2HR PRN IV SEVERE PAIN Last administered on 11/27/18 03:58; Start 11/24/18 at 22:45 Cefepime HCl (Maxipime) 1 gm Q24H IVP Last administered on 11/25/18 15:52; Start 11/25/18 at 15:00; Stop 11/26/18 at 10:15; Status DC Vancomycin HCl (Vancomycin Random Level) 1 each 1X ONCE MC ; Start 11/26/18 at 21:00; Stop 11/26/18 at 21:00; Status DC Cefazolin Sodium 1 gm/Dextrose 50 ml @ 100 mls/hr DAILY IV ; Start 11/27/18 at 09:00; Status UNV Cefazolin Sodium (Ancef) 1 gm Q24H IVP Last administered on 11/27/18 11:40; Start 11/26/18 at 11:00 Prednisone (Prednisone) 60 mg 1X ONCE PO Last administered on 11/26/18at 12:37; Start 11/26/18 at 12:30; Stop 11/26/18 at 12:31; Status DC Prednisone (Prednisone) 40 mg DAILY PO Last administered on 11/27/18at 08:27; Start 11/27/18 at 09:00 Albuterol/ Ipratropium (Duoneb) 3 ml RTQID NEB Last administered on 11/28/18 07:20; Start 11/26/18 at 12:30 Potassium Chloride (KCl Oral Soln) 40 meq PRN DAILY PRN PEG for K < 3.7 on am labs Last administered on 11/26/18 16:21; Start 11/26/18 at 16:00; Stop 11/28/18 at 12:47; Status DC Docusate Sodium (Colace) 100 mg BID PO Last administered on 11/27/18at 20:49; Start 11/27/18 at 12:30 Polyethylene Glycol (miraLAX PACKET) 17 gm DAILY PO ; Start 11/28/18 at 09:00 Polyethylene Glycol (miraLAX PACKET) 17 gm 1X ONCE PO Last administered on 11/27/18at 13:39; Start 11/27/18 at 12:30; Stop 11/27/18 at 12:31; Status DC Magnesium Citrate (Citroma) 296 ml 1X ONCE PO Last administered on 11/27/18at 12:30; Start 11/27/18 at 12:30; Stop 11/27/18 at 12:31; Status DC Propofol 20 ml @ As Directed STK-MED ONCE IV ; Start 11/28/18 at 11:09; Stop 11/28/18 at 11:10; Status DC Famotidine (Pepcid Vial) 20 mg STK-MED ONCE .ROUTE ; Start 11/28/18 at 11:09; Stop 11/28/18 at 11:10; Status DC Lidocaine HCl (Lidocaine Pf 2% Vial) 5 ml STK-MED ONCE .ROUTE ; Start 11/28/18 at 11:09; Stop 11/28/18 at 11:10; Status DC Ondansetron HCl (Zofran) 4 mg STK-MED ONCE .ROUTE ; Start 11/28/18 at 11:09; Stop 11/28/18 at 11:10; Status DC Bupivacaine HCl/ Epinephrine Bitart (Sensorcain-Mpf Epi 0.5%-[id number]) 30 ml STK-MED ONCE .ROUTE ; Start 11/28/18 at 10:10; Stop 11/28/18 at 11:10; Status DC Ondansetron HCl (Zofran) 4 mg PRN Q6HRS PRN IV NAUSEA/VOMITING; Start 11/28/18 at 11:30; Stop 11/29/18 at 11:29 Fentanyl Citrate (Fentanyl 2ml Vial) 25 mcg PRN Q5MIN PRN IV MILD PAIN 1-3; Start 11/28/18 at 11:30; Stop 11/29/18 at 11:29 Fentanyl Citrate (Fentanyl 2ml Vial) 50 mcg PRN Q5MIN PRN IV MODERATE TO SEVERE PAIN; Start 11/28/18 at 11:30; Stop 11/29/18 at 11:29 Morphine Sulfate (Morphine Sulfate) 1 mg PRN Q10MIN PRN IV SEVERE PAIN 7-10; Start 11/28/18 at 11:30; Stop 11/29/18 at 11:29 Ringer's Solution 1,000 ml @ 30 mls/hr Q24H IV ; Start 11/28/18 at 11:29; Stop 11/28/18 at 23:28 Lidocaine HCl (Xylocaine-Mpf 1% 2ml Vial) 2 ml PRN 1X PRN ID PRIOR TO IV START; Start 11/28/18 at 11:30; Stop 11/29/18 at 11:29 Hydromorphone HCl (Dilaudid) 0.5 mg PRN Q10MIN PRN IV SEV PAIN, Second choice; Start 11/28/18 at 11:30; Stop 11/29/18 at 11:29 Prochlorperazine Edisylate (Compazine) 5 mg PACU PRN PRN IV NAUSEA, MRX1; Start 11/28/18 at 11:30; Stop 11/29/18 at 11:29 Sodium Chloride 500 ml @ 0 mls/hr Q0M IV ; Start 11/28/18 at 11:30 Fentanyl Citrate (Fentanyl 2ml Vial) 100 mcg STK-MED ONCE .ROUTE ; Start 11/28/18 at 11:37; Stop 11/28/18 at 11:38; Status DC Dexamethasone Sodium Phosphate (Decadron) 4 mg STK-MED ONCE .ROUTE ; Start 11/28/18 at 11:56; Stop 11/28/18 at 11:57; Status DC Cefazolin Sodium (Ancef) 1 gm STK-MED ONCE .ROUTE ; Start 11/28/18 at 12:00; Stop 11/28/18 at 12:01; Status DC Cefazolin Sodium/ Dextrose 50 ml @ 100 mls/hr 1X ONCE IV ; Start 11/28/18 at 12:15; Stop 11/28/18 at 12:44; Status DC Neostigmine Methylsulfate (Neostigmine Methylsulfate) 5 mg STK-MED ONCE .ROUTE ; Start 11/28/18 at 12:31; Stop 11/28/18 at 12:32; Status DC Glycopyrrolate (Robinul) 1 mg STK-MED ONCE .ROUTE ; Start 11/28/18 at 12:31; Stop 11/28/18 at 12:32; Status DC Desflurane (Suprane) 30 ml STK-MED ONCE IH ; Start 11/28/18 at 12:33; Stop 11/28/18 at 12:34; Status DC Potassium Bicarbonate (Potassium Effervescent Tablet) 40 meq PRN DAILY PRN PEG for K < 3.7 on am labs; Start 11/28/18 at 12:47 Lidocaine/ Epinephrine (LIDOCAINE 1%-EPI 1:100,000 Multi-Dose) 20 ml STK-MED ONCE .ROUTE ; Start 11/28/18 at 13:29; Stop 11/28/18 at 13:30; Status DC Heparin Sodium (Porcine) (Hep Lock Adult) 500 unit STK-MED ONCE IV ; Start 11/28/18 at 13:29; Stop 11/28/18 at 13:30; Status DC Heparin Sodium (Porcine) (Heparin Sodium) 10,000 unit STK-MED ONCE .ROUTE ; Start 11/28/18 at 13:30; Stop 11/28/18 at 13:31; Status DC Active Scripts Active Atorvastatin Calcium 20 Mg Tablet 20 Mg PO QHS MDD 1 Zofran Odt (Ondansetron) 4 Mg Tab.rapdis 1 Tab SL Q6HRS PRN Reported Doxazosin Mesylate 2 Mg Tablet 2 Mg PO DAILY Clopidogrel (Clopidogrel Bisulfate) 75 Mg Tablet 1 Tab PO DAILY Flonase Allergy Relief (Fluticasone Propionate) 9.9 Ml [place].susp 2 Sprays NS DAILY Montelukast Sodium Tablet (Montelukast Sodium) 10 Mg Tablet 1 Tab PO DAILY Mirtazapine 30 Mg Tablet 1 Tab PO QHS Atenolol 100 Mg Tablet 1 Tab PO DAILY Nephro-Porter Tablet (Folic Acid/Vitamin B Comp W-C) 0.8 Mg Tablet 1 Tab PO DAILY Diltiazem 24HR Cd (Diltiazem Hcl) 180 Mg Cap.er.24h 1 Cap PO DAILY Xanax (Alprazolam) 1 Mg Tablet 0.5 Tab PO HS Diovan (Valsartan) 320 Mg Tablet 320 Mg PO DAILY Megestrol Acetate 40 Mg Tablet 40 Mg PO DAILY Allopurinol 100 Mg Tablet 150 Mg PO DAILY Vitals/I & O Vital Sign - Last 24 Hours 11/27/18 11/27/18 11/27/18 11/27/18 15:00 15:28 17:10 19:00 Temp 99.0 97.7 98.1 99.0 97.7 98.1 Pulse 75 74 74 Resp 18 18 16 B/P (MAP) 138/67 (90) 148/85 (106) 178/76 (110) Pulse Ox 93 98 97 O2 Delivery Nasal Cannula Room Air Room Air Room Air O2 Flow Rate 1.5 11/27/18 11/27/18 11/27/18 11/27/18 20:00 20:08 21:00 23:00 Temp 97.9 97.9 Pulse 66 Resp 16 B/P (MAP) 133/73 (93) 113/62 (79) Pulse Ox 96 95 O2 Delivery Room Air Room Air Room Air 11/28/18 11/28/18 11/28/18 11/28/18 03:00 05:40 07:00 07:21 Temp 97.9 98.1 98.7 97.9 98.1 98.7 Pulse 70 66 67 Resp 16 18 18 B/P (MAP) 113/62 (79) 121/64 (83) 128/69 (88) Pulse Ox 95 93 98 95 O2 Delivery Room Air Room Air Room Air Room Air 11/28/18 11/28/18 11/28/18 11/28/18 08:15 09:40 11:23 12:49 Temp 98.7 98.7 Pulse 67 68 Resp 15 B/P (MAP) 128/69 145/89 Pulse Ox 95 O2 Delivery Room Air Room Air Mask O2 Flow Rate 10 11/28/18 11/28/18 11/28/18 11/28/18 12:49 13:10 13:25 13:40 Temp 97.1 97.1 97.1 97.1 97.1 97.1 97.1 97.1 Pulse 70 68 78 66 Resp 16 14 14 11 B/P (MAP) 117/64 131/70 119/74 137/75 Pulse Ox 100 97 99 99 O2 Delivery Simple Mask Simple Mask Room Air Room Air O2 Flow Rate 10 10 Intake and Output 11/27/18 11/27/18 11/28/18 15:00 23:00 07:00 Intake Total 290 ml 240 ml 0 ml Output Total 100 ml Balance 190 ml 240 ml 0 ml CAIO MÉNDEZ MD November 28, 2018 14:35
[2018-11-28] MEDS: MORPHINE SULFATE 2 MG/ML VIAL. IV PRN ×2 (14:44→23:00)
[2018-11-28] MEDS ORDERED: IV NORMAL SALINE 1000ML BAG 1,000 ML IV PRN ×2 (14:50)
[2018-11-28] MEDS ORDERED: MIDAZOLAM HCL/PF 2 MG/2 ML VIAL. ONE (14:52)
[2018-11-28] MEDS ORDERED: fentaNYL PF VIAL 100 MCG/2 ML VIAL IV ONE (15:00)
[2018-11-28] MEDS ORDERED: MIDAZOLAM HCL/PF 2 MG/2 ML VIAL. IV ONE (15:00)
[2018-11-28] MEDS ORDERED: DIALYSIS PATIENT. MC PRN (15:00)
[2018-11-28] MEDS ORDERED: diphenhydrAMINE 50 MG/ML VIAL IV PRN ×2 (15:00)
--- NOTE | 2018-11-28 15:07 | NUR ---
SW following for discharge planning. Discussed with RN pt getting HD cath sometime today. PAM spoke with pt's son, Pranav regarding SNU placement. Pranav is going to look at some facilities tomorrow (11/29/18) when he is off work. PAM provided some facilities in [place] per Pranav's request. SW awaiting all required paperwork before faxing HD dialysis referral. RN notified. SW will continue to follow.
[2018-11-28] MEDS ORDERED: LIDOCAINE WITH 8.4% SOD BICARB 3 ML DISP.SYRIN. IJ ONE (15:15)
--- NOTE | 2018-11-28 15:30 | NUR ---
Patient to IR for tunnelled HD catheter placement. No sedation, patent received Morphine before arrived to IR. Ancef 2GM given through left hand, tolerated well. Vitals stable throughout procedure. Report called to KANDY Farrell on .
[2018-11-28 15:45] VITALS: BP 112/79
--- NOTE | 2018-11-28 16:31 | PDOC ---
BRIEF OPERATIVE NOTE Pre-Op Diagnosis ARF Post-Op Diagnosis same Procedure Performed Tunnelled HD Catheter Surgeon Rosalba Anesthesia Type: Local Findings 23cm Palindrome with excellent manual flows Complications No immediate CLARENCE BACON MD November 28, 2018 16:31
--- NOTE | 2018-11-28 16:57 | RAD ---
Procedure: Tunneled hemodialysis catheter placement Clinical Indication: 78-year-old requiring hemodialysis Sedation: Conscious sedation was administered for 17 minutes. The patient was monitored by a qualified independent observer throughout the time of sedation. Please refer to the medical record for exact doses of medications utilized to achieve moderate sedation. Antibiotics: Antibiotic was administered intravenously within 1 hour of the procedure start time. Fluoro Time: 1.2 minutes. Images: 1 Contrast: None Sterility: All elements of maximal sterile barrier technique including the use of a cap, mask, sterile gown, sterile gloves, large sterile sheet, appropriate hand hygiene, and 2% chlorhexidine for cutaneous antisepsis (or acceptable alternative antiseptic per current guidelines) were followed for this procedure. Consent: The procedure was explained in its entirety to the patient or the patients designated automotive sales representative by a member of the treatment team, including a discussion of the risks, benefits and commonly accepted alternatives to the procedure, as well as the expected consequences of no therapy whatsoever. Discussion of the risks included, but was not limited to, those that are most frequent and those that are rare but possibly severe or life-threatening, as well as the possibility of unforeseen complications. Technique and Findings: Following informed consent, the patient was prepped and draped in the usual sterile fashion. Ultrasound interrogation of the right neck revealed patency and compressibility of the right internal jugular vein. A 21-gauge micropuncture was then used to gain access to this vein under ultrasound guidance. A hard copy ultrasound image was recorded. The needle was exchanged over a wire for a 4 [place] sheath which was used to guide an Amplatz wire into the IVC. The skin over the right anterior chest wall was copiously anesthetized with 1% Lidocaine plus Epinephrine and a small dermatotomy was made. A 23 cm palindrome tunneled hemodialysis catheter was then tunneled subcutaneously towards the neck dermatotomy and deployed through a large caliber peel-away sheath under fluoroscopic guidance such that the distal tip resided in the mid right atrium. Manual flow rates were assessed and found to be excellent. The catheter was then flushed, packed with Heparin, capped, and sutured to the skin. The neck dermatotomy was closed with Dermabond. Complications: No immediate Impression: 1. Tunneled hemodialysis catheter placement as described. This catheter demonstrates excellent manual flow rates and is suitable for use immediately.
[2018-11-28 19:59] VITALS: BP 155/91
--- NOTE | 2018-11-28 20:35 | NUR ---
Received report from raymond Bustamante. They removed 2 Kilo. Pt returned to the unit from dialysis at this time. Pt situated comfortably, call-light with in reach, bed in low position, and water pitcher refilled. Will continue to monitor.
[2018-11-28] MEDS: HYDROcodone/APAP 5/325MG 1 TAB TABLET PO PRN (20:54)
[2018-11-28] MEDS: MIRTAZAPINE 15 MG TABLET PO SCH (20:54)
[2018-11-28] MEDS: ALPRAZolam 1 MG TABLET PO SCH (20:54)
[2018-11-28] MEDS: ATORVASTATIN CALCIUM 20 MG TABLET PO SCH (20:54)
[2018-11-28] MEDS: MONTELUKAST SODIUM 10 MG TABLET. PO SCH (20:55)
[2018-11-28 22:57] VITALS: BP 157/87
[2018-11-29 03:31] VITALS: BP 138/77
[2018-11-29 04:57] LABS: HEMATOCRIT 30.2 % (39.0-53.0); HEMOGLOBIN 9.4 g/dL (13.0-17.5); RED BLOOD COUNT 3.16 x10^6/uL (4.30-5.70); RED CELL DISTRIBUTION WIDTH 18.1 % (11.5-14.5); WHITE BLOOD COUNT 8.6 x10^3/uL (4.0-11.0)
[2018-11-29 05:15] LABS: CALCIUM 8.5 mg/dL (8.5-10.1); CREATININE 7.9 mg/dL (0.7-1.3)
[2018-11-29 05:21] LABS: ALBUMIN 2.5 g/dL (3.4-5.0); CALCIUM 8.6 mg/dL (8.5-10.1); CREATININE 8.1 mg/dL (0.7-1.3); GFR 7.8; PHOSPHORUS 4.7 mg/dL (2.6-4.7); POTASSIUM 4.9 mmol/L (3.5-5.1)
[2018-11-29 07:00] VITALS: BP 146/82
[2018-11-29] MEDS: IPRATRPIUM/ALBUTEROL 0.5/2.5MG 3 ML NEBU. NEB SCH ×4 (07:20→20:05)
[2018-11-29] MEDS: FOLIC/VIT B COMP W-C (RENAL) TABLET. PO SCH (08:26)
[2018-11-29] MEDS: MEGESTROL 20 MG TABLET. PO SCH (08:27)
[2018-11-29] MEDS: ALLOPURINOL 100 MG TABLET. PO SCH (08:27)
[2018-11-29] MEDS: HYDROcodone/APAP 5/325MG 1 TAB TABLET PO PRN ×3 (08:27→21:42)
[2018-11-29] MEDS: ATENOLOL 50 MG TABLET. PO SCH (08:28)
[2018-11-29] MEDS: FLUTICASONE 50MCG/NASAL SPRAY 16GM BOTTLE. NS SCH (08:28)
[2018-11-29] MEDS: LACTOBACILLUS RHAMNOSUS GG 1 CAPSULE. PO SCH ×2 (08:29→21:42)
[2018-11-29] MEDS: predniSONE 20 MG TABLET PO SCH (08:29)
[2018-11-29] MEDS: LOSARTAN POTASSIUM 50 MG TABLET. PO SCH (08:29)
[2018-11-29] MEDS: DOCUSATE SODIUM 100 MG CAPSULE. PO SCH ×2 (08:30→21:42)
[2018-11-29] MEDS: POLYETHYLENE GLYCOL 3350 17 GM PACKET. PO SCH (08:30)
[2018-11-29] MEDS: DOXAZOSIN MESYLATE 4 MG TABLET. PO SCH (08:30)
--- NOTE | 2018-11-29 08:55 | PDOC ---
SURGICAL PROGRESS NOTE Subjective tolerating diet minimal pain Vital Signs Vital Signs Date Time Temp Pulse Resp B/P (MAP) Pulse Ox O2 Delivery O2 Flow Rate FiO2 11/29/18 08:30 75 146/82 11/29/18 07:22 97 Room Air 11/29/18 07:00 98.1 16 98.1 11/28/18 15:18 2.0 I&O Intake and Output 11/29/18 07:00 Intake Total 960 ml Output Total 110 ml Balance 850 ml Intake Oral 560 ml IV Total 400 ml Output Urine Total 100 ml Estimated Blood Loss 10 ml # Voids 1 General: Alert, Oriented X3, Cooperative, No acute distress Abdomen: Soft, Other (lap sites c/d/i, no erythema, cath site small amount of drainage) Labs Laboratory Tests Test 11/28/18 03:00 11/29/18 04:00 White Blood Count 8.8 x10^3/uL (4.0-11.0) 8.6 x10^3/uL (4.0-11.0) Red Blood Count 3.19 x10^6/uL (4.30-5.70) 3.16 x10^6/uL (4.30-5.70) Hemoglobin 9.4 g/dL (13.0-17.5) 9.4 g/dL (13.0-17.5) Hematocrit 30.0 % (39.0-53.0) 30.2 % (39.0-53.0) Mean Corpuscular Volume 94 fL (79-100) 96 fL (79-100) Mean Corpuscular Hemoglobin 30 pg (25-35) 30 pg (25-35) Mean Corpuscular Hemoglobin Concent 31 g/dL (31-37) 31 g/dL (31-37) Red Cell Distribution Width 18.0 % (11.5-14.5) 18.1 % (11.5-14.5) Platelet Count 193 x10^3/uL (140-400) 209 x10^3/uL (140-400) Sodium Level 137 mmol/L (136-145) 139 mmol/L (136-145) Potassium Level 4.3 mmol/L (3.5-5.1) 5.0 mmol/L (3.5-5.1) Chloride Level 97 mmol/L (98-107) 99 mmol/L (98-107) Carbon Dioxide Level 26 mmol/L (21-32) 29 mmol/L (21-32) Anion Gap 14 (6-14) 11 (6-14) Blood Urea Nitrogen 63 mg/dL (8-26) 36 mg/dL (8-26) Creatinine 11.9 mg/dL (0.7-1.3) 7.9 mg/dL (0.7-1.3) Estimated GFR (Cockcroft-Gault) 5.0 8.0 Glucose Level 133 mg/dL (70-99) 112 mg/dL (70-99) Calcium Level 9.3 mg/dL (8.5-10.1) 8.5 mg/dL (8.5-10.1) Phosphorus Level 6.0 mg/dL (2.6-4.7) 4.7 mg/dL (2.6-4.7) Albumin 2.7 g/dL (3.4-5.0) 2.5 g/dL (3.4-5.0) Laboratory Tests Test 11/29/18 04:00 White Blood Count 8.6 x10^3/uL (4.0-11.0) Red Blood Count 3.16 x10^6/uL (4.30-5.70) Hemoglobin 9.4 g/dL (13.0-17.5) Hematocrit 30.2 % (39.0-53.0) Mean Corpuscular Volume 96 fL (79-100) Mean Corpuscular Hemoglobin 30 pg (25-35) Mean Corpuscular Hemoglobin Concent 31 g/dL (31-37) Red Cell Distribution Width 18.1 % (11.5-14.5) Platelet Count 209 x10^3/uL (140-400) Sodium Level 139 mmol/L (136-145) Potassium Level 5.0 mmol/L (3.5-5.1) Chloride Level 99 mmol/L (98-107) Carbon Dioxide Level 29 mmol/L (21-32) Anion Gap 11 (6-14) Blood Urea Nitrogen 36 mg/dL (8-26) Creatinine 7.9 mg/dL (0.7-1.3) Estimated GFR (Cockcroft-Gault) 8.0 Glucose Level 112 mg/dL (70-99) Calcium Level 8.5 mg/dL (8.5-10.1) Phosphorus Level 4.7 mg/dL (2.6-4.7) Albumin 2.5 g/dL (3.4-5.0) Problem List Problems Medical Problems: (1) Bacterial infection associated with peritoneal dialysis catheter Status: Acute Assessment/Plan s/p pd cath removal, wound care no further surgical needs CARI ALVARADO APRN November 29, 2018 08:55
[2018-11-29] MEDS ORDERED: DIALYSIS PATIENT. MC PRN (10:00)
[2018-11-29] MEDS ORDERED: IV NORMAL SALINE 1000ML BAG 1,000 ML IV PRN ×2 (10:00)
[2018-11-29] MEDS ORDERED: diphenhydrAMINE 50 MG/ML VIAL IV PRN ×2 (10:00)
--- NOTE | 2018-11-29 10:30 | NUR ---
PAM following. Discussed with RN, pt having dialysis today. PAM phoned and faxed [facility] dialysis referral to [facility] ([phone] x [phone], fax [phone]). PAM spoke with pt's son, pt normally goes to [facility], pt's son is looking at [facility] and [facility] today for SNU. PAM will continue to follow.
--- NOTE | 2018-11-29 11:27 | PDOC ---
Infectious Disease Note Subjective: Subjective Patient seen in dialysis unit some abdo pain pd removed no f/c/n/v/d ROS: ROS Negative except for above. Vital Signs: Vital Signs Vital Signs Date Time Temp Pulse Resp B/P (MAP) Pulse Ox O2 Delivery O2 Flow Rate FiO2 11/29/18 08:30 75 146/82 11/29/18 08:00 Room Air 11/29/18 07:22 97 11/29/18 07:00 98.1 16 98.1 11/28/18 15:18 2.0 Physical Exam: PHYSICAL EXAM GENERAL: alert awake in nad, HEENT: no icterus NECK: Supple. No JVP LUNGS: Clear. HEART: S1 and S2 regular. ABDOMEN: PD removed, dressing intact dry EXTREMITIES: No edema or cyanosis. SKIN: Unremarkable. NEUROLOGICAL: alert awake in nad HDC cath looks ok Medications: Inpatient Meds: Current Medications Medications (Trade) Dose Ordered Sig/Pete Start Time Stop Time Status Last Admin Dose Admin Acetaminophen (Tylenol) 500 mg PRN Q6HRS PRN 11/24/18 09:15 Acetaminophen/ Hydrocodone Bitart (Lortab 5/325) 1 tab PRN Q4HRS PRN 11/28/18 16:00 11/29/18 08:27 1 TAB Albumin Human 100 ml @ 100 mls/hr TID 11/24/18 13:00 11/26/18 09:59 DC 11/26/18 12:19 100 MLS/HR Albuterol/ Ipratropium (Duoneb) 3 ml RTQID 11/26/18 12:30 11/29/18 07:20 3 ML Allopurinol (Zyloprim) 150 mg DAILY 11/24/18 09:00 11/29/18 08:27 150 MG Alprazolam (Xanax) 1 mg HS 11/23/18 23:00 11/28/18 20:54 1 MG Atenolol (Tenormin) 100 mg DAILY 11/24/18 09:00 11/29/18 08:28 100 MG Atorvastatin Calcium (Lipitor) 20 mg QHS 11/23/18 23:00 11/28/18 20:54 20 MG Bupivacaine HCl/ Epinephrine Bitart (Sensorcain-Mpf Epi 0.5%-1:[id number]) 30 ml STK-MED ONCE 11/28/18 10:10 11/28/18 11:10 DC Cefazolin Sodium (Ancef) 1 gm STK-MED ONCE 11/28/18 12:00 11/28/18 12:01 DC Cefazolin Sodium 1 gm/Dextrose 50 ml @ 100 mls/hr DAILY 11/27/18 09:00 UNV Cefazolin Sodium/ Dextrose 50 ml @ 100 mls/hr 1X ONCE 11/28/18 15:00 11/28/18 15:29 DC 11/28/18 15:00 100 MLS/HR Cefepime HCl (Maxipime) 1 gm Q24H 11/25/18 15:00 11/26/18 10:15 DC 11/25/18 15:52 1 GM Clopidogrel Bisulfate (Plavix) 75 mg DAILY 11/24/18 09:00 11/27/18 16:24 DC 11/27/18 08:29 75 MG Desflurane (Suprane) 30 ml STK-MED ONCE 11/28/18 12:33 11/28/18 12:34 DC Dexamethasone Sodium Phosphate (Decadron) 4 mg STK-MED ONCE 11/28/18 11:56 11/28/18 11:57 DC Diltiazem HCl (Cardizem 24hr Cd) 180 mg DAILY 11/24/18 09:00 11/29/18 08:28 180 MG Diphenhydramine HCl (Benadryl) 25 mg 1X PRN PRN 11/29/18 10:00 11/29/18 19:00 Docusate Sodium (Colace) 100 mg BID 11/27/18 12:30 11/29/18 08:30 100 MG Doxazosin Mesylate (Cardura) 2 mg DAILY 11/24/18 09:00 11/29/18 08:30 2 MG Famotidine (Pepcid Vial) 20 mg STK-MED ONCE 11/28/18 11:09 11/28/18 11:10 DC Fentanyl Citrate (Fentanyl 2ml Vial) 100 mcg 1X ONCE 11/28/18 15:00 11/28/18 15:01 DC Fluticasone Propionate (Flonase) 2 spray DAILY 11/24/18 09:00 11/29/18 08:28 2 SPRAY Glycopyrrolate (Robinul) 1 mg STK-MED ONCE 11/28/18 12:31 11/28/18 12:32 DC Heparin Sodium (Porcine) (Hep Lock Adult) 500 unit STK-MED ONCE 11/28/18 13:29 11/28/18 13:30 DC Heparin Sodium (Porcine) (Heparin Sodium) 2,600 unit 1X ONCE 11/28/18 15:30 11/28/18 15:31 DC Hydromorphone HCl (Dilaudid) 0.5 mg PRN Q10MIN PRN 11/28/18 11:30 11/29/18 10:00 DC Info (PHARMACY MONITORING -- do not chart) 1 each PRN DAILY PRN 11/29/18 10:00 UNV Lactobacillus Rhamnosus (Culturelle) 1 cap BID 11/24/18 21:00 11/29/18 08:29 1 CAP Lidocaine HCl (Lidocaine Pf 2% Vial) 5 ml STK-MED ONCE 11/28/18 11:09 11/28/18 11:10 DC Lidocaine HCl (Xylocaine-Mpf 1% 2ml Vial) 2 ml PRN 1X PRN 11/28/18 11:30 11/29/18 10:00 DC Lidocaine/ Epinephrine (LIDOCAINE 1%-EPI 1:100,000 Multi-Dose) 20 ml STK-MED ONCE 11/28/18 13:29 11/28/18 13:30 DC Lidocaine/Sodium Bicarbonate (Buffered Lidocaine 1%) 3 ml 1X ONCE 11/28/18 15:15 11/28/18 15:16 DC 11/28/18 15:15 10 ML Losartan Potassium (Cozaar) 100 mg DAILY 11/24/18 09:00 11/29/18 08:29 100 MG Magnesium Citrate (Citroma) 296 ml 1X ONCE 11/27/18 12:30 11/27/18 12:31 DC 11/27/18 12:30 296 ML Magnesium Sulfate 50 ml @ 25 mls/hr PRN DAILY PRN 11/24/18 11:45 Megestrol Acetate (Megace) 40 mg DAILY 11/24/18 09:00 11/29/18 08:27 40 MG Midazolam HCl (Versed) 2 mg STK-MED ONCE 11/28/18 14:52 11/28/18 14:53 DC Mirtazapine (Remeron) 30 mg QHS 11/23/18 23:00 11/28/18 20:54 30 MG Montelukast Sodium (Singulair) 10 mg QHS 11/23/18 23:00 11/28/18 20:55 10 MG Morphine Sulfate (Morphine Sulfate) 1 mg PRN Q10MIN PRN 11/28/18 11:30 11/29/18 09:59 DC Neostigmine Methylsulfate (Neostigmine Methylsulfate) 5 mg STK-MED ONCE 11/28/18 12:31 11/28/18 12:32 DC Ondansetron HCl (Zofran Odt) 4 mg PRN Q6HRS PRN 11/23/18 22:15 Ondansetron HCl (Zofran) 4 mg PRN Q6HRS PRN 11/28/18 11:30 11/29/18 09:59 DC Polyethylene Glycol (miraLAX PACKET) 17 gm 1X ONCE 11/27/18 12:30 11/27/18 12:31 DC 11/27/18 13:39 17 GM Potassium Bicarbonate (Potassium Effervescent Tablet) 40 meq PRN DAILY PRN 11/28/18 12:47 Potassium Chloride (KCl Oral Soln) 40 meq PRN DAILY PRN 11/26/18 16:00 11/28/18 12:47 DC 11/26/18 16:21 40 MEQ Potassium Chloride (Klor-Con) 40 meq PRN DAILY PRN 11/24/18 12:00 11/26/18 15:55 DC 11/25/18 09:53 40 MEQ Prednisone (Prednisone) 40 mg DAILY 11/27/18 09:00 11/29/18 08:29 40 MG Prochlorperazine Edisylate (Compazine) 5 mg PACU PRN PRN 11/28/18 11:30 11/29/18 10:00 DC Propofol 20 ml @ As Directed STK-MED ONCE 11/28/18 11:09 11/28/18 11:10 DC Ringer's Solution 1,000 ml @ 30 mls/hr Q24H 11/28/18 11:29 11/28/18 23:28 DC Sodium Chloride 1,000 ml @ 400 mls/hr Q2H30M PRN 11/29/18 10:00 11/29/18 19:00 Trazodone HCl (Desyrel) 50 mg QHS 11/23/18 23:00 11/24/18 20:28 DC Vancomycin HCl (Vanco Per Pharmacy) 1 each PRN DAILY PRN 11/23/18 19:30 11/26/18 10:15 DC 11/26/18 06:20 1 EACH Vancomycin HCl (Vancomycin Random Level) 1 each 1X ONCE 11/26/18 21:00 11/26/18 21:00 DC Vancomycin HCl 1.5 gm/Sodium Chloride 500 ml @ 250 mls/hr BID 11/23/18 21:00 UNV Vancomycin HCl 2 gm/Sodium Chloride 500 ml @ 250 mls/hr 1X ONCE 11/23/18 20:00 11/23/18 21:59 DC 11/23/18 20:40 250 MLS/HR Vitamin B Complex/ Vitamin C (Ana-Porter) 1 tab DAILY 11/24/18 09:00 11/29/18 08:26 1 TAB Labs: Lab Laboratory Tests Test 11/29/18 04:00 White Blood Count 8.6 x10^3/uL (4.0-11.0) Red Blood Count 3.16 x10^6/uL (4.30-5.70) Hemoglobin 9.4 g/dL (13.0-17.5) Hematocrit 30.2 % (39.0-53.0) Mean Corpuscular Volume 96 fL (79-100) Mean Corpuscular Hemoglobin 30 pg (25-35) Mean Corpuscular Hemoglobin Concent 31 g/dL (31-37) Red Cell Distribution Width 18.1 % (11.5-14.5) Platelet Count 209 x10^3/uL (140-400) Sodium Level 139 mmol/L (136-145) Potassium Level 5.0 mmol/L (3.5-5.1) Chloride Level 99 mmol/L (98-107) Carbon Dioxide Level 29 mmol/L (21-32) Anion Gap 11 (6-14) Blood Urea Nitrogen 36 mg/dL (8-26) Creatinine 7.9 mg/dL (0.7-1.3) Estimated GFR (Cockcroft-Gault) 8.0 Glucose Level 112 mg/dL (70-99) Calcium Level 8.5 mg/dL (8.5-10.1) Phosphorus Level 4.7 mg/dL (2.6-4.7) Albumin 2.5 g/dL (3.4-5.0) Objective: Assessment: 1. MSSA Peritoneal dialysis catheter associated peritonitis, cults from outside facility reviewed with nephrology team BC negative so far s/p PD removal 11/28 2. Abdominal pain.improving 3. End-stage renal disease. 4. Hypertension. 5. Atrial fibrillation. 6. End-stage renal disease. 7.Pulm infiltrates likely atelectasis Plan: Plan of Care cont cefazolin, renal dosing Follow cultures and lab in the a.m. Continue supportive care D/W TRAVON PEREZ MD November 29, 2018 11:27
--- NOTE | 2018-11-29 11:38 | PDOC ---
Renal-Progress Notes Subjective Notes Notes NOTHING NEW History of Present Illness Hx of present illness IMPROVING Vitals Vitals Vital Signs Date Time Temp Pulse Resp B/P (MAP) Pulse Ox O2 Delivery O2 Flow Rate FiO2 11/29/18 08:30 75 146/82 11/29/18 08:00 Room Air 11/29/18 07:22 97 11/29/18 07:00 98.1 16 98.1 11/28/18 15:18 2.0 Weight Weight [ ] I.O. Intake and Output Intake and Output 11/29/18 06:59 Intake Total 960 ml Output Total 110 ml Balance 850 ml Intake Oral 560 ml IV Total 400 ml Output Urine Total 100 ml Estimated Blood Loss 10 ml # Voids 1 Labs Labs Laboratory Tests Test 11/29/18 04:00 White Blood Count 8.6 x10^3/uL (4.0-11.0) Red Blood Count 3.16 x10^6/uL (4.30-5.70) Hemoglobin 9.4 g/dL (13.0-17.5) Hematocrit 30.2 % (39.0-53.0) Mean Corpuscular Volume 96 fL (79-100) Mean Corpuscular Hemoglobin 30 pg (25-35) Mean Corpuscular Hemoglobin Concent 31 g/dL (31-37) Red Cell Distribution Width 18.1 % (11.5-14.5) Platelet Count 209 x10^3/uL (140-400) Sodium Level 139 mmol/L (136-145) Potassium Level 5.0 mmol/L (3.5-5.1) Chloride Level 99 mmol/L (98-107) Carbon Dioxide Level 29 mmol/L (21-32) Anion Gap 11 (6-14) Blood Urea Nitrogen 36 mg/dL (8-26) Creatinine 7.9 mg/dL (0.7-1.3) Estimated GFR (Cockcroft-Gault) 8.0 Glucose Level 112 mg/dL (70-99) Calcium Level 8.5 mg/dL (8.5-10.1) Phosphorus Level 4.7 mg/dL (2.6-4.7) Albumin 2.5 g/dL (3.4-5.0) Micro Micro Microbiology 11/23/18 Blood Culture - Final, Complete NO GROWTH AFTER 5 DAYS 11/25/18 Anaerobic/Aerobic Culture, Resulted Pending 11/25/18 Anaerobic Culture Result 1 (SWATHI), Resulted Pending 11/25/18 Aerobic Culture - Final, Resulted 11/25/18 Aerobic Culture Result 1 (SWATHI) - Final, Resulted 11/25/18 Gram Stain - Final, Resulted 11/25/18 Gram Stain Result 1 (SWATHI) - Final, Resulted 11/25/18 Gram Stain Result 2 (SWATHI) - Final, Resulted Review of Systems Constitutional: yes: alert, oriented Ears/Nose/Throat: Yes: no symptom reported Eyes: Yes: no symptom reported Pulmonary: Yes no symptom reported Cardiovascular: Yes no symptom reported Gastrointestional: Yes: abdominal pain Genitourinary: Yes: no symptom reported Musculoskeletal: Yes: no symptom reported Skin: Yes no symptom reported Psychiatric/Neurological: Yes: no symptom reported Endocrine: Yes: no symptom reported Hematologic/Lymphatic: Yes: no symptom reported Physical Exam General Appearance: no apparent distress Skin: warm Respiratory: decreased breath sounds Heart: S1S2 Abdomen: soft, bowel sounds present Genitourinary: bladder flat Extremities: pulses present Neurology: alert Musculoskeletal: Osteoarthritis Assessment Assessment IMP STAPH A PERITONITIS ANEMIA MET ENCEPHALOPATHY ESRD AFIB HTN PLAN ANTIBIOTICS HD TODAY UF TO DW OP HD [facility] AT [id number] [facility] IN COUPLE MONTHS SW FOLLOWING ENRIQUETA YARBROUGH MD November 29, 2018 11:38
--- NOTE | 2018-11-29 13:26 | PDOC ---
PROGRESS NOTES Chief Complaint Chief Complaint 1. 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 Abdominal pain. Improved 3. End-stage renal disease. 4. Hypertension. 5. Atrial fibrillation. 6. End-stage renal disease. 7. AOCD 8. PVCs, indwelling pacer 9. NOn injury fall 11/25/18 10 Hypoxic respiratory failure-wheezy 11/26/18 11, GEn weakness - agreeable to SNU 12. COnstipation Plan: continue antibiotics awaiting for placement no acute events reported overnight History of Present Illness History of Present Illness Feels and looks good aside from constipation Patient tolerated temporary dialysis catheter insertion Creatinine 14, hemoglobin 11. ESR 58 So far no more PVCs-indwelling pacer-CPM per cardiology Lives alone at home, agreeable to SNU Plan: nothing by mouth post midnight for dialysis catheter insertion Rehabilitation or SNU on discharge Mag citrate now, another bowel regimen-please see orders Follow blood cultures-being treated for SBP/peritoneal dialysis fluid infection by ID Vitals Vitals Vital Signs Date Time Temp Pulse Resp B/P (MAP) Pulse Ox O2 Delivery O2 Flow Rate FiO2 11/29/18 08:30 75 146/82 11/29/18 08:00 Room Air 11/29/18 07:22 97 11/29/18 07:00 98.1 16 98.1 11/28/18 15:18 2.0 Physical Exam Physical Exam GENERAL: alert awake in nad, HEENT: no icterus NECK: Supple. No JVP LUNGS: Clear. HEART: S1 and S2 regular. ABDOMEN: PD removed, dressing intact dry EXTREMITIES: No edema or cyanosis. SKIN: Unremarkable. NEUROLOGICAL: alert awake in [facility] HDC cath looks ok General: Alert, Oriented X3, Cooperative, No acute distress Heart: Regular rate, Normal S1, Normal S2, No murmurs Lungs: Clear Abdomen: Soft, Other (lap sites c/d/i, no erythema, cath site small amount of drainage) Extremities: No clubbing, No cyanosis Skin: No rashes, No breakdown Labs LABS Laboratory Tests Test 11/29/18 04:00 White Blood Count 8.6 x10^3/uL (4.0-11.0) Red Blood Count 3.16 x10^6/uL (4.30-5.70) Hemoglobin 9.4 g/dL (13.0-17.5) Hematocrit 30.2 % (39.0-53.0) Mean Corpuscular Volume 96 fL (79-100) Mean Corpuscular Hemoglobin 30 pg (25-35) Mean Corpuscular Hemoglobin Concent 31 g/dL (31-37) Red Cell Distribution Width 18.1 % (11.5-14.5) Platelet Count 209 x10^3/uL (140-400) Sodium Level 139 mmol/L (136-145) Potassium Level 5.0 mmol/L (3.5-5.1) Chloride Level 99 mmol/L (98-107) Carbon Dioxide Level 29 mmol/L (21-32) Anion Gap 11 (6-14) Blood Urea Nitrogen 36 mg/dL (8-26) Creatinine 7.9 mg/dL (0.7-1.3) Estimated GFR (Cockcroft-Gault) 8.0 Glucose Level 112 mg/dL (70-99) Calcium Level 8.5 mg/dL (8.5-10.1) Phosphorus Level 4.7 mg/dL (2.6-4.7) Albumin 2.5 g/dL (3.4-5.0) Assessment and Plan Assessmemt and Plan Problems Medical Problems: (1) Bacterial infection associated with peritoneal dialysis catheter Status: Acute Comment Review of Relevant I have reviewed the following items russell (where applicable) has been applied. Labs Laboratory Tests Test 11/28/18 03:00 11/29/18 04:00 White Blood Count 8.8 x10^3/uL (4.0-11.0) 8.6 x10^3/uL (4.0-11.0) Red Blood Count 3.19 x10^6/uL (4.30-5.70) 3.16 x10^6/uL (4.30-5.70) Hemoglobin 9.4 g/dL (13.0-17.5) 9.4 g/dL (13.0-17.5) Hematocrit 30.0 % (39.0-53.0) 30.2 % (39.0-53.0) Mean Corpuscular Volume 94 fL (79-100) 96 fL (79-100) Mean Corpuscular Hemoglobin 30 pg (25-35) 30 pg (25-35) Mean Corpuscular Hemoglobin Concent 31 g/dL (31-37) 31 g/dL (31-37) Red Cell Distribution Width 18.0 % (11.5-14.5) 18.1 % (11.5-14.5) Platelet Count 193 x10^3/uL (140-400) 209 x10^3/uL (140-400) Sodium Level 137 mmol/L (136-145) 139 mmol/L (136-145) Potassium Level 4.3 mmol/L (3.5-5.1) 5.0 mmol/L (3.5-5.1) Chloride Level 97 mmol/L (98-107) 99 mmol/L (98-107) Carbon Dioxide Level 26 mmol/L (21-32) 29 mmol/L (21-32) Anion Gap 14 (6-14) 11 (6-14) Blood Urea Nitrogen 63 mg/dL (8-26) 36 mg/dL (8-26) Creatinine 11.9 mg/dL (0.7-1.3) 7.9 mg/dL (0.7-1.3) Estimated GFR (Cockcroft-Gault) 5.0 8.0 Glucose Level 133 mg/dL (70-99) 112 mg/dL (70-99) Calcium Level 9.3 mg/dL (8.5-10.1) 8.5 mg/dL (8.5-10.1) Phosphorus Level 6.0 mg/dL (2.6-4.7) 4.7 mg/dL (2.6-4.7) Albumin 2.7 g/dL (3.4-5.0) 2.5 g/dL (3.4-5.0) Laboratory Tests Test 11/29/18 04:00 White Blood Count 8.6 x10^3/uL (4.0-11.0) Red Blood Count 3.16 x10^6/uL (4.30-5.70) Hemoglobin 9.4 g/dL (13.0-17.5) Hematocrit 30.2 % (39.0-53.0) Mean Corpuscular Volume 96 fL (79-100) Mean Corpuscular Hemoglobin 30 pg (25-35) Mean Corpuscular Hemoglobin Concent 31 g/dL (31-37) Red Cell Distribution Width 18.1 % (11.5-14.5) Platelet Count 209 x10^3/uL (140-400) Sodium Level 139 mmol/L (136-145) Potassium Level 5.0 mmol/L (3.5-5.1) Chloride Level 99 mmol/L (98-107) Carbon Dioxide Level 29 mmol/L (21-32) Anion Gap 11 (6-14) Blood Urea Nitrogen 36 mg/dL (8-26) Creatinine 7.9 mg/dL (0.7-1.3) Estimated GFR (Cockcroft-Gault) 8.0 Glucose Level 112 mg/dL (70-99) Calcium Level 8.5 mg/dL (8.5-10.1) Phosphorus Level 4.7 mg/dL (2.6-4.7) Albumin 2.5 g/dL (3.4-5.0) Microbiology 11/23/18 Blood Culture - Final, Complete NO GROWTH AFTER 5 DAYS 11/25/18 Anaerobic/Aerobic Culture, Resulted Pending 11/25/18 Anaerobic Culture Result 1 (SWATHI), Resulted Pending 11/25/18 Aerobic Culture - Final, Resulted 11/25/18 Aerobic Culture Result 1 (SWATHI) - Final, Resulted 11/25/18 Gram Stain - Final, Resulted 11/25/18 Gram Stain Result 1 (SWATHI) - Final, Resulted 11/25/18 Gram Stain Result 2 (SWATHI) - Final, Resulted Medications Current Medications Ondansetron HCl (Zofran) 4 mg 1X ONCE IV Last administered on 11/23/18at 16:08; Start 11/23/18 at 15:30; Stop 11/23/18 at 15:31; Status DC Morphine Sulfate (Morphine Sulfate) 2 mg 1X ONCE IV Last administered on 11/23/18at 16:08; Start 11/23/18 at 15:30; Stop 11/23/18 at 15:31; Status DC Ondansetron HCl (Zofran) 4 mg PRN Q8HRS PRN IV NAUSEA/VOMITING; Start 11/23/18 at 19:00; Stop 11/24/18 at 09:05; Status DC Morphine Sulfate (Morphine Sulfate) 2 mg PRN Q2HR PRN IV PAIN; Start 11/23/18 at 19:00; Stop 11/24/18 at 18:59; Status DC Cefepime HCl (Maxipime) 1 gm BID IVP Last administered on 11/23/18 19:14; Start 11/23/18 at 19:30; Stop 11/23/18 at 19:30; Status DC Vancomycin HCl 1.5 gm/Sodium Chloride 500 ml @ 250 mls/hr BID IV ; Start 11/23/18 at 21:00; Status UNV Vancomycin HCl 2 gm/Sodium Chloride 500 ml @ 250 mls/hr 1X ONCE IV Last administered on 11/23/18at 20:40; Start 11/23/18 at 20:00; Stop 11/23/18 at 21 :59; Status DC Vancomycin HCl (Vanco Per Pharmacy) 1 each PRN DAILY PRN MC SEE COMMENTS Last administered on 11/26/18at 06:20; Start 11/23/18 at 19:30; Stop 11/26/18 at 10:15; Status DC Alprazolam (Xanax) 1 mg HS PO Last administered on 11/28/18 20:54; Start 11/23/18 at 23:00 Clopidogrel Bisulfate (Plavix) 75 mg DAILY PO Last administered on 11/27/18 08:29; Start 11/24/18 at 09:00; Stop 11/27/18 at 16:24; Status DC Allopurinol (Zyloprim) 150 mg DAILY PO Last administered on 11/29/18 08:27; Start 11/24/18 at 09:00 Atorvastatin Calcium (Lipitor) 20 mg QHS PO Last administered on 11/28/18 20:54; Start 11/23/18 at 23:00 Vitamin B Complex/ Vitamin C (Ana-Porter) 1 tab DAILY PO Last administered on 11/29/18 08:26; Start 11/24/18 at 09:00 Ondansetron HCl (Zofran Odt) 4 mg PRN Q6HRS PRN PO NAUSEA 1ST CHOICE; Start 11/23/18 at 22:15 Atenolol (Tenormin) 100 mg DAILY PO Last administered on 11/29/18 08:28; Start 11/24/18 at 09:00 Diltiazem HCl (Cardizem 24hr Cd) 180 mg DAILY PO Last administered on 11/29/18 08:28; Start 11/24/18 at 09:00 Doxazosin Mesylate (Cardura) 2 mg DAILY PO Last administered on 11/29/18 08:30; Start 11/24/18 at 09:00 Fluticasone Propionate (Flonase) 2 spray DAILY NS Last administered on 11/29/18 08:28; Start 11/24/18 at 09:00 Megestrol Acetate (Megace) 40 mg DAILY PO Last administered on 11/29/18 08:27; Start 11/24/18 at 09:00 Mirtazapine (Remeron) 30 mg QHS PO Last administered on 11/28/18 20:54; Start 11/23/18 at 23:00 Montelukast Sodium (Singulair) 10 mg QHS PO Last administered on 11/28/18 20:55; Start 11/23/18 at 23:00 Trazodone HCl (Desyrel) 50 mg QHS PO ; Start 11/23/18 at 23:00; Stop 11/24/18 at 20:28; Status DC Losartan Potassium (Cozaar) 100 mg DAILY PO Last administered on 11/29/18 08:29; Start 11/24/18 at 09:00 Vancomycin HCl (Vancomycin Random Level) 1 each 1X ONCE MC ; Start 11/25/18 at 21:00; Stop 11/25/18 at 21:01; Status DC Ondansetron HCl (Zofran) 4 mg PRN Q6HRS PRN IV NAUSEA/VOMITING; Start 11/24/18 at 09:15 Acetaminophen (Tylenol) 500 mg PRN Q6HRS PRN PO MILD PAIN / TEMP; Start 11/24/18 at 09:15 Potassium Chloride (Klor-Con) 20 meq 1X ONCE PO Last administered on 11/24/18at 13:27; Start 11/24/18 at 12:00; Stop 11/24/18 at 12:01; Status DC Magnesium Sulfate 50 ml @ 25 mls/hr PRN DAILY PRN IV for Mag < 1.7 on am labs; Start 11/24/18 at 11:45 Potassium Chloride (Klor-Con) 40 meq PRN DAILY PRN PO for K < 3.7 on am labs Last administered on 11/25/18 09:53; Start 11/24/18 at 12:00; Stop 11/26/18 at 15:55; Status DC Albumin Human 100 ml @ 100 mls/hr TID IV Last administered on 11/26/18 12:19; Start 11/24/18 at 13:00; Stop 11/26/18 at 09:59; Status DC Lactobacillus Rhamnosus (Culturelle) 1 cap BID PO Last administered on 11/29/18 08:29; Start 11/24/18 at 21:00 Morphine Sulfate (Morphine Sulfate) 2 mg PRN Q2HR PRN IV SEVERE PAIN Last administered on 11/28/18 23:00; Start 11/24/18 at 22:45 Cefepime HCl (Maxipime) 1 gm Q24H IVP Last administered on 11/25/18 15:52; Start 11/25/18 at 15:00; Stop 11/26/18 at 10:15; Status DC Vancomycin HCl (Vancomycin Random Level) 1 each 1X ONCE MC ; Start 11/26/18 at 21:00; Stop 11/26/18 at 21:00; Status DC Cefazolin Sodium 1 gm/Dextrose 50 ml @ 100 mls/hr DAILY IV ; Start 11/27/18 at 09:00; Status UNV Cefazolin Sodium (Ancef) 1 gm Q24H IVP Last administered on 11/27/18 11:40; Start 11/26/18 at 11:00 Prednisone (Prednisone) 60 mg 1X ONCE PO Last administered on 11/26/18 12:37; Start 11/26/18 at 12:30; Stop 11/26/18 at 12:31; Status DC Prednisone (Prednisone) 40 mg DAILY PO Last administered on 11/29/18at 08:29; Start 11/27/18 at 09:00 Albuterol/ Ipratropium (Duoneb) 3 ml RTQID NEB Last administered on 11/29/18 07:20; Start 11/26/18 at 12:30 Potassium Chloride (KCl Oral Soln) 40 meq PRN DAILY PRN PEG for K < 3.7 on am labs Last administered on 11/26/18 16:21; Start 11/26/18 at 16:00; Stop 11/28/18 at 12:47; Status DC Docusate Sodium (Colace) 100 mg BID PO Last administered on 11/29/18 08:30; Start 11/27/18 at 12:30 Polyethylene Glycol (miraLAX PACKET) 17 gm DAILY PO Last administered on 11/29/18at 08:30; Start 11/28/18 at 09:00 Polyethylene Glycol (miraLAX PACKET) 17 gm 1X ONCE PO Last administered on 11/27/18at 13:39; Start 11/27/18 at 12:30; Stop 11/27/18 at 12:31; Status DC Magnesium Citrate (Citroma) 296 ml 1X ONCE PO Last administered on 11/27/18at 12:30; Start 11/27/18 at 12:30; Stop 11/27/18 at 12:31; Status DC Propofol 20 ml @ As Directed STK-MED ONCE IV ; Start 11/28/18 at 11:09; Stop 11/28/18 at 11:10; Status DC Famotidine (Pepcid Vial) 20 mg STK-MED ONCE .ROUTE ; Start 11/28/18 at 11:09; Stop 11/28/18 at 11:10; Status DC Lidocaine HCl (Lidocaine Pf 2% Vial) 5 ml STK-MED ONCE .ROUTE ; Start 11/28/18 at 11:09; Stop 11/28/18 at 11:10; Status DC Ondansetron HCl (Zofran) 4 mg STK-MED ONCE .ROUTE ; Start 11/28/18 at 11:09; Stop 11/28/18 at 11:10; Status DC Bupivacaine HCl/ Epinephrine Bitart (Sensorcain-Mpf Epi 0.5%-1:[id number]) 30 ml STK-MED ONCE .ROUTE ; Start 11/28/18 at 10:10; Stop 11/28/18 at 11:10; Status DC Ondansetron HCl (Zofran) 4 mg PRN Q6HRS PRN IV NAUSEA/VOMITING; Start 11/28/18 at 11:30; Stop 11/29/18 at 09:59; Status DC Fentanyl Citrate (Fentanyl 2ml Vial) 25 mcg PRN Q5MIN PRN IV MILD PAIN 1-3; Start 11/28/18 at 11:30; Stop 11/29/18 at 09:59; Status DC Fentanyl Citrate (Fentanyl 2ml Vial) 50 mcg PRN Q5MIN PRN IV MODERATE TO SEVERE PAIN; Start 11/28/18 at 11:30; Stop 11/29/18 at 09:59; Status DC Morphine Sulfate (Morphine Sulfate) 1 mg PRN Q10MIN PRN IV SEVERE PAIN 7-10; Start 11/28/18 at 11:30; Stop 11/29/18 at 09:59; Status DC Ringer's Solution 1,000 ml @ 30 mls/hr Q24H IV ; Start 11/28/18 at 11:29; Stop 11/28/18 at 23:28; Status DC Lidocaine HCl (Xylocaine-Mpf 1% 2ml Vial) 2 ml PRN 1X PRN ID PRIOR TO IV START; Start 11/28/18 at 11:30; Stop 11/29/18 at 10:00; Status DC Hydromorphone HCl (Dilaudid) 0.5 mg PRN Q10MIN PRN IV SEV PAIN, Second choice; Start 11/28/18 at 11:30; Stop 11/29/18 at 10:00; Status DC Prochlorperazine Edisylate (Compazine) 5 mg PACU PRN PRN IV NAUSEA, MRX1; Start 11/28/18 at 11:30; Stop 11/29/18 at 10:00; Status DC Sodium Chloride 500 ml @ 0 mls/hr Q0M IV ; Start 11/28/18 at 11:30; Stop 11/29/18 at 09:59; Status DC Fentanyl Citrate (Fentanyl 2ml Vial) 100 mcg STK-MED ONCE .ROUTE ; Start 11/28/18 at 11:37; Stop 11/28/18 at 11:38; Status DC Dexamethasone Sodium Phosphate (Decadron) 4 mg STK-MED ONCE .ROUTE ; Start 11/28/18 at 11:56; Stop 11/28/18 at 11:57; Status DC Cefazolin Sodium (Ancef) 1 gm STK-MED ONCE .ROUTE ; Start 11/28/18 at 12:00; Stop 11/28/18 at 12:01; Status DC Cefazolin Sodium/ Dextrose 50 ml @ 100 mls/hr 1X ONCE IV ; Start 11/28/18 at 12:15; Stop 11/28/18 at 12:44; Status DC Neostigmine Methylsulfate (Neostigmine Methylsulfate) 5 mg STK-MED ONCE .ROUTE ; Start 11/28/18 at 12:31; Stop 11/28/18 at 12:32; Status DC Glycopyrrolate (Robinul) 1 mg STK-MED ONCE .ROUTE ; Start 11/28/18 at 12:31; Stop 11/28/18 at 12:32; Status DC Desflurane (Suprane) 30 ml STK-MED ONCE IH ; Start 11/28/18 at 12:33; Stop 11/28/18 at 12:34; Status DC Potassium Bicarbonate (Potassium Effervescent Tablet) 40 meq PRN DAILY PRN PEG for K < 3.7 on am labs; Start 11/28/18 at 12:47 Lidocaine/ Epinephrine (LIDOCAINE 1%-EPI 1:100,000 Multi-Dose) 20 ml STK-MED ONCE .ROUTE ; Start 11/28/18 at 13:29; Stop 11/28/18 at 13:30; Status DC Heparin Sodium (Porcine) (Hep Lock Adult) 500 unit STK-MED ONCE IV ; Start 11/28/18 at 13:29; Stop 11/28/18 at 13:30; Status DC Heparin Sodium (Porcine) (Heparin Sodium) 10,000 unit STK-MED ONCE .ROUTE ; Start 11/28/18 at 13:30; Stop 11/28/18 at 13:31; Status DC Midazolam HCl (Versed) 2 mg 1X ONCE IV ; Start 11/28/18 at 15:00; Stop 11/28/18 at 15:01; Status DC Fentanyl Citrate (Fentanyl 2ml Vial) 100 mcg 1X ONCE IV ; Start 11/28/18 at 15:00; Stop 11/28/18 at 15:01; Status DC Cefazolin Sodium/ Dextrose 50 ml @ 100 mls/hr 1X ONCE IV Last administered on 11/28/18at 15:00; Start 11/28/18 at 15:00; Stop 11/28/18 at 15:29; Status DC Midazolam HCl (Versed) 2 mg STK-MED ONCE .ROUTE ; Start 11/28/18 at 14:52; Stop 11/28/18 at 14:53; Status DC Sodium Chloride 1,000 ml @ 1,000 mls/hr Q1H PRN IV hypotension; Start 11/28/18 at 14:50; Stop 11/28/18 at 20:49; Status DC Diphenhydramine HCl (Benadryl) 25 mg 1X PRN PRN IV ITCHING; Start 11/28/18 at 15:00; Stop 11/29/18 at 09:57; Status DC Diphenhydramine HCl (Benadryl) 25 mg 1X PRN PRN IV ITCHING; Start 11/28/18 at 15:00; Stop 11/29/18 at 09:58; Status DC Sodium Chloride 1,000 ml @ 400 mls/hr Q2H30M PRN IV PATENCY; Start 11/28/18 at 14:50; Stop 11/29/18 at 02:49; Status DC Info (PHARMACY MONITORING -- do not chart) 1 each PRN DAILY PRN MC SEE COMMENTS; Start 11/28/18 at 15:00 Lidocaine/Sodium Bicarbonate (Buffered Lidocaine 1%) 3 ml 1X ONCE IJ Last administered on 11/28/18at 15:15; Start 11/28/18 at 15:15; Stop 11/28/18 at 15:16; Status DC Heparin Sodium (Porcine) (Heparin Sodium) 2,600 unit 1X ONCE INT CAT ; Start 11/28/18 at 15:30; Stop 11/28/18 at 15:31; Status DC Acetaminophen/ Hydrocodone Bitart (Lortab 5/325) 1 tab PRN Q4HRS PRN PO PAIN Last administered on 11/29/18at 08:27; Start 11/28/18 at 16:00 Sodium Chloride 1,000 ml @ 1,000 mls/hr Q1H PRN IV hypotension; Start 11/29/18 at 10:00; Stop 11/29/18 at 19:00 Diphenhydramine HCl (Benadryl) 25 mg 1X PRN PRN IV ITCHING; Start 11/29/18 at 10:00; Stop 11/29/18 at 19:00 Diphenhydramine HCl (Benadryl) 25 mg 1X PRN PRN IV ITCHING; Start 11/29/18 at 10:00; Stop 11/29/18 at 19:00 Sodium Chloride 1,000 ml @ 400 mls/hr Q2H30M PRN IV PATENCY; Start 11/29/18 at 10:00; Stop 11/29/18 at 19:00 Info (PHARMACY MONITORING -- do not chart) 1 each PRN DAILY PRN MC SEE COMMENTS; Start 11/29/18 at 10:00; Status UNV Active Scripts Active Atorvastatin Calcium 20 Mg Tablet 20 Mg PO QHS MDD 1 Zofran Odt (Ondansetron) 4 Mg Tab.rapdis 1 Tab SL Q6HRS PRN Reported Doxazosin Mesylate 2 Mg Tablet 2 Mg PO DAILY Clopidogrel (Clopidogrel Bisulfate) 75 Mg Tablet 1 Tab PO DAILY Flonase Allergy Relief (Fluticasone Propionate) 9.9 Ml [place].susp 2 Sprays NS DAILY Montelukast Sodium Tablet (Montelukast Sodium) 10 Mg Tablet 1 Tab PO DAILY Mirtazapine 30 Mg Tablet 1 Tab PO QHS Atenolol 100 Mg Tablet 1 Tab PO DAILY Nephro-Porter Tablet (Folic Acid/Vitamin B Comp W-C) 0.8 Mg Tablet 1 Tab PO DAILY Diltiazem 24HR Cd (Diltiazem Hcl) 180 Mg Cap.er.24h 1 Cap PO DAILY Xanax (Alprazolam) 1 Mg Tablet 0.5 Tab PO HS Diovan (Valsartan) 320 Mg Tablet 320 Mg PO DAILY Megestrol Acetate 40 Mg Tablet 40 Mg PO DAILY Allopurinol 100 Mg Tablet 150 Mg PO DAILY Vitals/I & O Vital Sign - Last 24 Hours 11/28/18 11/28/18 11/28/18 11/28/18 13:40 14:44 15:18 15:45 Temp 97.1 98.4 97.1 98.4 Pulse 66 67 Resp 11 12 14 B/P (MAP) 137/75 112/79 (90) Pulse Ox 99 100 95 O2 Delivery Room Air Room Air Room Air O2 Flow Rate 2.0 11/28/18 11/28/18 11/28/18 11/28/18 18:15 19:59 20:40 20:54 Temp 97.9 97.9 Pulse 78 Resp 18 B/P (MAP) 155/91 (112) Pulse Ox 95 O2 Delivery Room Air Room Air Room Air Room Air 11/28/18 11/28/18 11/28/18 11/28/18 21:54 22:57 23:00 23:30 Temp 97.7 97.7 Pulse 72 Resp 18 B/P (MAP) 157/87 (110) Pulse Ox 96 O2 Delivery Room Air Room Air Room Air Room Air 5/31/19 5/31/19 5/31/19 5/31/19 03:31 07:00 07:22 08:00 Temp 98.2 98.1 98.2 98.1 Pulse 68 75 Resp 18 16 B/P (MAP) 138/77 (97) 146/82 (103) Pulse Ox 98 97 97 O2 Delivery Room Air Room Air Room Air Room Air 11/29/18 11/29/18 11/29/18 11/29/18 08:28 08:28 08:29 08:30 Pulse 75 75 75 75 B/P (MAP) 146/82 146/82 146/82 146/82 Intake and Output 11/28/18 11/28/18 11/29/18 15:00 23:00 07:00 Intake Total 400 ml 200 ml 360 ml Output Total 110 ml Balance 290 ml 200 ml 360 ml CAIO MÉNDEZ MD November 29, 2018 13:26
--- NOTE | 2018-11-29 14:33 | NUR ---
PAM following. SW met with pt's family, they would like referral sent to [facility]. PAM contacted Nancy at [facility] again with no response. PAM phoned Sarina with [facility], who advised SW contact [facility] to determine if they could accept pt. [facility] put Dr. Roa on the phone who advised SW a chair time has already been set up at [facility] for MWF [id number]. PAM confirmed with [facility], and faxed over referral (ph: [phone], fax: [phone]). PAM phoned and faxed SNU referral to [facility], they can take pt today if they are able to accept. PAM will continue to follow. RN notified.
[2018-11-29] MEDS: ceFAZolin SODIUM IV Push 1 GM VIAL. IVP SCH (14:35)
[2018-11-29 15:00] VITALS: BP 143/77
--- NOTE | 2018-11-29 15:57 | NUR ---
SW following. Pt has been accepted at [facility]. RN advised discharge tomorrow (11/30/18). [facility] in agreement, discharge paperwork and scripts to be faxed prior to discharge. Pt family aware.
[2018-11-29] MEDS ORDERED: MAGNESIUM CITRATE 296 ML SOLUTION. PO ONE (17:30)
[2018-11-29 19:00] VITALS: BP 149/72
[2018-11-29] MEDS: MIRTAZAPINE 15 MG TABLET PO SCH (21:41)
[2018-11-29] MEDS: ATORVASTATIN CALCIUM 20 MG TABLET PO SCH (21:42)
[2018-11-29] MEDS: ALPRAZolam 1 MG TABLET PO SCH (21:42)
[2018-11-29] MEDS: MONTELUKAST SODIUM 10 MG TABLET. PO SCH (21:42)
[2018-11-29] MEDS: MORPHINE SULFATE 2 MG/ML VIAL. IV PRN (22:53)
[2018-11-29 23:00] VITALS: BP 134/76
[2018-11-30 03:00] VITALS: BP 144/77
[2018-11-30 05:47] LABS: ALBUMIN 2.5 g/dL (3.4-5.0); CALCIUM 8.4 mg/dL (8.5-10.1); CREATININE 5.7 mg/dL (0.7-1.3); GFR 11.7; PHOSPHORUS 4.1 mg/dL (2.6-4.7); POTASSIUM 4.3 mmol/L (3.5-5.1)
[2018-11-30] MEDS: HYDROcodone/APAP 5/325MG 1 TAB TABLET PO PRN (06:16)
[2018-11-30 07:00] VITALS: BP 140/80
[2018-11-30] MEDS: IPRATRPIUM/ALBUTEROL 0.5/2.5MG 3 ML NEBU. NEB SCH ×2 (07:35→10:36)
[2018-11-30] MEDS: POLYETHYLENE GLYCOL 3350 17 GM PACKET. PO SCH (07:55)
[2018-11-30] MEDS: MEGESTROL 20 MG TABLET. PO SCH (07:56)
[2018-11-30] MEDS: LOSARTAN POTASSIUM 50 MG TABLET. PO SCH (07:57)
[2018-11-30] MEDS: DOCUSATE SODIUM 100 MG CAPSULE. PO SCH (07:58)
[2018-11-30] MEDS: DOXAZOSIN MESYLATE 4 MG TABLET. PO SCH (07:58)
[2018-11-30] MEDS: LACTOBACILLUS RHAMNOSUS GG 1 CAPSULE. PO SCH (07:59)
[2018-11-30] MEDS: ATENOLOL 50 MG TABLET. PO SCH (08:00)
[2018-11-30] MEDS: FOLIC/VIT B COMP W-C (RENAL) TABLET. PO SCH (08:00)
[2018-11-30] MEDS: predniSONE 20 MG TABLET PO SCH (08:01)
[2018-11-30] MEDS: ALLOPURINOL 100 MG TABLET. PO SCH (08:01)
[2018-11-30] MEDS: FLUTICASONE 50MCG/NASAL SPRAY 16GM BOTTLE. NS SCH (08:02)
[2018-11-30] MEDS ORDERED: CEFAZOLIN SODIUM IVP (10:05)
--- NOTE | 2018-11-30 10:07 | SNU/HH DC ---
DISCHARGE ORDERS DISCHARGE INFORMATION: DISCHARGE DATE: Nov 30, 2018 FINAL DIAGNOSIS Problems Medical Problems: (1) Bacterial infection associated with peritoneal dialysis catheter Status: Acute CONDITION ON DISCHARGE: Stable CODE STATUS: Code Status: Full LONG-TERM: SNF STAY <30 DAYS: Yes POST DISCHARGE ORDERS: ACTIVITY ORDERS: Activity as tolerated WEIGHT BEARING STATUS: As tolerated WOUND/INCISION CARE: Routine catheter care CHECKS AFTER DISCHARGE: CHECKS AFTER DISCHARGE: Check blood press - daily, Weigh Yourself Daily TREATMENT/EQUIPMENT ORDERS: ADAPTIVE EQUIPMENT NEEDED: None DISCHARGE MEDICATIONS: Home Meds Active Scripts [ceFAZolin SODIUM IV Push] 1GM VIAL No Conflict Check, 2 GM IVP Q48H, EACH Prov:CAIO MÉNDEZ MD 11/30/18 Atorvastatin Calcium (ATORVASTATIN CALCIUM) 20 Mg Tablet, 20 MG PO QHS for l;ipids MDD 1, #30 TAB Prov:REUBEN BLAS MD 09/21/18 Ondansetron (ZOFRAN ODT) 4 Mg Tab.rapdis, 1 TAB SL Q6HRS PRN for NAUSEA, #12 TAB Prov:AMISHA HIGUERA MD 03/25/17 Reported Medications Doxazosin Mesylate (DOXAZOSIN MESYLATE) 2 Mg Tablet, 2 MG PO DAILY for Urinary retention, TAB 11/23/18 Clopidogrel Bisulfate (CLOPIDOGREL) 75 Mg Tablet, 1 TAB PO DAILY for HTN, #90 TAB 1 Refill 11/23/18 Fluticasone Propionate (Flonase Allergy Relief) 9.9 Ml [place].susp, 2 SPRAYS NS DAILY for allergy, BOTTLE 11/23/18 Montelukast Sodium (MONTELUKAST SODIUM TABLET) 10 Mg Tablet, 1 TAB PO DAILY for asthma, #30 TAB 5 Refills 11/23/18 Mirtazapine (MIRTAZAPINE) 30 Mg Tablet, 1 TAB PO QHS for Sleeping aid, #30 TAB 1 Refill 11/23/18 Atenolol (ATENOLOL) 100 Mg Tablet, 1 TAB PO DAILY for Hypertension, #30 TAB 5 Refills 11/23/18 Folic Acid/Vitamin B Comp W-C (NEPHRO-SYLVIA TABLET) 0.8 Mg Tablet, 1 TAB PO DAILY for Vitamins, #90 TAB 3 Refills 11/23/18 Diltiazem Hcl (DILTIAZEM 24HR CD) 180 Mg Cap.er.24h, 1 CAP PO DAILY for Hypertension, #30 CAP 5 Refills 11/23/18 Alprazolam (XANAX) 1 Mg Tablet, 0.5 TAB PO HS for Anxiety, #60 TAB 11/23/18 Valsartan (DIOVAN) 320 Mg Tablet, 320 MG PO DAILY, TAB 02/19/17 Megestrol Acetate (MEGESTROL ACETATE) 40 Mg Tablet, 40 MG PO DAILY, TAB 02/19/17 Allopurinol (ALLOPURINOL) 100 Mg Tablet, 150 MG PO DAILY, TAB 02/02/17 Discontinued Reported Medications Trazodone Hcl (TRAZODONE HCL) 50 Mg Tablet, 50 MG PO HS for insomnia, TAB 11/23/18 Zinc Amino Acid Chelate (ZINC) 50 Mg Tablet, 50 MG PO DAILY, TAB 02/19/17 Folic Acid (FOLIC ACID) 1 Mg Tablet, 1 MG PO DAILY, TAB 02/19/17 Sevelamer Carbonate (RENVELA) 800 Mg Tablet, 800 MG PO TIDWMEALS, TAB 02/02/17 Furosemide (FUROSEMIDE) 80 Mg Tablet, 1 TAB PO DAILY, #30 TAB 5 Refills 02/02/17 Diltiazem Hcl (DILTIAZEM XT) 240 Mg Capsule.er, 120 MG PO DAILY for FOR HYPERTENSION, #30 CAP 0 Refills 02/02/17 Lorazepam (LORAZEPAM) 0.5 Mg Tablet, 0.5 MG PO PRN Q8HRS PRN for ANXIETY 11/04/13 CAIO MÉNDEZ MD Nov 30, 2018 10:07
[2018-11-30 11:00] VITALS: BP 133/72
[2018-11-30] MEDS ORDERED: ceFAZolin SODIUM IV Push 1 GM VIAL. IVP SCH (11:00)
--- NOTE | 2018-11-30 12:01 | PDOC3 ---
Discharge Summary Visit Information Date of Admission: November 24, 2018 Date of Discharge: Nov 30, 2018 Admitting Diagnosis: Peritonitis Final Diagnosis Problems Medical Problems: (1) Bacterial infection associated with peritoneal dialysis catheter End-stage renal disease on hemodialysis now MSSA PD catheter infection Hypertension. Atrial fibrillation. End-stage renal disease. OCD indwelling pacer Hypoxic respiratory failure-wheezy 11/26/18 GEn weakness - agreeable to [facility] COnstipation Brief Hospital Course Allergies Allergies Coded Allergies Type Severity Reaction Last Updated Verified No Known Drug Allergies 09/17/18 No Vital Signs Vital Signs Date Time Temp Pulse Resp B/P (MAP) Pulse Ox O2 Delivery O2 Flow Rate FiO2 11/30/18 10:38 Room Air 11/30/18 08:00 70 140/80 11/30/18 07:35 98 11/30/18 07:00 98.5 18 98.5 Lab Results Laboratory Tests Test 11/29/18 04:00 11/30/18 04:40 White Blood Count 8.6 x10^3/uL (4.0-11.0) Red Blood Count 3.16 x10^6/uL (4.30-5.70) Hemoglobin 9.4 g/dL (13.0-17.5) Hematocrit 30.2 % (39.0-53.0) Mean Corpuscular Volume 96 fL (79-100) Mean Corpuscular Hemoglobin 30 pg (25-35) Mean Corpuscular Hemoglobin Concent 31 g/dL (31-37) Red Cell Distribution Width 18.1 % (11.5-14.5) Platelet Count 209 x10^3/uL (140-400) Sodium Level 139 mmol/L (136-145) 137 mmol/L (136-145) Potassium Level 5.0 mmol/L (3.5-5.1) 4.3 mmol/L (3.5-5.1) Chloride Level 99 mmol/L (98-107) 99 mmol/L (98-107) Carbon Dioxide Level 29 mmol/L (21-32) 29 mmol/L (21-32) Anion Gap 11 (6-14) 9 (6-14) Blood Urea Nitrogen 36 mg/dL (8-26) 26 mg/dL (8-26) Creatinine 7.9 mg/dL (0.7-1.3) 5.7 mg/dL (0.7-1.3) Estimated GFR (Cockcroft-Gault) 8.0 11.7 Glucose Level 112 mg/dL (70-99) 132 mg/dL (70-99) Calcium Level 8.5 mg/dL (8.5-10.1) 8.4 mg/dL (8.5-10.1) Phosphorus Level 4.7 mg/dL (2.6-4.7) 4.1 mg/dL (2.6-4.7) Albumin 2.5 g/dL (3.4-5.0) 2.5 g/dL (3.4-5.0) Laboratory Tests Test 11/30/18 04:40 Sodium Level 137 mmol/L (136-145) Potassium Level 4.3 mmol/L (3.5-5.1) Chloride Level 99 mmol/L (98-107) Carbon Dioxide Level 29 mmol/L (21-32) Anion Gap 9 (6-14) Blood Urea Nitrogen 26 mg/dL (8-26) Creatinine 5.7 mg/dL (0.7-1.3) Estimated GFR (Cockcroft-Gault) 11.7 Glucose Level 132 mg/dL (70-99) Calcium Level 8.4 mg/dL (8.5-10.1) Phosphorus Level 4.1 mg/dL (2.6-4.7) Albumin 2.5 g/dL (3.4-5.0) Brief Hospital Course 77-year-old -[place] male admitted last night, abdominal elen x few days. At one point, claims PD dialysate was cloudy. Admitted with consults to ID and renal. He does PD by himself. ID has started vancomycin. Nontoxic appearing, no problems ambulating, WBC 10 with no white count. BMP remarkable for creatinine 12 ESRD numbers, mild hyponatremia 132 mild hypokalemia 3.3. RN tells me now frequent PVCs also through the night, indwelling pacer as I have reviewed on chest x-ray. Some right lower lobe atelectasis versus infiltrate on chest x-ray. CT abdomen and pelvis actually read as unremarkable Patient was started on broad-spectrum antibiotics and seen in consultation by infectious disease. Patient underwent removal of his peritoneal dialysis catheter and he had a tunnel catheter also placed as part of his plan of care. Patient tolerated this procedure well and he will need transitioning to a [facility] facility in order to continue with treatment with his infection. He will have Ancef 2 g on Mondays and Wednesdays. Sunday he will receive 3 g during dialysis treatment. Patient will hold fluid transition later on to peritoneal dialysis again once his infection is treated. NSAIDs and symptoms of alarm were discussed with the patient prior to dismissal he is in good spirits to be discharged at the present time Lungs clear to auscultation bilaterally good inspiratory effort Cardia vascular S1-S2 regular rhythm with a faint systolic murmur no radiation to the carotids Greater than 35 minutes were spent in the discharge from the patient counseling coronation of care and arrangements for safe discharge Discharge Information Condition at Discharge: Improved Follow Up: Weeks Disposition/Orders: D/C to Home, D/C to Another Facility Scheduled Allopurinol (Allopurinol) 100 Mg Tablet, 150 MG PO DAILY, (Reported) Entered as Reported by: DYLAN ESCALANTE on 02/02/17 0115 Last Action: Continued on 11/23/182228 by Annie Hua RN Alprazolam (Xanax) 1 Mg Tablet, 0.5 TAB PO HS for Anxiety, #60 (Reported) Entered as Reported by: Annie Hua RN on 11/23/182106 Last Action: Continued on 11/23/182228 by Annie Hua RN Atenolol (Atenolol) 100 Mg Tablet, 1 TAB PO DAILY for Hypertension, #30 Ref 5 (Reported) Entered as Reported by: Annie Hua RN on 11/23/182137 Last Action: Converted on 11/23/182228 by Annie Hua RN Atorvastatin Calcium (Atorvastatin Calcium) 20 Mg Tablet, 20 MG PO QHS for l;ipids MDD 1, #30 Prescribed by: REUBEN BLAS on 09/21/18 1046 Last Action: Continued on 11/23/182228 by Annie Hua RN Clopidogrel Bisulfate (Clopidogrel) 75 Mg Tablet, 1 TAB PO DAILY for HTN, #90 Ref 1 (Reported) Entered as Reported by: Annie Hua RN on 11/23/182137 Last Action: Continued on 11/23/182228 by Annie Hua RN Diltiazem Hcl (Diltiazem 24HR Cd) 180 Mg Cap.er.24h, 1 CAP PO DAILY for Hy pertension, #30 Ref 5 (Reported) Entered as Reported by: Annie Hua RN on 11/23/182129 Last Action: Converted on 11/23/182228 by Annie Hua RN Doxazosin Mesylate (Doxazosin Mesylate) 2 Mg Tablet, 2 MG PO DAILY for Urinary retention, (Reported) Entered as Reported by: Annie Hua RN on 11/23/182137 Last Action: Converted on 11/23/182228 by Annie Hua RN Fluticasone Propionate (Flonase Allergy Relief) 9.9 Ml Stevenson.susp, 2 SPRAYS NS DAILY for allergy, (Reported) Entered as Reported by: Annie Hua RN on 11/23/182137 Last Action: Converted on 11/23/182228 by Annie Hua RN Folic Acid/Vitamin B Comp W-C (Nephro-Porter Tablet) 0.8 Mg Tablet, 1 TAB PO DAILY for Vitamins, #90 Ref 3 (Reported) Entered as Reported by: Annie Hua RN on 11/23/182129 Last Action: Continued on 11/23/182228 by Annie Hua RN Megestrol Acetate (Megestrol Acetate) 40 Mg Tablet, 40 MG PO DAILY, (Reported) Entered as Reported by: RAUL PATRICK on 02/19/17 1411 Last Action: Converted on 11/23/182228 by Annie Hua RN Mirtazapine (Mirtazapine) 30 Mg Tablet, 1 TAB PO QHS for Sleeping aid, #30 Ref 1 (Reported) Entered as Reported by: Annie Hua RN on 11/23/182137 Last Action: Converted on 11/23/182228 by Annie Hua RN Montelukast Sodium (Montelukast Sodium Tablet) 10 Mg Tablet, 1 TAB PO DAILY for asthma, #30 Ref 5 (Reported) Entered as Reported by: Annie Hua RN on 11/23/182137 Last Action: Converted on 11/23/182228 by Annie Hua RN Valsartan (Diovan) 320 Mg Tablet, 320 MG PO DAILY, (Reported) Entered as Reported by: RAUL PATRICK on 02/19/17 141 Last Action: Converted on 11/23/182228 by Annie Hua RN [Cefazolin Sodium] 1GM VIAL, 2 GM IVP Q48H Prescribed by: CAIO MÉNDEZ MD on 11/30/18 1005 Scheduled PRN Ondansetron (Zofran Odt) 4 Mg Tab.rapdis, 1 TAB SL Q6HRS PRN for NAUSEA, #12 Prescribed by: AMISHA HIGUERA MD on 03/25/172237 Last Action: Continued on 11/23/182228 by Annie Hua RN Discontinued Medications Diltiazem Hcl (Diltiazem Xt) 240 Mg Capsule.er, 120 MG PO DAILY for FOR HYPERTENSION, #30 Ref 0 (Reported) Entered as Reported by: DYLAN ESCALANTE on 02/02/17114 Last Action: Discontinued on 11/23/182129 by Annie Hua RN Folic Acid (Folic Acid) 1 Mg Tablet, 1 MG PO DAILY, (Reported) Entered as Reported by: RAUL PATRICK on 02/19/17 141 Last Action: Discontinued on 11/23/182137 by Annie Hua RN Furosemide (Furosemide) 80 Mg Tablet, 1 TAB PO DAILY, #30 Ref 5 (Reported) Entered as Reported by: DYLAN ESCALANTE on 02/02/17114 Last Action: Discontinued on 11/23/182137 by Annie Hua RN Lorazepam (Lorazepam) 0.5 Mg Tablet, 0.5 MG PO PRN Q8HRS PRN for ANXIETY, (Reported) Entered as Reported by: Dariana Valera on 11/04/132139 Last Action: Discontinued on 11/23/182129 by Annie Hua RN Sevelamer Carbonate (Renvela) 800 Mg Tablet, 800 MG PO TIDWMEALS, (Reported) Entered as Reported by: DYLAN ESCALANTE on 02/02/17 0115 Last Action: Discontinued on 11/23/182137 by Annie Hua RN Trazodone Hcl (Trazodone Hcl) 50 Mg Tablet, 50 MG PO HS for insomnia, (Reported) Entered as Reported by: Annie Hua RN on 11/23/182137 Last Action: Discontinued on 11/24/18 0632 by Annie Hua RN Zinc Amino Acid Chelate (Zinc) 50 Mg Tablet, 50 MG PO DAILY, (Reported) Entered as Reported by: RAUL PATRICK on 02/19/17 1411 Last Action: Discontinued on 11/23/182137 by KANDY Coleman HECTOR M MD Nov 30, 2018 12:01
--- NOTE | 2018-11-30 13:44 | NUR ---
This nurse went over discharge instructions with patient, and called report to HCR at [phone], to KANDY Kuo. This nurse will continue to monitor.
--- NOTE | 2018-11-30 14:20 | NUR ---
Patient was escorted out by transportation, all belongings collected and returned to patient.
== END 2018-11-30 14:25 | DRG 919 ==
LOC: ER 14:43 → 6 SOUTH 18:56 → 4 NORTH 11-27 16:50
PROVIDERS: ADMIT Internal Medicine; ATTEND Internal Medicine
PROC: 02H633Z Insertion of Infusion Device into Right Atrium, Percutaneous Approach (ICD-10-PCS; 2018-11-28)
PROC: B244ZZZ Ultrasonography of Right Heart (ICD-10-PCS; 2018-11-28)
PROC: 0WPGX3Z Removal of Infusion Device from Peritoneal Cavity, External Approach (ICD-10-PCS; 2018-11-28)
PROC: 5A1D70Z Performance of Urinary Filtration, Intermittent, Less than 6 Hours Per Day (ICD-10-PCS; 2018-11-28)
PROC: 0JH63XZ Insertion of Tunneled Vascular Access Device into Chest Subcutaneous Tissue and Fascia, Percutaneous Approach (ICD-10-PCS; principal; 2018-11-28 11:30)
PROC: 5A1D70Z Performance of Urinary Filtration, Intermittent, Less than 6 Hours Per Day (ICD-10-PCS; 2018-11-29)
DX: T85.71XA Infection and inflammatory reaction due to peritoneal dialysis catheter, initial encounter (principal); N18.6 End stage renal disease; G93.41 Metabolic encephalopathy; J96.01 Acute respiratory failure with hypoxia; K65.9 Peritonitis, unspecified; I12.0 Hypertensive chronic kidney disease with stage 5 chronic kidney disease or end stage renal disease; E87.1 Hypo-osmolality and hyponatremia; J98.11 Atelectasis; F41.9 Anxiety disorder, unspecified; M19.90 Unspecified osteoarthritis, unspecified site; M10.9 Gout, unspecified; K21.9 Gastro-esophageal reflux disease without esophagitis; Z99.2 Dependence on renal dialysis; Y83.8 Other surgical procedures as the cause of abnormal reaction of the patient, or of later complication, without mention of misadventure at the time of the procedure; Y92.89 Other specified places as the place of occurrence of the external cause; E87.6 Hypokalemia; I48.91 Unspecified atrial fibrillation; J44.9 Chronic obstructive pulmonary disease, unspecified; Z86.711 Personal history of pulmonary embolism; Z85.46 Personal history of malignant neoplasm of prostate; Z82.49 Family history of ischemic heart disease and other diseases of the circulatory system; I49.3 Ventricular premature depolarization; D63.1 Anemia in chronic kidney disease; Z84.1 Family history of disorders of kidney and ureter; I49.5 Sick sinus syndrome; F42.9 Obsessive-compulsive disorder, unspecified; K59.00 Constipation, unspecified; A49.01 Methicillin susceptible Staphylococcus aureus infection, unspecified site
CPT/HCPCS: 36415; 36558; 71045; 71046; 74176; 76937; 77001; 80048; 80053; 80069; 80202; 81001; 82962; 83605; 83735; 84443; 85007; 85025; 85027; 85610; 85651; 85730; 86704; 86706; 87040; 87071; 87075; 87116; 87340; 89050; 93005; 94640; 94760; 96374; 96375; A7015; C1750; C1769; C1892; J0690; J0692; J0696; J1100; J2001; J2270; J2405; J2704; J2710; J3010; J3370; J3490; J7040; J7512; J7620; P9046; 92526; 92610; 97116; 97530; 97535; 99285-25